=== PATIENT | male | born 1925 | race Caucasian/White ===

== ENCOUNTER → 2016-06-07 | Outpatient (CLI) | payer MEDICARE, OTHER ==
[~2016-06-07] MED LIST: ATOR1TAB18 PO; COUM2.5T PO; CYCL1TAB29 PO; CYCL5TAB PO; FERR325T PO; FURO40TA PO; GUAI100S7 PO; HYDR-3533 PO; IPRASOL INH; LEUP1INJ10 SQ; LISI10TA PO; METO50TA PO; MULTTAB23 PO; NORC5TAB PO; POTA10TA8 PO; PRED20 PO; TEMA30CA PO; [UNRECOGNIZED DRUG - CODE] PO; [UNRECOGNIZED DRUG - CODE] TOPICAL
[2016-06-07 09:35] LABS: AUTOMATED NEUTROPHIL # 2.2 TH/MM3 (1.8-7.7); BASOPHIL % 0.9 % (0.0-2.0); EOSINOPHIL # 0.5 TH/MM3 (0-0.4); HEMO FLAGS DIFF FINAL; LYMPH % 34.3 % (9.0-44.0); LYMPHOCYTE # 1.8 TH/MM3 (1.0-4.8); MEAN CELL VOLUME 91.7 FL (80.0-100.0); MEAN CORPUSCULAR HEMOGLOBIN 29.5 PG (27.0-34.0); MEAN CORPUSCULAR HGB CONC 32.1 % (32.0-36.0); MONO % 12.4 % (0.0-8.0); NEUT % 42.4 % (16.0-70.0); PLATELET COUNT 180 TH/MM3 (150-450); RED BLOOD COUNT 3.49 MIL/MM3 (4.50-5.90); RED CELL DISTRIBUTION WIDTH 13.4 % (11.6-17.2); WHITE BLOOD COUNT 5.1 TH/MM3 (4.0-11.0)
[2016-06-07 10:02] LABS: ALKALINE PHOSPHATASE 84 U/L (45-117); ALT (GPT) 22 U/L (12-78); ANION GAP 4 MEQ/L (5-15); AST (GOT) 23 U/L (15-37); BICARBONATE 39.6 MEQ/L (21.0-32.0); BLOOD UREA NITROGEN 14 MG/DL (7-18); CHLORIDE 98 MEQ/L (98-107); GLOMERULAR FILTRATION RATE 55 ML/MIN (>89); GLUCOSE,FASTING 94 MG/DL (74-99); HDL CHOLESTEROL 63.9 MG/DL (40.0-60.0); LDL CHOLESTEROL 60 MG/DL (0-99); POTASSIUM 4.4 MEQ/L (3.5-5.1); SODIUM (NA) 142 MEQ/L (136-145); TOTAL BILIRUBIN ADULT 0.3 MG/DL (0.2-1.0)
== END ==
LOC: CLAB 08:58
PROVIDERS: ATTEND Internal Medicine Cardiovascular Disease
DX: I48.91 Unspecified atrial fibrillation (principal); I50.9 Heart failure, unspecified; E78.5 Hyperlipidemia, unspecified; I10 Essential (primary) hypertension; Z79.899 Other long term (current) drug therapy
CPT/HCPCS: 36415; 80053; 80061; 85025

== ENCOUNTER 2016-06-26 08:48 | Emergency (ER) | payer MEDICARE, OTHER ==
[~2016-06-26] VITALS: Ht 170.2 cm; Wt 58.0 kg
[~2016-06-26 08:48] MED LIST changes: -COUM2.5T PO; -CYCL1TAB29 PO; -CYCL5TAB PO; -FERR325T PO; -HYDR-3533 PO; -NORC5TAB PO
[2016-06-26 09:02] VITALS: BP 105/59; PULSE 73; RESP 16; TEMP 98.1; O2SAT 98
[2016-06-26] MEDS ORDERED: ONDANSETRON HCL 4 MG/2 ML VIAL IV PUSH ONE (09:15)
[2016-06-26] MEDS ORDERED: MORPHINE SULFATE 4 MG/ML INJ IV PUSH ONE (09:15)
[2016-06-26] MEDS ORDERED: TETANUS/DIPHTHERIA TOXOID ADULT 0.5 ML VIAL IM ONE (09:15)
--- NOTE | 2016-06-26 09:24 | PD ---
HPI Chief Complaint: Fall Time Seen by Provider: 09:08 Travel History International Travel<30 days: No Contact w/Intl Traveler<30days: No Traveled to known affect area: No History of Present Illness HPI The patient is a 89 year-old male who presents to the emergency department with his daughter after a fall at home. The patient got up to use the restroom when he apparently fell at home, striking the right back. The patient complains of abrasions and pain located along the right middle to lower back. The patient is on Coumadin and oxygen at home. The patient denies any chest pain, acute shortness of breath, nausea, vomiting, or abdominal pain. He does complain of difficulty urinating this morning, thought he had to urinate when he got up to use the restroom, however, currently does not have to urinate. 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 The patient denies a loss of consciousness with the fall, headache, or neck pain. Symptoms are moderate, exacerbated after falling, and mildly alleviated after receiving pain medications at home. PFSH Past Medical History Hx Anticoagulant Therapy: Yes Arthritis: No Asthma: No Atrial Fibrillation: Yes Autoimmune Disease: No Anxiety: Yes Depression: No Heart Rhythm Problems: Yes Cancer: Yes (Prostate and bladder CA) Cardiac Catheterization: Yes (2009) Cardiovascular Problems: Yes High Cholesterol: Yes Chemotherapy: No Chest Pain: Yes Congestive Heart Failure: Yes COPD: Yes Cerebrovascular Accident: No Coronary Artery Disease: Yes Diabetes: No Diminished Hearing: Yes (HEARING AIDES) Endocrine: No Gastrointestinal Disorders: Yes (CHRONIC CONSTIPATION.) GERD: No Genitourinary: Yes (BLADDER CANCER TX WITH INJECTED MEDS) Headaches: No Hepatitis: No Hiatal Hernia: Yes Hypertension: Yes Immune Disorder: No Implanted Vascular Access Dvce: Yes Kidney Stones: No Musculoskeletal: Yes Neurologic: Yes Psychiatric: Yes Reproductive: No Respiratory: Yes () Migraines: No Myocardial Infarction: Yes (1978) Radiation Therapy: No Renal Failure: No Seizures: No Sleep Apnea: No Ulcer: No Past Surgical History Abdominal Surgery: Yes (INGUINAL HERNIA-BILAT.) Appendectomy: No Body Medical Devices: CARDIAC VALVE Cardiac Surgery: Yes (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) Cholecystectomy: No Coronary Artery Bypass Graft: Yes Coronary Stent: Yes Ear Surgery: No Endocrine Surgery: No Eye Surgery: No Genitourinary Surgery: Yes (PROSTATE SX; TUR-BLADDER TUMOR) Gynecologic Surgery: No Neurologic Surgery: No Oral Surgery: No Thoracic Surgery: No Tonsillectomy: Yes Valve Replacement: Yes (AORTIC 2009) Other Surgery: Yes (HERNIA REPAIR) Social History Alcohol Use: No Tobacco Use: Yes (Chews tobacco) Substance Use: No Allergies-Medications (Allergen,Severity, Reaction): Coded Allergies: *MDRO Multi-Drug Resistant Organism (Verified Allergy, Unknown, 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 Reported Meds & Prescriptions Reported Meds & Active Scripts Active Reported Polyethylene Glycol 3350 (Polyethylene Glycol 3350 (Bulk) 1 Gra Gra 1 Drop PO DAILY Temazepam 30 Mg Cap 30 Mg PO HS PRN Potassium Chloride CR (Potassium Chloride) 10 Meq Tab 10 Meq PO BID Multi For Him 50+ (Multiple Vitamins W/ Minerals) 1 Tab Tab 1 Tab PO DAILY Metoprolol Tartrate 50 Mg Tab 50 Mg PO BID Eligard (Leuprolide Acetate (3 Month)) 22.5 Mg Inj 45 Mg SQ EVERY 6 MONTHS Gnp Hydrocortisone (Hydrocortisone (Topical)) 0.5 % Cre 0.5 Applic TOPICAL DIRECTED Lisinopril-Hctz 10-12.5 Mg Tab 1 Tab PO DAILY Guaifenesin Liq (Guaifenesin) 100 mg/5 ML Soln 100 Mg PO Q8HR PRN Furosemide 40 Mg Tab 40 Mg PO DAILY Atorvastatin (Atorvastatin Calcium) 80 Mg Tab 80 Mg PO HS Duoneb (Ipratropium-Albuterol Neb) 0.5-2.5 Mg/3 Ml Neb 1 Nebule INH Q8HR NEB Review of Systems Except as stated in HPI: all other systems reviewed are Neg HENT: No: Headaches, Neck Pain Cardiovascular: No: Chest Pain or Discomfort Respiratory: No: Shortness of Breath Gastrointestinal: No: Nausea, Vomiting, Abdominal Pain Genitourinary: Positive: Hesitancy Musculoskeletal: Positive: Pain Neurologic: No: Headache, Change in Mentation Physical Exam Narrative GENERAL: Awake, alert, 89-year-old male who appears his stated age and is in no acute respiratory distress. SKIN: Warm and dry. HEAD: Atraumatic. Normocephalic. EYES: No injection or drainage. ENT: No nasal bleeding or discharge. Mucous membranes pink and moist. NECK: Trachea midline. No JVD. CARDIOVASCULAR: Regular rate and rhythm. No murmur appreciated. RESPIRATORY: Prolonged expiratory phase. GASTROINTESTINAL: Abdomen soft, mild distention the suprapubic region, but no rebound tenderness. Back: Significant kyphosis noted. Abrasions and hematomas noted along the mid right thoracic and right lumbar region. MUSCULOSKELETAL: Lower extremities have compression stockings and place. Left foot has a brace in place. NEUROLOGICAL: Awake and alert. No obvious cranial nerve deficits. Motor grossly within normal limits. Normal speech. Nonfocal. PSYCHIATRIC: Appropriate mood and affect; insight and judgment normal. Data Data Last Documented VS Vital Signs Date Time Temp Pulse Resp B/P Pulse Ox O2 Delivery O2 Flow Rate FiO2 06/26/16 10:24 15 06/26/16 09:16 97 Nasal Cannula 3 06/26/16 09:02 98.1 73 105/59 Orders Complete Blood Count With Diff (06/26/16 09:15) Basic Metabolic Panel (Bmp) (06/26/16 09:15) Act Partial Throm Time (Ptt) (06/26/16 09:15) Prothrombin Time / Inr (Pt) (06/26/16 09:15) Ct Abd/Pel W Iv Contrast(Rout) (06/26/16 ) Ct Thorax/ Chest W Iv Contrast (06/26/16 ) Tetanus/Diphtheria Tox Adult (Tetanus/Di (06/26/16 09:15) Morphine Inj (Morphine Inj) (06/26/16 09:15) Ondansetron Inj (Zofran Inj) (06/26/16 09:15) Iohexol 350 Inj (Omnipaque 350 Inj) (06/26/16 11:02) Labs Laboratory Tests Test 06/26/16 09:48 White Blood Count 6.9 TH/MM3 Red Blood Count 3.49 MIL/MM3 Hemoglobin 10.2 GM/DL Hematocrit 32.1 % Mean Corpuscular Volume 91.8 FL Mean Corpuscular Hemoglobin 29.2 PG Mean Corpuscular Hemoglobin 31.8 % Concent Red Cell Distribution Width 13.3 % Platelet Count 136 TH/MM3 Mean Platelet Volume 8.5 FL Neutrophils (%) (Auto) 65.9 % Lymphocytes (%) (Auto) 13.3 % Monocytes (%) (Auto) 8.7 % Eosinophils (%) (Auto) 11.4 % Basophils (%) (Auto) 0.7 % Neutrophils # (Auto) 4.6 TH/MM3 Lymphocytes # (Auto) 0.9 TH/MM3 Monocytes # (Auto) 0.6 TH/MM3 Eosinophils # (Auto) 0.8 TH/MM3 Basophils # (Auto) 0.0 TH/MM3 CBC Comment DIFF FINAL Differential Comment Prothrombin Time 19.1 SEC Prothromb Time International 1.7 RATIO Ratio Activated Partial 28.2 SEC Thromboplast Time Sodium Level 146 MEQ/L Potassium Level 4.7 MEQ/L Chloride Level 101 MEQ/L Carbon Dioxide Level 42.2 MEQ/L Anion Gap 3 MEQ/L Blood Urea Nitrogen 19 MG/DL Creatinine 1.60 MG/DL Estimat Glomerular Filtration 41 ML/MIN Rate Random Glucose 136 MG/DL Calcium Level 8.8 MG/DL [facility] Medical Decision Making Medical Screen Exam Complete: Yes Emergency Medical Condition: Yes Medical Record Reviewed: Yes Interpretation(s) Laboratory Tests Test 06/26/16 09:48 White Blood Count 6.9 TH/MM3 Red Blood Count 3.49 MIL/MM3 Hemoglobin 10.2 GM/DL Hematocrit 32.1 % Mean Corpuscular Volume 91.8 FL Mean Corpuscular Hemoglobin 29.2 PG Mean Corpuscular Hemoglobin 31.8 % Concent Red Cell Distribution Width 13.3 % Platelet Count 136 TH/MM3 Mean Platelet Volume 8.5 FL Neutrophils (%) (Auto) 65.9 % Lymphocytes (%) (Auto) 13.3 % Monocytes (%) (Auto) 8.7 % Eosinophils (%) (Auto) 11.4 % Basophils (%) (Auto) 0.7 % Neutrophils # (Auto) 4.6 TH/MM3 Lymphocytes # (Auto) 0.9 TH/MM3 Monocytes # (Auto) 0.6 TH/MM3 Eosinophils # (Auto) 0.8 TH/MM3 Basophils # (Auto) 0.0 TH/MM3 CBC Comment DIFF FINAL Differential Comment Prothrombin Time 19.1 SEC Prothromb Time International 1.7 RATIO Ratio Activated Partial 28.2 SEC Thromboplast Time Sodium Level 146 MEQ/L Potassium Level 4.7 MEQ/L Chloride Level 101 MEQ/L Carbon Dioxide Level 42.2 MEQ/L Anion Gap 3 MEQ/L Blood Urea Nitrogen 19 MG/DL Creatinine 1.60 MG/DL Estimat Glomerular Filtration 41 ML/MIN Rate Random Glucose 136 MG/DL Calcium Level 8.8 MG/DL CT of the thorax reveals 2.2 cm spiculated mass peripheral aspect of the right upper lung characteristic for primary lung cancer. Severe COPD, no acute infiltrates. Prominent abdominal aortic aneurysm measuring 5.3 cm which is increased in size compared to the prior ultrasound. CT of the abdomen and pelvis reveals abdominal aortic aneurysm measuring 5.4 x 4.8 cm. Increased in size compared to the prior ultrasound. 2.3 cm left hepatic cyst. Multiple splenic granulomas. Differential Diagnosis Differential diagnosis includes acute peritoneal hemorrhage, hematoma, rib fracture, nephritic contusion, urinary hesitancy, BPH, urinary retention, coagulopathy, abrasion, contusion. Narrative Course IV was established, labs are drawn and sent, and the patient was placed on cardiac telemetry monitoring and continuous pulse oximetry monitoring. The patient was administered morphine and Zofran for his symptoms. The patient's tetanus shot was updated. CT of the thorax and abdomen/pelvis were ordered to rule out retroperitoneal hematoma/hemorrhage. The patient's labs are unremarkable except for mild anemia with hemoglobin 10.2, Coumadin was slightly subtherapeutic at 1.7. The patient's creatinine is mildly elevated. CT of the thorax reveals a 2.2 cm spiculated mass in the right lung, the daughter and patient were made aware of the findings and advised to follow-up with her primary physician for outpatient investigation if deemed appropriate. Patient is also noted to have a AAA, daughter states there is a history of AAA and he is followed by his risk lead, Dr. Maldonado. The patient's AAA is slightly larger on CT then previous ultrasound, patient and daughter were made aware this findings. The patient is advised to follow-up with his primary physician, risk lead, return if symptoms worsen or progress. The patient will be prescribed hydrocodone/acetaminophen for pain. Wound care instructions to abrasions. Return if symptoms worsen or progress. Diagnosis Primary Impression: Fall Qualified Code: W19.XXXA - Fall, initial encounter Additional Impressions: Back pain Qualified Code: M54.6 - Acute right-sided thoracic back pain Multiple contusions Patient Instructions: General Instructions Additional Instructions: Please provide a patient a copy of his CT results and lab results at discharge. Follow-up with her primary physician for right lung mass. Follow-up with her risk lead for the AAA. Pain medication as directed. Return if symptoms worsen or progress. Med/Other Pt SpecificInfo: Prescription(s) given Scripts Hydrocodone-Acetaminophen (Elrama)5-325 mg Tab1 Tab PO Q6H PRN (PAIN) #15 TAB Ref 0 Prov:Cory Vegas MD 06/26/16 Disposition: 01 DISCHARGE HOME Condition: Stable Cory Vegas MD Jun 26, 2016 09:24
[2016-06-26 09:58] LABS: AUTOMATED NEUTROPHIL # 4.6 TH/MM3 (1.8-7.7); BASOPHIL % 0.7 % (0.0-2.0); EOSINOPHIL # 0.8 TH/MM3 (0-0.4); EOSINOPHIL % 11.4 % (0.0-4.0); HEMATOCRIT 32.1 % (39.0-51.0); HEMO FLAGS DIFF FINAL; LYMPH % 13.3 % (9.0-44.0); LYMPHOCYTE # 0.9 TH/MM3 (1.0-4.8); MEAN CELL VOLUME 91.8 FL (80.0-100.0); MEAN CORPUSCULAR HEMOGLOBIN 29.2 PG (27.0-34.0); MEAN CORPUSCULAR HGB CONC 31.8 % (32.0-36.0); MONO % 8.7 % (0.0-8.0); NEUT % 65.9 % (16.0-70.0); PLATELET COUNT 136 TH/MM3 (150-450); RED BLOOD COUNT 3.49 MIL/MM3 (4.50-5.90); RED CELL DISTRIBUTION WIDTH 13.3 % (11.6-17.2); WHITE BLOOD COUNT 6.9 TH/MM3 (4.0-11.0)
[2016-06-26 10:07] LABS: POTASSIUM 4.7 MEQ/L (3.5-5.1)
[2016-06-26 10:10] LABS: BICARBONATE 42.2 MEQ/L (21.0-32.0)
[2016-06-26 10:11] LABS: APTT (PATIENT) 28.2 SEC (24.3-30.1); INTERNATIONAL NORMALIZED RATIO 1.7 RATIO; PROTHROMBIN TIME - PATIENT 19.1 SEC (9.8-11.6)
[2016-06-26 10:24] VITALS: RESP 15
[2016-06-26] MEDS ORDERED: IOHEXOL 350 MG/ML 10 ML VIAL (for RAD DIAG) IV ONE (11:02)
--- NOTE | 2016-06-26 11:20 | RADHPO ---
EXAM DATE/TIME: 06/26/2016 10:32 [facility] COMPARISON: US AORTA, December 21, 2014, 17:35. CHEST SINGLE AP, April 08, 2016, 10:34. INDICATIONS : Fall today on coumadin with right posterior hematoma and pain. IV CONTRAST: 90 cc Omnipaque 350 (iohexol) IV RADIATION DOSE: 15.14 CTDIvol (mGy) MEDICAL HISTORY : Congestive hearrt failure. Chronic obstructive pulmonary disease. Myocardial infarction. SURGICAL HISTORY : CABG aortic valve replacement, spinal surgery ENCOUNTER: Initial ACUITY: 1 day PAIN SCALE: 3/10 LOCATION: Right upper back TECHNIQUE: Volumetric scanning of the chest was performed. Using automated exposure control and adjustment of t he mA and/or kV according to patient size, radiation dose was kept as low as reasonably achievable to obtain optimal diagnostic quality images. 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 There is a spiculated 2.2 cm pleural-based mass in the peripheral right upper lung suspicious for neoplastic disease. No acute pulmonary infiltrates are demonstrated. Chronic interstitial changes are noted bilaterally. PLEURA: Mild pleural thickening. No effusions. MEDIASTINUM: The heart and great vessels demonstrate no acute abnormality. There is no mediastinal or hilar lymph adenopathy. AXILLAE: Within normal limits. No lymphadenopathy. SKELETAL: Diffuse primary degenerative changes. MISCELLANEOUS: There is a cyst in the left lobe of liver. There is aneurysmal dilatation of the midabdominal aorta m easuring 5.3 x 4.8 cm. Patient has a known history of an aortic aneurysm. Compared to an ultrasound f rom 12/21/2014, the aneurysm appears to be increased in size. CONCLUSION: 1. 2.2 cm spiculated mass peripheral aspect of the right upper lung characteristic for primary lung c ancer. 2. Severe COPD. No acute infiltrates. 3. Prominent abdominal aortic aneurysm measuring 5.3 cm which is increased in size compared to the pr ior ultrasound. Brice España MD on June 26, 2016 at 11:14 Board Certified Radiologist. This report was verified electronically.
--- NOTE | 2016-06-26 11:25 | RADHPO ---
EXAM DATE/TIME: 06/26/2016 10:32 [facility] COMPARISON: US AORTA, December 21, 2014, 17:35. INDICATIONS : Fall today on coumadin with right posterior hematoma and pain. IV CONTRAST: 90 cc Omnipaque 350 (iohexol) IV ; Cumulative dose for multiple exams. ORAL CONTRAST: No oral contrast ingested. RADIATION DOSE: 15.14 CTDIvol (mGy) ; Combined studies MEDICAL HISTORY : Hernia, hiatal. Carcinoma, prostate. Hypertension. SURGICAL HISTORY : Inguinal hernia repair. CABGprostate and bladder surgery, spinal surgery ENCOUNTER: Initial ACUITY: 1 day PAIN SCALE: 3/10 LOCATION: Right flank TECHNIQUE: Volumetric scanning of the abdomen and pelvis was performed. Using automated exposure control and ad justment of the mA and/or kV according to patient size, radiation dose was kept as low as reasonably achievable to obtain optimal diagnostic quality images. FINDINGS: LOWER LUNGS: The visualized lower lungs are clear. LIVER: Homogeneous density. There is a 2.3 cm hepatic cyst in the left lobe of the liver. There is no dilat ion of the biliary tree. No calcified gallstones. SPLEEN: Normal size without lesion. Multiple granulomas. PANCREAS: Within normal limits. KIDNEYS: Normal in size and shape. There is no mass, stone or hydronephrosis. ADRENAL GLANDS: Within normal limits. VASCULAR: Diffuse abdominal dilatation of the mid to lower aorta measuring 5.4 x 4.8 cm characteristic of an ao rtic aneurysm. This is increased in size compared to a prior ultrasound. No free fluid is seen. The a neurysm does not appear to extend into the iliac arteries. BOWEL/MESENTERY: The stomach, small bowel, and colon demonstrate no acute abnormality. There is no free intraperitone al air or fluid. ABDOMINAL WALL: Within normal limits. RETROPERITONEUM: There is no lymphadenopathy. BLADDER: No wall thickening or mass. REPRODUCTIVE: Within normal limits. INGUINAL: There is no lymphadenopathy or hernia. MUSCULOSKELETAL: Diffuse osteopenia. Primary bony degenerative changes with evidence of previous kyphoplasty. There is evidence of previous lumbar spinal surgery with fusion. Otherwise, the bony structures are grossly i ntact. CONCLUSION: 1. Abdominal aortic aneurysm measuring 5.4 x 4.8 cm. Increased in size compared to the prior ultrasou nd. 2. 2.3 cm left hepatic cyst. 3. Multiple splenic granulomas. Brice España MD on June 26, 2016 at 11:19 Board Certified Radiologist. This report was verified electronically.
[2016-06-26 11:27] VITALS: BP 136/79
[2016-06-26] MEDS ORDERED: NORC5TAB PO (11:31)
== END 2016-06-26 11:55 | disposition home or self-care (01) ==
LOC: PHED 08:48
DX: M54.6 Pain in thoracic spine (principal); M54.9 Dorsalgia, unspecified; S30.810A Abrasion of lower back and pelvis, initial encounter; W01.10XA Fall on same level from slipping, tripping and stumbling with subsequent striking against unspecified object, initial encounter; Y93.01 Activity, walking, marching and hiking; Y92.009 Unspecified place in unspecified non-institutional (private) residence as the place of occurrence of the external cause; I48.91 Unspecified atrial fibrillation; I25.10 Atherosclerotic heart disease of native coronary artery without angina pectoris; I10 Essential (primary) hypertension; Z79.01 Long term (current) use of anticoagulants; Z23 Encounter for immunization; Z72.0 Tobacco use; Z99.81 Dependence on supplemental oxygen
CPT/HCPCS: 71260; 74177; 80048; 85025; 85610; 85730; 90471; 90714; 96374; 96375; 99284; J2270; J2405; Q9967

== ENCOUNTER 2016-07-23 13:18 | Emergency (ER) | payer MEDICARE, OTHER ==
[~2016-07-23] VITALS: Ht 172.7 cm; Wt 55.0 kg
[~2016-07-23 13:18] MED LIST changes: +NORC5TAB PO; -PRED20 PO
[2016-07-23 13:41] VITALS: BP 111/71; PULSE 82; RESP 16; TEMP 98.5; O2SAT 99
[2016-07-23 14:54] LABS: BLOOD, URINE NEG (NEG); GLUCOSE,URINE NEG (NEG); KETONE, URINE NEG (NEG); NITRITE,URINE NEG (NEG)
[2016-07-23 15:05] LABS: METHOD OF COLLECTION VOIDED; URINE COLOR YELLOW (YELLW/STRAW)
[2016-07-23 15:06] LABS: HYALINE CAST, URINE 0-2 /lpf (RARE); SQUAMOUS EPITHELIAL CELL URINE 0-2 /hpf (0-5)
[2016-07-23 15:07] LABS: COMMENT (UR) CULT NOT INDICATED; CULTURE IF INDICATED CULT NOT INDICATED
--- NOTE | 2016-07-23 15:07 | PD ---
HPI Chief Complaint: groin pain Time Seen by Provider: 15:07 Travel History International Travel<30 days: No Contact w/Intl Traveler<30days: No Traveled to known affect area: No History of Present Illness HPI 89-year-old male who is extremely frail-appearing was brought to the emergency room by his daughter with history of left groin pain complaint. Patient has had this pain for past 3-4 days. This morning when the daughter went to check on him she noticed that he was in his recliner reclined which is unusual for him. Upon asking he said that it was because of the pain. She decided to bring him to the emergency room to be checked. Vital signs are stable. Upon asking where he was hurting he pointed to his left groin fold almost down to the scrotum. He is unable to describe the pain very well. He just says it hurts. Patient is frail and extremely kyphotic. He has trouble ambulating on her baseline. Daughter says that he fell about 4 weeks ago and was brought to the emergency room when he had CAT scans done. He was told that there is no internal injury. [facility]LY [facility], [facility] Past Medical History Narrative Medical List of his past medical and social history as reviewed from the nursing note. Hx Anticoagulant Therapy: Yes Arthritis: No Asthma: No Atrial Fibrillation: Yes Autoimmune Disease: No Anxiety: Yes Depression: No Heart Rhythm Problems: Yes Cancer: Yes (Prostate and bladder CA) Cardiac Catheterization: Yes (2009) Cardiovascular Problems: Yes High Cholesterol: Yes Chemotherapy: No Chest Pain: Yes Congestive Heart Failure: Yes COPD: Yes Cerebrovascular Accident: No Coronary Artery Disease: Yes Diabetes: No Diminished Hearing: Yes (HEARING AIDES) Endocrine: No Gastrointestinal Disorders: Yes (CHRONIC CONSTIPATION.) GERD: No Genitourinary: Yes (BLADDER CANCER TX WITH INJECTED MEDS) Headaches: No Hepatitis: No Hiatal Hernia: Yes Hypertension: Yes Immune Disorder: No Implanted Vascular Access Dvce: Yes Kidney Stones: No Musculoskeletal: Yes Neurologic: Yes Psychiatric: Yes Reproductive: No Respiratory: Yes () Migraines: No Myocardial Infarction: Yes (1978) Radiation Therapy: No Renal Failure: No Seizures: No Sleep Apnea: No Ulcer: No Past Surgical History Abdominal Surgery: Yes (INGUINAL HERNIA-BILAT.) Appendectomy: No Body Medical Devices: CARDIAC VALVE Cardiac Surgery: Yes (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) Cholecystectomy: No Coronary Artery Bypass Graft: Yes Coronary Stent: Yes Ear Surgery: No Endocrine Surgery: No Eye Surgery: No Genitourinary Surgery: Yes (PROSTATE SX; TUR-BLADDER TUMOR) Gynecologic Surgery: No Neurologic Surgery: No Oral Surgery: No Thoracic Surgery: No Tonsillectomy: Yes Valve Replacement: Yes (AORTIC 2009) Other Surgery: Yes (HERNIA REPAIR) Social History Alcohol Use: No Tobacco Use: Yes (Chews tobacco) Substance Use: No Allergies-Medications (Allergen,Severity, Reaction): Coded Allergies: *MDRO Multi-Drug Resistant Organism (Verified Allergy, Unknown, 07/23/16) mrsa sputum 2009 Comments List of his allergies reviewed from the nursing note. Reported Meds & Prescriptions Reported Meds & Active Scripts Active Flexeril (Cyclobenzaprine HCl) 10 Mg Tab 10 Mg PO TID Mobile (Hydrocodone-Acetaminophen) 5-325 mg Tab 1 Tab PO Q6H PRN Reported Polyethylene Glycol 3350 (Polyethylene Glycol 3350 (Bulk) 1 Gra Gra 1 Drop PO DAILY Temazepam 30 Mg Cap 30 Mg PO HS PRN Potassium Chloride CR (Potassium Chloride) 10 Meq Tab 10 Meq PO BID Multi For Him 50+ (Multiple Vitamins W/ Minerals) 1 Tab Tab 1 Tab PO DAILY Metoprolol Tartrate 50 Mg Tab 50 Mg PO BID Eligard (Leuprolide Acetate (3 Month)) 22.5 Mg Inj 45 Mg SQ EVERY 6 MONTHS Gnp Hydrocortisone (Hydrocortisone (Topical)) 0.5 % Cre 0.5 Applic TOPICAL DIRECTED Lisinopril-Hctz 10-12.5 Mg Tab 1 Tab PO DAILY Guaifenesin Liq (Guaifenesin) 100 mg/5 ML Soln 100 Mg PO Q8HR PRN Furosemide 40 Mg Tab 40 Mg PO DAILY Atorvastatin (Atorvastatin Calcium) 80 Mg Tab 80 Mg PO HS Duoneb (Ipratropium-Albuterol Neb) 0.5-2.5 Mg/3 Ml Neb 1 Nebule INH Q8HR NEB Narrative Medication List of his home medications reviewed from the nursing note. Review of Systems Except as stated in HPI: all other systems reviewed are Neg Physical Exam Narrative GENERAL: Awake, alert, elderly, frail, moderate distress SKIN: Warm and dry. HEAD: Atraumatic. Normocephalic. EYES: Pupils equal and round. No scleral icterus. No injection or drainage. ENT: No nasal bleeding or discharge. Mucous membranes pink and moist. NECK: Trachea midline. No JVD. CARDIOVASCULAR: Regular rate and rhythm. No murmur appreciated. RESPIRATORY: No accessory muscle use. Clear to auscultation. Breath sounds equal bilaterally. GASTROINTESTINAL: Abdomen soft, non-tender, nondistended. Hepatic and splenic margins not palpable. Tenderness over the pubic bone. No hernia or scrotal sac swelling MUSCULOSKELETAL: No obvious deformities. No clubbing. No cyanosis. No edema. NEUROLOGICAL: Awake and alert. No obvious cranial nerve deficits. Motor grossly within normal limits. Normal speech. PSYCHIATRIC: Appropriate mood and affect; insight and judgment normal. Data Data Last Documented VS Orders Urinalysis - C+S If Indicated (07/23/16 13:35) Complete Blood Count With Diff (07/23/16 15:24) Comprehensive Metabolic Panel (07/23/16 15:24) Prothrombin Time / Inr (Pt) (07/23/16 15:24) Ct Abd/Pel W/O Iv Contrast (07/23/16 15:24) Iv Access Insert/Monitor (07/23/16 15:24) Ecg Monitoring (07/23/16 15:24) Oximetry (07/23/16 15:24) Morphine Inj (Morphine Inj) (07/23/16 15:30) Sodium Chloride 0.9% Flush (Ns Flush) (07/23/16 15:30) Labs MDM Medical Decision Making Medical Screen Exam Complete: Yes Emergency Medical Condition: Yes Medical Record Reviewed: Yes Differential Diagnosis Pelvic fracture, UTI, diverticulitis Narrative Course 3:56 PM awaiting for the blood test results and the CAT scan to be done and resulted. Patient has been medicated for pain. UA was within normal limits. Case has been signed over to the oncoming ER physician. Procedures EKG Prior to Arrival: No Scripts Cyclobenzaprine (Flexeril)10 Mg Tab10 Mg PO TID #20 TAB Ref 0 Prov:Tee Boyce MD 07/23/16 Hydrocodone-Acetaminophen (Mobile)5-325 mg Tab1 Tab PO Q6H PRN (PAIN) #20 TAB Ref 0 Prov:Tee Boyce MD 07/23/16 Laquita Sharif MD Jul 23, 2016 15:07 Urine Protein NEG mg/dL Urine Glucose (UA) NEG mg/dL Urine Ketones NEG mg/dL Urine Occult Blood NEG Urine Nitrite NEG Urine Bilirubin NEG Urine Leukocyte Esterase NEG Urine Squamous Epithelial 0-2 /hpf Cells Urine Hyaline Casts 0-2 /lpf Microscopic Urinalysis Comment CULT NOT INDICATED Sodium Level 142 MEQ/L Potassium Level 5.1 MEQ/L Chloride Level 96 MEQ/L [facility] Medical Decision Making Medical Screen Exam Complete: Yes Emergency Medical Condition: Yes Medical Record Reviewed: Yes Differential Diagnosis Pelvic fracture, UTI, diverticulitis Narrative Course 3:56 PM awaiting for the blood test results and the CAT scan to be done and resulted. Patient has been medicated for pain. UA was within normal limits. Case has been signed over to the oncoming ER physician. Procedures EKG Prior to Arrival: Laquita Keita MD Jul 23, 2016 15:07
[2016-07-23] MEDS ORDERED: MORPHINE SULFATE 4 MG/ML INJ IV PUSH ONE (15:30)
[2016-07-23] MEDS ORDERED: SODIUM CHLORIDE 0.9% FLUSH 5 ML FLUSH IVF PRN (15:30)
[2016-07-23 15:44] LABS: AUTOMATED NEUTROPHIL # 2.8 TH/MM3 (1.8-7.7); BASOPHIL # 0.1 TH/MM3 (0-0.2); BASOPHIL % 1.2 % (0.0-2.0); EOSINOPHIL # 0.7 TH/MM3 (0-0.4); EOSINOPHIL % 12.1 % (0.0-4.0); HEMATOCRIT 31.9 % (39.0-51.0); HEMO FLAGS DIFF FINAL; LYMPH % 27.7 % (9.0-44.0); LYMPHOCYTE # 1.5 TH/MM3 (1.0-4.8); MEAN CELL VOLUME 92.7 FL (80.0-100.0); MEAN CORPUSCULAR HEMOGLOBIN 28.5 PG (27.0-34.0); MEAN CORPUSCULAR HGB CONC 30.7 % (32.0-36.0); MONO % 9.9 % (0.0-8.0); NEUT % 49.1 % (16.0-70.0); PLATELET COUNT 185 TH/MM3 (150-450); RED BLOOD COUNT 3.44 MIL/MM3 (4.50-5.90); RED CELL DISTRIBUTION WIDTH 14.1 % (11.6-17.2); WHITE BLOOD COUNT 5.6 TH/MM3 (4.0-11.0)
[2016-07-23 15:51] LABS: CHLORIDE 96 MEQ/L (98-107); POTASSIUM 5.1 MEQ/L (3.5-5.1); SODIUM (NA) 142 MEQ/L (136-145)
[2016-07-23 15:55] LABS: BLOOD UREA NITROGEN 20 MG/DL (7-18); INTERNATIONAL NORMALIZED RATIO 1.9 RATIO; PROTHROMBIN TIME - PATIENT 21.7 SEC (9.8-11.6)
[2016-07-23 15:58] LABS: ALT (GPT) 24 U/L (12-78); AST (GOT) 30 U/L (15-37); GLOMERULAR FILTRATION RATE 44 ML/MIN (>89)
[2016-07-23 16:00] LABS: TOTAL BILIRUBIN ADULT 0.3 MG/DL (0.2-1.0)
[2016-07-23 16:01] LABS: ALKALINE PHOSPHATASE 174 U/L (45-117)
[2016-07-23 16:05] VITALS: BP 139/75; PULSE 75; RESP 16; O2SAT 100
[2016-07-23 16:13] LABS: ANION GAP 1 MEQ/L (5-15); BICARBONATE GREATER THAN 45.0 MEQ/L (21.0-32.0)
[2016-07-23 17:20] VITALS: BP 163/64; PULSE 82; RESP 16; O2SAT 100
--- NOTE | 2016-07-23 18:13 | RADHPO ---
EXAM DATE/TIME: 07/23/2016 17:39 [facility] COMPARISON: CT ABDOMEN & PELVIS W CONTRAST, June 26, 2016, 10:32. INDICATIONS : Left sided groin pain. ORAL CONTRAST: No oral contrast ingested. RADIATION DOSE: 19.41 CTDIvol (mGy) MEDICAL HISTORY : Myocardial infarction. Carcinoma, prostate. Chronic obstructive pulmonary disease. SURGICAL HISTORY : CABG Inguinal hernia repair.Fusion, lumbar. ENCOUNTER: Initial ACUITY: 1 day PAIN SCALE: 7/10 LOCATION: Left pelvis TECHNIQUE: Volumetric scanning of the abdomen and pelvis was performed. Using automated exposure control and ad justment of the mA and/or kV according to patient size, radiation dose was kept as low as reasonably achievable to obtain optimal diagnostic quality images. FINDINGS: LOWER LUNGS: The visualized lower lungs are clear. LIVER: Unchanged 2.3 cm hypodensity left hepatic lobe. SPLEEN: No acute abnormality. Numerous small granulomata. PANCREAS: Within normal limits. KIDNEYS: Both kidneys are slightly small. No hydronephrosis. No stone seen. ADRENAL GLANDS: Within normal limits. VASCULAR: There is tortuous, atherosclerotic and aneurysmal abdominal aorta. Maximal diameter is about 5.4 cm, not significantly changed. No inflammatory changes, periaortic edema or other evidence of imminent ru pture. BOWEL/MESENTERY: Nonobstructive pattern. No inflammatory changes. Moderate stool throughout the colon. ABDOMINAL WALL: Low ventral hernia repair without recurrent defect seen. RETROPERITONEUM: There is no lymphadenopathy. BLADDER: No wall thickening or mass. REPRODUCTIVE: Within normal limits. INGUINAL: There is no lymphadenopathy or hernia. MUSCULOSKELETAL: No acute bony abnormality demonstrated. Severe degenerative changes are seen of the spine. CONCLUSION: 1. No acute abnormality or clear etiology for reported groin pain. 2. Stable aneurysm of the abdominal aorta, about 5.4 cm maximum. 3. Stable cysts of the liver. Cole Leone MD on July 23, 2016 at 18:08 Board Certified Radiologist. This report was verified electronically.
--- NOTE | 2016-07-23 18:34 | PD ---
Physical Exam Date Seen by Provider: Jul 23, 2016 Time Seen by Provider: 18:32 Narrative This 89-year-old male is complaining of intermittent pain in the left groin area. He indicates an area in the left inguinal area quite deep around the bone. Been going on for several days. The pain can be quite severe several hours resolves. There is been no trauma though a month ago he had a fall and had a CT of his pelvis which was negative. He is on Coumadin. He is known to have an abdominal aortic aneurysm. This is been discussed with and apparently he is not thought to be a candidate for any treatment. He did take some Lortab after his fall and his daughter is also been given Flexeril for pain which seems to help. On my examination I do not feel any masses. Hurting him does not appear tender at this time is not having pain now. CT scan is negative. Lab work is similar to baseline labs. She does again show the abdominal aortic aneurysm. Patient is stable for discharge. Etiology of the pain is not present currently. His daughter says he gets some relief with Lortab and I will prescribed some Data Data Last Documented VS Vital Signs Date Time Temp Pulse Resp B/P Pulse Ox O2 Delivery O2 Flow Rate FiO2 07/23/16 18:35 84 16 167/58 99 Nasal Cannula 4 07/23/16 13:41 98.5 Orders Urinalysis - C+S If Indicated (07/23/16 13:35) Complete Blood Count With Diff (07/23/16 15:24) Comprehensive Metabolic Panel (07/23/16 15:24) Prothrombin Time / Inr (Pt) (07/23/16 15:24) Ct Abd/Pel W/O Iv Contrast (07/23/16 15:24) Iv Access Insert/Monitor (07/23/16 15:24) Ecg Monitoring (07/23/16 15:24) Oximetry (07/23/16 15:24) Morphine Inj (Morphine Inj) (07/23/16 15:30) Sodium Chloride 0.9% Flush (Ns Flush) (07/23/16 15:30) Labs Laboratory Tests Test 07/23/16 07/23/16 14:39 15:30 Urine Collection Type VOIDED Urine Color YELLOW Urine Turbidity CLEAR Urine pH 6.0 Urine Specific [place] 1.015 Urine Protein NEG mg/dL Urine Glucose (UA) NEG mg/dL Urine Ketones NEG mg/dL Urine Occult Blood NEG Urine Nitrite NEG Urine Bilirubin NEG Urine Leukocyte Esterase NEG Urine Squamous Epithelial 0-2 /hpf Cells Urine Hyaline Casts 0-2 /lpf Microscopic Urinalysis Comment CULT NOT INDICATED White Blood Count 5.6 TH/MM3 Red Blood Count 3.44 MIL/MM3 Hemoglobin 9.8 GM/DL Hematocrit 31.9 % Mean Corpuscular Volume 92.7 FL Mean Corpuscular Hemoglobin 28.5 PG Mean Corpuscular Hemoglobin 30.7 % Concent Red Cell Distribution Width 14.1 % Platelet Count 185 TH/MM3 Mean Platelet Volume 8.0 FL Neutrophils (%) (Auto) 49.1 % Lymphocytes (%) (Auto) 27.7 % Monocytes (%) (Auto) 9.9 % Eosinophils (%) (Auto) 12.1 % Basophils (%) (Auto) 1.2 % Neutrophils # (Auto) 2.8 TH/MM3 Lymphocytes # (Auto) 1.5 TH/MM3 Monocytes # (Auto) 0.5 TH/MM3 Eosinophils # (Auto) 0.7 TH/MM3 Basophils # (Auto) 0.1 TH/MM3 CBC Comment DIFF FINAL Differential Comment Prothrombin Time 21.7 SEC Prothromb Time International 1.9 RATIO Ratio Sodium Level 142 MEQ/L Potassium Level 5.1 MEQ/L Chloride Level 96 MEQ/L Carbon Dioxide Level GREATER THAN 45.0 MEQ/L Anion Gap 1 MEQ/L Blood Urea Nitrogen 20 MG/DL Creatinine 1.50 MG/DL Estimat Glomerular Filtration 44 ML/MIN Rate Random Glucose 118 MG/DL Calcium Level 9.2 MG/DL Total Bilirubin 0.3 MG/DL Aspartate Amino Transf 30 U/L (AST/SGOT) Alanine Aminotransferase 24 U/L (ALT/SGPT) Alkaline Phosphatase 174 U/L Total Protein 6.9 GM/DL Albumin 3.2 GM/DL [facility] Medical Record Reviewed: Yes Supervised Visit with ANA: No Differential Diagnosis Differential includes hernia, bony abnormalities, neuralgia Narrative Course CBC and urine are negative. CT scan does not reveal an etiology for pain. Patient is taking Lortab for pain before and I will prescribe some this pain is keeping him awake. Follow-up with his own medical doctor Diagnosis Primary Impression: Left groin pain Scripts Cyclobenzaprine (Flexeril)10 Mg Tab10 Mg PO TID #20 TAB Ref 0 Prov:Tee Boyce MD 07/23/16 Hydrocodone-Acetaminophen ([place])5-325 mg Tab1 Tab PO Q6H PRN (PAIN) #20 TAB Ref 0 Prov:Tee Boyce MD 07/23/16 Disposition: 01 DISCHARGE HOME Condition: Stable Tee Boyce MD Jul 23, 2016 18:34
[2016-07-23 18:35] VITALS: BP 167/58; PULSE 84; RESP 16; O2SAT 99
[2016-07-23] MEDS ORDERED: CYCL1TAB29 PO (18:35)
[2016-07-23] MEDS ORDERED: NORC5TAB PO (18:35)
== END 2016-07-23 18:50 | disposition home or self-care (01) ==
LOC: PHED 13:18
DX: R10.32 Left lower quadrant pain (principal)
CPT/HCPCS: 74176; 80053; 81001; 85025; 85610; 96374; 99284; J2270

== ENCOUNTER 2016-08-15 18:59 | Inpatient (IN) | payer OTHER, MEDICARE ==
[~2016-08-15] VITALS: Ht 172.7 cm; Wt 53.5 kg
[~2016-08-15 18:59] MED LIST changes: +CYCL1TAB29 PO
[2016-08-15 19:13] VITALS: BP 134/67; PULSE 81; RESP 18; TEMP 98.2; O2SAT 97
--- NOTE | 2016-08-15 19:53 | PD ---
HPI Chief Complaint: Foreign Body Time Seen by Provider: 19:36 Travel History International Travel<30 days: No Contact w/Intl Traveler<30days: No Traveled to known affect area: No History of Present Illness HPI The patient is an 89-year-old male that has had problems swallowing for about 2 days. He cannot swallow any liquids. He has had no pain. On June [address] chest revealed a 2.2 cm mass in the right upper lung. A follow-up PET scan reveals a minimally dilated-2cm diameter esophagus. This was done at [facility]. The esophageal dilatation was over the entire esophagus-from the GE junction to the jeremy. The patient has been followed by Dr. Amador. His primary care physician apparently is at the [facility] but Dr. Amador as been following this patient and directed him to see radiation oncology. The patient has heart disease and cannot tolerate chemotherapy. He apparently has not seen a jowl trimmer. The patient has COPD and a lung biopsy was not recommended by Dr. Amador because of his lung problems. The patient is on Coumadin. 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) Cardiac Catheterization: Yes (2009) Cardiovascular Problems: Yes High Cholesterol: Yes Chemotherapy: No Chest Pain: Yes Congestive Heart Failure: Yes COPD: Yes Cerebrovascular Accident: No Coronary Artery Disease: Yes Diabetes: No Diminished Hearing: Yes (HEARING AIDES) Endocrine: No Gastrointestinal Disorders: Yes (CHRONIC CONSTIPATION.) GERD: No Genitourinary: Yes (BLADDER CANCER TX WITH INJECTED MEDS) Headaches: No Hepatitis: No Hiatal Hernia: Yes Hypertension: Yes Immune Disorder: No Implanted Vascular Access Dvce: Yes Kidney Stones: No Musculoskeletal: Yes Neurologic: Yes Psychiatric: Yes Reproductive: No Respiratory: Yes () Migraines: No Myocardial Infarction: Yes (1978) Radiation Therapy: No Renal Failure: No Seizures: No Sleep Apnea: No Ulcer: No Past Surgical History Abdominal Surgery: Yes (INGUINAL HERNIA-BILAT.) Appendectomy: No Body Medical Devices: CARDIAC VALVE Cardiac Surgery: Yes (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) Cholecystectomy: No Coronary Artery Bypass Graft: Yes Coronary Stent: Yes Ear Surgery: No Endocrine Surgery: No Eye Surgery: No Genitourinary Surgery: Yes (PROSTATE SX; TUR-BLADDER TUMOR) Gynecologic Surgery: No Neurologic Surgery: No Oral Surgery: No Thoracic Surgery: No Tonsillectomy: Yes Valve Replacement: Yes (AORTIC 2009) Other Surgery: Yes (HERNIA REPAIR) Social History Alcohol Use: No Tobacco Use: Yes (Chews tobacco) Substance Use: No Allergies-Medications (Allergen,Severity, Reaction): Coded Allergies: *MDRO Multi-Drug Resistant Organism (Verified Allergy, Unknown, 08/15/16) mrsa sputum 2009 Reported Meds & Prescriptions Reported Meds & Active Scripts Active Flexeril (Cyclobenzaprine HCl) 10 Mg Tab 10 Mg PO TID [place] (Hydrocodone-Acetaminophen) 5-325 mg Tab 1 Tab PO Q6H PRN Reported Polyethylene Glycol 3350 (Polyethylene Glycol 3350 (Bulk) 1 Gra Gra 1 Drop PO DAILY Temazepam 30 Mg Cap 30 Mg PO HS PRN Potassium Chloride CR (Potassium Chloride) 10 Meq Tab 10 Meq PO BID Multi For Him 50+ (Multiple Vitamins W/ Minerals) 1 Tab Tab 1 Tab PO DAILY Metoprolol Tartrate 50 Mg Tab 50 Mg PO BID Eligard (Leuprolide Acetate (3 Month)) 22.5 Mg Inj 45 Mg SQ EVERY 6 MONTHS Gnp Hydrocortisone (Hydrocortisone (Topical)) 0.5 % Cre 0.5 Applic TOPICAL DIRECTED Lisinopril-Hctz 10-12.5 Mg Tab 1 Tab PO DAILY Guaifenesin Liq (Guaifenesin) 100 mg/5 ML Soln 100 Mg PO Q8HR PRN Furosemide 40 Mg Tab 40 Mg PO DAILY Atorvastatin (Atorvastatin Calcium) 80 Mg Tab 80 Mg PO HS Duoneb (Ipratropium-Albuterol Neb) 0.5-2.5 Mg/3 Ml Neb 1 Nebule INH Q8HR NEB Review of Systems Except as stated in HPI: all other systems reviewed are Neg Physical Exam Narrative GENERAL: The patient appears slightly dehydrated, alert and oriented 3. His vital signs are normal. SKIN: Warm and dry. HEAD: Atraumatic. Normocephalic. EYES: Pupils equal and round. No scleral icterus. No injection or drainage. ENT: No nasal bleeding or discharge. Mucous membranes pink and moist. NECK: Trachea midline. No JVD. CARDIOVASCULAR: Regular rate and rhythm. No murmur appreciated. RESPIRATORY: No accessory muscle use. Clear to auscultation. Breath sounds equal bilaterally. GASTROINTESTINAL: Abdomen soft, non-tender, nondistended. Hepatic and splenic margins not palpable. MUSCULOSKELETAL: No obvious deformities. No clubbing. No cyanosis. No edema. NEUROLOGICAL: Awake and alert. No obvious cranial nerve deficits. Motor grossly within normal limits. Normal speech. PSYCHIATRIC: Appropriate mood and affect; insight and judgment normal. Data Data Last Documented VS Vital Signs Date Time Temp Pulse Resp B/P Pulse Ox O2 Delivery O2 Flow Rate FiO2 08/15/16 19:13 98.2 81 18 134/67 97 Orders Complete Blood Count With Diff (08/15/16 19:53) Comprehensive Metabolic Panel (08/15/16 19:53) Prothrombin Time / Inr (Pt) (08/15/16:53) Act Partial Throm Time (Ptt) (08/15/16:53) Magnesium (Mg) (08/15/16:53) Thyroid Stimulating Hormone (08/15/16 19:53) Iv Access Insert/Monitor (08/15/16 20:00) Ecg Monitoring (08/15/16 20:00) Oximetry (08/15/16 20:00) Sodium Chlor 0.9% 1000 Ml Inj (Ns 1000 M (08/15/16 20:00) Sodium Chlor 0.9% 1000 Ml Inj (Ns 1000 M (08/15/16 20:00) Sodium Chloride 0.9% Flush (Ns Flush) (08/15/16 20:00) Admit Order (Ed Use Only) (08/15/16 20:24) Admit Order (Ed Use Only) (08/15/16 20:24) Labs Laboratory Tests Test 08/15/16 20:00 White Blood Count 6.8 TH/MM3 Red Blood Count 3.54 MIL/MM3 Hemoglobin 10.6 GM/DL Hematocrit 32.8 % Mean Corpuscular Volume 92.7 FL Mean Corpuscular Hemoglobin 29.8 PG Mean Corpuscular Hemoglobin 32.2 % Concent Red Cell Distribution Width 13.4 % Platelet Count 146 TH/MM3 Mean Platelet Volume 8.8 FL Neutrophils (%) (Auto) 53.5 % Lymphocytes (%) (Auto) 20.1 % Monocytes (%) (Auto) 10.0 % Eosinophils (%) (Auto) 14.5 % Basophils (%) (Auto) 1.9 % Neutrophils # (Auto) 3.6 TH/MM3 Lymphocytes # (Auto) 1.4 TH/MM3 Monocytes # (Auto) 0.7 TH/MM3 Eosinophils # (Auto) 1.0 TH/MM3 Basophils # (Auto) 0.1 TH/MM3 CBC Comment DIFF FINAL Differential Comment Prothrombin Time 25.4 SEC Prothromb Time International 2.2 RATIO Ratio Activated Partial 34.2 SEC Thromboplast Time Sodium Level 147 MEQ/L Potassium Level 4.9 MEQ/L Chloride Level 102 MEQ/L Carbon Dioxide Level 41.7 MEQ/L Anion Gap 3 MEQ/L Blood Urea Nitrogen 31 MG/DL Creatinine 2.10 MG/DL Estimat Glomerular Filtration 30 ML/MIN Rate Random Glucose 112 MG/DL Calcium Level 9.3 MG/DL Magnesium Level 2.5 MG/DL Total Bilirubin 0.4 MG/DL Aspartate Amino Transf 35 U/L (AST/SGOT) Alanine Aminotransferase 27 U/L (ALT/SGPT) Alkaline Phosphatase 104 U/L Total Protein 7.2 GM/DL Albumin 3.5 GM/DL Thyroid Stimulating Hormone 2.480 uIU/ML [address] [place] [address] Medical Decision Making Medical Screen Exam Complete: Yes Emergency Medical Condition: Yes Medical Record Reviewed: Yes Interpretation(s) The CBC shows a hemoglobin of 10.6 and hematocrit 32.8. The complete metabolic profile shows a sodium of 147, bicarbonate of 41.7 with anion gap of 3, BUN 21 and creatinine 2.1 but is otherwise unremarkable. The TSH is normal. The magnesium is normal. The coagulation profile shows a ProTime of 25.4 and a PTT of 34.2 and an INR of 2.2. Differential Diagnosis Esophageal foreign body, achalasia, esophageal stricture, tumor near esophagus causing pressure/obstruction Narrative Course The patient has no history of foreign body of the esophagus. He does have esophageal dilatation over the entire esophagus and no evidence of stricture or tumor near the esophagus. 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 A stricture at the GE junction is also possible. Plan: The patient will be admitted to [facility] service at [facility], Dr. Dodson and will scope the patient there Tuesday morning. He requested that we admit the patient to [facility]. Physician Communication Physician Communication I discussed the patient with Drs. Song and Rafita. Diagnosis Primary Impression: Esophageal obstruction Additional Impression: Lung neoplasm Admitting Information Admitting Physician Requests: Admit Derick Chau MD Aug 15, 2016 19:53
[2016-08-15] MEDS ORDERED: SODIUM CHLORIDE 0.9% FLUSH 5 ML FLUSH IVF PRN (20:00)
[2016-08-15] MEDS ORDERED: SODIUM CHLOR 0.9% 1000 ML INJ 1,000 ML IV SCH ×3 (20:00→20:32)
[2016-08-15 20:15] LABS: AUTOMATED NEUTROPHIL # 3.6 TH/MM3 (1.8-7.7); BASOPHIL # 0.1 TH/MM3 (0-0.2); BASOPHIL % 1.9 % (0.0-2.0); EOSINOPHIL % 14.5 % (0.0-4.0); HEMATOCRIT 32.8 % (39.0-51.0); HEMO FLAGS DIFF FINAL; LYMPH % 20.1 % (9.0-44.0); LYMPHOCYTE # 1.4 TH/MM3 (1.0-4.8); MEAN CELL VOLUME 92.7 FL (80.0-100.0); MEAN CORPUSCULAR HEMOGLOBIN 29.8 PG (27.0-34.0); MEAN CORPUSCULAR HGB CONC 32.2 % (32.0-36.0); NEUT % 53.5 % (16.0-70.0); PLATELET COUNT 146 TH/MM3 (150-450); RED BLOOD COUNT 3.54 MIL/MM3 (4.50-5.90); RED CELL DISTRIBUTION WIDTH 13.4 % (11.6-17.2); WHITE BLOOD COUNT 6.8 TH/MM3 (4.0-11.0)
[2016-08-15 20:23] LABS: CHLORIDE 102 MEQ/L (98-107); POTASSIUM 4.9 MEQ/L (3.5-5.1); SODIUM (NA) 147 MEQ/L (136-145)
[2016-08-15 20:27] LABS: ANION GAP 3 MEQ/L (5-15); APTT (PATIENT) 34.2 SEC (24.3-30.1); BICARBONATE 41.7 MEQ/L (21.0-32.0); BLOOD UREA NITROGEN 31 MG/DL (7-18); INTERNATIONAL NORMALIZED RATIO 2.2 RATIO; MAGNESIUM 2.5 MG/DL (1.5-2.5); PROTHROMBIN TIME - PATIENT 25.4 SEC (9.8-11.6)
[2016-08-15 20:30] LABS: ALT (GPT) 27 U/L (12-78); AST (GOT) 35 U/L (15-37); GLOMERULAR FILTRATION RATE 30 ML/MIN (>89)
[2016-08-15 20:31] LABS: TOTAL BILIRUBIN ADULT 0.4 MG/DL (0.2-1.0)
[2016-08-15 20:33] LABS: ALKALINE PHOSPHATASE 104 U/L (45-117)
[2016-08-15] MEDS ORDERED: ACETAMINOPHEN 1000 MG/100 ML VIAL IV PRN (20:45)
[2016-08-15] MEDS ORDERED: BISACODYL 10 MG SUPP PR PRN (20:45)
[2016-08-15] MEDS ORDERED: MORPHINE SULFATE 4 MG/ML INJ IV PRN ×2 (20:45)
[2016-08-15] MEDS ORDERED: ONDANSETRON HCL 4 MG/2 ML VIAL IVP PRN (20:45)
[2016-08-15] MEDS ORDERED: SODIUM CHLORIDE 0.9% FLUSH 5 ML FLUSH FLUSH PRN (20:45)
--- NOTE | 2016-08-15 20:59 | RADHPO ---
EXAM DATE/TIME: 08/15/2016 20:41 [facility] COMPARISON: CT THORAX W CONTRAST, June 26, 2016, 10:32. CHEST SINGLE AP, April 08, 2016, 10:34. INDICATIONS : Difficulty swallowing. History of abnormal PET/CT with dilated esophagus.. Lung mass. MEDICAL HISTORY : Myocardial infarction. Carcinoma, prostate. Chronic obstructive pulmonary disease. SURGICAL HISTORY : CABG. ENCOUNTER: Subsequent ACUITY: 2 days PAIN SCORE: 2/10 LOCATION: Bilateral chest FINDINGS: 2 AP portable views of the chest were obtained and demonstrate the patient status post median sternot bernard. The heart size is mildly enlarged with no perihilar edema. There is hyperinflation with streaky coarse opacity at the lung bases most consistent with scarring. There are no confluent infiltrates or effusions. The bony thorax is intact. There are atherosclerotic calcifications in the aorta. CONCLUSION: 1. Cardiomegaly with no evidence of pulmonary edema. 2. Apparent scarring at the lung bases. 3. Hyperinflation consistent with underlying emphysema. 4. The known lung mass seen on CT is not well-visualized. Omar Henriquez MD on August 15, 2016 at 20:56 Board Certified Radiologist. This report was verified electronically.
[2016-08-15] MEDS: SODIUM CHLORIDE 0.9% FLUSH 5 ML FLUSH FLUSH SCH (21:00)
[2016-08-15 21:30] VITALS: BP 142/72; PULSE 85; RESP 18; O2SAT 97
[2016-08-15] MEDS ORDERED: COUM2.5T PO (21:34)
[2016-08-16] VITALS (9 sets, daily range): BP systolic 109–167; BP diastolic 61–84; PULSE 91–111; RESP 16–22; TEMP 96.3–98.8; O2SAT 92–97
[2016-08-16] MEDS: RESP: ALBUTEROL 2.5 MG/IPRATROPIUM 0.5 MG NEB (PRN) NEB ×3 (03:56→21:12)
[2016-08-16 06:59] LABS: AUTOMATED NEUTROPHIL # 5.1 TH/MM3 (1.8-7.7); BASOPHIL # 0.1 TH/MM3 (0-0.2); EOSINOPHIL # 0.7 TH/MM3 (0-0.4); EOSINOPHIL % 7.9 % (0.0-4.0); HEMATOCRIT 28.7 % (39.0-51.0); HEMO FLAGS DIFF FINAL; LYMPH % 19.6 % (9.0-44.0); LYMPHOCYTE # 1.6 TH/MM3 (1.0-4.8); MEAN CELL VOLUME 92.8 FL (80.0-100.0); MEAN CORPUSCULAR HEMOGLOBIN 30.6 PG (27.0-34.0); MEAN CORPUSCULAR HGB CONC 32.9 % (32.0-36.0); MONO % 9.2 % (0.0-8.0); NEUT % 62.3 % (16.0-70.0); PLATELET COUNT 120 TH/MM3 (150-450); RED BLOOD COUNT 3.09 MIL/MM3 (4.50-5.90); RED CELL DISTRIBUTION WIDTH 13.8 % (11.6-17.2); WHITE BLOOD COUNT 8.2 TH/MM3 (4.0-11.0)
[2016-08-16 07:03] LABS: ANION GAP 6 MEQ/L (5-15); AST (GOT) 29 U/L (15-37); BICARBONATE 33.9 MEQ/L (21.0-32.0); BLOOD UREA NITROGEN 26 MG/DL (7-18); CHLORIDE 105 MEQ/L (98-107); GLOMERULAR FILTRATION RATE 41 ML/MIN (>89); POTASSIUM 4.5 MEQ/L (3.5-5.1); SODIUM (NA) 145 MEQ/L (136-145)
[2016-08-16 07:12] LABS: ALKALINE PHOSPHATASE 83 U/L (45-117); ALT (GPT) 20 U/L (12-78); TOTAL BILIRUBIN ADULT 0.4 MG/DL (0.2-1.0)
[2016-08-16] MEDS: SODIUM CHLORIDE 0.9% FLUSH 5 ML FLUSH FLUSH SCH ×2 (08:54→20:10)
--- NOTE | 2016-08-16 09:01 | PD.CONS ---
HPI History of Present Illness This is a 89 year old male who came to the emergency room for inability to swallow. The patient has a history of COPD and is on 3 L of O2 at home. He also has a history of coronary artery disease and atrial fibrillation and takes Coumadin. He last had this yesterday. He was recently diagnosed with stage III lung cancer and is being followed by Dr. Jessica and Dr. Stephenson. The plan is for him to start radiation therapy without chemotherapy, but this hasn't been started as of yet. He reports a long history of difficulty swallowing, with solids getting caught in his upper esophagus. He states that he's been able to control this for some time by eating soft foods, small bites, and drinking lots of water with his meals. More recently, his symptoms have been worsening and is been having more issues with even soft foods getting caught in his upper esophagus. Over the past few weeks he's lost about 16 pounds. End over the past 2 days he reports that he is not able to tolerate any solids or liquids. He reports that this was gradual and he did not have a single episode that aggravated his symptoms. He reports that he has been constantly bringing up mucus for several days. He denies any heartburn or reflux. He denies any abdominal pain, melena, or hematochezia. He reports that he recently had a PET scan performed as outpt and that this revealed an esophageal obstruction. GI has been consulted for further evaluation. The patient reports that he has a significant cardiac history and he would like for us to speak to Dr. Maldonado, his tree surgeon prior to scheduling him for any procedures. 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 Medications Allergies Coded Allergies Type Severity Reaction Last Updated Verified *MDRO Multi-Drug Resistant Organism Allergy Unknown 08/15/16 Yes Active Scripts Medications Dose Route/Sig Days Date Category Coumadin (Warfarin) 2.5 Mg Tab 2.5 Mg PO DAILY 08/15/16 Reported Flexeril (Cyclobenzaprine HCl) 10 Mg Tab 10 Mg PO TID 07/23/16 Rx [place] (Hydrocodone-Acetaminophen) 5-325 mg Tab 1 Tab PO Q6H PRN 07/23/16 Rx Polyethylene Glycol 3350 (Polyethylene Glycol 3350 (Bulk) 1 Gra Gra 1 Drop PO DAILY 04/08/16 Reported Temazepam 30 Mg Cap 30 Mg PO HS PRN 04/08/16 Reported Potassium Chloride CR (Potassium Chloride) 10 Meq Tab 10 Meq PO BID 04/08/16 Reported Multi For Him 50+ (Multiple Vitamins W/ Minerals) 1 Tab Tab 1 Tab PO DAILY 04/08/16 Reported Metoprolol Tartrate 50 Mg Tab 50 Mg PO BID 04/08/16 Reported Eligard (Leuprolide Acetate (3 Month)) 22.5 Mg Inj 45 Mg SQ EVERY 6 MONTHS 04/08/16 Reported Gnp Hydrocortisone (Hydrocortisone (Topical)) 0.5 % Cre 0.5 Applic TOPICAL DIRECTED 04/08/16 Reported Lisinopril-Hctz 10-12.5 Mg Tab 1 Tab PO DAILY 04/08/16 Reported Guaifenesin Liq (Guaifenesin) 100 mg/5 ML Soln 100 Mg PO Q8HR PRN 04/08/16 Reported Furosemide 40 Mg Tab 40 Mg PO DAILY 04/08/16 Reported Atorvastatin (Atorvastatin Calcium) 80 Mg Tab 80 Mg PO HS 04/08/16 Reported Duoneb (Ipratropium-Albuterol Neb) 0.5-2.5 Mg/3 Ml Neb 1 Nebule INH Q8HR NEB 04/08/16 Reported Family History Noncontributory Social History Patient smoked cigarettes for 16 years, quit 50 years ago. He continues to use chewing tobacco No alcohol use (Laurie Chapman) Review of Systems Constitutional: COMPLAINS OF: Fatigue, Weight loss, DENIES: Change in appetite Respiratory: COMPLAINS OF: Cough, Sputum production, Shortness of breath Cardiovascular: DENIES: Chest pain Gastrointestinal: COMPLAINS OF: Vomiting, Difficulty Swallowing, DENIES: Abdominal pain, Black stools, Bloody stools, Constipation, Diarrhea, Nausea, Swelling of Abdomen, Heartburn, Hematemesis Musculoskeletal: COMPLAINS OF: Joint pain Integumentary: DENIES: Abnormal pigmentation Hematologic/lymphatic: COMPLAINS OF: Bruising Neurologic: DENIES: Headache Psychiatric: DENIES: Confusion (Laurie Chapman) GI Exam Vitals I&O Vital Signs Date Time Temp Pulse Resp B/P Pulse Ox O2 Delivery O2 Flow Rate FiO2 08/16/16 08:23 93 Nasal Cannula 3.00 08/16/16 04:00 96.3 95 18 167/73 93 08/16/16 00:15 Nasal Cannula 2.00 08/16/16 00:00 97.7 99 22 143/73 94 08/15/16 21:30 85 18 142/72 97 Nasal Cannula 2 08/15/16 19:13 98.2 81 18 134/67 97 I/O 08/15/16 08/15/16 08/15/16 08/16/16 08/16/16 08/16/16 07:00 15:00 23:00 07:00 15:00 23:00 Intake Total 1000 ml Output Total 350 ml Balance 1000 ml -350 ml Intake IV Total 1000 ml Output Urine Total 350 ml Imaging Last Impressions Chest X-Ray 08/15/16 0000 Signed Impressions: Service Date/Time: Monday, August 15, 2016 20:41 - CONCLUSION: 1. Cardiomegaly with no evidence of pulmonary edema. 2. Apparent scarring at the lung bases. 3. Hyperinflation consistent with underlying emphysema. 4. The known lung mass seen on CT is not well-visualized. Omar Henriquez MD Laboratory Test 08/15/16 08/16/16 20:00 06:00 White Blood Count 6.8 TH/MM3 8.2 TH/MM3 Red Blood Count 3.54 MIL/MM3 3.09 MIL/MM3 Hemoglobin 10.6 GM/DL 9.5 GM/DL Hematocrit 32.8 % 28.7 % Mean Corpuscular Volume 92.7 FL 92.8 FL Mean Corpuscular Hemoglobin 29.8 PG 30.6 PG Mean Corpuscular Hemoglobin 32.2 % 32.9 % Concent Red Cell Distribution Width 13.4 % 13.8 % Platelet Count 146 TH/MM3 120 TH/MM3 Mean Platelet Volume 8.8 FL 9.1 FL Neutrophils (%) (Auto) 53.5 % 62.3 % Lymphocytes (%) (Auto) 20.1 % 19.6 % Monocytes (%) (Auto) 10.0 % 9.2 % Eosinophils (%) (Auto) 14.5 % 7.9 % Basophils (%) (Auto) 1.9 % 1.0 % Neutrophils # (Auto) 3.6 TH/MM3 5.1 TH/MM3 Lymphocytes # (Auto) 1.4 TH/MM3 1.6 TH/MM3 Monocytes # (Auto) 0.7 TH/MM3 0.8 TH/MM3 Eosinophils # (Auto) 1.0 TH/MM3 0.7 TH/MM3 Basophils # (Auto) 0.1 TH/MM3 0.1 TH/MM3 CBC Comment DIFF FINAL DIFF FINAL Differential Comment Prothrombin Time 25.4 SEC Prothromb Time International 2.2 RATIO Ratio Activated Partial 34.2 SEC Thromboplast Time Sodium Level 147 MEQ/L 145 MEQ/L Potassium Level 4.9 MEQ/L 4.5 MEQ/L Chloride Level 102 MEQ/L 105 MEQ/L Carbon Dioxide Level 41.7 MEQ/L 33.9 MEQ/L Anion Gap 3 MEQ/L 6 MEQ/L Blood Urea Nitrogen 31 MG/DL 26 MG/DL Creatinine 2.10 MG/DL 1.61 MG/DL Estimat Glomerular Filtration 30 ML/MIN 41 ML/MIN Rate Random Glucose 112 MG/DL 85 MG/DL Calcium Level 9.3 MG/DL 9.2 MG/DL Magnesium Level 2.5 MG/DL Total Bilirubin 0.4 MG/DL 0.4 MG/DL Aspartate Amino Transf 35 U/L 29 U/L (AST/SGOT) Alanine Aminotransferase 27 U/L 20 U/L (ALT/SGPT) Alkaline Phosphatase 104 U/L 83 U/L Total Protein 7.2 GM/DL 6.0 GM/DL Albumin 3.5 GM/DL 2.8 GM/DL Thyroid Stimulating Hormone 2.480 uIU/ML 3rd Gen Physical Examination HEENT: Normocephalic; atraumatic; no jaundice. CHEST: Resp. shallow/even, extremely diminished, O2 3L via n/c CARDIAC: Irregular ABDOMEN: Soft, nondistended, nontender; no hepatosplenomegaly; bowel sounds are present in all four quadrants. EXTREMITIES: No clubbing, cyanosis, or edema. SKIN: Normal; no rash; no jaundice. FOOD SELECTOR: No focal deficits; Lethargic and oriented times three. (Laurie Chapman) Assessment and Plan Plan ASSESSMENT: - Esophageal obstruction, Dysphagia. Pt has been having issues with solids getting caught for many months- was able to control this by eating small bites, soft foods. This has progressively been worsening to the point that he cannot tolerate purees and now cannot even take liquids (2-3 days). Recent outpt PET scan revealed esophageal obstruction per daughter. NPO. D/W patient and daughter further evaluation with EGD with foreign body removal, possible dilatation. Pt states that he has significant heart disease and does not want to proceed until we speak with his tree surgeon- Dr. Maldonado. - Anemia. 9.5/28.7. No obvious blood loss. - Acute on chronic renal insufficiency. Creat 1.61. - Recent dx of Stage III Lung Ca (~6 weeks ago), plan is to start radiation without chemotherapy, but this has not been started yet. - Atrial fibrillation, CAD. S/P CABG/Valvular replacement in past. On coumadin at home- last dose was yesterday. Pt is followed by Dr. Maldonado as outpt and does not wish to proceed with endoscopy until we speak with his tree surgeon. Call placed to Dr. Maldonado, spoke to Dr. Weaver with cardiology. Okay to proceed with egd. Will schedule EGD for today. - Severe COPD (followed by Dr. Jessica), HTN, Hyperlipidemia, Hx Prostate/ bladder cancer. PLAN: - Plan for egd with foreign body removal, possible dilatation - Obtain consents - NPO - PPI - Monitor labs - Hold Coumadin for now - Supportive care - Further recommendations to follow based on results of above - Pt seen and examined by Dr. Jeter and myself and this note is written on his behalf (Laurie Chapman) Physician Comments seen, examined agree with above (Jhoana Jeter MD) Laurie Chapman Aug 16, 2016 09:01 Jhoana Jeter MD Aug 16, 2016 20:34
[2016-08-16 09:26] LABS: INTERNATIONAL NORMALIZED RATIO 2.8 RATIO; PROTHROMBIN TIME - PATIENT 31.9 SEC (9.8-11.6)
[2016-08-16] MEDS ORDERED: SODIUM CHLOR 0.9% 250 ML INJ 250 ML IV ONE (10:30)
[2016-08-16] MEDS: PANTOPRAZOLE SODIUM 40 MG VIAL IV PUSH SCH ×2 (11:15→20:09)
--- NOTE | 2016-08-16 12:28 | MB ---
cc: WALLY SEGUNDO DO DATE OF CONSULTATION: August 16, 2016 REASON FOR CONSULTATION Preoperative evaluation for EGD. HISTORY OF PRESENT ILLNESS Rosario Pitts is a pleasant 89-year-old male who presents to [facility] Emergency Room on August 15, 2016 due to inability to swallow. He reports a long history of difficulty to swallow, specifically with solids getting caught in his upper esophagus. He states that he has been able to control this for sometime by eating soft foods with small bites and drinking lots of water with his meals. More recently his symptoms have been worsening and he has been having issues with even soft foods getting caught in his upper esophagus. Over the past few weeks he has lost around 15 pounds. Over the last few days he has been unable to tolerate solids or liquids. Even sometimes unable to swallow his secretions. He states this has been gradual but progressively worse. He has also been constantly bringing up mucus for several days. GI was consulted for consideration of EGD. Because of his extensive cardiac history I was asked to see the patient preoperatively. PAST MEDICAL HISTORY 1. Coronary artery disease. 2. Atrial fibrillation. 3. History of severe aortic stenosis. 4. Abdominal aortic aneurysm. 5. Recently diagnosed stage III lung cancer. 6. COPD on 3 liters home oxygen. 7. Hypertension. 8. Hyperlipidemia. 9. History of prostate cancer. 10. History of bladder cancer. PAST SURGICAL HISTORY 1. Aortic valve replacement (June 06, 2009) using a 21-mm Isabel Navarro Magna pericardial valve. 2. CABG (June 06, 2009) with reverse saphenous vein Y-graft to the LAD and to the obtuse marginal, saphenous vein graft to the distal RCA. 3. TURP. 4. Left carotid endarterectomy. 5. Tonsillectomy. ALLERGIES NO KNOWN DRUG ALLERGIES. MEDICATIONS 1. Lisinopril/hydrochlorothiazide 10/12.5 mg daily 2. Coumadin 2.5 mg daily to keep INR of 2 to 3 3. Eligard 45 mg every 6 months 4. Temazepam 30 mg every night as needed 5. DuoNeb one inhaler every 8 hours as needed 6. Metoprolol tartrate 50 mg b.i.d. 7. Flexeril 10 mg t.i.d. as needed for muscle spasm 8. Lipitor 80 mg every night 9. Lasix 40 mg daily 10. [place] 5/325 mg every 6 hours as needed for pain 11. Potassium chloride ER 10 mEq b.i.d. FAMILY HISTORY Denies premature coronary artery disease or sudden cardiac within the family. SOCIAL HISTORY The patient smokes cigarettes but quit 50 years ago. He continues chewing tobacco. Denies alcohol use. REVIEW OF SYSTEMS 14-systems were reviewed including osteopathic pertinent positives and negatives above, otherwise negative. PHYSICAL EXAMINATION VITAL SIGNS: Temperature 98.4, heart rate 100, blood pressure 159/73, respirations 16, pulse ox 96% on 3 liters. GENERAL: The patient appears chronically ill and somewhat cachectic. HEENT: Extraocular muscles are intact. Mucous membranes appear dry. NECK: Neck is supple. No JVD at 45 degrees. No carotid bruits heard bilaterally. Carotid upstroke is brisk in nature. HEART: Heart is irregularly, irregular with a 2/6 crescendo-decrescendo mid peaking to the right sternal border. LUNGS: Decreased breath sounds at bilateral bases but no overt wheezes, rales or rhonchi. ABDOMEN: Soft, nontender, nondistended. No organomegaly noted. EXTREMITIES: Show no clubbing, cyanosis or edema. Femoral and distal pulses are intact bilaterally. NEUROLOGIC: No focal deficits. OSTEOPATHIC: Mild kyphoscoliosis, no lordosis or paraspinal tender points. LABORATORY DATA Blood work: Hemoglobin 9.5, hematocrit 28.7, platelets 120. INR 2.8, potassium 4.5, BUN 26, creatinine 1.61. IMPRESSION 1. Possible esophageal obstruction versus dysphagia. 2. Recently diagnosed stage III lung cancer. 3. Anemia. 4. History of atrial fibrillation currently on Coumadin for anticoagulation therapy. 5. Coronary artery disease with a history of coronary artery bypass grafting (June 06, 2009). 6. COPD on 3 liters home oxygen. 7. History of hypertension. 8. History of hyperlipidemia. 9. History of peripheral vascular disease status post left carotid endarterectomy. 10. History of severe aortic stenosis status post replacement with a 21 mm Isabel Navarro Magna pericardial valve (June 06, 2009). 11. History of abdominal aortic aneurysm by CT scan (5.4 cm on July 23, 2016). RECOMMENDATIONS 1. I was asked to see Mr. Pitts for consideration of risk assessment preoperatively before EGD. This will be discussed further with GI but at this point there is no risk stratification as this appears to be a urgent procedure as he can barely swallow his secretions and there are no further testing or procedures that I can decrease his risk. This will be further discussed with GI about using MAC over general anesthesia for the procedure. 2. If his Coumadin needs to be held, this can be done as he has a bioprosthetic aortic valve and he is on anticoagulation for his atrial fibrillation. This does put him at some risk for stroke, although this should be relatively low based on his current CHADS vasc score. 3. Further recommendations will be made based on Mr. Pitts's hospital course. Thank you for allowing me to see Rosario Pitts, if there are any questions, please do not hesitate to call. Wally Segundo DO VGP/TLL /11:39 AM /12:03 PM
[2016-08-16] MEDS ORDERED: PROPOFOL 200 MG/20 ML AMP IV ONE (15:00)
--- NOTE | 2016-08-16 15:15 | HHI.HP ---
[facility] Admission Diagnosis esophageal obstruction, lung tumor Diagnoses: Travel History International Travel<30 Days: No Contact w/Intl Traveler <30 Da: No Traveled to Known Affected Are: No History of Present Illness 89-year-old male with a history of lung mass seen on outpatient PET scan, hypertension, hyperlipidemia, coronary artery disease status post CABG, bioprosthetic aortic valve replacement. He says that he has had some form of odynophagia, dysphagia for the past several weeks, but now presents with a 2 day history of worsening dysphagia, odynophagia, unable to swallow anything, including his own secretions. Denies any chest pain or shortness of breath. He does report a 5 pound weight loss over the past 2 days, about 10 pounds over the past couple months. He denies any fevers, chills, chest pain, shortness of breath, nausea, vomiting. He says that he is typically very active, exercising every day. Review of Systems Performed and negative except for history of present illness and past medical history. Past Family Social History Past Medical History Atrial fibrillation Coronary artery disease Recently diagnosed stage III lung cancer COPD on 3 L of O2 via an nasal cannula at home Hypertension Hyperlipidemia History of prostate cancer History of bladder cancer Past Surgical History TURP CABG with aortic valve replacement Left endarterectomy Tonsillectomy Reported Medications Reported Meds & Active Scripts Active Flexeril (Cyclobenzaprine HCl) 10 Mg Tab 10 Mg PO TID [place] (Hydrocodone-Acetaminophen) 5-325 mg Tab 1 Tab PO Q6H PRN Reported Polyethylene Glycol 3350 (Polyethylene Glycol 3350 (Bulk) 1 Gra Gra 1 Drop PO DAILY Temazepam 30 Mg Cap 30 Mg PO HS PRN Potassium Chloride CR (Potassium Chloride) 10 Meq Tab 10 Meq PO BID Multi For Him 50+ (Multiple Vitamins W/ Minerals) 1 Tab Tab 1 Tab PO DAILY Metoprolol Tartrate 50 Mg Tab 50 Mg PO BID Eligard (Leuprolide Acetate (3 Month)) 22.5 Mg Inj 45 Mg SQ EVERY 6 MONTHS Gnp Hydrocortisone (Hydrocortisone (Topical)) 0.5 % Cre 0.5 Applic TOPICAL DIRECTED Lisinopril-Hctz 10-12.5 Mg Tab 1 Tab PO DAILY Guaifenesin Liq (Guaifenesin) 100 mg/5 ML Soln 100 Mg PO Q8HR PRN Furosemide 40 Mg Tab 40 Mg PO DAILY Atorvastatin (Atorvastatin Calcium) 80 Mg Tab 80 Mg PO HS Duoneb (Ipratropium-Albuterol Neb) 0.5-2.5 Mg/3 Ml Neb 1 Nebule INH Q8HR NEB Allergies: Coded Allergies: *MDRO Multi-Drug Resistant Organism (Verified Adverse Reaction, Unknown, ) 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 He continues to use chewing tobacco No alcohol use Physical Exam Vital Signs Vital Signs Date Time Temp Pulse Resp B/P Pulse Ox O2 Delivery O2 Flow Rate FiO2 08/16/16 14:29 96.4 91 18 135/84 96 08/16/16 12:33 98.8 111 18 123/66 97 08/16/16 12:14 97.2 97 18 109/61 94 08/16/16 08:54 98.4 108 16 159/ 96 08/16/16 08:23 93 Nasal Cannula 3.00 08/16/16 04:00 96.3 95 18 167/73 93 08/16/16 00:15 Nasal Cannula 2.00 08/16/16 00:00 97.7 99 22 143/73 94 08/15/16 21:30 85 18 142/72 97 Nasal Cannula 2 08/15/16 19:13 98.2 81 18 134/67 97 Physical Exam GENERAL: Thin 89-year-old male. Appears comfortable. SKIN: No rashes, ecchymoses or lesions. Cool and dry. HEAD: Atraumatic. Normocephalic. No temporal or scalp tenderness. EYES: Pupils equal round and reactive. Extraocular motions intact. No scleral icterus. No injection or drainage. ENT: Nose without bleeding, purulent drainage or septal hematoma. Throat without erythema, tonsillar hypertrophy or exudate. Uvula midline. Airway patent. NECK: Trachea midline. No JVD. Supple, nontender, no meningeal signs. CARDIOVASCULAR: Regular rate and rhythm without murmurs, gallops, or rubs. RESPIRATORY: Clear to auscultation. Breath sounds equal bilaterally. No wheezes , rales, or rhonchi. GASTROINTESTINAL: Abdomen soft, non-tender, nondistended. No hepato-splenomegaly , or palpable masses. No guarding. MUSCULOSKELETAL: Extremities without clubbing, cyanosis, or edema. No joint tenderness, effusion, or edema noted. No calf tenderness. Negative Homans sign bilaterally. NEUROLOGICAL: Awake and alert. Cranial nerves II through XII intact. Motor and sensory grossly within normal limits. Five out of 5 muscle strength in all muscle groups, although with generalized weakness. Normal speech. Laboratory Laboratory Tests Test 08/15/16 08/16/16 08/16/16 08/16/16 20:00 06:00 08:29 10:26 White Blood Count 6.8 8.2 Red Blood Count 3.54 3.09 Hemoglobin 10.6 9.5 Hematocrit 32.8 28.7 Mean Corpuscular Volume 92.7 92.8 Mean Corpuscular Hemoglobin 29.8 30.6 Mean Corpuscular Hemoglobin 32.2 32.9 Concent Red Cell Distribution Width 13.4 13.8 Platelet Count 146 120 Mean Platelet Volume 8.8 9.1 Neutrophils (%) (Auto) 53.5 62.3 Lymphocytes (%) (Auto) 20.1 19.6 Monocytes (%) (Auto) 10.0 9.2 Eosinophils (%) (Auto) 14.5 7.9 Basophils (%) (Auto) 1.9 1.0 Neutrophils # (Auto) 3.6 5.1 Lymphocytes # (Auto) 1.4 1.6 Monocytes # (Auto) 0.7 0.8 Eosinophils # (Auto) 1.0 0.7 Basophils # (Auto) 0.1 0.1 CBC Comment DIFF FINAL DIFF FINAL Differential Comment Prothrombin Time 25.4 31.9 Prothromb Time International 2.2 2.8 Ratio Activated Partial 34.2 Thromboplast Time Sodium Level 147 145 Potassium Level 4.9 4.5 Chloride Level 102 105 Carbon Dioxide Level 41.7 33.9 Anion Gap 3 6 Blood Urea Nitrogen 31 26 Creatinine 2.10 1.61 Estimat Glomerular Filtration 30 41 Rate Random Glucose 112 85 Calcium Level 9.3 9.2 Magnesium Level 2.5 Total Bilirubin 0.4 0.4 Aspartate Amino Transf 35 29 (AST/SGOT) Alanine Aminotransferase 27 20 (ALT/SGPT) Alkaline Phosphatase 104 83 Total Protein 7.2 6.0 Albumin 3.5 2.8 Thyroid Stimulating Hormone 2.480 [place] Comment Test 08/16/16 11:50 Blood Type A NEGATIVE Antibody Screen NEGATIVE Result Diagram: 08/16/16 0600 08/16/16 0600 Imaging Last Impressions Chest X-Ray 08/15/16 0000 Signed Impressions: Service Date/Time: Monday, August 15, 2016 20:41 - CONCLUSION: 1. Cardiomegaly with no evidence of pulmonary edema. 2. Apparent scarring at the lung bases. 3. Hyperinflation consistent with underlying emphysema. 4. The known lung mass seen on CT is not well-visualized. Omar Henriquez MD Assessment and Plan Assessment and Plan //Probable Esophageal obstruction -IV fluids -EGD results pending. -Appreciate GI assistance //Stage III Lung cancer -Pulmonology following. Appreciate assistance. //[place] on CKD stage III -Current and 2.1 on admission. -Improved to 1.6, baseline. //CAD //Atrial fibrillation on anticoagulation. //History of bioprosthetic aortic valve replacement -Reversal of INR with FFP prior to EGD procedure. -Cardiology consulted as per patient request appreciate assistance. -Patient is nothing by mouth. Patient with tachycardia in the 100s, rebound from holding metoprolol. Will schedule metoprolol 5 mg IV every 6 hours. //Hypertension //Hyperlipidemia -By mouth blood pressure and statin medications held for now. -Blood pressure acceptable. Continue to monitor. //Patient uses chewing tobacco. Counseled on cessation. //Hypernatremia. Hypovolemic. 147 on admission. Dehydration from inability to swallow. Improved with fluids. Continue to monitor. //Prophylaxis. SCDs. Requiring EGD with dilation. Holding warfarin. As per gastroenterology. Discussed Condition With Patient, nurse, family member at bedside. Physician Certification 2 Midnight Certification Type: Admission for Inpatient Services Order for Inpatient Services The services are ordered in accordance with Medicare regulations or non- Medicare payer requirements, as applicable. In the case of services not specified as inpatient-only, they are appropriately provided as inpatient services in accordance with the 2-midnight benchmark. Estimated LOS (days): 2 days is the estimated time the patient will need to remain in the hospital, assuming treatment plan goals are met and no additional complications. Post-Hospital Plan: Not yet determined Gaudencio Weldon MD Aug 16, 2016 15:15
[2016-08-16] MEDS ORDERED: DEXT 5%-NACL 0.45% 1000 ML INJ 1,000 ML IV SCH (16:00)
[2016-08-16] MEDS ORDERED: *RESP: ALBUTEROL 2.5 MG/3 ML NEB (PRN) PERIprocedural Use ONLY NEB ONE (17:47)
[2016-08-16] MEDS ORDERED: DO NOT ADM ANY ANTICOAGULANT DRUGS XX PRN (19:00)
[2016-08-16 20:34] LABS: HEMATOCRIT 27.4 % (39.0-51.0); REVIEW FLAG FINAL
[2016-08-16] MEDS: METOPROLOL TARTRATE 50 MG TAB PO SCH (22:15)
[2016-08-16] MEDS: TEMAZEPAM 15 MG CAP PO PRN (22:15)
[2016-08-17] VITALS (7 sets, daily range): BP systolic 107–141; BP diastolic 50–89; PULSE 74–99; RESP 17–22; TEMP 96.9–98.9; O2SAT 94–99
[2016-08-17 06:50] LABS: AUTOMATED NEUTROPHIL # 3.4 TH/MM3 (1.8-7.7); BASOPHIL # 0.1 TH/MM3 (0-0.2); BASOPHIL % 0.9 % (0.0-2.0); EOSINOPHIL # 0.5 TH/MM3 (0-0.4); EOSINOPHIL % 7.7 % (0.0-4.0); HEMATOCRIT 25.7 % (39.0-51.0); HEMO FLAGS DIFF FINAL; LYMPHOCYTE # 1.5 TH/MM3 (1.0-4.8); MEAN CORPUSCULAR HGB CONC 32.3 % (32.0-36.0); MONO % 10.5 % (0.0-8.0); NEUT % 55.9 % (16.0-70.0); PLATELET COUNT 104 TH/MM3 (150-450); RED BLOOD COUNT 2.77 MIL/MM3 (4.50-5.90); WHITE BLOOD COUNT 6.2 TH/MM3 (4.0-11.0)
[2016-08-17 07:21] LABS: BICARBONATE 33.6 MEQ/L (21.0-32.0); POTASSIUM 4.1 MEQ/L (3.5-5.1)
[2016-08-17 09:13] LABS: INTERNATIONAL NORMALIZED RATIO 2.6 RATIO; PROTHROMBIN TIME - PATIENT 30.1 SEC (9.8-11.6)
[2016-08-17] MEDS: PANTOPRAZOLE SODIUM 40 MG VIAL IV PUSH SCH ×2 (09:41→21:08)
[2016-08-17] MEDS: METOPROLOL TARTRATE 50 MG TAB PO SCH ×2 (09:41→21:08)
[2016-08-17] MEDS: SODIUM CHLORIDE 0.9% FLUSH 5 ML FLUSH FLUSH SCH ×2 (09:42→21:07)
--- NOTE | 2016-08-17 10:11 | PD.CARD.PN ---
Subjective Subjective Remarks No chest pain, no shortness of breath Up and ambulating, taking in liquids Objective Medications Current Medications Medications (Trade) Dose Ordered Sig/Teressa Route Start Time Stop Time Status Last Admin (NS Flush) 2 ml UNSCH PRN FLUSH 08/15/16 20:45 (NS Flush) 2 ml BID FLUSH 08/15/16 21:00 08/17/16 09:42 (Zofran Inj) 4 mg Q6H PRN IVP 08/15/16 20:45 (Dulcolax Supp) 10 mg DAILY PRN OR 08/15/16 20:45 (Morphine Inj) 1 mg Q3H PRN IV 08/15/16 20:45 (Morphine Inj) 2 mg Q3H PRN IV 08/15/16 20:45 (Protonix Inj) 40 mg Q12HR IV PUSH 08/16/16 10:30 08/17/16 09:41 Miscellaneous Information ALL NURSING DEPARTME... UNSCH PRN XX 08/16/16 19:00 08/17/16 18:59 (Restoril) 30 mg HS PRN PO 08/16/16 21:45 08/16/16 22:15 (Lopressor) 50 mg BID PO 08/16/16 21:40 08/17/16 09:41 Vital Signs / I&O Vital Signs Date Time Temp Pulse Resp B/P Pulse Ox O2 Delivery O2 Flow Rate FiO2 08/17/16 08:00 97.5 82 20 114/80 94 08/17/16 04:00 96.9 76 17 123/61 94 08/17/16 00:00 96.9 99 17 107/50 96 08/16/16 21:13 96 Nasal Cannula 3.00 08/16/16 20:00 96.8 97 18 157/67 92 08/16/16 18:30 94 16 159/70 94 Nasal Cannula 3 08/16/16 18:15 96 16 135/60 94 Nasal Cannula 3 08/16/16 18:10 98.2 81 16 127/68 97 Nasal Cannula 3 08/16/16 14:29 96.4 91 18 135/84 96 08/16/16 12:33 98.8 111 18 123/66 97 08/16/16 12:14 97.2 97 18 109/61 94 I/O 3/20/08/16/16 08/16/16 08/17/16 08/17/16 08/17/16 07:00 15:00 23:00 07:00 15:00 23:00 Intake Total 892 ml 300 ml Output Total 350 ml 0 ml Balance -350 ml 892 ml 300 ml Intake Oral 0 ml IV Total 892 ml 100 ml Other 200 ml Output Urine Total 350 ml 0 ml Estimated Blood Loss 0 ml Other 0 ml # Voids 1 1 2 Physical Exam GENERAL: NAD, AAOx3, chronic ill appearing, cachectic SKIN: Warm and dry. HEAD: Atraumatic. Normocephalic. EYES: Pupils equal and round. No scleral icterus. No injection or drainage. ENT: No nasal bleeding or discharge. Mucous membranes pink and moist. NECK: Trachea midline. No JVD. CARDIOVASCULAR: Irregularly irregular, 2/6 crescendo-decrescendo mid-peaking systolic murmur to the RSB RESPIRATORY: No accessory muscle use. Decreased breath sounds bilaterally GASTROINTESTINAL: Abdomen soft, non-tender, nondistended. Hepatic and splenic margins not palpable. MUSCULOSKELETAL: Extremities without clubbing, cyanosis, or edema. No obvious deformities. NEUROLOGICAL: Awake and alert. No obvious cranial nerve deficits. Motor grossly within normal limits. Five out of 5 muscle strength in the arms and legs. Normal speech. PSYCHIATRIC: Appropriate mood and affect; insight and judgment normal. Laboratory Laboratory Tests Test 08/16/16 08/16/16 08/16/16 08/16/16 10:26 10:34 11:50 20:23 Blood Bank Comment Nasal Screen MRSA (PCR) NEGATIVE Blood Type A NEGATIVE Antibody Screen NEGATIVE Hemoglobin 9.1 GM/DL Hematocrit 27.4 % Test 08/17/16 08/17/16 05:50 08:53 White Blood Count 6.2 TH/MM3 Red Blood Count 2.77 MIL/MM3 Hemoglobin 8.3 GM/DL Hematocrit 25.7 % Mean Corpuscular Volume 93.0 FL Mean Corpuscular Hemoglobin 30.0 PG Mean Corpuscular Hemoglobin 32.3 % Concent Red Cell Distribution Width 14.0 % Platelet Count 104 TH/MM3 Mean Platelet Volume 9.4 FL Neutrophils (%) (Auto) 55.9 % Lymphocytes (%) (Auto) 25.0 % Monocytes (%) (Auto) 10.5 % Eosinophils (%) (Auto) 7.7 % Basophils (%) (Auto) 0.9 % Neutrophils # (Auto) 3.4 TH/MM3 Lymphocytes # (Auto) 1.5 TH/MM3 Monocytes # (Auto) 0.7 TH/MM3 Eosinophils # (Auto) 0.5 TH/MM3 Basophils # (Auto) 0.1 TH/MM3 CBC Comment DIFF FINAL Differential Comment Sodium Level 145 MEQ/L Potassium Level 4.1 MEQ/L Chloride Level 107 MEQ/L Carbon Dioxide Level 33.6 MEQ/L Anion Gap 4 MEQ/L Blood Urea Nitrogen 23 MG/DL Creatinine 1.35 MG/DL Estimat Glomerular Filtration 50 ML/MIN Rate Random Glucose 69 MG/DL Calcium Level 8.8 MG/DL Prothrombin Time 30.1 SEC Prothromb Time International 2.6 RATIO Ratio Assessment and Plan Problem List: (1) Esophageal obstruction (2) Lung neoplasm (3) Hypertension (4) Hyperlipidemia (5) COPD (chronic obstructive pulmonary disease) (6) Atrial fibrillation (7) CAD (coronary artery disease) (8) AAA (abdominal aortic aneurysm) (9) S/P AVR (aortic valve replacement) (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 no report yet, but appears they found a stricture and it was dilated... taking liquids much easier 2) Continue Coumadin for Afib 3) FLAKITO from limited PO intake is resolving, can be restarted on MATTHEW-I Wally Weaver DO Aug 17, 2016 10:11
[2016-08-17 11:06] LABS: AUTOMATED NEUTROPHIL # 3.7 TH/MM3 (1.8-7.7); BASOPHIL # 0.1 TH/MM3 (0-0.2); EOSINOPHIL # 0.6 TH/MM3 (0-0.4); EOSINOPHIL % 8.5 % (0.0-4.0); HEMATOCRIT 28.1 % (39.0-51.0); HEMO FLAGS DIFF FINAL; LYMPH % 23.4 % (9.0-44.0); LYMPHOCYTE # 1.5 TH/MM3 (1.0-4.8); MEAN CELL VOLUME 92.6 FL (80.0-100.0); MEAN CORPUSCULAR HEMOGLOBIN 30.7 PG (27.0-34.0); MEAN CORPUSCULAR HGB CONC 33.1 % (32.0-36.0); MONO % 10.4 % (0.0-8.0); NEUT % 56.7 % (16.0-70.0); PLATELET COUNT 114 TH/MM3 (150-450); RED BLOOD COUNT 3.03 MIL/MM3 (4.50-5.90); RED CELL DISTRIBUTION WIDTH 13.9 % (11.6-17.2); WHITE BLOOD COUNT 6.5 TH/MM3 (4.0-11.0)
--- NOTE | 2016-08-17 16:35 | HHI.GIFU ---
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 PET scan reviewed, no apthology in upper esophagus or neck . Objective: PHYSICAL EXAMINATION: Vitals signs stable No fever Vital Signs Date Time Temp Pulse Resp B/P Pulse Ox O2 Delivery O2 Flow Rate FiO2 08/17/16 12:00 98.0 90 22 141/89 99 HEENT: Pupils round and reactive to light; normocephalic; atraumatic; no jaundice. Throat is clear. NECK: Neck is supple, no JVD, no lymphadenopathy. CHEST: Chest is clear to auscultation and percussion. CARDIAC: Regular rate and rhythm with no murmur gallop or rubs. ABDOMEN: Soft, nondistended, nontender; no hepatosplenomegaly; bowel sounds are present in all four quadrants. EXTREMITIES: No clubbing, cyanosis, or edema. SKIN: Normal; no rash; no jaundice. ENGINEERING RECRUITER: No focal deficits; alert and oriented times three. Available Data (labs, X- Rays, Procedues) : Laboratory Tests Test 08/15/16 08/16/16 08/16/16 08/16/16 20:00 06:00 08:29 10:26 White Blood Count 6.8 TH/MM3 8.2 TH/MM3 Red Blood Count 3.54 MIL/MM3 3.09 MIL/MM3 Hemoglobin 10.6 GM/DL 9.5 GM/DL Hematocrit 32.8 % 28.7 % Mean Corpuscular Volume 92.7 FL 92.8 FL Mean Corpuscular Hemoglobin 29.8 PG 30.6 PG Mean Corpuscular Hemoglobin 32.2 % 32.9 % Concent Red Cell Distribution Width 13.4 % 13.8 % Platelet Count 146 TH/MM3 120 TH/MM3 Mean Platelet Volume 8.8 FL 9.1 FL Neutrophils (%) (Auto) 53.5 % 62.3 % Lymphocytes (%) (Auto) 20.1 % 19.6 % Monocytes (%) (Auto) 10.0 % 9.2 % Eosinophils (%) (Auto) 14.5 % 7.9 % Basophils (%) (Auto) 1.9 % 1.0 % Neutrophils # (Auto) 3.6 TH/MM3 5.1 TH/MM3 Lymphocytes # (Auto) 1.4 TH/MM3 1.6 TH/MM3 Monocytes # (Auto) 0.7 TH/MM3 0.8 TH/MM3 Eosinophils # (Auto) 1.0 TH/MM3 0.7 TH/MM3 Basophils # (Auto) 0.1 TH/MM3 0.1 TH/MM3 CBC Comment DIFF FINAL DIFF FINAL Differential Comment Prothrombin Time 25.4 SEC 31.9 SEC Prothromb Time International 2.2 RATIO 2.8 RATIO Ratio Activated Partial 34.2 SEC Thromboplast Time Sodium Level 147 MEQ/L 145 MEQ/L Potassium Level 4.9 MEQ/L 4.5 MEQ/L Chloride Level 102 MEQ/L 105 MEQ/L Carbon Dioxide Level 41.7 MEQ/L 33.9 MEQ/L Anion Gap 3 MEQ/L 6 MEQ/L Blood Urea Nitrogen 31 MG/DL 26 MG/DL Creatinine 2.10 MG/DL 1.61 MG/DL Estimat Glomerular Filtration 30 ML/MIN 41 ML/MIN Rate Random Glucose 112 MG/DL 85 MG/DL Calcium Level 9.3 MG/DL 9.2 MG/DL Magnesium Level 2.5 MG/DL Total Bilirubin 0.4 MG/DL 0.4 MG/DL Aspartate Amino Transf 35 U/L 29 U/L (AST/SGOT) Alanine Aminotransferase 27 U/L 20 U/L (ALT/SGPT) Alkaline Phosphatase 104 U/L 83 U/L Total Protein 7.2 GM/DL 6.0 GM/DL Albumin 3.5 GM/DL 2.8 GM/DL Thyroid Stimulating Hormone 2.480 uIU/ML [address] [place] [address] Blood Bank Comment Test 08/16/16 08/16/16 08/16/16 08/17/16 10:34 11:50 20:23 05:50 Nasal Screen MRSA (PCR) NEGATIVE Blood Type A NEGATIVE Antibody Screen NEGATIVE Hemoglobin 9.1 GM/DL 8.3 GM/DL Hematocrit 27.4 % 25.7 % White Blood Count 6.2 TH/MM3 Red Blood Count 2.77 MIL/MM3 Mean Corpuscular Volume 93.0 FL Mean Corpuscular Hemoglobin 30.0 PG Mean Corpuscular Hemoglobin 32.3 % Concent Red Cell Distribution Width 14.0 % Platelet Count 104 TH/MM3 Mean Platelet Volume 9.4 FL Neutrophils (%) (Auto) 55.9 % Lymphocytes (%) (Auto) 25.0 % Monocytes (%) (Auto) 10.5 % Eosinophils (%) (Auto) 7.7 % Basophils (%) (Auto) 0.9 % Neutrophils # (Auto) 3.4 TH/MM3 Lymphocytes # (Auto) 1.5 TH/MM3 Monocytes # (Auto) 0.7 TH/MM3 Eosinophils # (Auto) 0.5 TH/MM3 Basophils # (Auto) 0.1 TH/MM3 CBC Comment DIFF FINAL Differential Comment Sodium Level 145 MEQ/L Potassium Level 4.1 MEQ/L Chloride Level 107 MEQ/L Carbon Dioxide Level 33.6 MEQ/L Anion Gap 4 MEQ/L Blood Urea Nitrogen 23 MG/DL Creatinine 1.35 MG/DL Estimat Glomerular Filtration 50 ML/MIN Rate Random Glucose 69 MG/DL Calcium Level 8.8 MG/DL Test 08/17/16 08/17/16 08:53 10:45 Prothrombin Time 30.1 SEC Prothromb Time International 2.6 RATIO Ratio White Blood Count 6.5 TH/MM3 Red Blood Count 3.03 MIL/MM3 Hemoglobin 9.3 GM/DL Hematocrit 28.1 % Mean Corpuscular Volume 92.6 FL Mean Corpuscular Hemoglobin 30.7 PG Mean Corpuscular Hemoglobin 33.1 % Concent Red Cell Distribution Width 13.9 % Platelet Count 114 TH/MM3 Mean Platelet Volume 9.4 FL Neutrophils (%) (Auto) 56.7 % Lymphocytes (%) (Auto) 23.4 % Monocytes (%) (Auto) 10.4 % Eosinophils (%) (Auto) 8.5 % Basophils (%) (Auto) 1.0 % Neutrophils # (Auto) 3.7 TH/MM3 Lymphocytes # (Auto) 1.5 TH/MM3 Monocytes # (Auto) 0.7 TH/MM3 Eosinophils # (Auto) 0.6 TH/MM3 Basophils # (Auto) 0.1 TH/MM3 CBC Comment DIFF FINAL Differential Comment ASSESSMENT/PLAN: dysphagia , abnormal esophagus on pet scan-egd showed esophageal stricture s/p dilatation chronic anemia, no indication of active bleeding Recommendations monitor hb today if stable ok to dc home from gi point ppi ok to restart anticoagulation egd/dil prn It was a pleasure seeing Rosario Pitts. Thank you for this consult. Entered by: Jhoana Lawrence MD Aug 17, 2016 16:35
[2016-08-17] MEDS: RESP: ALBUTEROL 2.5 MG/IPRATROPIUM 0.5 MG NEB (PRN) NEB (16:49)
--- NOTE | 2016-08-17 19:34 | HHI.PR ---
Subjective Remarks Patient seen this morning around 10 AM. Says he is feeling all right. Denies any chest pain or shortness breath. Objective Vital Signs Date Time Temp Pulse Resp B/P Pulse Ox O2 Delivery O2 Flow Rate FiO2 08/17/16 16:00 97.7 74 18 134/72 97 08/17/16 12:00 98.0 90 22 141/89 99 08/17/16 08:00 97.5 82 20 114/80 94 08/17/16 07:15 99 Nasal Cannula 2.00 08/17/16 04:00 96.9 76 17 123/61 94 08/17/16 00:00 96.9 99 17 107/50 96 08/16/16 21:13 96 Nasal Cannula 3.00 08/16/16 20:00 96.8 97 18 157/67 92 I/O 08/16/16 08/16/16 08/16/16 08/17/16 08/17/16 08/17/16 07:00 15:00 23:00 07:00 15:00 23:00 Intake Total 892 ml 300 ml 480 ml 360 ml Output Total 350 ml 0 ml Balance -350 ml 892 ml 300 ml 480 ml 360 ml Intake Oral 0 ml 480 ml 360 ml IV Total 892 ml 100 ml Other 200 ml Output Urine Total 350 ml 0 ml Estimated Blood Loss 0 ml Other 0 ml # Voids 1 1 2 3 1 # Bowel Movements 1 Result Diagram: 08/17/16 1045 08/17/16 0550 Objective Remarks GENERAL: 89-year-old male lying in bed. Appears comfortable. SKIN: Warm and dry. HEAD: Normocephalic. EYES: No scleral icterus. No injection or drainage. NECK: Supple, trachea midline. No JVD CARDIOVASCULAR: Regular rate and rhythm without murmurs, gallops, or rubs. RESPIRATORY: Breath sounds equal bilaterally. No accessory muscle use. GASTROINTESTINAL: Abdomen soft, non-tender, nondistended. MUSCULOSKELETAL: No cyanosis, or edema. BACK: Nontender without obvious deformity. No CVA tenderness. A/P Assessment and Plan 08/17/16 -Status post EGD with dilation. -Cardiology adjusting blood pressure medications. -Renal function improving on fluids. -Dysphagia improving. Hemoglobin stable. Restart anticoagulation as per gastroenterology //Probable Esophageal obstruction -IV fluids -EGD 08/17 in the afternoon status post dilation for stricture -Appreciate GI assistance //Stage III Lung cancer -Pulmonology following. Appreciate assistance. //FLAKITO on CKD stage III -Current and 2.1 on admission. -Improved to 1.3, better than baseline. //CAD //Atrial fibrillation on anticoagulation. //History of bioprosthetic aortic valve replacement -Reversal of INR with FFP prior to EGD procedure. -Cardiology consulted as per patient request appreciate assistance. -08/17 Tolerating metoprolol twice daily by mouth. Restart by mouth blood pressure meds. -08/17 Restart warfarin. //Hypertension //Hyperlipidemia -By mouth blood pressure and statin medications held for now. -Blood pressure acceptable. Continue to monitor. //Patient uses chewing tobacco. Counseled on cessation. //Hypernatremia. Hypovolemic. 147 on admission. Dehydration from inability to swallow. Improved with fluids. Continue dextrose with half-normal saline. Continue to monitor. //Prophylaxis. SCDs. Status post EGD with dilation. Continue warfarin. Discharge Planning patient lives at home with his daughter. -Patient may need home health on discharge. Physical therapy evaluation pending. -Possible discharge home on 08/18 Gaudencio Weldon MD Aug 17, 2016 19:34
[2016-08-17] MEDS: TEMAZEPAM 15 MG CAP PO PRN (21:16)
[2016-08-18] VITALS: BP 118/52; PULSE 70; RESP 17; TEMP 97.6; O2SAT 96
[2016-08-18 02:26] VITALS: O2SAT 96
[2016-08-18 04:00] VITALS: BP 121/54; PULSE 86; RESP 17; TEMP 97.6; O2SAT 96
[2016-08-18 07:28] LABS: AUTOMATED NEUTROPHIL # 2.6 TH/MM3 (1.8-7.7); BASOPHIL # 0.1 TH/MM3 (0-0.2); EOSINOPHIL # 1.2 TH/MM3 (0-0.4); EOSINOPHIL % 19.7 % (0.0-4.0); HEMATOCRIT 26.4 % (39.0-51.0); HEMO FLAGS DIFF FINAL; LYMPH % 27.3 % (9.0-44.0); LYMPHOCYTE # 1.7 TH/MM3 (1.0-4.8); MEAN CELL VOLUME 91.9 FL (80.0-100.0); MEAN CORPUSCULAR HGB CONC 32.6 % (32.0-36.0); MONO % 9.8 % (0.0-8.0); NEUT % 42.2 % (16.0-70.0); PLATELET COUNT 104 TH/MM3 (150-450); RED BLOOD COUNT 2.87 MIL/MM3 (4.50-5.90); RED CELL DISTRIBUTION WIDTH 13.8 % (11.6-17.2); WHITE BLOOD COUNT 6.3 TH/MM3 (4.0-11.0)
[2016-08-18 08:00] VITALS: BP 106/61; PULSE 88; RESP 18; TEMP 96.9; O2SAT 97
[2016-08-18 08:08] LABS: POTASSIUM 4.1 MEQ/L (3.5-5.1)
[2016-08-18] MEDS ORDERED: NON-FORMULARY DRUG (Lisinopril-Hctz 1 TAB) PO SCH (09:00)
[2016-08-18] MEDS ORDERED: HYDROCHLOROTHIAZIDE 25 MG TAB PO SCH (09:00)
[2016-08-18] MEDS ORDERED: LISINOPRIL 10 MG TAB PO SCH (09:00)
[2016-08-18] MEDS: METOPROLOL TARTRATE 50 MG TAB PO SCH (09:23)
[2016-08-18] MEDS: PANTOPRAZOLE SODIUM 40 MG VIAL IV PUSH SCH (09:23)
[2016-08-18] MEDS: SODIUM CHLORIDE 0.9% FLUSH 5 ML FLUSH FLUSH SCH (09:24)
[2016-08-18] MEDS ORDERED: FERR325T PO (10:18)
--- NOTE | 2016-08-18 11:24 | PD.CARD.PN ---
Subjective Subjective Remarks No chest pain, no shortness of breath Up and ambulating Objective Medications Current Medications Medications (Trade) Dose Ordered Sig/Teressa Route Start Time Stop Time Status Last Admin (NS Flush) 2 ml UNSCH PRN FLUSH 08/15/16 20:45 (NS Flush) 2 ml BID FLUSH 08/15/16 21:00 08/18/16 09:24 (Zofran Inj) 4 mg Q6H PRN IVP 08/15/16 20:45 (Dulcolax Supp) 10 mg DAILY PRN [place] 08/15/16 20:45 (Morphine Inj) 1 mg Q3H PRN IV 08/15/16 20:45 (Morphine Inj) 2 mg Q3H PRN IV 08/15/16 20:45 (Protonix Inj) 40 mg Q12HR IV PUSH 08/16/16 10:30 08/18/16 09:23 (Restoril) 30 mg HS PRN PO 08/16/16 21:45 08/17/16 21:16 (Lopressor) 50 mg BID PO 08/16/16 21:40 08/18/16 09:23 (Prinivil) 10 mg DAILY PO 08/18/16 09:00 Hydrochlorothiazide 12.5 mg 12.5 mg DAILY PO 08/18/16 09:00 (Coumadin Consult Pharmacy) 0 ml @ 0 mls/hr UNSCH OTHER 08/17/16 19:30 (Coumadin) 2.5 mg DAILY@16 PO 08/18/16 16:00 (Coumadin Booklet) 1 ONCE ONCE XX 08/18/16 16:00 08/18/16 16:01 Vital Signs / I&O Vital Signs Date Time Temp Pulse Resp B/P Pulse Ox O2 Delivery O2 Flow Rate FiO2 08/18/16 08:00 96.9 88 18 106/61 97 08/18/16 04:00 97.6 86 17 121/54 96 08/18/16 02:26 96 Nasal Cannula 2.00 08/18/16 00:00 97.6 70 17 118/52 96 08/17/16 20:00 98.9 76 18 126/65 94 08/17/16 16:00 97.7 74 18 134/72 97 08/17/16 12:00 98.0 90 22 141/89 99 I/O 3/08/17/16 08/17/16 08/18/16 08/18/16 08/18/16 07:00 15:00 23:00 07:00 15:00 23:00 Intake Total 480 ml 360 ml 240 ml 480 ml Balance 480 ml 360 ml 240 ml 480 ml Intake Oral 480 ml 360 ml 240 ml 480 ml # Voids 2 3 1 2 1 # Bowel Movements 1 Physical Exam GENERAL: NAD, AAOx3, chronic ill appearing, cachectic SKIN: Warm and dry. HEAD: Atraumatic. Normocephalic. EYES: Pupils equal and round. No scleral icterus. No injection or drainage. ENT: No nasal bleeding or discharge. Mucous membranes pink and moist. NECK: Trachea midline. No JVD. CARDIOVASCULAR: Irregularly irregular, 2/6 crescendo-decrescendo mid-peaking systolic murmur to the RSB RESPIRATORY: No accessory muscle use. Decreased breath sounds bilaterally GASTROINTESTINAL: Abdomen soft, non-tender, nondistended. Hepatic and splenic margins not palpable. MUSCULOSKELETAL: Extremities without clubbing, cyanosis, or edema. No obvious deformities. NEUROLOGICAL: Awake and alert. No obvious cranial nerve deficits. Motor grossly within normal limits. Five out of 5 muscle strength in the arms and legs. Normal speech. PSYCHIATRIC: Appropriate mood and affect; insight and judgment normal. Laboratory Laboratory Tests Test 08/18/16 06:44 White Blood Count 6.3 TH/MM3 Red Blood Count 2.87 MIL/MM3 Hemoglobin 8.6 GM/DL Hematocrit 26.4 % Mean Corpuscular Volume 91.9 FL Mean Corpuscular Hemoglobin 30.0 PG Mean Corpuscular Hemoglobin 32.6 % Concent Red Cell Distribution Width 13.8 % Platelet Count 104 TH/MM3 Mean Platelet Volume 9.4 FL Neutrophils (%) (Auto) 42.2 % Lymphocytes (%) (Auto) 27.3 % Monocytes (%) (Auto) 9.8 % Eosinophils (%) (Auto) 19.7 % Basophils (%) (Auto) 1.0 % Neutrophils # (Auto) 2.6 TH/MM3 Lymphocytes # (Auto) 1.7 TH/MM3 Monocytes # (Auto) 0.6 TH/MM3 Eosinophils # (Auto) 1.2 TH/MM3 Basophils # (Auto) 0.1 TH/MM3 CBC Comment DIFF FINAL Differential Comment Sodium Level 142 MEQ/L Potassium Level 4.1 MEQ/L Chloride Level 102 MEQ/L Carbon Dioxide Level 36.0 MEQ/L Anion Gap 4 MEQ/L Blood Urea Nitrogen 21 MG/DL Creatinine 1.35 MG/DL Estimat Glomerular Filtration 50 ML/MIN Rate Random Glucose 81 MG/DL Calcium Level 8.8 MG/DL Assessment and Plan Problem List: (1) Esophageal obstruction (2) Lung neoplasm (3) Hypertension (4) Hyperlipidemia (5) COPD (chronic obstructive pulmonary disease) (6) Atrial fibrillation (7) CAD (coronary artery disease) (8) AAA (abdominal aortic aneurysm) (9) S/P AVR (aortic valve replacement) (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 found a stricture and it was dilated... taking liquids much easier 2) Continue Coumadin for Afib 3) FLAKITO from limited PO intake is resolving, can be restarted on MATTHEW-I 4) Can be restarted on Lasix 5) Cardiovascularly stable for discharge Wally Weaver DO Aug 18, 2016 11:24
[2016-08-18 12:00] VITALS: BP 98/62; PULSE 124; RESP 18; TEMP 96.4; O2SAT 94
[2016-08-18 13:45] VITALS: O2SAT 95
[2016-08-18] MEDS ORDERED: WARFARIN SOD 2.5 MG TAB PO SCH (16:00)
[2016-08-19] MEDS ORDERED: HYDR-3533 PO (14:03)
[2016-08-19] MEDS ORDERED: CYCL5TAB PO (14:06)
--- NOTE | 2016-08-21 01:40 | HHI.PR ---
Subjective Remarks date of service 08/18/16. Patient seen the morning of discharge. Says he is feeling fine. Sitting up eating breakfast. swallowing without difficulty. Discussed with daughter and patient in the room. Daughter says they do not need home health, have everything they need.. Objective Result Diagram: 08/18/16 0644 08/18/16 0644 Objective Remarks GENERAL: 89-year-old male sitting up in chair eating breakfast. Appears comfortable.smiling today. SKIN: Warm and dry. HEAD: Normocephalic. EYES: No scleral icterus. No injection or drainage. NECK: Supple, trachea midline. No JVD CARDIOVASCULAR: Regular rate and rhythm without murmurs, gallops, or rubs. RESPIRATORY: Breath sounds equal bilaterally. No accessory muscle use. GASTROINTESTINAL: Abdomen soft, non-tender, nondistended. MUSCULOSKELETAL: No cyanosis, or edema. BACK: Nontender without obvious deformity. No CVA tenderness. A/P Assessment and Plan 08/18/16 -dysphagia appears resolved Status post EGD with dilation. -blood pressure stable. Continue home blood pressure medications at home. -Renal function improved. -continue anticoagulation as per gastroenterology //Probable Esophageal obstruction -IV fluids -EGD 08/17 in the afternoon status post dilation for stricture -Appreciate GI assistance //Stage III Lung cancer -Pulmonology following. Appreciate assistance. //FLAKITO on CKD stage III -Current and 2.1 on admission. -Improved to 1.3, better than baseline. //CAD //Atrial fibrillation on anticoagulation. //History of bioprosthetic aortic valve replacement -Reversal of INR with FFP prior to EGD procedure. -Cardiology consulted as per patient request appreciate assistance. -08/17 Tolerating metoprolol twice daily by mouth. Restart by mouth blood pressure meds. -08/17 Restart warfarin. //Hypertension //Hyperlipidemia -By mouth blood pressure and statin medications held for now. -Blood pressure acceptable. Continue to monitor. //Patient uses chewing tobacco. Counseled on cessation. //Hypernatremia. Hypovolemic. 147 on admission. Dehydration from inability to swallow. Improved with fluids. Continue dextrose with half-normal saline. Continue to monitor. //Prophylaxis. SCDs. Status post EGD with dilation. Continue warfarin. Discharge Planning patient lives at home with his daughter. -Patient and daughter declined home health. Daughter says they have everything they need at home. -discharge home. Gaudencio Weldon MD Aug 21, 2016 01:40
--- NOTE | 2016-08-21 01:44 | HHI.DS ---
Discharge Summary Admission Date Aug 15, 2016 at 20:28 Discharge Date: Aug 18, 2016 Admitting Diagnosis esophageal obstruction, lung tumor (1) Esophageal obstruction ICD Code: K22.2 Procedures EGD with dilation. Brief History - From Admission 89-year-old male with a history of lung mass seen on outpatient PET scan, hypertension, hyperlipidemia, coronary artery disease status post CABG, bioprosthetic aortic valve replacement. He says that he has had some form of odynophagia, dysphagia for the past several weeks, but now presents with a 2 day history of worsening dysphagia, odynophagia, unable to swallow anything, including his own secretions. Denies any chest pain or shortness of breath. He does report a 5 pound weight loss over the past 2 days, about 10 pounds over the past couple months. He denies any fevers, chills, chest pain, shortness of breath, nausea, vomiting. He says that he is typically very active, exercising every day. CBC/BMP: 08/18/16 0644 08/18/16 0644 Significant Findings Laboratory Tests Test 08/18/16 06:44 Red Blood Count 2.87 MIL/MM3 (4.50-5.90) Hemoglobin 8.6 GM/DL (13.0-17.0) Hematocrit 26.4 % (39.0-51.0) Platelet Count 104 TH/MM3 (150-450) Monocytes (%) (Auto) 9.8 % (0.0-8.0) Eosinophils (%) (Auto) 19.7 % (0.0-4.0) Eosinophils # (Auto) 1.2 TH/MM3 (0-0.4) Carbon Dioxide Level 36.0 MEQ/L (21.0-32.0) Anion Gap 4 MEQ/L (5-15) Blood Urea Nitrogen 21 MG/DL (7-18) Creatinine 1.35 MG/DL (0.60-1.30) Estimat Glomerular Filtration 50 ML/MIN (>89) Rate Imaging Last Impressions Chest X-Ray 08/15/16 0000 Signed Impressions: Service Date/Time: Monday, August 15, 2016 20:41 - CONCLUSION: 1. Cardiomegaly with no evidence of pulmonary edema. 2. Apparent scarring at the lung bases. 3. Hyperinflation consistent with underlying emphysema. 4. The known lung mass seen on CT is not well-visualized. Omar Henriquez MD Hospital Course patient's acute kidney injury and mild hypernatremia resolved with fluids. Patient underwent EGD with dilation of esophageal stricture, with resolution of dysphagia. Eating well on discharge. Appreciate gastroenterology assistance. Patient's blood pressure was a little low on admission, and blood pressure medications were added back as necessary. Patient's vital signs stable, swelling blood pressure medications at discharge. Patient will need a follow- up with gastroenterology, primary care, oncology for lung mass,cardiology as outpatient. 08/18/16 -dysphagia appears resolved Status post EGD with dilation. -blood pressure stable. Continue home blood pressure medications at home. -Renal function improved. -continue anticoagulation as per gastroenterology //Probable Esophageal obstruction -IV fluids -EGD 08/17 in the afternoon status post dilation for stricture -Appreciate GI assistance //Stage III Lung cancer -Pulmonology following. Appreciate assistance. //FLAKITO on CKD stage III -Current and 2.1 on admission. -Improved to 1.3, better than baseline. //CAD //Atrial fibrillation on anticoagulation. //History of bioprosthetic aortic valve replacement -Reversal of INR with FFP prior to EGD procedure. -Cardiology consulted as per patient request appreciate assistance. -08/17 Tolerating metoprolol twice daily by mouth. Restart by mouth blood pressure meds. -08/17 Restart warfarin. //Hypertension //Hyperlipidemia -By mouth blood pressure and statin medications held for now. -Blood pressure acceptable. Continue to monitor. //Patient uses chewing tobacco. Counseled on cessation. //Hypernatremia. Hypovolemic. 147 on admission. Dehydration from inability to swallow. Improved with fluids. Continue dextrose with half-normal saline. Continue to monitor. //Prophylaxis. SCDs. Status post EGD with dilation. Continue warfarin. Discharge Planning patient lives at home with his daughter. -Patient and daughter declined home health. Daughter says they have everything they need at home. Pt Condition on Discharge: Good Discharge Disposition: Discharge Home Discharge Time: <= 30 minutes Discharge Instructions DIET: Follow Instructions for: As Tolerated, No Restrictions Speech Therapy-Diet Recommends: Soft Activities you can perform: Regular-No Restrictions Follow up Referrals: Gastroenterology - 1 Month Oncology - 2 Weeks [facility] Follow-up - 1 Week with [facility] New Medications: Ferrous Sulfate (Ferrous Sulfate) 325 Mg Tab 325 MG PO DAILY Nutritional Supplement #30 Ref 0 TAB Continued Medications: Atorvastatin (Atorvastatin) 80 Mg Tab 80 MG PO HS Cholesterol Management #30 Ref 0 TAB Cyclobenzaprine (Flexeril) 10 Mg Tab 10 MG PO TID Muscle Spasm #20 Ref 0 TAB Furosemide (Furosemide) 40 Mg Tab 40 MG PO DAILY #30 Ref 0 TAB Guaifenesin Liq (Guaifenesin Liq) 100 mg/5 ML Soln 100 MG PO Q8HR PRN COUGH #1 Ref 0 BOTTLE Hydrocodone-Acetaminophen ([place]) 5-325 mg Tab 1 TAB PO Q6H PRN PAIN #20 Ref 0 TAB Hydrocortisone (Topical) (Gnp Hydrocortisone) 0.5 % Cre 0.5 APPLIC TOPICAL DIRECTED Ipratropium-Albuterol Neb (Duoneb) 0.5-2.5 Mg/3 Ml Neb 1 NEBULE INH Q8HR NEB Breathing Treatment #90 Ref 0 NEBULE Leuprolide Acetate (3 Month) (Eligard) 22.5 Mg Inj 45 MG SQ EVERY 6 MONTHS Lisinopril-Hctz (Lisinopril-Hctz) 10-12.5 Mg Tab 1 TAB PO DAILY Blood Pressure Management #30 Ref 0 TAB Metoprolol Tartrate (Metoprolol Tartrate) 50 Mg Tab 50 MG PO BID #60 Ref 0 TAB Multiple Vitamins W/ Minerals (Multi For Him 50+) 1 Tab Tab 1 TAB PO DAILY Polyethylene Glycol 3350 (Bulk (Polyethylene Glycol 3350) 1 Gra Gra 1 DROP PO DAILY Potassium Chloride ER (Potassium Chloride CR) 10 Meq Tab 10 MEQ PO BID TAB Temazepam (Temazepam) 30 Mg Cap 30 MG PO HS PRN INSOMNIA #30 Ref 0 CAP Warfarin (Coumadin) 2.5 Mg Tab 2.5 MG PO DAILY Prevent Blood Clot #30 Ref 0 TAB Gaudencio Weldon MD Aug 21, 2016 01:44
== END 2016-08-18 13:57 | disposition home or self-care (01) | DRG 392 ==
LOC: PHED 18:59 → PHEDA 20:28 → HOCA 23:15
PROVIDERS: ADMIT Internal Medicine; ATTEND Internal Medicine
PROC: 30233K1 Transfusion of Nonautologous Frozen Plasma into Peripheral Vein, Percutaneous Approach (ICD-10-PCS; 2016-08-16)
PROC: 0D738ZZ Dilation of Lower Esophagus, Via Natural or Artificial Opening Endoscopic (ICD-10-PCS; principal; 2016-08-16 13:00)
DX: K22.2 Esophageal obstruction (principal); N17.9 Acute kidney failure, unspecified; E87.0 Hyperosmolality and hypernatremia; I48.91 Unspecified atrial fibrillation; E86.0 Dehydration; J44.9 Chronic obstructive pulmonary disease, unspecified; C34.90 Malignant neoplasm of unspecified part of unspecified bronchus or lung; K26.9 Duodenal ulcer, unspecified as acute or chronic, without hemorrhage or perforation; I12.9 Hypertensive chronic kidney disease with stage 1 through stage 4 chronic kidney disease, or unspecified chronic kidney disease; N18.3 Chronic kidney disease, stage 3 (moderate); D64.9 Anemia, unspecified; Z95.1 Presence of aortocoronary bypass graft; Z79.01 Long term (current) use of anticoagulants; I25.10 Atherosclerotic heart disease of native coronary artery without angina pectoris; I25.2 Old myocardial infarction; E78.5 Hyperlipidemia, unspecified; F17.220 Nicotine dependence, chewing tobacco, uncomplicated; K44.9 Diaphragmatic hernia without obstruction or gangrene; I71.4 Abdominal aortic aneurysm, without rupture; Z95.3 Presence of xenogenic heart valve; Z85.46 Personal history of malignant neoplasm of prostate; Z85.51 Personal history of malignant neoplasm of bladder; H91.90 Unspecified hearing loss, unspecified ear; K59.09 Other constipation
CPT/HCPCS: 36430; 71010; 80048; 80053; 83735; 84443; 85014; 85018; 85025; 85610; 85730; 86850; 86900; 86901; 86927; 87641; 94640; 94664; 99284; C1769; C9113; J7030; J7613; P9017

== ENCOUNTER 2016-08-19 11:05 | Emergency (ER) | payer OTHER, MEDICARE ==
[~2016-08-19 11:05] MED LIST changes: +COUM2.5T PO; +FERR325T PO
[2016-08-19 11:40] VITALS: BP 124/69; PULSE 112; RESP 20; TEMP 98; O2SAT 98
--- NOTE | 2016-08-19 11:56 | PD ---
HPI Chief Complaint: Fall Time Seen by Provider: 11:41 Travel History International Travel<30 days: No Contact w/Intl Traveler<30days: No History of Present Illness HPI This is an 89-year-old male who is on Coumadin for atrial fibrillation who was just released from the hospital having underwent an esophageal dilation coming in today having had a mechanical fall this morning. His family member says that he got out of bed, fell to the side and hit himself on the window. She is not sure if he hit his head. He is reporting a lot of left shoulder pain, constant, moderate severity with no associated weakness or numbness. She says he's been suffering from anemia and his hemoglobin was 8.0 in the hospital. He is receiving iron supplementation. She wondered if this has something to do with this fall. 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) Cardiac Catheterization: Yes (2009) Cardiovascular Problems: Yes High Cholesterol: Yes Chemotherapy: No Chest Pain: Yes Congestive Heart Failure: Yes COPD: Yes Cerebrovascular Accident: No Coronary Artery Disease: Yes Diabetes: No Diminished Hearing: Yes (HEARING AIDES) Endocrine: No Gastrointestinal Disorders: Yes (CHRONIC CONSTIPATION.) GERD: No Genitourinary: Yes (BLADDER CANCER TX WITH INJECTED MEDS) Headaches: No Hepatitis: No Hiatal Hernia: Yes Hypertension: Yes Immune Disorder: No Implanted Vascular Access Dvce: Yes Kidney Stones: No Musculoskeletal: Yes Neurologic: Yes Psychiatric: Yes Reproductive: No Respiratory: Yes () Migraines: No Myocardial Infarction: Yes (1978) Radiation Therapy: No Renal Failure: No Seizures: No Sleep Apnea: No Ulcer: No Past Surgical History Abdominal Surgery: Yes (INGUINAL HERNIA-BILAT.) Appendectomy: No Body Medical Devices: CARDIAC VALVE Cardiac Surgery: Yes (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) Cholecystectomy: No Coronary Artery Bypass Graft: Yes Coronary Stent: Yes Ear Surgery: No Endocrine Surgery: No Eye Surgery: No Genitourinary Surgery: Yes (PROSTATE SX; TUR-BLADDER TUMOR) Gynecologic Surgery: No Neurologic Surgery: No Oral Surgery: No Thoracic Surgery: No Tonsillectomy: Yes Valve Replacement: Yes (AORTIC 2009) Other Surgery: Yes (HERNIA REPAIR) Social History Alcohol Use: No Tobacco Use: Yes (Chews tobacco) Substance Use: No Allergies-Medications (Allergen,Severity, Reaction): Coded Allergies: *MDRO Multi-Drug Resistant Organism (Verified Adverse Reaction, Unknown, ) 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 MRSA PCR Screen NEGATIVE 08/16/16 & 08/17/16 *Cleared per Infection Control* Reported Meds & Prescriptions Reported Meds & Active Scripts Active Ferrous Sulfate 325 Mg Tab 325 Mg PO DAILY Flexeril (Cyclobenzaprine HCl) 10 Mg Tab 10 Mg PO TID Dunfermline (Hydrocodone-Acetaminophen) 5-325 mg Tab 1 Tab PO Q6H PRN Reported Coumadin (Warfarin) 2.5 Mg Tab 2.5 Mg PO DAILY Polyethylene Glycol 3350 (Polyethylene Glycol 3350 (Bulk) 1 Gra Gra 1 Drop PO DAILY Temazepam 30 Mg Cap 30 Mg PO HS PRN Potassium Chloride CR (Potassium Chloride) 10 Meq Tab 10 Meq PO BID Multi For Him 50+ (Multiple Vitamins W/ Minerals) 1 Tab Tab 1 Tab PO DAILY Metoprolol Tartrate 50 Mg Tab 50 Mg PO BID Eligard (Leuprolide Acetate (3 Month)) 22.5 Mg Inj 45 Mg SQ EVERY 6 MONTHS Gnp Hydrocortisone (Hydrocortisone (Topical)) 0.5 % Cre 0.5 Applic TOPICAL DIRECTED Lisinopril-Hctz 10-12.5 Mg Tab 1 Tab PO DAILY Guaifenesin Liq (Guaifenesin) 100 mg/5 ML Soln 100 Mg PO Q8HR PRN Furosemide 40 Mg Tab 40 Mg PO DAILY Atorvastatin (Atorvastatin Calcium) 80 Mg Tab 80 Mg PO HS Duoneb (Ipratropium-Albuterol Neb) 0.5-2.5 Mg/3 Ml Neb 1 Nebule INH Q8HR NEB Review of Systems Except as stated in HPI: all other systems reviewed are Neg Physical Exam Narrative GENERAL:Well appearing, no acute distress SKIN: Warm and dry. HEAD: Atraumatic. Normocephalic. EYES: Pupils equal and round. No injection or drainage. Pale conjunctiva. ENT: Moist mucous membranes NECK: Trachea midline. No cervical spine tenderness. Full painless range of motion of the neck. CARDIOVASCULAR: Regular rate and rhythm. No murmur appreciated. 2+ bilateral DP pulses. RESPIRATORY: Clear to auscultation. Breath sounds equal bilaterally. GASTROINTESTINAL: Abdomen soft, non-tender, nondistended. MUSCULOSKELETAL: severe kyphosis, tenderness along the left proximal humerus with pain with minimal range of motion of the left shoulder. Some swelling of the right hand with no pain with palpation and full range of motion of the wrists bilaterally. NEUROLOGICAL: Awake and alert. No obvious cranial nerve deficits. Moving all extremities. PSYCHIATRIC: Appropriate mood and affect; insight and judgment normal. Data Data Last Documented VS Vital Signs Date Time Temp Pulse Resp B/P Pulse Ox O2 Delivery O2 Flow Rate FiO2 08/19/16 12:08 98.0 112 20 124/69 98 Nasal Cannula 2 Orders Complete Blood Count With Diff (08/19/16 11:52) Basic Metabolic Panel (Bmp) (08/19/16 11:52) Chest, Single Ap (08/19/16 ) Humerus (Min 2vws) (08/19/16 ) Acetamin-Hydrocod 325-5 Mg (Dunfermline 5-325 (08/19/16 12:00) Prothrombin Time / Inr (Pt) (08/19/16 11:52) Ct Brain W/O Iv Contrast(Rout) (08/19/16 ) Sodium Chlorid 0.9% 500 Ml Inj (Ns 500 M (08/19/16 13:15) Sling And Swathe (08/19/16 ) Labs Laboratory Tests Test 08/19/16 12:45 White Blood Count 6.3 TH/MM3 Red Blood Count 3.13 MIL/MM3 Hemoglobin 9.2 GM/DL Hematocrit 29.0 % Mean Corpuscular Volume 92.6 FL Mean Corpuscular Hemoglobin 29.3 PG Mean Corpuscular Hemoglobin 31.6 % Concent Red Cell Distribution Width 13.6 % Platelet Count 112 TH/MM3 Mean Platelet Volume 9.2 FL Neutrophils (%) (Auto) 50.7 % Lymphocytes (%) (Auto) 23.7 % Monocytes (%) (Auto) 9.5 % Eosinophils (%) (Auto) 15.6 % Basophils (%) (Auto) 0.5 % Neutrophils # (Auto) 3.2 TH/MM3 Lymphocytes # (Auto) 1.5 TH/MM3 Monocytes # (Auto) 0.6 TH/MM3 Eosinophils # (Auto) 1.0 TH/MM3 Basophils # (Auto) 0.0 TH/MM3 CBC Comment DIFF FINAL Differential Comment Prothrombin Time 15.7 SEC Prothromb Time International 1.4 RATIO Ratio Sodium Level 141 MEQ/L Potassium Level 4.5 MEQ/L Chloride Level 101 MEQ/L Carbon Dioxide Level 38.2 MEQ/L Anion Gap 2 MEQ/L Blood Urea Nitrogen 20 MG/DL Creatinine 1.49 MG/DL Estimat Glomerular Filtration 45 ML/MIN Rate Random Glucose 97 MG/DL Calcium Level 9.1 MG/DL MDM Medical Decision Making Medical Screen Exam Complete: Yes Emergency Medical Condition: Yes Interpretation(s) Afebrile, tachycardic, normotensive Anemia improved from prior Renal insufficiency similar to discharge INR is subtherapeutic Last [address] 08/19/16 0000 Signed Impressions: Service Date/Time: July 13:23 - CONCLUSION: No acute disease. Adarsh Carter MD X-ray of the humerus: Fracture of the left humeral head and neck Differential Diagnosis Intracranial hemorrhage, anemia, humerus fracture, shoulder dislocation, clavicle fracture Narrative Course This is an 89-year-old male who presents to the emergency department having fallen injuring his left shoulder. Patient has a history of falls. He was placed on a monitor and an IV was established. Labs are obtained which are improved from his recent discharge. He was given a [address] of the head was unremarkable. X-ray of the left humerus demonstrates a fracture of the proximal head and neck of the left humerus. He has a normal neurovascular exam. He was placed in a sling and swath and I think is appropriate for outpatient follow-up with orthopedics. I did coordinate case management to facilitate home health care for the patient given his fall and debility following hospitalization. Diagnosis Primary Impression: Proximal humeral fracture Qualified Code: S42.202A - Closed fracture of proximal end of left humerus, unspecified fracture morphology, initial encounter Referrals: Jose Maria Montero MD Patient Instructions: General Instructions Med/Other Pt SpecificInfo: Prescription(s) given Scripts Hydrocodone-Acetaminophen (Lortab)5-325 Mg Tab1 Tab PO Q6H PRN (PAIN) #10 TAB Ref 0 Prov:Kelsey Hopper MD 08/19/16 Disposition: 01 DISCHARGE HOME Condition: Stable Kelsey Hopper MD Aug 19, 2016 11:56
[2016-08-19] MEDS ORDERED: ACETAMINOPHEN/HYDROcodone 325 MG/5 MG TAB PO ONE (12:00)
[2016-08-19 12:08] VITALS: BP 124/69; PULSE 112; RESP 20; TEMP 98; O2SAT 98
[2016-08-19 13:12] LABS: AUTOMATED NEUTROPHIL # 3.2 TH/MM3 (1.8-7.7); BASOPHIL % 0.5 % (0.0-2.0); EOSINOPHIL % 15.6 % (0.0-4.0); HEMO FLAGS DIFF FINAL; LYMPH % 23.7 % (9.0-44.0); LYMPHOCYTE # 1.5 TH/MM3 (1.0-4.8); MEAN CELL VOLUME 92.6 FL (80.0-100.0); MEAN CORPUSCULAR HEMOGLOBIN 29.3 PG (27.0-34.0); MEAN CORPUSCULAR HGB CONC 31.6 % (32.0-36.0); MONO % 9.5 % (0.0-8.0); NEUT % 50.7 % (16.0-70.0); PLATELET COUNT 112 TH/MM3 (150-450); RED BLOOD COUNT 3.13 MIL/MM3 (4.50-5.90); RED CELL DISTRIBUTION WIDTH 13.6 % (11.6-17.2); WHITE BLOOD COUNT 6.3 TH/MM3 (4.0-11.0)
[2016-08-19] MEDS ORDERED: SODIUM CHLORID 0.9% 500 ML INJ 500 ML IV ONE (13:15)
[2016-08-19 13:21] LABS: INTERNATIONAL NORMALIZED RATIO 1.4 RATIO; PROTHROMBIN TIME - PATIENT 15.7 SEC (9.8-11.6)
[2016-08-19 13:34] LABS: BICARBONATE 38.2 MEQ/L (21.0-32.0); POTASSIUM 4.5 MEQ/L (3.5-5.1)
--- NOTE | 2016-08-19 13:38 | RADRPT ---
EXAM DATE/TIME: 08/19/2016 13:23 [facility] COMPARISON: CT BRAIN W/O CONTRAST, April 08, 2016, 10:04. INDICATIONS : Fall today; hit head. RADIATION DOSE: 56.35 CTDIvol (mGy) MEDICAL HISTORY : Hypertension. Carcinoma, prostate. SURGICAL HISTORY : None. ENCOUNTER: Initial ACUITY: 1 day PAIN SCALE: 5/10 LOCATION: cranial TECHNIQUE: Multiple contiguous axial images were obtained of the head. Using automated exposure control and adj ustment of the mA and/or kV according to patient size, radiation dose was kept as low as reasonably a chievable to obtain optimal diagnostic quality images. FINDINGS: CEREBRUM: The ventricles are normal for age. No evidence of midline shift, mass lesion, hemorrhage or acute in farction. No extra-axial fluid collections are seen. POSTERIOR FOSSA: The cerebellum and brainstem are intact. The 4th ventricle is midline. The cerebellopontine angle i s unremarkable. EXTRACRANIAL: The visualized portion of the orbits is intact. SKULL: The calvaria is intact. No evidence of skull fracture. CONCLUSION: No acute disease. Adarsh Carter MD on August 19, 2016 at 13:35 Board Certified Radiologist. This report was verified electronically.
--- NOTE | 2016-08-19 13:56 | HHI.FF ---
Face to Face Verification Diagnosis: (1) Lung mass (2) Humerus fracture Physical Therapy Order: Evaluate and Treat, Improve ambulation, Strength and gait training Occupational Therapy Order: Evaluate and Treat, Improve ADL, Gross motor coordination Home Health Aide Order: To Assist In: Bathing and personal care, robotype operator and meal prep Kerfer Machine Operator Order: To Evaluate: Living conditions/environment, Support services Order: To Provide: Long range planning, Community services I have seen patient Rosario Pitts on 08/19/16. My clinical findings support the need for the requested home health care services because: Ltd mobility - disease progression Deconditioned w/ increased weakness Limited ability to care for self High risk of falls I certify that my clinical findings support that this patient is homebound because: Unsteady gait/balance Unable to use public transportation Kelsey Hopper MD Aug 19, 2016 13:56
--- NOTE | 2016-08-19 13:58 | RADRPT ---
EXAM DATE/TIME: 08/19/2016 12:24 [facility] COMPARISON: No previous studies available for comparison. INDICATIONS : Fall. Left shoulder pain. MEDICAL HISTORY : Myocardial infarction. Carcinoma, prostatic. Chronic obstructive pulmonary disease. SURGICAL HISTORY : CABG. ENCOUNTER: Initial ACUITY: 1 day PAIN SCORE: 6/10 LOCATION: Left shoulder FINDINGS: There is an acute fracture involving the left proximal humerus in the region of the head and neck. N o dislocation was noted. CONCLUSION: 1. Acute fracture involving the left proximal humeral neck and head without dislocation. Adarsh Carter MD on August 19, 2016 at 13:52 Board Certified Radiologist. This report was verified electronically.
[2016-08-19] MEDS ORDERED: HYDR-3533 PO (14:03)
[2016-08-19] MEDS ORDERED: CYCL5TAB PO (14:06)
--- NOTE | 2016-08-19 14:07 | RADRPT ---
EXAM DATE/TIME: 08/19/2016 12:31 [facility] COMPARISON: HUMERUS LEFT (MIN 2VWS), August 19, 2016, 12:24. CHEST SINGLE AP, August 15, 2016, 20:41. INDICATIONS : Fall. Left shoulder pain. MEDICAL HISTORY : Myocardial infarction. Carcinoma, prostate. Chronic obstructive pulmonary disease. SURGICAL HISTORY : CABG. ENCOUNTER: Initial ACUITY: 1 day PAIN SCORE: 5/10 LOCATION: Right shoulder FINDINGS: A small left pleural effusion is noted. Median sternotomy wires are noted status-post cardiac surger y. The heart is enlarged. Scattered increased interstitial markings are noted consistent with proba ble chronic interstitial disease. An acute fracture involving the left proximal humerus is incomplet shante visualized on this chest x-ray. CONCLUSION: 1. Small left pleural effusion. 2. 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 3. Mild Cardiomegaly. 4. Incompletely visualized left proximal humeral fracture. Adarsh Carter MD on August 19, 2016 at 13:55 Board Certified Radiologist. This report was verified electronically.
== END 2016-08-19 15:25 | disposition home or self-care (01) ==
LOC: NEDAMB 11:05 → NEPB 15:25
DX: S42.295A Other nondisplaced fracture of upper end of left humerus, initial encounter for closed fracture (principal); W18.39XA Other fall on same level, initial encounter; Y93.89 Activity, other specified; Y92.003 Bedroom of unspecified non-institutional (private) residence as the place of occurrence of the external cause; Y99.9 Unspecified external cause status; Z85.46 Personal history of malignant neoplasm of prostate; J44.9 Chronic obstructive pulmonary disease, unspecified; J90 Pleural effusion, not elsewhere classified; I51.7 Cardiomegaly; I48.91 Unspecified atrial fibrillation; I50.9 Heart failure, unspecified; I25.10 Atherosclerotic heart disease of native coronary artery without angina pectoris; I10 Essential (primary) hypertension; Z72.0 Tobacco use; Z95.2 Presence of prosthetic heart valve; I25.2 Old myocardial infarction; Z95.1 Presence of aortocoronary bypass graft
CPT/HCPCS: 29240; 70450; 71010; 73060; 80048; 85025; 85610; 96374; 99284; J7040

== ENCOUNTER → 2016-08-30 | Outpatient (CLI) | payer MEDICARE, OTHER ==
[~2016-08-30] MED LIST changes: +CYCL5TAB PO; +HYDR-3533 PO
[2016-08-30 09:40] LABS: HEMATOCRIT 26.8 % (39.0-51.0); MEAN CELL VOLUME 92.4 FL (80.0-100.0); MEAN CORPUSCULAR HEMOGLOBIN 29.9 PG (27.0-34.0); MEAN CORPUSCULAR HGB CONC 32.3 % (32.0-36.0); PLATELET COUNT 223 TH/MM3 (150-450); REVIEW FLAG FINAL; WHITE BLOOD COUNT 8.5 TH/MM3 (4.0-11.0)
== END ==
LOC: CLAB 09:12
PROVIDERS: ATTEND Internal Medicine Critical Care Medicine
DX: D64.9 Anemia, unspecified (principal)
CPT/HCPCS: 36415; 85027

== ENCOUNTER 2017-01-23 21:29 | Inpatient (IN) | payer MEDICARE ==
[~2017-01-23] VITALS: Ht 167.6 cm; Wt 68.5 kg
[2017-01-23 21:30] VITALS: BP 112/59; PULSE 101; RESP 22; TEMP 103.7; O2SAT 73
[2017-01-23] MEDS ORDERED: ACETAMINOPHEN 325 MG TAB PO ONE (21:45)
[2017-01-23] MEDS ORDERED: AZITHROMYCIN INJ 500 MG in SODIUM CHLOR 0.9% 250 ML INJ 250 ML IV ONE (22:00)
[2017-01-23] MEDS ORDERED: SODIUM CHLORID 0.9% 500 ML INJ 500 ML IV SCH (22:00)
[2017-01-23] MEDS ORDERED: ACETAMINOPHEN 650 MG SUPP RECTAL ONE (22:00)
[2017-01-23] MEDS ORDERED: CEFEPIME INJ 1,000 MG in SODIUM CHLORIDE 0.9% INJ 100 ML IV ONE (22:00)
[2017-01-23 22:03] LABS: BACTERIA, URINE RARE /hpf; BLOOD, URINE NEG (NEG); COMMENT (UR) CULT NOT INDICATED; CULTURE IF INDICATED CULT NOT INDICATED; GLUCOSE,URINE NEG (NEG); HYALINE CAST, URINE 3 /lpf (RARE); KETONE, URINE NEG (NEG); MUCUS URINE FEW /lpf (OCC); NITRITE,URINE NEG (NEG); PH, URINE 7.5 (5.0-8.5); SQUAMOUS EPITHELIAL CELL URINE <1 /hpf (0-5); URINE COLOR YELLOW (YELLW/STRAW)
[2017-01-23 22:08] LABS: AUTOMATED NEUTROPHIL # 5.2 TH/MM3 (1.8-7.7); BASOPHIL % 0.4 % (0.0-2.0); EOSINOPHIL # 0.3 TH/MM3 (0-0.4); EOSINOPHIL % 3.9 % (0.0-4.0); HEMATOCRIT 37.7 % (39.0-51.0); HEMO FLAGS DIFF FINAL; LYMPH % 11.9 % (9.0-44.0); LYMPHOCYTE # 0.8 TH/MM3 (1.0-4.8); MEAN CELL VOLUME 94.5 FL (80.0-100.0); MEAN CORPUSCULAR HGB CONC 30.6 % (32.0-36.0); MONO % 6.5 % (0.0-8.0); NEUT % 77.3 % (16.0-70.0); PLATELET COUNT 158 TH/MM3 (150-450); RED CELL DISTRIBUTION WIDTH 15.9 % (11.6-17.2); WHITE BLOOD COUNT 6.8 TH/MM3 (4.0-11.0)
[2017-01-23 22:12] LABS: APTT (PATIENT) 29.4 SEC (24.3-30.1); INTERNATIONAL NORMALIZED RATIO 2.1 RATIO; PROTHROMBIN TIME - PATIENT 23.7 SEC (9.8-11.6)
--- NOTE | 2017-01-23 22:19 | PD ---
HPI Chief Complaint: Respiratory distress Time Seen by Provider: 21:39 Travel History International Travel<30 days: No Contact w/Intl Traveler<30days: No Traveled to known affect area: No History of Present Illness HPI 89-year-old male that presents to the ED for evaluation of respiratory complaints as well as fever. She was brought here by was for violation of this. Per family and patient his been feeling more shortness of breath today. Per family his been more confused today. Patient has a history of COPD and right sided lung cancer which is not amenable for biopsy secondary to his bad COPD. Patient uses oxygen at home but with oxygen his oxygenation cannot be improved. Per family today did noted that he's been more lethargic and he is more confused. He denies any pain of any kind. He does have a [place] that he normally uses to go urinate which per family is more because of "laciness "an actual medical needs. Patient has no diarrhea or bowel movement changes per family. He has been having a lot of cough but per family this is chronic for him. They did noted that he was warm to the touch and he had a fever. They called the ambulance and brought here. Per family he was admitted to [facility] for an infection on his lungs and was there for 6 weeks. Patient has been okay since discharge except for being diagnosed with cancer on the right side. He's only had 2 bouts of radiation and his been missing many treatments because of the hospitalization. The only complaint of the patient himself has his shortness of breath. Denies any bleeding. Denies any other medical issues. He does have a history of atrial fibrillation and takes Coumadin. 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) Cardiac Catheterization: Yes (2009) Cardiovascular Problems: Yes High Cholesterol: Yes Chemotherapy: No Chest Pain: Yes Congestive Heart Failure: Yes COPD: Yes Cerebrovascular Accident: No Coronary Artery Disease: Yes Diabetes: No Diminished Hearing: Yes (HEARING AIDES) Endocrine: No Gastrointestinal Disorders: Yes (CHRONIC CONSTIPATION.) GERD: No Genitourinary: Yes (BLADDER CANCER TX WITH INJECTED MEDS) Headaches: No Hepatitis: No Hiatal Hernia: Yes Hypertension: Yes Immune Disorder: No Implanted Vascular Access Dvce: Yes Kidney Stones: No Musculoskeletal: Yes Neurologic: Yes Psychiatric: Yes Reproductive: No Respiratory: Yes (HOME ) Migraines: No Myocardial Infarction: Yes (1978) Radiation Therapy: No Renal Failure: No Seizures: No Sleep Apnea: No Ulcer: No Past Surgical History Abdominal Surgery: Yes (INGUINAL HERNIA-BILAT.) Appendectomy: No Body Medical Devices: CARDIAC VALVE Cardiac Surgery: Yes (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) Cholecystectomy: No Coronary Artery Bypass Graft: Yes Coronary Stent: Yes Ear Surgery: No Endocrine Surgery: No Eye Surgery: No Genitourinary Surgery: Yes (PROSTATE SX; TUR-BLADDER TUMOR) Gynecologic Surgery: No Neurologic Surgery: No Oral Surgery: No Thoracic Surgery: No Tonsillectomy: Yes Valve Replacement: Yes (AORTIC 2009) Other Surgery: Yes (HERNIA REPAIR) Social History Alcohol Use: No Tobacco Use: Yes (Chews tobacco) Substance Use: No Allergies-Medications (Allergen,Severity, Reaction): Coded Allergies: *MDRO Multi-Drug Resistant Organism (Verified Adverse Reaction, Unknown, ) 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 MRSA PCR Screen NEGATIVE 08/16/16 & 08/17/16 *Cleared per Infection Control* Reported Meds & Prescriptions Reported Meds & Active Scripts Active Flexeril (Cyclobenzaprine HCl) 5 Mg Tab 5 Mg PO TID PRN Lortab (Hydrocodone-Acetaminophen) 5-325 Mg Tab 1 Tab PO Q6H PRN Ferrous Sulfate 325 Mg Tab 325 Mg PO DAILY Flexeril (Cyclobenzaprine HCl) 10 Mg Tab 10 Mg PO TID [place] (Hydrocodone-Acetaminophen) 5-325 mg Tab 1 Tab PO Q6H PRN Reported Coumadin (Warfarin) 2.5 Mg Tab 2.5 Mg PO DAILY Polyethylene Glycol 3350 (Polyethylene Glycol 3350 (Bulk) 1 Gra Gra 1 Drop PO DAILY Temazepam 30 Mg Cap 30 Mg PO HS PRN Potassium Chloride CR (Potassium Chloride) 10 Meq Tab 10 Meq PO BID Multi For Him 50+ (Multiple Vitamins W/ Minerals) 1 Tab Tab 1 Tab PO DAILY Metoprolol Tartrate 50 Mg Tab 50 Mg PO BID Eligard (Leuprolide Acetate (3 Month)) 22.5 Mg Inj 45 Mg SQ EVERY 6 MONTHS Gnp Hydrocortisone (Hydrocortisone (Topical)) 0.5 % Cre 0.5 Applic TOPICAL DIRECTED Lisinopril-Hctz 10-12.5 Mg Tab 1 Tab PO DAILY Guaifenesin Liq (Guaifenesin) 100 mg/5 ML Soln 100 Mg PO Q8HR PRN Furosemide 40 Mg Tab 40 Mg PO DAILY Atorvastatin (Atorvastatin Calcium) 80 Mg Tab 80 Mg PO HS Duoneb (Ipratropium-Albuterol Neb) 0.5-2.5 Mg/3 Ml Neb 1 Nebule INH Q8HR NEB Review of Systems Except as stated in HPI: all other systems reviewed are Neg Physical Exam Narrative GENERAL: SKIN: Warm and dry. HEAD: Atraumatic. Normocephalic. EYES: Pupils equal and round 4 mm reactive to light and accommodation.. No scleral icterus. No injection or drainage. ENT: No nasal bleeding or discharge. Mucous membranes pink and moist. Tongue is midline. No uvula deviation. NECK: Trachea midline. No JVD. CARDIOVASCULAR: Regular rate and rhythm. No murmurs, S3, S4. RESPIRATORY: No accessory muscle use. Rales heard especially in the lower lung shoemaker. Breath sounds equal bilaterally. GASTROINTESTINAL: Abdomen soft, non-tender, nondistended. Hepatic and splenic margins not palpable. MUSCULOSKELETAL: Extremities without clubbing, cyanosis, or edema. No obvious deformities. Full range of motion of the upper and lower extremities bilaterally. 2+ pulses bilaterally. NEUROLOGICAL: Awake and alert. No obvious cranial nerve deficits. Motor grossly within normal limits. Five out of 5 muscle strength in the arms and legs. Normal speech. PSYCHIATRIC: Appropriate mood and affect; insight and judgment normal. Data Data Orders Orders Electrocardiogram (01/23/17 21:39) Complete Blood Count With Diff (01/23/17 21:39) Comprehensive Metabolic Panel (01/23/17 21:39) Prothrombin Time / Inr (Pt) (01/23/17 21:39) Act Partial Throm Time (Ptt) (01/23/17 21:39) Blood Culture (01/23/17 21:39) Lipase (01/23/17 21:39) Urinalysis - C+S If Indicated (01/23/17 21:39) Thyroid Stimulating Hormone (01/23/17 21:39) Chest, Single Ap (01/23/17 21:39) Ct Brain W/O Iv Contrast(Rout) (01/23/17 21:39) Iv Access Insert/Monitor (01/23/17 21:39) Ecg Monitoring (01/23/17 21:39) Oximetry (01/23/17 21:39) Lactic Acid (01/23/17 21:39) Acetaminophen (Tylenol) (01/23/17 21:45) B-Type Natriuretic Peptide (01/23/17 21:41) Acetaminophen Supp (Tylenol Supp) (01/23/17 22:00) Sodium Chlorid 0.9% 500 Ml Inj (Ns 500 M (01/23/17 22:00) Cefepime Inj (Maxipime Inj) (01/23/17 22:00) Azithromycin Inj (Zithromax Inj) (01/23/17 22:00) Resp Bipap / Cpap Non Invas Vt (01/23/17 ) Labs Laboratory Tests Test 01/23/17 21:40 White Blood Count 6.8 TH/MM3 Red Blood Count 4.00 MIL/MM3 Hemoglobin 11.6 GM/DL Hematocrit 37.7 % Mean Corpuscular Volume 94.5 FL Mean Corpuscular Hemoglobin 29.0 PG Mean Corpuscular Hemoglobin Concent 30.6 % Red Cell Distribution Width 15.9 % Platelet Count 158 TH/MM3 Mean Platelet Volume 7.6 FL Neutrophils (%) (Auto) 77.3 % Lymphocytes (%) (Auto) 11.9 % Monocytes (%) (Auto) 6.5 % Eosinophils (%) (Auto) 3.9 % Basophils (%) (Auto) 0.4 % Neutrophils # (Auto) 5.2 TH/MM3 Lymphocytes # (Auto) 0.8 TH/MM3 Monocytes # (Auto) 0.4 TH/MM3 Eosinophils # (Auto) 0.3 TH/MM3 Basophils # (Auto) 0.0 TH/MM3 CBC Comment DIFF FINAL Differential Comment Prothrombin Time 23.7 SEC Prothromb Time International Ratio 2.1 RATIO Activated Partial Thromboplast Time 29.4 SEC Urine Color YELLOW Urine Turbidity CLEAR Urine pH 7.5 Urine Specific [place] 1.016 Urine Protein NEG mg/dL Urine Glucose (UA) NEG mg/dL Urine Ketones NEG mg/dL Urine Occult Blood NEG Urine Nitrite NEG Urine Bilirubin NEG Urine Urobilinogen LESS THAN 2.0 MG/DL Urine Leukocyte Esterase NEG Urine RBC 1 /hpf Urine WBC 2 /hpf Urine Squamous Epithelial Cells <1 /hpf Urine Bacteria RARE /hpf Urine Hyaline Casts 3 /lpf Urine Mucus FEW /lpf Urine Yeast with Hyphae FEW Urine Yeast (Budding) FEW Microscopic Urinalysis Comment CULT NOT INDICATED MDM Medical Decision Making Medical Screen Exam Complete: Yes Emergency Medical Condition: Yes Medical Record Reviewed: Yes Differential Diagnosis Sepsis versus COPD exacerbation versus respiratory distress versus ACS versus electrolyte abnormality versus pneumonia versus UTI versus cystitis Narrative Course 10-year-old male that presents to the ED for evaluation of respiratory symptoms. Patient was properly examined and was found to have signs and symptoms consistent appears to be likely COPD exacerbation with sepsis. Labs and imaging were ordered. Case discussed in my attending Dr Marshall who evaluated the patient and recommends BiPAP. David Flanagan Jan 23, 2017 22:19
[2017-01-23 22:25] VITALS: O2SAT 94
[2017-01-23 22:33] LABS: ALKALINE PHOSPHATASE 63 U/L (45-117); ALT (GPT) 25 U/L (12-78); TOTAL BILIRUBIN ADULT 0.4 MG/DL (0.2-1.0)
[2017-01-23 22:36] LABS: ANION GAP 5 MEQ/L (5-15); AST (GOT) 30 U/L (15-37); BICARBONATE 32.2 MEQ/L (21.0-32.0); BLOOD UREA NITROGEN 25 MG/DL (7-18); CHLORIDE 105 MEQ/L (98-107); GLOMERULAR FILTRATION RATE 68 ML/MIN (>89); POTASSIUM 4.1 MEQ/L (3.5-5.1); SODIUM (NA) 142 MEQ/L (136-145)
--- NOTE | 2017-01-23 22:36 | RADRPT ---
EXAM DATE/TIME: 01/23/2017 21:51 [facility] COMPARISON: CHEST SINGLE AP, August 19, 2016, 12:31. INDICATIONS : Fever MEDICAL HISTORY : Myocardial infarction. Carcinoma, prostate. Chronic obstructive pulmonary SURGICAL HISTORY : CABG. ENCOUNTER: Initial ACUITY: 1 day PAIN SCORE: 0/10 LOCATION: Chest FINDINGS: Median sternotomy wires are noted status-post cardiac surgery. The heart is mildly enlarged. Bibasi lar patchiness is noted consistent with possible atelectasis and/or pneumonia. Clinical correlation is recommended. Small left pleural effusion is noted. CONCLUSION: 1. Bibasilar patchiness consistent with atelectasis and/or pneumonia. Clinical correlation is recomm ended. 2. Small left pleural effusion. 3. Mild cardiomegaly. Adarsh Carter MD on January 23, 2017 at 22:23 Board Certified Radiologist. This report was verified electronically.
[2017-01-23 22:44] VITALS: BP 95/53; PULSE 102; RESP 26; O2SAT 95
[2017-01-23] MEDS ORDERED: SODIUM CHLOR 0.9% 250 ML INJ 250 ML IV ONE (23:00)
[2017-01-23 23:01] VITALS: O2SAT 93
[2017-01-23 23:20] VITALS: BP 65/35; PULSE 95; RESP 30; O2SAT 96
[2017-01-23 23:24] VITALS: BP 80/42
[2017-01-23] MEDS ORDERED: SODIUM CHLORID 0.9% 500 ML INJ 500 ML IV ONE (23:30)
[2017-01-23] MEDS ORDERED: PANTOPRAZOLE INJ 80 MG in SODIUM CHLORIDE 0.9% INJ 100 ML IV SCH (23:50)
[2017-01-24] VITALS (19 sets, daily range): BP systolic 78–115; BP diastolic 40–63; PULSE 72–101; RESP 18–26; TEMP 97.8–101.7; O2SAT 85–100
[2017-01-24] MEDS ORDERED: CYCLOBENZAPRINE HCL 10 MG TAB PO PRN (00:30)
[2017-01-24] MEDS ORDERED: HYDROCORTISONE TOPICAL SCH (00:30)
[2017-01-24] MEDS ORDERED: guaiFENesin SOLUTION 200 MG/10 ML CUP PO PRN (00:30)
[2017-01-24] MEDS ORDERED: ACETAMINOPHEN/HYDROcodone 325 MG/5 MG TAB PO PRN ×2 (00:30)
[2017-01-24] MEDS ORDERED: BISACODYL 10 MG SUPP RECTAL PRN (00:45)
[2017-01-24] MEDS ORDERED: SODIUM CHLORIDE 0.9% FLUSH 10 ML FLUSH PRN (00:45)
[2017-01-24] MEDS ORDERED: ONDANSETRON HCL 4 MG/2 ML VIAL IV PRN (00:45)
[2017-01-24] MEDS ORDERED: LACTULOSE SYRUP 20 GM/30 ML CUP PO PRN (00:45)
[2017-01-24] MEDS ORDERED: CHLORHEXIDINE GLUCONATE 2 % 1 PACK (2 CLOTHS) TOP PRN (00:45)
[2017-01-24] MEDS ORDERED: MISCELLANEOUS NURSING INFORMATION XX SCH (00:45)
[2017-01-24] MEDS ORDERED: PILL SPLITTER OTHER PRN (00:45)
[2017-01-24] MEDS ORDERED: MAGNESIUM HYDROXIDE SUSP 30 ML CUP PO PRN (00:45)
[2017-01-24] MEDS ORDERED: MORPHINE SULFATE 4 MG/ML INJ IV PRN (00:45)
[2017-01-24] MEDS ORDERED: SENNOSIDES 8.6 MG TAB PO PRN (00:45)
[2017-01-24] MEDS ORDERED: ACETAMINOPHEN 325 MG TAB PO PRN (00:45)
--- NOTE | 2017-01-24 02:37 | PD ---
Physical Exam Date Seen by Provider: Jan 23, 2017 Time Seen by Provider: 23:00 Narrative I, Dr. Fitzgerald, have reviewed the advance practice practitioner's documentation and am in agreement, met with the patient face to face, made the diagnosis, and the medical decision making was done by me. *My assessment and Findings: Patient seen and evaluated with PA, please see PA note for further details. Patient with lung cancer, here with shortness of breath, suspected for sepsis. He was given IV fluids, antibiotics, and additional fluids had been ordered due to hypotension. Patient was put on BiPAP with some improvement oxygenation. Laboratory Tests Test 01/23/17 21:40 Red Blood Count 4.00 MIL/MM3 (4.50-5.90) Hemoglobin 11.6 GM/DL (13.0-17.0) Hematocrit 37.7 % (39.0-51.0) Mean Corpuscular Hemoglobin Concent 30.6 % (32.0-36.0) Neutrophils (%) (Auto) 77.3 % (16.0-70.0) Lymphocytes # (Auto) 0.8 TH/MM3 (1.0-4.8) Prothrombin Time 23.7 SEC (9.8-11.6) Urine Bacteria RARE /hpf (NONE) Urine Mucus FEW /lpf (OCC) Urine Yeast with Hyphae FEW (NONE) Urine Yeast (Budding) FEW (NONE) Blood Urea Nitrogen 25 MG/DL (7-18) Random Glucose 116 MG/DL (74-106) Total Protein 5.6 GM/DL (6.4-8.2) Albumin 2.7 GM/DL (3.4-5.0) Calcium Level 7.8 MG/DL (8.5-10.1) Carbon Dioxide Level 32.2 MEQ/L (21.0-32.0) Estimat Glomerular Filtration Rate 68 ML/MIN (>89) B-Type Natriuretic Peptide 278 PG/ML (0-100) Thyroid Stimulating Hormone 3rd Gen 5.110 uIU/ML (0.358-3.740) Last 24 hours Impressions Chest X-Ray 01/23/17 9476 Signed Impressions: Service Date/Time: Monday, January 23, 2017 21:51 - CONCLUSION: 1. Bibasilar patchiness consistent with atelectasis and/or pneumonia. Clinical correlation is recommended. 2. Small left pleural effusion. 3. Mild cardiomegaly. Adarsh Carter MD While in the ER, it was noted that patient had bloody looking stools which are Hemoccult positive. There may be an underlying GI bleed as well but patient's H &H is stable. Protonix was initiated. At this point, considering patient's issues, case was discussed with Dr. Conte for admission. In addition, I have discussed CODE STATUS at length with patient's who at first wanted to make the patient DNR but then states that she just does not want him on a ventilator but wants to consider whether to shock him and do CPR or not on a case to case basis. Patient will remain a full code at this point. Aggregate critical care time was 30 minutes. Time to perform other separately billable procedures was not included in the critical care time. My time did not include minutes spent treating any other patients simultaneously or on activities that did not directly contribute to the patient's treatment. The services I provided to this patient were to treat and/or prevent clinically significant deterioration that could result in: Respiratory failure, cardiopulmonary arrest, septic shock, I provided critical care services requiring my management, as noted below: Chart data review, documentation time, medication orders and management, vital sign assessments/reviewing monitor data, ordering and reviewing lab tests, ordering and interpreting/reviewing x-rays and diagnostic studies, care of the patient and discussion of the patient with the admitting physicians. Data Data Last Documented VS Vital Signs Date Time Temp Pulse Resp B/P (MAP) Pulse Ox O2 Delivery O2 Flow Rate FiO2 01/23/17 23:24 80/42 (55) 01/23/17 23:20 95 30 96 BiPAP 55 01/23/17 21:30 15.00 01/23/17 21:30 103.7 Orders Orders Electrocardiogram (01/23/17 21:39) Complete Blood Count With Diff (01/23/17 21:39) Comprehensive Metabolic Panel (01/23/17 21:39) Prothrombin Time / Inr (Pt) (01/23/17 21:39) Act Partial Throm Time (Ptt) (01/23/17 21:39) Blood Culture (01/23/17 21:39) Lipase (01/23/17 21:39) Urinalysis - C+S If Indicated (01/23/17 21:39) Thyroid Stimulating Hormone (01/23/17 21:39) Chest, Single Ap (01/23/17 21:39) Ct Brain W/O Iv Contrast(Rout) (01/23/17 21:39) Iv Access Insert/Monitor (01/23/17 21:39) Ecg Monitoring (01/23/17 21:39) Oximetry (01/23/17 21:39) Lactic Acid (01/23/17 21:39) Acetaminophen (Tylenol) (01/23/17 21:45) B-Type Natriuretic Peptide (01/23/17 21:41) Acetaminophen Supp (Tylenol Supp) (01/23/17 22:00) Sodium Chlorid 0.9% 500 Ml Inj (Ns 500 M (01/23/17 22:00) Cefepime Inj (Maxipime Inj) (01/23/17 22:00) Azithromycin Inj (Zithromax Inj) (01/23/17 22:00) Resp Bipap / Cpap Non Invas Vt (01/23/17 ) Ct Pulmonary Angiogram (01/23/17 ) Type And Screen (01/23/17 22:49) Sodium Chlor 0.9% 250 Ml Inj (Ns 250 Ml (01/23/17 23:00) Sodium Chloride 0.9... W/Pantoprazole In (01/23/17 23:50) Sodium Chlorid 0.9% 500 Ml Inj (Ns 500 M (01/23/17 23:30) Admit Order (Ed Use Only) (01/23/17 23:28) Labs Laboratory Tests Test 01/23/17 21:40 White Blood Count 6.8 TH/MM3 Red Blood Count 4.00 MIL/MM3 Hemoglobin 11.6 GM/DL Hematocrit 37.7 % Mean Corpuscular Volume 94.5 FL Mean Corpuscular Hemoglobin 29.0 PG Mean Corpuscular Hemoglobin Concent 30.6 % Red Cell Distribution Width 15.9 % Platelet Count 158 TH/MM3 Mean Platelet Volume 7.6 FL Neutrophils (%) (Auto) 77.3 % Lymphocytes (%) (Auto) 11.9 % Monocytes (%) (Auto) 6.5 % Eosinophils (%) (Auto) 3.9 % Basophils (%) (Auto) 0.4 % Neutrophils # (Auto) 5.2 TH/MM3 Lymphocytes # (Auto) 0.8 TH/MM3 Monocytes # (Auto) 0.4 TH/MM3 Eosinophils # (Auto) 0.3 TH/MM3 Basophils # (Auto) 0.0 TH/MM3 CBC Comment DIFF FINAL Differential Comment Prothrombin Time 23.7 SEC Prothromb Time International Ratio 2.1 RATIO Activated Partial Thromboplast Time 29.4 SEC Urine Color YELLOW Urine Turbidity CLEAR Urine pH 7.5 Urine Specific [place] 1.016 Urine Protein NEG mg/dL Urine Glucose (UA) NEG mg/dL Urine Ketones NEG mg/dL Urine Occult Blood NEG Urine Nitrite NEG Urine Bilirubin NEG Urine Urobilinogen LESS THAN 2.0 MG/DL Urine Leukocyte Esterase NEG Urine RBC 1 /hpf Urine WBC 2 /hpf Urine Squamous Epithelial Cells <1 /hpf Urine Bacteria RARE /hpf Urine Hyaline Casts 3 /lpf Urine Mucus FEW /lpf Urine Yeast with Hyphae FEW Urine Yeast (Budding) FEW Microscopic Urinalysis Comment CULT NOT INDICATED Blood Urea Nitrogen 25 MG/DL Creatinine 1.03 MG/DL Random Glucose 116 MG/DL Total Protein 5.6 GM/DL Albumin 2.7 GM/DL Calcium Level 7.8 MG/DL Alkaline Phosphatase 63 U/L Aspartate Amino Transf (AST/SGOT) 30 U/L Alanine Aminotransferase (ALT/SGPT) 25 U/L Total Bilirubin 0.4 MG/DL Sodium Level 142 MEQ/L Potassium Level 4.1 MEQ/L Chloride Level 105 MEQ/L Carbon Dioxide Level 32.2 MEQ/L Anion Gap 5 MEQ/L Estimat Glomerular Filtration Rate 68 ML/MIN Lactic Acid Level 1.9 mmol/L B-Type Natriuretic Peptide 278 PG/ML Lipase 90 U/L Thyroid Stimulating Hormone 3rd Gen 5.110 uIU/ML [facility] Medical Record Reviewed: Yes Supervised Visit with ANA: Yes Diagnosis Primary Impression: Severe sepsis Additional Impression: GI bleed Admitting Information Admitting Physician Requests: Admit Toñito Fitzgerald MD Jan 24, 2017 02:37
[2017-01-24] MEDS: SODIUM CHLOR 0.9% 1000 ML INJ 1,000 ML IV SCH ×2 (03:02→12:27)
[2017-01-24] MEDS: PIPERACIL-TAZO 4.5 GM PREMIX 100 ML IV SCH ×4 (03:03→22:06)
[2017-01-24] MEDS ORDERED: IOHEXOL 350 MG/ML 10 ML VIAL (for RAD DIAG) IVCONTRAST ONE (03:15)
--- NOTE | 2017-01-24 03:36 | RADRPT ---
EXAM DATE/TIME: 01/24/2017 02:53 [facility] COMPARISON: CT BRAIN W/O CONTRAST, August 19, 2016, 13:23. INDICATIONS : Altered mental status. RADIATION DOSE: 56.35 CTDIvol (mGy) MEDICAL HISTORY : Congestive heart failure. Chronic obstructive pulmonary disease. Cardiovascular diseaseHernia. Hypert ension. Lung mass. Bladder cancer. Prostate cancer. SURGICAL HISTORY : CABG ENCOUNTER: Initial ACUITY: 1 day PAIN SCALE: 0/10 LOCATION: cranial TECHNIQUE: Multiple contiguous axial images were obtained of the head. Using automated exposure control and adj ustment of the mA and/or kV according to patient size, radiation dose was kept as low as reasonably a chievable to obtain optimal diagnostic quality images. DICOM format image data is available electro nically for review and comparison. FINDINGS: CEREBRUM: There is mild generalized atrophy. Ventricles are within normal limits. No evidence of midline shift , mass lesion, hemorrhage or acute infarction. No extra-axial fluid collections are seen. POSTERIOR FOSSA: The cerebellum and brainstem are intact. The 4th ventricle is midline. The cerebellopontine angle i s unremarkable. EXTRACRANIAL: The visualized portion of the orbits is intact. SKULL: The calvaria is intact. No evidence of skull fracture. CONCLUSION: Stable noncontrast head CT. No acute finding is identified. Cole Roberts MD on January 24, 2017 at 3:32 Board Certified Radiologist. This report was verified electronically.
--- NOTE | 2017-01-24 03:42 | RADRPT ---
EXAM DATE/TIME: 01/24/2017 02:59 [facility] COMPARISON: No previous studies available for comparison. INDICATIONS : Short of breath. IV CONTRAST: 75 cc Omnipaque 350 (iohexol) IV RADIATION DOSE: 10.71 CTDIvol (mGy) MEDICAL HISTORY : Cardiovascular disease. Congestive heart failure. Chronic obstructive pulmonary disease.Hernia. Hyper tension. Bladder cancer. Prostate cancer. Lung mass. SURGICAL HISTORY : CABG ENCOUNTER: Initial ACUITY: 1 day PAIN SCALE: 0/10 LOCATION: Bilateral chest TECHNIQUE: Volumetric scanning of the chest was performed using a pulmonary embolism protocol MIP images were re constructed. Using automated exposure control and adjustment of the mA and/or kV according to patien t size, radiation dose was kept as low as reasonably achievable to obtain optimal diagnostic quality images. DICOM format image data is available electronically for review and comparison. Follow-up recommendations for detected pulmonary nodules are based at a minimum on nodule size and pa tient risk factors according to Fleischner Society Guidelines. FINDINGS: PULMONARY ARTERIES: No filling defects are seen in the pulmonary arteries through the segmental level. LUNGS: There is severe emphysema. In the right upper lobe abutting the major fissure and visceral pleura is a spiculated nodule measuring 19 x 19 mm. There is bilateral lower lobe airspace consolidation. On th e right there is fissural thickening. Trace pleural fluid is present bilaterally. There is respirator y motion artifact. Polypoid appearing mass is present within the trachea. It measures 14 mm. There ar e calcified granulomas in the right lung. PLEURAE: Trace pleural fluid bilaterally. MEDIASTINUM: Heart great vessels demonstrate no acute finding. There is severe atherosclerotic disease of aorta an d severe coronary calcification. Enlarged precarinal lymph node measures 13 mm in short axis diameter . Prosthetic aortic valve is present. There are calcified hilar lymph nodes. MUSCULOSKELETAL: There are degenerative changes of the thoracic spine with cement related to prior multilevel kyphopla sty. There are old healed left rib fractures. Patient is post median sternotomy. MISCELLANEOUS: There is a small hiatal hernia. Innumerable calcifications are present in the spleen. There is a low- density lesion in the left lobe measuring approximately 3 cm. Density measurements are consistent wit h a cyst. CONCLUSION: 1. No PE is identified. There is respiratory motion artifact. 2. Severe emphysema with suspicious spiculated nodule measuring 19 mm in the right upper lobe. This i s a suspicious for primary pulmonary neoplasm. There is also airspace consolidation both lower lobes with associated visual thickening on the right. 3. Trace bilateral pleural fluid. 4. Polypoid appearing lesion in the trachea measuring approximately 14 mm. Cole Roberts MD on January 24, 2017 at 3:35 Board Certified Radiologist. This report was verified electronically.
[2017-01-24] MEDS: CHLORHEXIDINE GLUCONATE 2 % 1 PACK (2 CLOTHS) TOP SCH (04:00)
[2017-01-24] MEDS: RESP: ALBUTEROL 2.5 MG/IPRATROPIUM 0.5 MG NEB (SCH) INH ×4 (04:23→20:56)
--- NOTE | 2017-01-24 05:07 | HHI.HP ---
[place] [facility] Critical Care Medicine Primary Care Physician [facility] Admission Diagnosis severe sepsis/pneumonia/BiPAP/GI bleed Diagnosis: Travel History International Travel<30 Days: No Contact w/Intl Traveler <30 Da: No Traveled to Known Affected Are: No History of Present Illness 89-year-old male presents with complaints of respiratory complaints as well as fever. Per patient's daughter who is at the bedside and is providing a history , she is also patient's caregiver the patient has been feeling more shortness of breath today and has been more confused today. Patient has a history of COPD and right sided lung cancer which is not amenable for biopsy secondary to his bad COPD. Patient uses oxygen at home but with oxygen his oxygenation cannot be improved. He denies any pain of any kind. Per family he was admitted to [facility] for an infection on his lungs and was there for 6 weeks. Patient has been okay since discharge except for being diagnosed with cancer on the right side. He's only had 2 bouts of radiation and his been missing many treatments because of the hospitalization. Patient seems comfortable on the facemask BiPAP.. 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 MRSA PCR Screen NEGATIVE 08/16/16 & 08/17/16 *Cleared per Infection Control* Past Medical History Atrial fibrillation Coronary artery disease Recently diagnosed stage III lung cancer COPD on 3 L of O2 via an nasal cannula at home Hypertension Hyperlipidemia History of prostate cancer History of bladder cancer Past Surgical History TURP CABG with aortic valve replacement Left endarterectomy Tonsillectomy Reported Medications Reported Meds & Active Scripts Active Flexeril (Cyclobenzaprine HCl) 5 Mg Tab 5 Mg PO TID PRN Lortab (Hydrocodone-Acetaminophen) 5-325 Mg Tab 1 Tab PO Q6H PRN Ferrous Sulfate 325 Mg Tab 325 Mg PO DAILY Flexeril (Cyclobenzaprine HCl) 10 Mg Tab 10 Mg PO TID [place] (Hydrocodone-Acetaminophen) 5-325 mg Tab 1 Tab PO Q6H PRN Reported Coumadin (Warfarin) 2.5 Mg Tab 2.5 Mg PO DAILY Polyethylene Glycol 3350 (Polyethylene Glycol 3350 (Bulk) 1 Gra Gra 1 Drop PO DAILY Temazepam 30 Mg Cap 30 Mg PO HS PRN Potassium Chloride CR (Potassium Chloride) 10 Meq Tab 10 Meq PO BID Multi For Him 50+ (Multiple Vitamins W/ Minerals) 1 Tab Tab 1 Tab PO DAILY Metoprolol Tartrate 50 Mg Tab 50 Mg PO BID Eligard (Leuprolide Acetate (3 Month)) 22.5 Mg Inj 45 Mg SQ EVERY 6 MONTHS Gnp Hydrocortisone (Hydrocortisone (Topical)) 0.5 % Cre 0.5 Applic TOPICAL DIRECTED Lisinopril-Hctz 10-12.5 Mg Tab 1 Tab PO DAILY Guaifenesin Liq (Guaifenesin) 100 mg/5 ML Soln 100 Mg PO Q8HR PRN Furosemide 40 Mg Tab 40 Mg PO DAILY Atorvastatin (Atorvastatin Calcium) 80 Mg Tab 80 Mg PO HS Duoneb (Ipratropium-Albuterol Neb) 0.5-2.5 Mg/3 Ml Neb 1 Nebule INH Q8HR NEB Active Ordered Medications TURP CABG with aortic valve replacement Left endarterectomy Tonsillectomy Family History No family history significant for coronary artery disease or malignancy Social History Used to smoke for 16 years quit when he was 52, denies alcohol or illicit drug abuse Physical Exam Vital Signs Vital Signs Date Time Temp Pulse Resp B/P (MAP) Pulse Ox O2 Delivery O2 Flow Rate FiO2 01/24/17 04:22 100 Partial Rebreather 11.00 01/24/17 04:00 76 01/24/17 04:00 76 20 91/43 (59) 100 01/24/17 03:25 98.3 101 25 115/56 (75) 100 01/24/17 03:23 01/24/17 03:03 82 18 90/60 (70) 98 Non-Rebreather 15.00 01/24/17 01:47 94 55 01/24/17 00:53 86 18 98/52 (67) 94 BiPAP 55 01/24/17 00:01 101.7 89 26 104/53 (70) 98 BiPAP 55 01/23/17 23:24 80/42 (55) 01/23/17 23:20 95 30 65/35 (45) 96 BiPAP 55 01/23/17 23:01 93 55 01/23/17 22:44 102 26 95/53 (67) 95 BiPAP 55 8/27/17 22:25 94 55 01/23/17 21:30 101 22 98 Non-Rebreather 15.00 01/23/17 21:30 103.7 101 22 112/59 (27) 73 Physical Exam GENERAL: Well-nourished, well-developed patient. Elderly gentleman on facemask BiPAP SKIN: Warm and dry. HEAD: Normocephalic. EYES: No scleral icterus. No injection or drainage. NECK: Supple, trachea midline. No JVD or lymphadenopathy. CARDIOVASCULAR: Regular rate and rhythm without murmurs, gallops, or rubs. RESPIRATORY: Breath sounds equal bilaterally. No accessory muscle use. Occasional rhonchi bilaterally GASTROINTESTINAL: Abdomen soft, non-tender, nondistended. MUSCULOSKELETAL: No cyanosis, or edema. BACK: Nontender without obvious deformity. NEURO EXAM: GCS: M6 Vt E4 Mental Status: The patient is awake, on facemask BiPAP and monitor the respiratory distress Cranial Nerves: Pupils are round, reactive to light. Reflexes: Biceps, patellar, and Achilles are 2/4 bilaterally. No clonus. Laboratory Laboratory Tests Test 01/23/17 21:40 01/24/17 03:30 White Blood Count 6.8 Red Blood Count 4.00 Hemoglobin 11.6 Hematocrit 37.7 Mean Corpuscular Volume 94.5 Mean Corpuscular Hemoglobin 29.0 Mean Corpuscular Hemoglobin Concent 30.6 Red Cell Distribution Width 15.9 Platelet Count 158 Mean Platelet Volume 7.6 Neutrophils (%) (Auto) 77.3 Lymphocytes (%) (Auto) 11.9 Monocytes (%) (Auto) 6.5 Eosinophils (%) (Auto) 3.9 Basophils (%) (Auto) 0.4 Neutrophils # (Auto) 5.2 Lymphocytes # (Auto) 0.8 Monocytes # (Auto) 0.4 Eosinophils # (Auto) 0.3 Basophils # (Auto) 0.0 CBC Comment DIFF FINAL Differential Comment Prothrombin Time 23.7 Prothromb Time International Ratio 2.1 Activated Partial Thromboplast Time 29.4 Urine Color YELLOW Urine Turbidity CLEAR Urine pH 7.5 Urine Specific [place] 1.016 Urine Protein NEG Urine Glucose (UA) NEG Urine Ketones NEG Urine Occult Blood NEG Urine Nitrite NEG Urine Bilirubin NEG Urine Urobilinogen LESS THAN 2.0 Urine Leukocyte Esterase NEG Urine RBC 1 Urine WBC 2 Urine Squamous Epithelial Cells <1 Urine Bacteria RARE Urine Hyaline Casts 3 Urine Mucus FEW Urine Yeast with Hyphae FEW Urine Yeast (Budding) FEW Microscopic Urinalysis Comment CULT NOT INDICATED Blood Urea Nitrogen 25 Creatinine 1.03 Random Glucose 116 Total Protein 5.6 Albumin 2.7 Calcium Level 7.8 Alkaline Phosphatase 63 Aspartate Amino Transf (AST/SGOT) 30 Alanine Aminotransferase (ALT/SGPT) 25 Total Bilirubin 0.4 Sodium Level 142 Potassium Level 4.1 Chloride Level 105 Carbon Dioxide Level 32.2 Anion Gap 5 Estimat Glomerular Filtration Rate 68 Lactic Acid Level 1.9 B-Type Natriuretic Peptide 278 Lipase 90 Thyroid Stimulating Hormone 3rd Gen 5.110 Date/Time Source Procedure Growth Status 01/23/17 21:45 Blood Peripheral Aerobic Blood Culture Pending Received 01/23/17 21:45 Blood Peripheral Anaerobic Blood Culture Pending Received Result Diagram: 01/23/17213901/23/172139 Imaging Last [address] 01/23/172138 Signed Impressions: Service Date/Time: Tuesday, January 24, 2017 02:53 - CONCLUSION: Stable noncontrast head CT. No acute finding is identified. Cole Roberts MD Chest X-Ray 01/23/172138 Signed Impressions: Service Date/Time: Monday, January 23, 2017 21:51 - CONCLUSION: 1. Bibasilar patchiness consistent with atelectasis and/or pneumonia. Clinical correlation is recommended. 2. Small left pleural effusion. 3. Mild cardiomegaly. MD Jeffrey Baldwin VTE Risk Assessment Caprini VTE Risk Assessment: Mod/High Risk (score >= 2) Caprini Risk Assessment Model Point Value = 1 Point Value = 2 Point Value = 3 Point Value = 5 Age 41-60 Minor surgery BMI > 25 kg/m2 Swollen legs Varicose veins or History of unexplained or recurrent spontaneous Oral contraceptives or hormone replacement Sepsis (< 1 month) Serious lung disease, including pneumonia (< 1 month) Abnormal pulmonary function Acute myocardial infarction Congestive heart failure (< 1 month) History of inflammatory bowel disease Medical patient at bed rest Age 61-74 Arthroscopic surgery Major open surgery (> 45 min) Laparoscopic surgery (> 45 min) Malignancy Confined to bed (> 72 hours) Immobilizing plaster cast Central venous access Age >= 75 History of VTE Family history of VTE Factor V Leiden Prothrombin [id number] Lupus anticoagulant Anticardiolipin antibodies Elevated serum homocysteine Heparin-induced thrombocytopenia Other congenital or acquired thrombophilia Stroke (< 1 month) Elective arthroplasty Hip, pelvis, or leg fracture Acute spinal cord injury (< 1 month) Prophylaxis Regimen Total Risk Factor Score Risk Level Prophylaxis Regimen 0-1 Low Early ambulation 2 Moderate Order ONE of the following: *Sequential Compression Device (SCD) *Heparin 5000 units SQ BID 3-4 Higher Order ONE of the following medications: *Heparin 5000 units SQ TID *Enoxaparin/Lovenox 40 mg SQ daily (WT < 150 kg, CrCl > 30 mL/min) *Enoxaparin/Lovenox 30 mg SQ daily (WT < 150 kg, CrCl > 10-29 mL/min) *Enoxaparin/Lovenox 30 mg SQ BID (WT < 150 kg, CrCl > 30 mL/min) AND/OR *Sequential Compression Device (SCD) 5 or more Highest Order ONE of the following medications: *Heparin 5000 units SQ TID (Preferred with Epidurals) *Enoxaparin/Lovenox 40 mg SQ daily (WT < 150 kg, CrCl > 30 mL/min) *Enoxaparin/Lovenox 30 mg SQ daily (WT < 150 kg, CrCl > 10-29 mL/min) *Enoxaparin/Lovenox 30 mg SQ BID (WT < 150 kg, CrCl > 30 mL/min) AND *Sequential Compression Device (SCD) Assessment and Plan Assessment and Plan Respiratory failure Community-acquired pneumonia Underlying lung cancer - Continue BiPAP as needed and tolerated - ABG and CXR a.m. - Broad-spectrum antibiotics Zosyn and azithromycin - Follow-up cultures - Urine antigens Atrial fibrillation - Rate controlled - Metoprolol Coronary artery disease - No acute coronary syndrome - No chest pain - Supportive care Recently diagnosed stage III lung cancer - Radiation oncology as an outpatient COPD on 3 L of O2 via an nasal cannula at home - No exacerbation - No steroids - DuoNeb scheduled and when necessary - Empiric antibiotic Hypertension - Metoprolol - Hold diuretics due to possible pneumonia and infection Hyperlipidemia - Atorvastatin History of prostate cancer - Continue [place] DVT GI prophylaxis - Coumadin - Pepcid - Teds and SCDs Critical Care: The total critical care time was 35 minutes. Time to perform other separately billable procedures was not included in the critical care time. Kana Conte MD Jan 24, 2017 5:07 am
[2017-01-24] MEDS: DOCUSATE SODIUM 50 MG/SENNA 8.6 MG TAB PO SCH ×2 (08:22→22:00)
[2017-01-24] MEDS: FERROUS SULFATE 325 MG (65 MG ELEMENTAL IRON) TAB PO SCH (08:23)
[2017-01-24] MEDS: METOPROLOL TARTRATE 50 MG TAB PO SCH ×2 (08:23→22:00)
[2017-01-24] MEDS: SODIUM CHLORIDE 0.9% FLUSH 10 ML FLUSH SCH ×2 (08:23→21:59)
[2017-01-24] MEDS: MULTIVITAMINS/MINERALS THERAPEUTIC TAB PO SCH (08:23)
[2017-01-24] MEDS: CYCLOBENZAPRINE HCL 10 MG TAB PO SCH ×3 (08:23→18:23)
[2017-01-24] MEDS ORDERED: GLUCAGON 1 MG/ML VIAL OTHER PRN (08:45)
[2017-01-24] MEDS ORDERED: DEXTROSE 50% IN WATER 50 ML VIAL(D50) IV PRN (08:45)
[2017-01-24] MEDS ORDERED: FAMOTIDINE 20 MG/2 ML VIAL IV PUSH SCH (09:00)
[2017-01-24] MEDS ORDERED: SODIUM CHLOR 0.9% 250 ML INJ 250 ML IV ONE ×3 (10:00→12:30)
[2017-01-24] MEDS: INSULIN NovoLIN REGULAR SUPPLEMENTAL SCALE SQ SCH ×3 (10:00→22:00)
[2017-01-24 10:53] LABS: INTERNATIONAL NORMALIZED RATIO 2.1 RATIO; PROTHROMBIN TIME - PATIENT 23.5 SEC (9.8-11.6)
[2017-01-24 11:11] LABS: AUTOMATED NEUTROPHIL # 7.1 TH/MM3 (1.8-7.7); BASOPHIL % 0.3 % (0.0-2.0); EOSINOPHIL # 0.1 TH/MM3 (0-0.4); EOSINOPHIL % 0.9 % (0.0-4.0); HEMATOCRIT 29.9 % (39.0-51.0); LYMPHOCYTE # 1.1 TH/MM3 (1.0-4.8); MEAN CELL VOLUME 92.9 FL (80.0-100.0); MEAN CORPUSCULAR HEMOGLOBIN 30.1 PG (27.0-34.0); MEAN CORPUSCULAR HGB CONC 32.4 % (32.0-36.0); MONO % 5.2 % (0.0-8.0); NEUT % 80.6 % (16.0-70.0); PLATELET COUNT 103 TH/MM3 (150-450); RED BLOOD COUNT 3.22 MIL/MM3 (4.50-5.90); WHITE BLOOD COUNT 8.8 TH/MM3 (4.0-11.0)
[2017-01-24 11:12] LABS: BICARBONATE 29.7 MEQ/L (21.0-32.0); MAGNESIUM 2.1 MG/DL (1.5-2.5); POTASSIUM 3.8 MEQ/L (3.5-5.1)
[2017-01-24 12:14] LABS: HEMO FLAGS DIFF FINAL
[2017-01-24] MEDS: WARFARIN SOD 2.5 MG TAB PO SCH (15:53)
--- NOTE | 2017-01-24 16:09 | EKG ---
Date Performed: 01/23/2017 Time Performed: 21:46:24 PTAGE: 89 years EKG: SINUS TACHYCARDIA MARKED LEFT AXIS DEVIATION NONSPECIFIC T-WAVE ABNORMALITY ABNORMAL ECG PREVIOUS TRACING 04/08/2016 09.31.26 Compared to previous tracing, sinus rate has increased. No nspecific T-wave changes are slightly more prominent. DOCTOR: Clifford Zazueta Interpretating Date/Time 01/24/2017 16:07:07
[2017-01-24] MEDS: FAMOTIDINE 20 MG/2 ML VIAL IV PUSH SCH (21:59)
[2017-01-24] MEDS: ATORVASTATIN 80 MG TAB PO SCH (22:00)
[2017-01-24] MEDS: TEMAZEPAM 15 MG CAP PO PRN (22:00)
[2017-01-25] VITALS (16 sets, daily range): BP systolic 88–129; BP diastolic 49–61; PULSE 63–140; RESP 15–18; TEMP 98.1–98.8; O2SAT 98–100
[2017-01-25] MEDS: RESP: ALBUTEROL 2.5 MG/IPRATROPIUM 0.5 MG NEB (SCH) INH ×4 (03:02→20:49)
[2017-01-25] MEDS: CHLORHEXIDINE GLUCONATE 2 % 1 PACK (2 CLOTHS) TOP SCH (04:00)
[2017-01-25] MEDS: INSULIN NovoLIN REGULAR SUPPLEMENTAL SCALE SQ SCH ×4 (04:00→22:00)
--- NOTE | 2017-01-25 04:33 | RADRPT ---
EXAM DATE/TIME: 01/25/2017 03:24 [place] COMPARISON: CHEST SINGLE AP, January 23, 2017, 21:51. INDICATIONS : Short of breath. MEDICAL HISTORY : Myocardial infarction. Carcinoma, prostate. Chronic obstructive pulmonary SURGICAL HISTORY : CABG. ENCOUNTER: Subsequent ACUITY: 3 days PAIN SCORE: 0/10 LOCATION: Bilateral chest FINDINGS: Portable AP view of the chest demonstrates a normal-sized cardiac silhouette with calcification of th e aorta and patient is post median sternotomy. Prosthetic aortic valve is present. There are backgrou nd changes characteristic of emphysema. Opacity remains present in the right midlung zone laterally. There are bibasilar pleural-parenchymal opacities. No pneumothorax is visualized. Bones are undermine ralized but demonstrate no acute finding. There are old rib fractures. CONCLUSION: Stable examination with persistent opacity in the peripheral right midlung zone and at both lung base s. There are likely small bilateral pleural effusions. Cole Roberts MD on January 25, 2017 at 4:30 Board Certified Radiologist. This report was verified electronically.
[2017-01-25] MEDS: SODIUM CHLOR 0.9% 1000 ML INJ 1,000 ML IV SCH ×2 (04:54→12:17)
[2017-01-25] MEDS: PIPERACIL-TAZO 4.5 GM PREMIX 100 ML IV SCH ×3 (04:54→13:47)
[2017-01-25] MEDS: AZITHROMYCIN INJ 500 MG in SODIUM CHLOR 0.9% 250 ML INJ 250 ML IV SCH (04:54)
--- NOTE | 2017-01-25 08:16 | MB ---
cc: JACQUELINE ROBERTS GERALD R. D.O. DATE OF CONSULTATION: 01/24/2017 REASON FOR CONSULTATION COPD and CA of the lung. HISTORY OF PRESENT ILLNESS Mr. Pitts is a pleasant 89-year-old male with longstanding history of COPD. He is oxygen dependent, uses oxygen 3 liters nasal cannula. He also has right lung cancer and was treated with radiation therapy by Dr. Cristhian Stephenson. The patient came to the hospital with worsening shortness of breath. He also had fevers, cough and congestion. He was worked up in the hospital. 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 He also has airspace consolidation in both lungs. His CBC showed WBC count 8.8, hemoglobin 9.7, hematocrit 29.9, MCV 92, platelet count 203. Sodium 144, potassium 3.8, chloride 107, CO2 29, BUN 28, creatinine 1.21. PAST MEDICAL HISTORY 1. CA of the lung, status post radiation treatment. 2. COPD. 3. Hypertension. 4. Coronary artery disease. 5. Atrial fibrillation. 6. Prostate cancer. 7. Bladder cancer. 8. CABG. 9. Aortic valve replacement. 10. Left carotid endarterectomy. MEDICATIONS He is currently takin. Zithromax 500 mg daily. 2. Lipitor 80 mg a day. 3. Famotidine 10 mg a day. 4. Coumadin 2.5 mg for atrial fibrillation. 5. Ferrous sulfate 325 mg. 6. Metoprolol 50 mg twice a day. ALLERGIES No known drug allergies. SOCIAL HISTORY He is a . He worked for an [employer]. He has a remote history of smoking. He never took a drink. FAMILY HISTORY He had four children. One lives on the [facility]. He has not seen him for 17 years. One son was killed in a motor bike accident. REVIEW OF SYSTEMS Denies any headache or dizziness. No seizure, stroke or epilepsy. No DVT or pulmonary embolism. PHYSICAL EXAMINATION GENERAL: An elderly male, quiet, short of breath. VITAL SIGNS: Blood pressure 109/63, heart rate 84, respirations 18, temperature 98.9. HEENT: Pupils are equal and reactive. Oral mucosa and nasal mucosa are normal. NECK: Supple. JVP not raised. CHEST: Expiratory rhonchi. CV: S1, S2 normal. ABDOMEN: Benign. EXTREMITIES: No edema. IMPRESSION 1. COPD. 2. Hypoxia. 3. No pulmonary embolism. 4. Right lung nodule. 5. CA of the lung, status post radiation treatment. 6. Basilar pneumonia. 7. Mild pleural effusion. PLAN Will treat him with antibiotics, aerosol treatment with albuterol and Atrovent. He is on Coumadin. Monitor INR. Supplement his oxygen. Further treatment will depend on the course in the hospital. Thank you Dr. Cohen for this consult. MD DYLON Alcantara/BT /8:02 PM /7:49 AM
[2017-01-25] MEDS: METOPROLOL TARTRATE 50 MG TAB PO SCH (08:28)
[2017-01-25] MEDS: MULTIVITAMINS/MINERALS THERAPEUTIC TAB PO SCH (08:28)
[2017-01-25] MEDS: CYCLOBENZAPRINE HCL 10 MG TAB PO SCH ×3 (08:28→16:57)
[2017-01-25] MEDS: DOCUSATE SODIUM 50 MG/SENNA 8.6 MG TAB PO SCH ×2 (08:28→21:00)
[2017-01-25] MEDS: FERROUS SULFATE 325 MG (65 MG ELEMENTAL IRON) TAB PO SCH (08:28)
[2017-01-25] MEDS: SODIUM CHLORIDE 0.9% FLUSH 10 ML FLUSH SCH ×2 (08:29→21:00)
[2017-01-25] MEDS: FAMOTIDINE 20 MG/2 ML VIAL IV PUSH SCH ×2 (09:20→22:19)
[2017-01-25 11:23] LABS: INTERNATIONAL NORMALIZED RATIO 1.8 RATIO; PROTHROMBIN TIME - PATIENT 20.4 SEC (9.8-11.6)
[2017-01-25 11:27] LABS: AUTOMATED NEUTROPHIL # 5.4 TH/MM3 (1.8-7.7); BASOPHIL % 0.5 % (0.0-2.0); EOSINOPHIL # 0.2 TH/MM3 (0-0.4); EOSINOPHIL % 3.1 % (0.0-4.0); HEMATOCRIT 35.6 % (39.0-51.0); HEMO FLAGS DIFF FINAL; LYMPH % 8.7 % (9.0-44.0); LYMPHOCYTE # 0.6 TH/MM3 (1.0-4.8); MEAN CELL VOLUME 95.8 FL (80.0-100.0); MEAN CORPUSCULAR HGB CONC 31.3 % (32.0-36.0); MONO % 4.2 % (0.0-8.0); NEUT % 83.5 % (16.0-70.0); PLATELET COUNT 109 TH/MM3 (150-450); RED BLOOD COUNT 3.71 MIL/MM3 (4.50-5.90); RED CELL DISTRIBUTION WIDTH 16.2 % (11.6-17.2); WHITE BLOOD COUNT 6.5 TH/MM3 (4.0-11.0)
[2017-01-25 11:35] LABS: ALKALINE PHOSPHATASE 48 U/L (45-117); ALT (GPT) 17 U/L (12-78); ANION GAP 7 MEQ/L (5-15); AST (GOT) 24 U/L (15-37); BICARBONATE 26.6 MEQ/L (21.0-32.0); BLOOD UREA NITROGEN 29 MG/DL (7-18); CHLORIDE 108 MEQ/L (98-107); GLOMERULAR FILTRATION RATE 52 ML/MIN (>89); MAGNESIUM 2.2 MG/DL (1.5-2.5); POTASSIUM 3.9 MEQ/L (3.5-5.1); SODIUM (NA) 142 MEQ/L (136-145); TOTAL BILIRUBIN ADULT 0.5 MG/DL (0.2-1.0)
[2017-01-25] MEDS ORDERED: SODIUM CHLORID 0.9% 500 ML INJ 500 ML IV SCH (12:30)
--- NOTE | 2017-01-25 13:51 | HHI.CCPN ---
Subjective Remarks/Hospital Course 89-year-old male presents with complaints of respiratory complaints as well as fever. Per patient's daughter who is at the bedside and is providing a history , she is also patient's caregiver the patient has been feeling more shortness of breath today and has been more confused today. Patient has a history of COPD and right sided lung cancer which is not amenable for biopsy secondary to his bad COPD. Patient uses oxygen at home but with oxygen his oxygenation cannot be improved. He denies any pain of any kind. Per family he was admitted to [facility] for an infection on his lungs and was there for 6 weeks. Patient has been okay since discharge except for being diagnosed with cancer on the right side. He's only had 2 bouts of radiation and his been missing many treatments because of the hospitalization. Patient seems comfortable on the facemask BiPAP.. 01/25 Patient in on 4L oxygen went into Afib with RVR. Afebrile. Objective Vital Signs Date Time Temp Pulse Resp B/P (MAP) Pulse Ox O2 Delivery O2 Flow Rate FiO2 01/25/17 10:00 72 01/25/17 08:00 98.1 16 119/54 (75) 98 01/24/17 20:56 Nasal Cannula 4.00 01/24/17 02:55 100 Intake and Output 01/25/17 01/25/17 01/26/17 08:00 16:00 00:00 Intake Total 1174 ml 200 ml Output Total 275 ml Balance 899 ml 200 ml Result Diagram: 01/25/17 1032 01/25/17 1032 Other Results Laboratory Tests Test 01/25/17 10:32 White Blood Count 6.5 TH/MM3 Red Blood Count 3.71 MIL/MM3 Hemoglobin 11.1 GM/DL Hematocrit 35.6 % Mean Corpuscular Volume 95.8 FL Mean Corpuscular Hemoglobin 30.0 PG Mean Corpuscular Hemoglobin Concent 31.3 % Red Cell Distribution Width 16.2 % Platelet Count 109 TH/MM3 Mean Platelet Volume 7.6 FL Neutrophils (%) (Auto) 83.5 % Lymphocytes (%) (Auto) 8.7 % Monocytes (%) (Auto) 4.2 % Eosinophils (%) (Auto) 3.1 % Basophils (%) (Auto) 0.5 % Neutrophils # (Auto) 5.4 TH/MM3 Lymphocytes # (Auto) 0.6 TH/MM3 Monocytes # (Auto) 0.3 TH/MM3 Eosinophils # (Auto) 0.2 TH/MM3 Basophils # (Auto) 0.0 TH/MM3 CBC Comment DIFF FINAL Differential Comment Prothrombin Time 20.4 SEC Prothromb Time International Ratio 1.8 RATIO Blood Urea Nitrogen 29 MG/DL Creatinine 1.30 MG/DL Random Glucose 75 MG/DL Total Protein 5.3 GM/DL Albumin 2.1 GM/DL Calcium Level 7.5 MG/DL Phosphorus Level 2.7 MG/DL Magnesium Level 2.2 MG/DL Alkaline Phosphatase 48 U/L Aspartate Amino Transf (AST/SGOT) 24 U/L Alanine Aminotransferase (ALT/SGPT) 17 U/L Total Bilirubin 0.5 MG/DL Sodium Level 142 MEQ/L Potassium Level 3.9 MEQ/L Chloride Level 108 MEQ/L Carbon Dioxide Level 26.6 MEQ/L Anion Gap 7 MEQ/L Estimat Glomerular Filtration Rate 52 ML/MIN Imaging Last [address] 01/23/172138 Signed Impressions: Service Date/Time: Tuesday, January 24, 2017 02:53 - CONCLUSION: Stable noncontrast head CT. No acute finding is identified. Cole Roberts MD Chest X-Ray 01/23/172138 Signed Impressions: Service Date/Time: Monday, January 23, 2017 21:51 - CONCLUSION: 1. Bibasilar patchiness consistent with atelectasis and/or pneumonia. Clinical correlation is recommended. 2. Small left pleural effusion. 3. Mild cardiomegaly. Adarsh Carter MD Objective Remarks GENERAL: Patient is 89 yo lying in bed in mild distress SKIN: Warm and dry. HEAD: Normocephalic. EYES: No scleral icterus. No injection or drainage. NECK: Supple, trachea midline. No JVD or lymphadenopathy. CARDIOVASCULAR: Tachycardic, irregular without murmurs, gallops, or rubs. RESPIRATORY: Breath sounds equal bilaterally.Coarse BS GASTROINTESTINAL: Abdomen soft, non-tender, nondistended. MUSCULOSKELETAL: No cyanosis, or edema. Neuro: Awake and alert A/P Assessment and Plan 1)Respiratory failure 2)Community-acquired pneumonia 3)Afib with RVR 4)Recently diagnosed stage III lung cancer 5)Coronary artery disease 6)COPD on 3 L of O2 via an nasal cannula at home 7)Hx Hypertension 8)Hyperlipidemia 9)History of prostate cancer Neuro: Monitor neuro status and avoid sedatives Pulm: Continue with oxygen keep sat >92% Bronchodilators, place on solumnederol 40mg IV Q8 NIPPV PRN for resp distress CV: Place on Amio drip for Afib with RVR monitor HR and BP keep MAP>65mmHg Check caridac enzymes/troponin's. echo : Monitor renal function, I/O's, electrolytes replacement as needed d/c IVF GI: Keep NPO for now, on Pepcid for GI prophylaxis ID: Continue with abx ( Zosyn, Zithromax)monitor for signs of infections (Fever , WBC) BC 01/23: NGTD, sputum cx, strep pneumonia and Legionella urinary Ag pending Heme: Monitor CBC, coags- on coumadin Endo: SSI for glycemic control GI/DVT prophylaxis - on Pepcid and Coumadin- INR 1.8 today Level 3 Vaughn Hawk MD Jan 25, 2017 13:51
[2017-01-25] MEDS ORDERED: AMIODARONE INJ 150 MG in DEXTROSE 5% IN WATER 100ML INJ 100 ML IV ONE ×2 (14:11)
[2017-01-25] MEDS ORDERED: SODIUM CHLORID 0.9% 500 ML INJ 500 ML IV ONE (14:15)
[2017-01-25] MEDS ORDERED: PHENYLEPHRINE INJ 40 MG in DEXTROSE 5% IN WATE 500 ML INJ 496 ML IV PRN ×2 (14:15)
[2017-01-25] MEDS ORDERED: TERBUTALINE INJ 1 MG/ML AMP SQ PRN (14:15)
--- NOTE | 2017-01-25 14:54 | HHI.PR ---
Subjective Remarks Follow-up for infection and SVT. Received a call from patient's nurse that patient's heart rate in the 160s and he is hypotensive and the systolic blood pressure in the 60s. I went to see patient and a stat EKG was done. I told nurse to give patient 500 cc normal saline she stated that already ordered that. Patient was lethargic but denies any chest pain, shortness of breathing or palpitation. His daughters at the bedside. Dealt with Dr. Kruse in regards to transferring patient back to the [facility] since patient is unstable. Dealt with patient's nurse is also at the bedside. Objective Vitals Vital Signs Date Time Temp Pulse Resp B/P (MAP) Pulse Ox O2 Delivery O2 Flow Rate FiO2 01/25/17 10:00 72 01/25/17 08:00 65 01/25/17 08:00 98.1 65 16 119/54 (75) 98 01/25/17 06:00 79 01/25/17 04:00 83 01/25/17 04:00 98.4 83 16 101/55 (70) 100 01/25/17 02:00 63 01/25/17 00:00 98.2 75 17 90/51 (64) 100 01/25/17 00:00 75 01/24/17 22:00 88 01/24/17 20:56 100 Nasal Cannula 4.00 01/24/17 20:00 84 01/24/17 20:00 97.8 84 22 114/52 (72) 100 01/24/17 18:00 88 01/24/17 16:00 98.9 84 25 109/63 (78) 85 01/24/17 16:00 84 I/O 01/24/17 01/24/17 01/24/17 01/25/17 01/25/17 01/25/17 07:00 15:00 23:00 07:00 15:00 23:00 Intake Total 1258 ml 600 ml 1980 ml 1174 ml 200 ml Output Total 300 ml 250 ml 275 ml Balance 958 ml 600 ml 1730 ml 899 ml 200 ml Intake Oral 340 ml IV Total 1258 ml 600 ml 1640 ml 1174 ml 200 ml Output Urine Total 300 ml 250 ml 275 ml Stool Total 0 ml # Bowel Movements 1 Result Diagram: 01/25/17 1032 01/25/17 1032 Objective Remarks GENERAL: Very lethargic and weak SKIN: Warm and dry. HEAD: Normocephalic. EYES: No scleral icterus. No injection or drainage. NECK: Supple, trachea midline. No JVD or lymphadenopathy. CARDIOVASCULAR: Irregular rate and irregular rhythm with heart rate ranging from 130s to 160s without murmurs, gallops, or rubs. RESPIRATORY: Breath sounds equal bilaterally. No accessory muscle use. GASTROINTESTINAL: Abdomen soft, non-tender, nondistended. Medications and IVs Current Medications Acetaminophen (Tylenol) 650 mg ONCE ONCE PO ; Start 01/23/17 at 21:45; Stop at 21:56; Status DC Acetaminophen (Tylenol Supp) 650 mg ONCE ONCE RECTAL Last administered on 01/23 22:31; Start 01/23/17 at 22:00; Stop 01/23/17 at 22:06; Status DC Sodium Chloride 500 ml @ 50 mls/hr Q10H IV Last administered on 01/23/17 22: 31; Start 01/23/17 at 22:00; Stop 01/24/17 at 07:59; Status DC Cefepime HCl 1000 mg/Sodium Chloride 100 ml @ 200 mls/hr ONCE ONCE IV Last administered on 01/23/17 23:45; Start 01/23/17 at 22:00; Stop 01/23/17 at 22:29 ; Status DC Azithromycin 500 mg/Sodium Chloride 250 ml @ 250 mls/hr ONCE ONCE IV Last administered on 01/23/17 22:51; Start 01/23/17 at 22:00; Stop 01/23/17 at 22:59 ; Status DC Sodium Chloride 250 ml @ 15 mls/hr ONCE ONCE IV ; Start 01/23/17 at 23:00; Stop 01/24/17 at 15:39; Status DC Pantoprazole Sodium 80 mg/ Sodium Chloride 100 ml @ 10 mls/hr Q10H IV Last administered on 01/24/17 00:03; Start 01/23/17 at 23:50; Stop 01/24/17 at 00:48 ; Status DC Sodium Chloride 500 ml @ 500 mls/hr BOLUS ONCE IV Last administered on 23:34; Start 01/23/17 at 23:30; Stop 01/24/17 at 00:29; Status DC Atorvastatin Calcium (Lipitor) 80 mg HS PO Last administered on 01/24/17 22:00 ; Start 01/24/17 at 21:00 Cyclobenzaprine HCl (Flexeril) 5 mg TID PRN PO MUSCLE SPAMPS; Start 01/24/17 at 00:30 Cyclobenzaprine HCl (Flexeril) 10 mg TID PO Last administered on 01/25/17 13: 47; Start 01/24/17 at 09:00 Ferrous Sulfate (Ferrous Sulfate) 325 mg DAILY PO Last administered on 08:28; Start 01/24/17 at 09:00 Guaifenesin (Robitussin Liq) 100 mg Q8H PRN PO COUGH; Start 01/24/17 at 00:30 Acetaminophen/ Hydrocodone Bitart ([place] 5-325 Mg) 1 tab Q6H PRN PO PAIN 1-5; Start 01/24/17 at 00:30 Acetaminophen/ Hydrocodone Bitart ([place] 5-325 Mg) 1 tab Q6H PRN PO PAIN; Start 01/24/17 at 00:30; Status UNV Metoprolol Tartrate (Lopressor) 50 mg BID PO Last administered on 01/24/17 22: 00; Start 01/24/17 at 09:00; Status Future Hold Temazepam (Restoril) 30 mg HS PRN PO INSOMNIA Last administered on 01/24/17 22 :00; Start 01/24/17 at 00:30 Warfarin Sodium (Coumadin) 2.5 mg DAILY@1600 PO Last administered on 01/24/17 15:53; Start 01/24/17 at 16:00 Non-Formulary Medication 0.5 applic DIRECTED TOPICAL ; Start 01/24/17 at 00: 30; Status UNV Multivitamins/ Minerals Therapeutic (Theragran M Tab) 1 tab DAILY PO Last administered on 01/25/17 08:28; Start 01/24/17 at 09:00 Sodium Chloride 1,000 ml @ 84 mls/hr [id number] IV Last administered on 04:54; Start 01/24/17 at 00:32 Sodium Chloride (NS Flush) 2 ml UNSCH PRN .XX FLUSH AFTER USING IV ACCESS; Start 01/24/17 at 00:45 Sodium Chloride (NS Flush) 2 ml BID .XX Last administered on 01/24/17 21:59; Start 01/24/17 at 09:00 Acetaminophen (Tylenol) 650 mg Q6H PRN PO FEVER >101F; Start 01/24/17 at 00:45 Morphine Sulfate (Morphine Inj) 2 mg Q2H PRN IV PAIN SCALE 6 TO 10; Start 01/24 at 00:45 Famotidine (Pepcid Inj) 20 mg Q12HR IV PUSH Last administered on 01/24/17 08: 22; Start 01/24/17 at 09:00; Stop 01/24/17 at 13:51; Status DC Ondansetron HCl (Zofran Inj) 4 mg Q6H PRN IV NAUSEA OR VOMITING; Start at 00:45 Albuterol/ Ipratropium (Duoneb Neb) 1 ampule Q6HR NEB INH Last administered on 01/25/17 08:36; Start 01/24/17 at 04:00 Albuterol/ Ipratropium (Duoneb Neb) 1 ampule Q2HR NEB PRN INH WHEEZING; Start 01/24/17 at 00:45 Miscellaneous Information 1 Q361D XX ; Start 01/24/17 at 00:45 Chlorhexidine Gluconate (Chlorhexidine 2% Cloth) 3 pack Taper DAILY@04 TOP Last administered on 01/25/17 04:00; Start 01/24/17 at 04:00; Stop 01/20/18 at 03:59 Chlorhexidine Gluconate (Chlorhexidine 2% Cloth) 3 pack UNSCH PRN TOP HYGIENIC CARE; Start 01/24/17 at 00:45 Senna/Docusate Sodium (Marcie-Colace) 1 tab BID PO Last administered on 08:28; Start 01/24/17 at 09:00 Magnesium Hydroxide (Milk Of Magnesia Liq) 30 ml Q12H PRN PO MILD - MODERATE CONSTIPATION; Start 01/24/17 at 00:45 Sennosides (Senokot) 17.2 mg Q12H PRN PO MODERATE - SEVERE CONSTIPATION; Start 01/24/17 at 00:45 Bisacodyl (Dulcolax Supp) 10 mg DAILY PRN RECTAL SEVERE CONSITIPATION; Start at 00:45 Lactulose (Lactulose Liq) 30 ml DAILY PRN PO SEVERE CONSITIPATION; Start at 00:45 Pharmacy Profile Note 0 ml @ 0 mls/hr UNSCH OTHER ; Start 01/24/17 at 00:45 Piperacillin Sod/ Tazobactam Sod 100 ml @ 200 mls/hr Q6H IV Last administered on 01/25/17 13:47; Start 01/24/17 at 02:00 Azithromycin 500 mg/Sodium Chloride 250 ml @ 250 mls/hr Q24H IV Last administered on 01/25/17 04:54; Start 01/24/17 at 23:00 Miscellaneous (Pill Splitter) 1 ea UNSCH PRN OTHER SEE LABEL COMMENTS; Start at 00:45 Patient Medication Teaching (Coumadin Booklet) 1 ONCE ONCE .XX Last administered on 01/24/17 15:53; Start 01/24/17 at 16:00; Stop 01/24/17 at 16:01 ; Status DC Iohexol (Omnipaque 350 Inj) 75 ml STK-MED ONCE IVCONTRAST ; Start 01/24/17 at 03 :15; Stop 01/24/17 at 03:16; Status DC Dextrose (D50w (Vial) Inj) 50 ml UNSCH PRN IV HYPOGLYCEMIA-SEE COMMENTS; Start 01/24/17 at 08:45 Glucagon (Glucagon Inj) 1 mg UNSCH PRN OTHER HYPOGLYCEMIA-SEE COMMENTS; Start 01/24/17 at 08:45 Insulin Human Regular (NovoLIN R SUPPLEMENTAL SCALE) 1 Q6H SQ ; Start 01/24/17 at 10:00 Sodium Chloride 250 ml @ 999 mls/hr NOW ONCE IV Last administered on 10:24; Start 01/24/17 at 10:00; Stop 01/24/17 at 10:15; Status DC Sodium Chloride 250 ml @ 0 mls/hr BOLUS ONCE IV ; Start 01/24/17 at 11:00; Stop 01/24/17 at 11:01; Status DC Sodium Chloride 250 ml @ 0 mls/hr BOLUS ONCE IV Last administered on 12:50; Start 01/24/17 at 12:30; Stop 01/24/17 at 12:31; Status DC Famotidine (Pepcid Inj) 10 mg Q12HR IV PUSH Last administered on 01/25/17 09: 20; Start 01/24/17 at 21:00 Sodium Chloride 500 ml @ 999 mls/hr Q31M IV Last administered on 01/25/17t 13: 47; Start 01/25/17 at 12:30; Stop 01/25/17 at 13:00; Status DC Amiodarone HCl 150 mg/Dextrose 103 ml @ 600 mls/hr Q11M ONCE IV ; Start at 14:11; Stop 01/25/17 at 14:23; Status DC Amiodarone HCl 450 mg/Dextrose 250 ml @ 33 mls/hr Q7H35M IV ; Start 01/25/17 at 14:30 Sodium Chloride 500 ml @ 500 mls/hr BOLUS ONCE IV ; Start 01/25/17 at 14:15; Stop 01/25/17 at 15:14 Phenylephrine HCl 40 mg/Dextrose 500 ml @ 30 mls/hr [id number] PRN IV Blood pressure management; Start 01/25/17 at 14:15 Terbutaline Sulfate (Brethine Inj) 1 mg UNSCH PRN SQ For Extravasation; Start 01/25/17 at 14:15 Methylprednisolone Sodium Succinate (SoluMEDROL INJ) 40 mg Q8HR IV PUSH ; Start 01/25/17 at 14:30 A/P Assessment and Plan Atrial fibrillation with RVR -Patient was on metoprolol. He is now hypotensive with systolic blood pressures in the 60s. Patient will receive 500 cc of normal saline. Stat EKG was ordered which confirmed age of fibrillation with RVR. -Dealt with Dr. Kruse in person for transfer of care and agreed. Hypotension -See treatment as above. Respiratory failure Community-acquired pneumonia Underlying lung cancer -Continue with antibiotics Zosyn and azithromycin - Follow-up cultures - Urine antigens Coronary artery disease - No acute coronary syndrome - Supportive care Recently diagnosed stage III lung cancer - Radiation oncology as an outpatient COPD on 3 L of O2 via an nasal cannula at home - No exacerbation - No steroids - DuoNeb scheduled and when necessary - Empiric antibiotic Hypertension - Now patient is hypotensive due to atrial fibrillation with RVR. -Will need to hold antihypertensive medication. Management per site reliability engineer. Hyperlipidemia - Atorvastatin History of prostate cancer - Continue [place] DVT GI prophylaxis - Coumadin - Pepcid - Teds and SCDs Discharge Planning Patient is a DO NOT INTUBATE. Due to patient being unstable will need to transfer back to the intensive care physicians. He will need to stay in the ICU. Phylicia Medina MD Jan 25, 2017 14:54
[2017-01-25] MEDS: AMIODARONE INJ 450 MG in DEXTROSE 5% IN WATE(EXCEL) INJ 241 ML IV SCH ×4 (14:58→22:41)
[2017-01-25] MEDS ORDERED: LIDOCAINE HCL 1% 50 ML VIAL ONE (15:27)
--- NOTE | 2017-01-25 15:33 | PD.CONS ---
Consult Service Palliative Care Consult Requested By Dr. Hawk . Primary Care Physician [facility] Reason for Consultation a. To assist with evaluation and management of symptoms including: dyspnea, weakness/debility, anxiety b. To assist medical decision maker(s) with: better understanding of current medical conditions; weighing benefits/burdens of medical treatment options; making medical treatment decisions. HPI History of Present Illness This 89 yo patient presented to the ED on 01/23/17 with complaints of fever, shortness of breath. Family reports patient were confused that day. Patient with known history of COPD and right-sided lung cancer which have not been amenable to biopsy secondary to COPD. Dependent on O2 at home. Day of presentation family reporting more lethargic and more confused. Denying pain. He apparently has a chronic Valenzuela catheter which family reported was because of "laziness" versus actual medical needs. No changes to bowel habits reported. Family reporting chronic cough. Family felt like he was febrile to touch so activated EMS. Patient reported with recent admission to [facility] for lung infection for which he was hospitalized 6 weeks. They report he had been okay since discharge except for the lung cancer. Status post 2 radiation treatments however missed many treatments due to hospitalization. Patient's only complaint is shortness of breath. Hospital course: * ED course: CBC unremarkable aside from mild anemia. Required BiPAP during ED course to improve oxygenation, worsening dyspnea. CT brain with no acute findings. CXR= bibasilar patchiness consistent with atelectasis and/or pneumonia. Small left pleural effusion. Started on broad-spectrum antibiotics , cultures pending. Noted to be in atrial flutter, rate controlled. * Speech therapy swallow evaluation notes patient tolerated mechanical soft diet with chopped meat, thin liquids no symptoms of aspiration. * Pulmonology consulted 01/24; notes patient with underlying COPD, hypoxia and cancer of the lung. Continue aerosol treatments, antibiotics, will follow course * 01/25 patient name reports patient with coughing episodes with medial, decreased O2 saturations after meal. Right lung sounds diminished. Speech therapy recommends modified barium swallow. Patient atrial flutter went into RVR. Started on amiodarone drip, cardiac enzymes pending. Continued on Zosyn, Zithromax. Blood cultures from 01/23 negative to date. Patient with hypotension , receiving IV fluid bolus. * 01/25 palliative care consulted to assist with goals of treatment. Pt seen in room w daughter, niece at bedside. RN present also. Cardiology in to see pt during my consultation. Pt alert, mostly oriented, very [place], and dyspneic which limits conversation. S/p attempt at central line per critical care, unable to place. Met w pt, family approx 20-25 min at bedside. Additional lung cancer history as per radiation oncology consult 07/2016 -patient underwent imaging noting 2.3 cm mass right upper lobe, several hypermetabolic areas in mediastinum findings suspicious for primary lung cancer. It was felt due to poor lung function not recommended to pursue biopsy. Radiation oncology was consulted for possible treatment options. Radiation oncology notes he is not a good candidate for invasive procedures such as biopsy not necessarily good candidate for chemotherapy due to poor performance status. Radiation Oncology notes discussion regarding no treatment versus chemoradiation versus radiation therapy versus observation only. He further notes discussion regarding long-term well-controlled radiotherapy or overall disease-free survival less than 10%. He elected to pursue radiation therapy. Function/Cognitive Trajectory lives at home w dtr. cognitively sharp. several hospitalizations over past few mos, some general debility . Review of Systems ROS Limitations: Clinical Condition (SOB with any conversation ) Constitutional: COMPLAINS OF: Generalized weakness, DENIES: Fever, Change in appetite Ears, nose, mouth, throat: DENIES: Oral lesions, Throat pain Respiratory: COMPLAINS OF: Cough (chronic), Sputum production, Shortness of breath, DENIES: Hemoptysis Cardiovascular: COMPLAINS OF: Dyspnea on Exertion, DENIES: Chest pain, Palpitations, Syncope, Lower Extremity Edema Gastrointestinal: DENIES: Abdominal pain, Constipation, Diarrhea, Nausea, Vomiting, Difficulty Swallowing Genitourinary: DENIES: Urinary incontinence Musculoskeletal: DENIES: Joint pain Psychiatric: COMPLAINS OF: Confusion (recent AMS/lethargy per daughter ) Past Family Social History Coded Allergies: *MDRO Multi-Drug Resistant Organism (Verified Adverse Reaction, Unknown, ) 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 TUR bladder tumor Reported Medications Flexeril (Cyclobenzaprine HCl) 5 Mg Tab 5 Mg PO TID PRN Lortab (Hydrocodone-Acetaminophen) 5-325 Mg Tab 1 Tab PO Q6H PRN Ferrous Sulfate 325 Mg Tab 325 Mg PO DAILY Flexeril (Cyclobenzaprine HCl) 10 Mg Tab 10 Mg PO TID [place] (Hydrocodone-Acetaminophen) 5-325 mg Tab 1 Tab PO Q6H PRN Coumadin (Warfarin) 2.5 Mg Tab 2.5 Mg PO DAILY Polyethylene Glycol 3350 (Polyethylene Glycol 3350 (Bulk) 1 Gra Gra 1 Drop PO DAILY Temazepam 30 Mg Cap 30 Mg PO HS PRN Potassium Chloride CR (Potassium Chloride) 10 Meq Tab 10 Meq PO BID Multi For Him 50+ (Multiple Vitamins W/ Minerals) 1 Tab Tab 1 Tab PO DAILY Metoprolol Tartrate 50 Mg Tab 50 Mg PO BID Eligard (Leuprolide Acetate (3 Month)) 22.5 Mg Inj 45 Mg SQ EVERY 6 MONTHS Gnp Hydrocortisone (Hydrocortisone (Topical)) 0.5 % Cre 0.5 Applic TOPICAL DIRECTED Lisinopril-Hctz 10-12.5 Mg Tab 1 Tab PO DAILY Guaifenesin Liq (Guaifenesin) 100 mg/5 ML Soln 100 Mg PO Q8HR PRN Furosemide 40 Mg Tab 40 Mg PO DAILY Atorvastatin (Atorvastatin Calcium) 80 Mg Tab 80 Mg PO HS Duoneb (Ipratropium-Albuterol Neb) 0.5-2.5 Mg/3 Ml Neb 1 Nebule INH Q8HR NEB . Current Medications Medications (Trade) Dose Ordered Sig/Teressa Route Start Time Stop Time Status Last Admin (Lipitor) 80 mg HS PO 01/24/17 21:00 01/24/17 22:00 (Flexeril) 5 mg TID PRN PO 01/24/17 00:30 (Flexeril) 10 mg TID PO 01/24/17 09:00 01/25/17 13:47 (Ferrous Sulfate) 325 mg DAILY PO 01/24/17 09:00 01/25/17 08:28 (Robitussin Liq) 100 mg Q8H PRN PO 01/24/17 00:30 ([place] 5-325 Mg) 1 tab Q6H PRN PO 01/24/17 00:30 (Lopressor) 50 mg BID PO 01/24/17 09:00 Future Hold 01/24/17 22:00 (Restoril) 30 mg HS PRN PO 01/24/17 00:30 01/24/17 22:00 (Coumadin) 2.5 mg DAILY@1600 PO 01/24/17 16:00 01/24/17 15:53 (Theragran M Tab) 1 tab DAILY PO 01/24/17 09:00 01/25/17 08:28 Sodium Chloride 1,000 ml @ 84 mls/hr [id number] IV 01/24/17 00:32 01/25/17 04:54 (NS Flush) 2 ml UNSCH PRN .XX 01/24/17 00:45 (NS Flush) 2 ml BID .XX 01/24/17 09:00 01/24/17 21:59 (Tylenol) 650 mg Q6H PRN PO 01/24/17 00:45 (Morphine Inj) 2 mg Q2H PRN IV 01/24/17 00:45 (Zofran Inj) 4 mg Q6H PRN IV 01/24/17 00:45 (Duoneb Neb) 1 ampule Q6HR NEB INH 01/24/17 04:00 01/25/17 08:36 (Duoneb Neb) 1 ampule Q2HR NEB PRN INH 01/24/17 00:45 Miscellaneous Information 1 Q361D XX 01/24/17 00:45 (Chlorhexidine 2% Cloth) 3 pack Taper DAILY@04 TOP 01/24/17 04:00 01/20/18 03:59 01/25/17 04:00 (Chlorhexidine 2% Cloth) 3 pack UNSCH PRN TOP 01/24/17 00:45 (Marcie-Colace) 1 tab BID PO 01/24/17 09:00 01/25/17 08:28 (Milk Of Magnesia Liq) 30 ml Q12H PRN PO 01/24/17 00:45 (Senokot) 17.2 mg Q12H PRN PO 01/24/17 00:45 (Dulcolax Supp) 10 mg DAILY PRN RECTAL 01/24/17 00:45 (Lactulose Liq) 30 ml DAILY PRN PO 01/24/17 00:45 Pharmacy Profile Note 0 ml @ 0 mls/hr UNSCH OTHER 01/24/17 00:45 Piperacillin Sod/ Tazobactam Sod 100 ml @ 200 mls/hr Q6H IV 01/24/17 02:00 01/25/17 13:47 Azithromycin 500 mg/Sodium Chloride 250 ml @ 250 mls/hr Q24H IV 01/24/17 23:00 01/25/17 04:54 (Pill Splitter) 1 ea UNSCH PRN OTHER 01/24/17 00:45 (D50w (Vial) Inj) 50 ml UNSCH PRN IV 01/24/17 08:45 (Glucagon Inj) 1 mg UNSCH PRN OTHER 01/24/17 08:45 (NovoLIN R SUPPLEMENTAL SCALE) 1 Q6H SQ 01/24/17 10:00 (Pepcid Inj) 10 mg Q12HR IV PUSH 01/24/17 21:00 01/25/17 09:20 Amiodarone HCl 450 mg/Dextrose 250 ml @ 33 mls/hr Q7H35M IV 01/25/17 14:30 01/25/17 14:58 Sodium Chloride 500 ml @ 500 mls/hr BOLUS ONCE IV 01/25/17 14:15 01/25/17 15:14 Phenylephrine HCl 40 mg/Dextrose 500 ml @ 30 mls/hr [id number] PRN IV 01/25/17 14:15 01/25/17 14:52 (Brethine Inj) 1 mg UNSCH PRN SQ 01/25/17 14:15 (SoluMEDROL INJ) 40 mg Q8HR IV PUSH 01/25/17 14:30 Family History No family history of CAD or malignancy Substance Use Tobacco: Former smoker quit at age 52, chews tobacco Alcohol: None Prescription med abuse: None Illicits: None . Psychosocial History . 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 Has 2 adult children, 1 dtr local, son lives out of state, not in close communication w pt. Per prior H&P One son is secondary to a motorcycle accident. Spiritual/Cultural Factors Confucianism Living Will: Never completed Health Care Surrogate: Copy in medical record Date completed: 01/25/17 Health Care Surrogate(s): named daughter Cecily Perez Ethical and Legal Issues Pt capacity may fluctuate 2/2 infection, oxygenation status. Best supported in shared decision making by HCS (daughter) Physical Exam Vital Signs Date Time Temp Pulse Resp B/P (MAP) Pulse Ox O2 Delivery O2 Flow Rate FiO2 01/25/17 14:58 114 83/50 01/25/17 14:52 141 83/50 01/25/17 14:50 135 83/50 01/25/17 10:00 72 01/25/17 08:00 65 01/25/17 08:00 98.1 65 16 119/54 (75) 98 01/25/17 06:00 79 01/25/17 04:00 83 01/25/17 04:00 98.4 83 16 101/55 (70) 100 01/25/17 02:00 63 01/25/17 00:00 98.2 75 17 90/51 (64) 100 01/25/17 00:00 75 01/24/17 22:00 88 01/24/17 20:56 100 Nasal Cannula 4.00 01/24/17 20:00 84 01/24/17 20:00 97.8 84 22 114/52 (72) 100 01/24/17 18:00 88 01/24/17 16:00 98.9 84 25 109/63 (78) 85 01/24/17 16:00 84 01/25/17 01/26/17 19:00 07:00 Intake Total 403 ml Balance 403 ml IV Total 403 ml Exam CONSTITUTIONAL/GENERAL: This is a well nourished, visibly short of breath pt TUBES/LINES/DRAINS:PIV BUE, valenzuela catheter, NC SKIN: No jaundice, rashes, or lesions. No wounds seen anteriorly. Skin temperature appropriate. Not diaphoretic. HEAD: Atraumatic. Normocephalic. EYES: Pupils equal and round and reactive. Extraocular motions intact. No scleral icterus. No injection or drainage. Fundi not examined. ENT: Hard of hearing. Nose without bleeding or purulent drainage. Throat without visible erythema, exudates, masses, or lesions. NECK: Trachea midline. Supple, nontender. No palpable thyroid enlargement or nodularity. CARDIOVASCULAR: regular rate and rhythm. No JVD. Peripheral pulses symmetric. RESPIRATORY/CHEST: Symmetric, mildly labored respirations, mildly tachypneic. Clear to auscultation, decreased air movement. Breath sounds equal bilaterally. GASTROINTESTINAL: Abdomen soft, non-tender, nondistended. No hepato-splenomegaly , or palpable masses. No guarding. Bowel sounds present. GENITOURINARY: Without palpable bladder distension. Valenzuela catheter in place. MUSCULOSKELETAL: Extremities without clubbing, cyanosis. trace peripheral edema. No joint tenderness or effusion noted. No calf tenderness. No mottling or clubbing. LYMPHATICS: No palpable cervical or supraclavicular adenopathy. NEUROLOGICAL: Awake and alert.mostly oriented x2-3. Dyspnea limits verbalization. Follows commands. Cognitively sharp. Moves all 4 extremities with generalized weakness. PSYCHIATRIC: No obvious anxiety/depression. no apparent hallucinations or other psychotic thought process. Diagnostic Tests Laboratory Laboratory Tests Test 01/23/17 21:40 01/24/17 03:30 01/24/17 10:14 01/25/17 10:32 White Blood Count 6.8 TH/MM3 (4.0-11.0) 8.8 TH/MM3 (4.0-11.0) 6.5 TH/MM3 (4.0-11.0) Red Blood Count 4.00 MIL/MM3 (4.50-5.90) 3.22 MIL/MM3 (4.50-5.90) 3.71 MIL/MM3 (4.50-5.90) Hemoglobin 11.6 GM/DL (13.0-17.0) 9.7 GM/DL (13.0-17.0) 11.1 GM/DL (13.0-17.0) Hematocrit 37.7 % (39.0-51.0) 29.9 % (39.0-51.0) 35.6 % (39.0-51.0) Mean Corpuscular Volume 94.5 FL (80.0-100.0) 92.9 FL (80.0-100.0) 95.8 FL (80.0-100.0) Mean Corpuscular Hemoglobin 29.0 PG (27.0-34.0) 30.1 PG (27.0-34.0) 30.0 PG (27.0-34.0) Mean Corpuscular Hemoglobin Concent 30.6 % (32.0-36.0) 32.4 % (32.0-36.0) 31.3 % (32.0-36.0) Red Cell Distribution Width 15.9 % (11.6-17.2) 16.0 % (11.6-17.2) 16.2 % (11.6-17.2) Platelet Count 158 TH/MM3 (150-450) 103 TH/MM3 (150-450) 109 TH/MM3 (150-450) Mean Platelet Volume 7.6 FL (7.0-11.0) 8.3 FL (7.0-11.0) 7.6 FL (7.0-11.0) Neutrophils (%) (Auto) 77.3 % (16.0-70.0) 80.6 % (16.0-70.0) 83.5 % (16.0-70.0) Lymphocytes (%) (Auto) 11.9 % (9.0-44.0) 13.0 % (9.0-44.0) 8.7 % (9.0-44.0) Monocytes (%) (Auto) 6.5 % (0.0-8.0) 5.2 % (0.0-8.0) 4.2 % (0.0-8.0) Eosinophils (%) (Auto) 3.9 % (0.0-4.0) 0.9 % (0.0-4.0) 3.1 % (0.0-4.0) Basophils (%) (Auto) 0.4 % (0.0-2.0) 0.3 % (0.0-2.0) 0.5 % (0.0-2.0) Neutrophils # (Auto) 5.2 TH/MM3 (1.8-7.7) 7.1 TH/MM3 (1.8-7.7) 5.4 TH/MM3 (1.8-7.7) Lymphocytes # (Auto) 0.8 TH/MM3 (1.0-4.8) 1.1 TH/MM3 (1.0-4.8) 0.6 TH/MM3 (1.0-4.8) Monocytes # (Auto) 0.4 TH/MM3 (0-0.9) 0.5 TH/MM3 (0-0.9) 0.3 TH/MM3 (0-0.9) Eosinophils # (Auto) 0.3 TH/MM3 (0-0.4) 0.1 TH/MM3 (0-0.4) 0.2 TH/MM3 (0-0.4) Basophils # (Auto) 0.0 TH/MM3 (0-0.2) 0.0 TH/MM3 (0-0.2) 0.0 TH/MM3 (0-0.2) CBC Comment DIFF FINAL DIFF FINAL DIFF FINAL Differential Comment Prothrombin Time 23.7 SEC (9.8-11.6) 23.5 SEC (9.8-11.6) 20.4 SEC (9.8-11.6) Prothromb Time International Ratio 2.1 RATIO 2.1 RATIO 1.8 RATIO Activated Partial Thromboplast Time 29.4 SEC (24.3-30.1) Urine Color YELLOW (YELLW/STRAW) Urine Turbidity CLEAR (CLEAR) Urine pH 7.5 (5.0-8.5) Urine Specific [place] 1.016 (1.002-1.035) Urine Protein NEG mg/dL (NEG-TRACE) Urine Glucose (UA) NEG mg/dL (NEG) Urine Ketones NEG mg/dL (NEG) Urine Occult Blood NEG (NEG) Urine Nitrite NEG (NEG) Urine Bilirubin NEG (NEG) Urine Urobilinogen LESS THAN 2.0 MG/DL (LESS Urine Leukocyte Esterase NEG (NEG) Urine RBC 1 /hpf (0-3) Urine WBC 2 /hpf (0-5) Urine Squamous Epithelial Cells <1 /hpf (0-5) Urine Bacteria RARE /hpf (NONE) Urine Hyaline Casts 3 /lpf (RARE) Urine Mucus FEW /lpf (OCC) Urine Yeast with Hyphae FEW (NONE) Urine Yeast (Budding) FEW (NONE) Microscopic Urinalysis Comment CULT NOT INDICATED Blood Urea Nitrogen 25 MG/DL (7-18) 28 MG/DL (7-18) 29 MG/DL (7-18) Creatinine 1.03 MG/DL (0.60-1.30) 1.21 MG/DL (0.60-1.30) 1.30 MG/DL (0.60-1.30) Random Glucose 116 MG/DL (74-106) 97 MG/DL (74-106) 75 MG/DL (74-106) Total Protein 5.6 GM/DL (6.4-8.2) 5.3 GM/DL (6.4-8.2) Albumin 2.7 GM/DL (3.4-5.0) 2.1 GM/DL (3.4-5.0) Calcium Level 7.8 MG/DL (8.5-10.1) 7.5 MG/DL (8.5-10.1) 7.5 MG/DL (8.5-10.1) Alkaline Phosphatase 63 U/L (45-117) 48 U/L (45-117) Aspartate Amino Transf (AST/SGOT) 30 U/L (15-37) 24 U/L (15-37) Alanine Aminotransferase (ALT/SGPT) 25 U/L (12-78) 17 U/L (12-78) Total Bilirubin 0.4 MG/DL (0.2-1.0) 0.5 MG/DL (0.2-1.0) Sodium Level 142 MEQ/L (136-145) 144 MEQ/L (136-145) 142 MEQ/L (136-145) Potassium Level 4.1 MEQ/L (3.5-5.1) 3.8 MEQ/L (3.5-5.1) 3.9 MEQ/L (3.5-5.1) Chloride Level 105 MEQ/L (98-107) 107 MEQ/L (98-107) 108 MEQ/L (98-107) Carbon Dioxide Level 32.2 MEQ/L (21.0-32.0) 29.7 MEQ/L (21.0-32.0) 26.6 MEQ/L (21.0-32.0) Anion Gap 5 MEQ/L (5-15) 7 MEQ/L (5-15) 7 MEQ/L (5-15) Estimat Glomerular Filtration Rate 68 ML/MIN (>89) 56 ML/MIN (>89) 52 ML/MIN (>89) Lactic Acid Level 1.9 mmol/L (0.4-2.0) B-Type Natriuretic Peptide 278 PG/ML (0-100) Lipase 90 U/L (73-393) Thyroid Stimulating Hormone 3rd Gen 5.110 uIU/ML (0.358-3.740) Nasal Screen MRSA (PCR) MRSA NOT DETECTED (NOT Hematology Comments Phosphorus Level 2.7 MG/DL (2.5-4.9) 2.7 MG/DL (2.5-4.9) Magnesium Level 2.1 MG/DL (1.5-2.5) 2.2 MG/DL (1.5-2.5) Test 01/25/17 14:38 Result Diagram: 01/25/17 1032 01/25/17 1032 Microbiology Microbiology Date/Time Source Procedure Growth Status 01/23/17 21:45 Blood Peripheral Aerobic Blood Culture - Preliminary NO GROWTH IN 2 DAYS Resulted 01/23/17 21:45 Blood Peripheral Anaerobic Blood Culture - Preliminary NO GROWTH IN 2 DAYS Resulted 01/23/17 21:40 Blood Peripheral Aerobic Blood Culture - Preliminary NO GROWTH IN 2 DAYS Resulted 01/23/17 21:40 Blood Peripheral Anaerobic Blood Culture - Preliminary NO GROWTH IN 2 DAYS Resulted Imaging Last Impressions Chest X-Ray 01/25/17 0600 Signed Impressions: Service Date/Time: Wednesday, January 25, 2017 03:24 - CONCLUSION: Stable examination with persistent opacity in the peripheral right midlung zone and at both lung bases. There are likely small bilateral pleural effusions. Cole Roberts MD Head CT 01/25/17 0000 Signed Impressions: Service Date/Time: Wednesday, January 25, 2017 23:02 - CONCLUSION: Stable noncontrast head CT. No acute finding is identified. Cole Roberts MD CT Angiography 01/23/17 0000 Signed Impressions: Service Date/Time: Tuesday, January 24, 2017 02:59 - CONCLUSION: 1. No PE is identified. There is respiratory motion artifact. 2. Severe emphysema with suspicious spiculated nodule measuring 19 mm in the right upper lobe. This is a suspicious for primary pulmonary neoplasm. There is also airspace consolidation both lower lobes with associated visual thickening on the right. 3. Trace bilateral pleural fluid. 4. Polypoid appearing lesion in the trachea measuring approximately 14 mm. Cole Roberts MD Patient/Family Conference Present at Family Conference: daughter, niece Family Conference Time (mins): 25 Family Conference Location: Bedside Issues Discussed: met w pt, family at bedside approx 20-25 min. discussion included * introduction of Palliative care role, purpose, approach * Additional medical, psychosocial, and spiritual history * Patients general health, functional status, and cognitive changes in the months leading up to the current hospitalization * brief review of current medical problems, prognosis * legal decision makers-- pt elected to complete [facility] naming daughter as HCS * code status-- pt and daughter affirmed alt code- though they will discuss further * Palliative care contact information provided brief introductory meeting w daughter, pt. Dtr appears apprehensive, struggling w pt acute illness. supportive listening provided. Some review of conditions, possible trajectories and gently/brief exploration of high risk for complication /setback, prognosis. limited review of goals d/t pt SOB, daughter's apprehension. Will plan to follow up with them tomorrow, to cont to build rapport, and clarify goals of treatment. daughter plans to rest some this afternoon. Assessment and Plan Disease Oriented Problem List: (1) Atrial fibrillation with RVR (2) CAP (community acquired pneumonia) (3) Hypertension (4) Lung mass (5) COPD (chronic obstructive pulmonary disease) (6) CAD (coronary artery disease) Symptom Scale: Pertinent Non-Medical Issues Psychosocial:. Retired , worked in [employer] industry. Has 2 adult children, 1 dtr local, son lives out of state, not in close communication w pt. Per prior H&P One son is secondary to a motorcycle accident. Spiritual:Confucianism Legal:Pt capacity may fluctuate 2/2 infection, oxygenation status. Best supported in shared decision making by [facility] (daughter) Ethical issues impacting care: Important Contacts Cecily Perez daughter [phone] . Prognosis PT was admitted for her, shortness of breath. Has known history of COPD, fairly right-sided lung cancer. Recent prolonged hospitalization for pulmonary infection. Now requiring BiPAP. High risk for continued respiratory decline and possible need for intubation. Code Status: Alternative Code (compression, ACLS drugs, shock) Plan * Legal decision maker:Pt capacity may fluctuate 2/2 infection, oxygenation status. Best supported in shared decision making by [facility] (daughter) * Goals: For right now pt, family wish to maximize medical tx available. They also request oncology, radiation oncology consult to monitor cancer, new imaging during current acute hospitalization. This may help in terms of looking at cancer burden with general prognostication. * CODE STATUS: alt code-- NO chest compressions, NO intubation * SYMPTOMS: --dyspnea- worsening SOB over few days before admission. Long hx COPD, o2 dependent for several years. frequent pneumonia this year. +new lung cancer this year, unable to bx. REquiring bipap PRN this admission. high risk for worsened resp status despite ongoing tx. on zosyn, azithromycin --weakness/debility- pt of advanced age, ongoing SOB, which limits activity. Several hospitalizations the year, general deconditioning. Would benefit from aggressive PT if resp status would tolerate, if goals aggressive --anxiety- potential for r/t dyspnea, underlying COPD. cautious use of benzos given age, lethargy and AMS. * Palliative care will continue to follow during hospital course as condition evolves, to assist patient/decision-maker with understanding of medical conditions, weighing benefits/burdens of treatment options, for clarification of goals of treatment. Additionally will assist with any symptoms of palliative concern Time Spent Total Floor Time (mins): 45 >50% Counseling/Coord of Care: Yes (d/w critical care , primary RN ) Thank you for the opportunity to participate in the care of Mr. Pitts. Attestation To help prompt me to consider important information that might be impacting today's encounter and assessment, information from prior notes written by myself or my colleagues may have been "brought forward" into today's note. My signature on this note, however, is an attestation that I personally performed the exam, history, and/or decision-making noted today, and, unless otherwise indicated, the interactions with patient, family, and staff as well as the review of records all occurred today. I also attest that the listed assessment and stated plan reflect my best clinical judgment today based on the combination of historical information, prior notes, and today's exam/ interactions. When time spent is documented, it refers only to time spent today by the signer, or if indicated, combined time spent today by collaborating physician/nurse practitioner. Negin Cummings Jan 25, 2017 15:33
[2017-01-25] MEDS: methylPREDNISolone SOD SUCC 40 MG/1 ML VIAL IV PUSH SCH ×2 (16:56→22:18)
[2017-01-25] MEDS: WARFARIN SOD 2.5 MG TAB PO SCH (16:57)
[2017-01-25] MEDS: ASPIRIN EC 81 MG TABEC PO SCH (17:04)
[2017-01-25] MEDS ORDERED: MAGNESIUM SULFATE 1 GM PREMIX 100 ML IV PRN (17:15)
--- NOTE | 2017-01-25 18:12 | MB ---
cc: WENDY VILLATORO M.D. DATE OF CONSULTATION 01/25/2017 REASON FOR CONSULTATION Evaluation of rapid atrial fibrillation and elevated troponin. HISTORY OF THE PRESENT ILLNESS Rosario Pitts is an 89-year-old man admitted to the hospital with suspected pneumonia, known lung cancer and went into rapid A fib. The patient has known heart disease. He underwent catheterization in May 2009 showing 50% left main disease, 80% circumflex disease, 50% right coronary artery disease and severe aortic stenosis. 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 The valve is a bioprosthetic valve. He had a vein graft to the right coronary artery and a Y-graft to the LAD and obtuse marginal branch. He has had known paroxysmal atrial fibrillation since 1993. The patient was diagnosed with lung cancer. The patient has been chronically anticoagulated with warfarin and has also been maintained on a beta-abhinav and also maintained on anticoagulation with warfarin. The patient is admitted to the hospital with cough, fever and infiltrates suggestive of pneumonia and COPD exacerbation. He is on chronic oxygen and has had difficulty maintaining his oxygen despite the oxygen that he is on. He was in sinus rhythm when he came in and today he went into rapid A fib and in addition had a severe drop in blood pressure. He received a little bit of phenylephrine which brought his pressure up and started on amiodarone. He has converted back into sinus mechanism. His troponin is elevated but I cannot elicit any anginal complaints from him. He has had a palliative care consult in view of his poor prognosis. He has had some radiation therapy for the cancer. At the present time he is not denying any cardiovascular complaints and he has a amiodarone drip running. He was on a beta-abhinav at home. He is currently not on a beta abhinav but of course has been having a low blood pressure. MEDICATIONS Include: 1. 81 mg of aspirin. 2. IV amiodarone. 3. Antibiotics. 4. Warfarin. PAST MEDICAL HISTORY Includes: 1. Abdominal aortic aneurysm. 2. Anemia. 3. Paroxysmal atrial fibrillation. 4. Coronary artery disease. 5. COPD. 6. Diastolic congestive heart failure. 7. Previous edema. 8. Previous right hip fracture treated medically. 9. Hyperlipidemia. 10. Hypertension. 11. Macular degeneration. 12. Prostate cancer. 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 14. Venous insufficiency. PAST SURGICAL HISTORY Includes: His cath procedures and open heart surgery. SOCIAL HISTORY He is a former smoker, quit at age 52. REVIEW OF SYSTEMS Noncontributory. PHYSICAL EXAMINATION GENERAL: Physical exam reveals an elderly white male, does not appear to be in acute distress. His speech is somewhat difficult to understand. VITAL SIGNS: Blood pressure 114/56. He is in sinus rhythm on monitor. HEENT: Exam is unremarkable. NECK: Negative for bruits. CHEST: Shows severely diminished breath sounds bilaterally. CARDIOVASCULAR: Exam shows S1-S2 regular rate and rhythm with a 2/6 early peaking systolic ejection murmur. ABDOMEN: Benign. EXTREMITIES: Reveal no clubbing, cyanosis or edema. His EKG while in atrial fibrillation showed intraventricular conduction delay, rapid rate and ST-T wave changes secondary to abnormalities of conduction or ischemia. LABORATORY DATA Laboratory work shows a hematocrit of 35.6. Creatinine 1.3. Troponins 2.69 with no baseline prior to this. CPK is 52. IMPRESSION This is an 89-year-old man with lung cancer, possible pneumonia, possible early sepsis, he went into rapid A fib earlier today with a drop in blood pressure. He is now back in sinus rhythm on IV amiodarone. Hemodynamics are markedly improved. RECOMMENDATIONS Agree with continuing IV amiodarone for the present time. He is not having any anginal symptoms so we will manage the elevated troponin conservatively. We will follow with you. We will try to keep his electrolytes stable. We will check BMP and magnesium in the morning. Further therapy to be determined. MD MARILU Fleming/SHANDA /5:15 PM /5:40 PM
--- NOTE | 2017-01-25 19:52 | HHI.PR ---
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 GD at BS Objective Vital Signs Vital Signs Date Time Temp Pulse Resp B/P (MAP) Pulse Ox O2 Delivery O2 Flow Rate FiO2 01/25/17 18:05 79 01/25/17 18:00 80 01/25/17 16:00 87 01/25/17 16:00 98.8 87 15 114/56 (75) 100 01/25/17 15:00 114 01/25/17 14:58 114 83/50 01/25/17 14:52 141 83/50 01/25/17 14:50 135 83/50 01/25/17 14:00 140 01/25/17 13:00 140 01/25/17 12:00 76 01/25/17 12:00 98.5 76 18 88/49 (62) 100 01/25/17 10:00 72 01/25/17 08:00 65 01/25/17 08:00 98.1 65 16 119/54 (75) 98 01/25/17 06:00 79 01/25/17 04:00 83 01/25/17 04:00 98.4 83 16 101/55 (70) 100 01/25/17 02:00 63 01/25/17 00:00 98.2 75 17 90/51 (64) 100 01/25/17 00:00 75 01/24/17 22:00 88 01/24/17 20:56 100 Nasal Cannula 4.00 01/24/17 20:00 84 01/24/17 20:00 97.8 84 22 114/52 (72) 100 I/O 01/24/17 01/24/17 01/24/17 01/25/17 01/25/17 01/25/17 07:00 15:00 23:00 07:00 15:00 23:00 Intake Total 1258 ml 600 ml 1980 ml 1174 ml 903 ml 1891 ml Output Total 300 ml 250 ml 275 ml 600 ml Balance 958 ml 600 ml 1730 ml 899 ml 903 ml 1291 ml Intake Oral 340 ml 100 ml IV Total 1258 ml 600 ml 1640 ml 1174 ml 903 ml 1791 ml Output Urine Total 300 ml 250 ml 275 ml 600 ml Stool Total 0 ml # Bowel Movements 1 Result Diagram: 01/25/17 1032 01/25/17 1032 Objective Remarks GENERAL: Frail elderly male mild sob SKIN: Warm and dry. HEAD: Normocephalic. EYES: No scleral icterus. No injection or drainage. NECK: Supple, trachea midline. No JVD or lymphadenopathy. CARDIOVASCULAR: Regular rate and rhythm without murmurs, gallops, or rubs. RESPIRATORY: Breath sounds equal bilaterally. No accessory muscle use. GASTROINTESTINAL: Abdomen soft, non-tender, nondistended. MUSCULOSKELETAL: No cyanosis, or edema. BACK: Nontender without obvious deformity. No CVA tenderness. A/P Assessment and Plan Resp insuff AF, rate controlled COPD Lung nodule H/O ca lung Lung infilterate Pleural effusion. PLAN: Cont Abx Supplement 02 Amiodarone for rate controll Aerosol nebs Dw Family at Jcarlos Diaz MD Jan 25, 2017 19:52
[2017-01-25] MEDS: PIPERACIL-TAZO 3.375 GM PREMIX 50 ML IV SCH (20:29)
[2017-01-25 20:32] LABS: BLOOD GAS BASE EXCESS 0.5 mmol/L (-2-2); BLOOD GAS CARBOXYHEMOGLOBIN 1.4 % (0-4); BLOOD GAS HCO3 27 mmol/L (22-26); BLOOD GAS METHEMOGLOBIN 1.1 % (0-2); BLOOD GAS O2 HGB SATURATION 96 % (90-100); BLOOD GAS OXYGEN CONTENT 14.1 Vol % (12.0-20.0); BLOOD GAS PCO2 62 mmHg (38-42); BLOOD GAS PO2 113 mmHg (61-120); BLOOD GAS TOTAL HGB 10.4 G/DL (12.0-16.0); CRITICAL VALUE YES; DRAW SITE RT RADIAL; LITER FLOW 4 L/M; NUMBER OF ARTERIAL PUNCTURES 1; OXYGEN DEVICE NASAL CANNULA; STAT NO; TEMP CORR TO 98.6; ULNAR PULSE PRESENT
[2017-01-25] MEDS: ATORVASTATIN 80 MG TAB PO SCH (21:00)
--- NOTE | 2017-01-25 23:16 | RADRPT ---
EXAM DATE/TIME: 01/25/2017 23:02 [facility] COMPARISON: CT BRAIN W/O CONTRAST, January 24, 2017, 2:53. INDICATIONS : Altered mental status. RADIATION DOSE: 23.12 CTDIvol (mGy) MEDICAL HISTORY : Congestive heart failure. Chronic obstructive pulmonary disease. Cardiovascular diseaseHernia. Hypert ension. Lung mass. Bladder cancer. Prostate cancer. SURGICAL HISTORY : CABG ENCOUNTER: Subsequent ACUITY: 2 days PAIN SCALE: 0/10 LOCATION: cranial TECHNIQUE: Multiple contiguous axial images were obtained of the head. Using automated exposure control and adj ustment of the mA and/or kV according to patient size, radiation dose was kept as low as reasonably a chievable to obtain optimal diagnostic quality images. DICOM format image data is available electro nically for review and comparison. FINDINGS: CEREBRUM: There is mild generalized atrophy. Ventricles are normal in size. No evidence of midline shift, mass lesion, hemorrhage or acute infarction. No extra-axial fluid collections are seen. POSTERIOR FOSSA: The cerebellum and brainstem demonstrate no acute finding. The 4th ventricle is midline. The cerebe llopontine angle is unremarkable. EXTRACRANIAL: Visualized sinuses are clear. SKULL: The calvaria is intact. No evidence of skull fracture. CONCLUSION: Stable noncontrast head CT. No acute finding is identified. Cole Roberts MD on January 25, 2017 at 23:13 Board Certified Radiologist. This report was verified electronically.
[2017-01-26] VITALS (15 sets, daily range): BP systolic 95–158; BP diastolic 49–68; PULSE 64–84; RESP 14–26; TEMP 97.2–98.7; O2SAT 93–100
[2017-01-26] MEDS: AZITHROMYCIN INJ 500 MG in SODIUM CHLOR 0.9% 250 ML INJ 250 ML IV SCH ×2 (00:23→22:59)
[2017-01-26] MEDS: PIPERACIL-TAZO 3.375 GM PREMIX 50 ML IV SCH ×4 (02:00→19:34)
[2017-01-26] MEDS: RESP: ALBUTEROL 2.5 MG/IPRATROPIUM 0.5 MG NEB (SCH) INH ×4 (02:46→20:23)
[2017-01-26 03:24] LABS: BASOPHIL % 0.1 % (0.0-2.0); HEMATOCRIT 27.1 % (39.0-51.0); HEMO FLAGS DIFF FINAL; LYMPH % 1.3 % (9.0-44.0); LYMPHOCYTE # 0.1 TH/MM3 (1.0-4.8); MEAN CORPUSCULAR HEMOGLOBIN 30.5 PG (27.0-34.0); MEAN CORPUSCULAR HGB CONC 32.7 % (32.0-36.0); MONO % 0.9 % (0.0-8.0); NEUT % 97.7 % (16.0-70.0); PLATELET COUNT 109 TH/MM3 (150-450); RED BLOOD COUNT 2.91 MIL/MM3 (4.50-5.90); WHITE BLOOD COUNT 5.1 TH/MM3 (4.0-11.0)
[2017-01-26 03:35] LABS: INTERNATIONAL NORMALIZED RATIO 2.2 RATIO; PROTHROMBIN TIME - PATIENT 24.8 SEC (9.8-11.6)
[2017-01-26 03:44] LABS: MAGNESIUM 2.3 MG/DL (1.5-2.5); POTASSIUM 4.1 MEQ/L (3.5-5.1)
[2017-01-26] MEDS: CHLORHEXIDINE GLUCONATE 2 % 1 PACK (2 CLOTHS) TOP SCH (04:00)
[2017-01-26] MEDS: INSULIN NovoLIN REGULAR SUPPLEMENTAL SCALE SQ SCH ×4 (04:00→22:00)
[2017-01-26] MEDS: AMIODARONE INJ 450 MG in DEXTROSE 5% IN WATE(EXCEL) INJ 241 ML IV SCH ×6 (05:40→20:50)
[2017-01-26] MEDS: methylPREDNISolone SOD SUCC 40 MG/1 ML VIAL IV PUSH SCH ×3 (06:00→21:34)
[2017-01-26] MEDS: MULTIVITAMINS/MINERALS THERAPEUTIC TAB PO SCH (09:00)
[2017-01-26] MEDS: CYCLOBENZAPRINE HCL 10 MG TAB PO SCH ×3 (09:00→19:36)
[2017-01-26] MEDS: DOCUSATE SODIUM 50 MG/SENNA 8.6 MG TAB PO SCH ×2 (09:00→19:36)
[2017-01-26] MEDS: FERROUS SULFATE 325 MG (65 MG ELEMENTAL IRON) TAB PO SCH (09:00)
[2017-01-26] MEDS: ASPIRIN EC 81 MG TABEC PO SCH (09:00)
[2017-01-26] MEDS: FAMOTIDINE 20 MG/2 ML VIAL IV PUSH SCH ×2 (09:55→19:33)
[2017-01-26] MEDS: SODIUM CHLORIDE 0.9% FLUSH 10 ML FLUSH SCH ×2 (09:56→19:34)
--- NOTE | 2017-01-26 11:29 | PD.CARD.PN ---
Subjective Subjective Remarks No CV complaints. Feeling better Objective Medications Current Medications Medications (Trade) Dose Ordered Sig/Teressa Route Start Time Stop Time Status Last Admin (Lipitor) 80 mg HS PO 01/24/17 21:00 01/24/17 22:00 (Flexeril) 5 mg TID PRN PO 01/24/17 00:30 (Flexeril) 10 mg TID PO 01/24/17 09:00 01/25/17 16:57 (Ferrous Sulfate) 325 mg DAILY PO 01/24/17 09:00 01/25/17 08:28 (Robitussin Liq) 100 mg Q8H PRN PO 01/24/17 00:30 ([place] 5-325 Mg) 1 tab Q6H PRN PO 01/24/17 00:30 (Lopressor) 50 mg BID PO 01/24/17 09:00 Future Hold 01/24/17 22:00 (Restoril) 30 mg HS PRN PO 01/24/17 00:30 01/24/17 22:00 (Coumadin) 2.5 mg DAILY@1600 PO 01/24/17 16:00 01/25/17 16:57 (Theragran M Tab) 1 tab DAILY PO 01/24/17 09:00 01/25/17 08:28 (NS Flush) 2 ml UNSCH PRN .XX 01/24/17 00:45 (NS Flush) 2 ml BID .XX 01/24/17 09:00 01/26/17 09:56 (Tylenol) 650 mg Q6H PRN PO 01/24/17 00:45 (Morphine Inj) 2 mg Q2H PRN IV 01/24/17 00:45 (Zofran Inj) 4 mg Q6H PRN IV 01/24/17 00:45 (Duoneb Neb) 1 ampule Q6HR NEB INH 01/24/17 04:00 01/26/17 08:04 (Duoneb Neb) 1 ampule Q2HR NEB PRN INH 01/24/17 00:45 Miscellaneous Information 1 Q361D XX 01/24/17 00:45 (Chlorhexidine 2% Cloth) 3 pack Taper DAILY@04 TOP 01/24/17 04:00 01/20/18 03:59 01/26/17 04:00 (Chlorhexidine 2% Cloth) 3 pack UNSCH PRN TOP 01/24/17 00:45 (Marcie-Colace) 1 tab BID PO 01/24/17 09:00 01/25/17 21:00 (Milk Of Magnesia Liq) 30 ml Q12H PRN PO 01/24/17 00:45 (Senokot) 17.2 mg Q12H PRN PO 01/24/17 00:45 (Dulcolax Supp) 10 mg DAILY PRN RECTAL 01/24/17 00:45 (Lactulose Liq) 30 ml DAILY PRN PO 01/24/17 00:45 Pharmacy Profile Note 0 ml @ 0 mls/hr UNSCH OTHER 01/24/17 00:45 Azithromycin 500 mg/Sodium Chloride 250 ml @ 250 mls/hr Q24H IV 01/24/17 23:00 01/26/17 00:23 (Pill Splitter) 1 ea UNSCH PRN OTHER 01/24/17 00:45 (D50w (Vial) Inj) 50 ml UNSCH PRN IV 01/24/17 08:45 (Glucagon Inj) 1 mg UNSCH PRN OTHER 01/24/17 08:45 (NovoLIN R SUPPLEMENTAL SCALE) 1 Q6H SQ 01/24/17 10:00 (Pepcid Inj) 10 mg Q12HR IV PUSH 01/24/17 21:00 01/26/17 09:55 Amiodarone HCl 450 mg/Dextrose 250 ml @ 33 mls/hr Q7H35M IV 01/25/17 14:30 01/25/17 22:41 Phenylephrine HCl 40 mg/Dextrose 500 ml @ 30 mls/hr [id number] PRN IV 01/25/17 14:15 01/25/17 14:52 (Brethine Inj) 1 mg UNSCH PRN SQ 01/25/17 14:15 (SoluMEDROL INJ) 40 mg Q8HR IV PUSH 01/25/17 14:30 01/26/17 06:00 Piperacillin Sod/ Tazobactam Sod 50 ml @ 100 mls/hr Q6H IV 01/25/17 20:00 01/26/17 09:55 (Ecotrin Ec) 81 mg DAILY PO 01/25/17 16:15 01/25/17 17:04 Magnesium Sulfate/ Dextrose 100 ml @ 100 mls/hr UNSCH X1 PRN IV 01/25/17 17:15 01/27/17 17:14 Vital Signs / I&O Vital Signs Date Time Temp Pulse Resp B/P (MAP) Pulse Ox O2 Delivery O2 Flow Rate FiO2 01/26/17 08:04 100 Nasal Cannula 2.00 01/26/17 06:00 65 01/26/17 05:40 67 119/59 01/26/17 04:00 98.0 64 14 104/51 (68) 100 01/26/17 04:00 64 01/26/17 02:00 67 01/26/17 00:00 72 01/26/17 00:00 97.2 67 15 95/49 (64) 100 01/25/17 22:41 69 96/49 01/25/17 22:00 75 01/25/17 20:48 100 Nasal Cannula 4.00 01/25/17 20:00 98.2 81 17 129/61 (83) 100 01/25/17 20:00 81 01/25/17 18:05 79 01/25/17 18:00 80 01/25/17 16:00 87 01/25/17 16:00 98.8 87 15 114/56 (75) 100 01/25/17 15:00 114 01/25/17 14:58 114 83/50 01/25/17 14:52 141 83/50 01/25/17 14:50 135 83/50 01/25/17 14:00 140 01/25/17 13:00 140 01/25/17 12:00 76 01/25/17 12:00 98.5 76 18 88/49 (62) 100 I/O 01/25/17 01/25/17 01/25/17 01/26/17 01/26/17 01/26/17 07:00 15:00 23:00 07:00 15:00 23:00 Intake Total 1174 ml 903 ml 1891 ml 773 ml Output Total 275 ml 600 ml 230 ml Balance 899 ml 903 ml 1291 ml 543 ml Intake Oral 100 ml IV Total 1174 ml 903 ml 1791 ml 773 ml Output Urine Total 275 ml 600 ml 230 ml Stool Total 0 ml 0 ml Physical Exam Alert Chest: diminished BS CV S1S2 RRR Laboratory Laboratory Tests Test 01/25/17 14:38 01/25/17 20:15 01/25/17 21:29 01/26/17 02:49 Total Creatine Kinase 52 U/L Troponin I 0.69 NG/ML 0.70 NG/ML 0.64 NG/ML Blood Gas Puncture Site RT RADIAL Blood Gas Patient Temperature 98.6 Blood Gas HCO3 27 mmol/L Blood Gas Base Excess 0.5 mmol/L Blood Gas Oxygen Saturation 96 % Arterial Blood pH 7.26 Arterial Blood Partial Pressure CO2 62 mmHg Arterial Blood Partial Pressure O2 113 mmHg Arterial Blood Oxygen Content 14.1 Vol % Arterial Blood Carboxyhemoglobin 1.4 % Arterial Blood Methemoglobin 1.1 % Blood Gas Hemoglobin 10.4 G/DL Oxygen Delivery Device NASAL CANNULA Blood Gas Liter Flow 4 L/M White Blood Count 5.1 TH/MM3 Red Blood Count 2.91 MIL/MM3 Hemoglobin 8.9 GM/DL Hematocrit 27.1 % Mean Corpuscular Volume 93.0 FL Mean Corpuscular Hemoglobin 30.5 PG Mean Corpuscular Hemoglobin Concent 32.7 % Red Cell Distribution Width 16.0 % Platelet Count 109 TH/MM3 Mean Platelet Volume 8.1 FL Neutrophils (%) (Auto) 97.7 % Lymphocytes (%) (Auto) 1.3 % Monocytes (%) (Auto) 0.9 % Eosinophils (%) (Auto) 0.0 % Basophils (%) (Auto) 0.1 % Neutrophils # (Auto) 5.0 TH/MM3 Lymphocytes # (Auto) 0.1 TH/MM3 Monocytes # (Auto) 0.0 TH/MM3 Eosinophils # (Auto) 0.0 TH/MM3 Basophils # (Auto) 0.0 TH/MM3 CBC Comment DIFF FINAL Differential Comment Prothrombin Time 24.8 SEC Prothromb Time International Ratio 2.2 RATIO Blood Urea Nitrogen 28 MG/DL Creatinine 1.27 MG/DL Random Glucose 171 MG/DL Calcium Level 7.6 MG/DL Magnesium Level 2.3 MG/DL Sodium Level 143 MEQ/L Potassium Level 4.1 MEQ/L Chloride Level 108 MEQ/L Carbon Dioxide Level 30.0 MEQ/L Anion Gap 5 MEQ/L Estimat Glomerular Filtration Rate 53 ML/MIN Test 01/26/17 09:31 Troponin I 0.53 NG/ML Assessment and Plan Problem List: (1) Elevated troponin ICD Codes: R74.8 - Abnormal levels of other serum enzymes (2) Atrial fibrillation with RVR ICD Codes: I48.91 - Unspecified atrial fibrillation Plan: change amio to PO once he is cleared to swallow (3) CAD (coronary artery disease) ICD Codes: I25.10 - Atherosclerotic heart disease of [place] coronary artery without angina pectoris Status: Acute Plan: conservative therapy Tian Lamar MD Jan 26, 2017 11:29
--- NOTE | 2017-01-26 11:42 | HHI.HCPN ---
Reason for visit a. To assist with evaluation and management of symptoms including: dyspnea, weakness/debility, anxiety b. To assist medical decision maker(s) with: better understanding of current medical conditions; weighing benefits/burdens of medical treatment options; making medical treatment decisions. Subjective/Interval History Patient stable overnight. Remains on amiodarone drip. Remains in sinus rhythm. H&H downtrending hemoglobin 11.1 yesterday, a 0.9 today. No reported bleeding. Platelets have been low, stable 109. Afebrile. Blood cultures no growth [address] evaluation with concern for aspiration, barium swallow evaluation ordered for today. Nursing informs that NG tube was proposed yesterday night and patient, daughter refused. Dual visit with S D[facility]. Patient seen in room, up in chair at bedside. Daughter and family friend at bedside. He is alert, pleasant indicates he is feeling better today than yesterday. Appears brighter to me today, less visibly short of breath. Endorses his breathing is better. Denies any pain or other complaints. He does endorse some mild anxiety, he wishes he could no more about what's going on and if he will get better. He does endorse that chair is uncomfortable, nursing is working to locate a recliner chair. He is alert, mostly oriented, very hard of hearing. Spoke with daughter at bedside approximately 20 minutes. Discussion included current conditions, current treatments, overall prognosis. Pending diagnostics of barium swallow, discussed NG tube rationale. Also discussed potential for long-term feeding tube requirement if patient wishes. Discussed proceeding with possible temporary versus long-term feeding tube versus no feeding tube and comfort measures only. Review patient remains high risk for continued deconditioning and complications due to advanced age, multiple conditions. Daughter again requests oncology involvement to follow with patient known malignancy, and any new indications based on new imaging this admission. Discussed at length with primary nurse, critical care attending. Additional lung cancer history as per radiation oncology consult 07/2016 -patient underwent imaging noting 2.3 cm mass right upper lobe, several hypermetabolic areas in mediastinum findings suspicious for primary lung cancer. It was felt due to poor lung function not recommended to pursue biopsy. Radiation oncology was consulted for possible treatment options. Radiation oncology notes he is not a good candidate for invasive procedures such as biopsy not necessarily good candidate for chemotherapy due to poor performance status. Radiation Oncology notes discussion regarding no treatment versus chemoradiation versus radiation therapy versus observation only. He further notes discussion regarding long-term well-controlled radiotherapy or overall disease-free survival less than 10%. He elected to pursue radiation therapy. Advance Directives Living Will: Never completed Health Care Surrogate: Copy in medical record Advance Directive Specifics Date completed: 01/25/17 Health Care Surrogate(s): named daughter Cecily Perez Objective Vital Signs Date Time Temp Pulse Resp B/P (MAP) Pulse Ox O2 Delivery O2 Flow Rate FiO2 01/26/17 08:04 100 Nasal Cannula 2.00 01/26/17 06:00 65 01/26/17 05:40 67 119/59 01/26/17 04:00 98.0 64 14 104/51 (68) 100 01/26/17 04:00 64 01/26/17 02:00 67 01/26/17 00:00 72 01/26/17 00:00 97.2 67 15 95/49 (64) 100 01/25/17 22:41 69 96/49 01/25/17 22:00 75 01/25/17 20:48 100 Nasal Cannula 4.00 01/25/17 20:00 98.2 81 17 129/61 (83) 100 01/25/17 20:00 81 01/25/17 18:05 79 01/25/17 18:00 80 01/25/17 16:00 87 01/25/17 16:00 98.8 87 15 114/56 (75) 100 01/25/17 15:00 114 01/25/17 14:58 114 83/50 01/25/17 14:52 141 83/50 01/25/17 14:50 135 83/50 01/25/17 14:00 140 01/25/17 13:00 140 01/25/17 12:00 76 01/25/17 12:00 98.5 76 18 88/49 (62) 100 Intake & Output 01/26/17 01/26/17 06:59 18:59 Intake Total 773 ml Output Total 230 ml Balance 543 ml IV Total 773 ml Output Urine Total 230 ml Stool Total 0 ml Physical Exam CONSTITUTIONAL/GENERAL: This is a well nourished, elderly male up in chair in icu TUBES/LINES/DRAINS:PIV BUE, valenzuela catheter, NC SKIN: No jaundice, rashes, or lesions. No wounds seen anteriorly. Skin temperature appropriate. Not diaphoretic. CARDIOVASCULAR: regular rate and rhythm. No JVD. Peripheral pulses symmetric. RESPIRATORY/CHEST: Symmetric, unlabored respirations, on NC. Clear to auscultation, decreased air movement. Breath sounds equal bilaterally. GASTROINTESTINAL: Abdomen soft, non-tender, nondistended. No hepato-splenomegaly , or palpable masses. No guarding. Bowel sounds present. GENITOURINARY: Without palpable bladder distension. Valenzuela catheter in place. MUSCULOSKELETAL: Extremities without clubbing, cyanosis. trace peripheral edema. No joint tenderness or effusion noted. No calf tenderness. No mottling or clubbing. NEUROLOGICAL: Awake and alert.mostly oriented x2-3. Dyspnea limits extensive verbalization. Follows commands. Cognitively sharp. Moves all 4 extremities with generalized weakness. PSYCHIATRIC: No obvious anxiety/depression. no apparent hallucinations or other psychotic thought process. Diagnostic Tests Laboratory Laboratory Tests Test 01/23/17 21:40 01/24/17 03:30 01/24/17 10:14 01/25/17 10:32 White Blood Count 6.8 TH/MM3 (4.0-11.0) 8.8 TH/MM3 (4.0-11.0) 6.5 TH/MM3 (4.0-11.0) Red Blood Count 4.00 MIL/MM3 (4.50-5.90) 3.22 MIL/MM3 (4.50-5.90) 3.71 MIL/MM3 (4.50-5.90) Hemoglobin 11.6 GM/DL (13.0-17.0) 9.7 GM/DL (13.0-17.0) 11.1 GM/DL (13.0-17.0) Hematocrit 37.7 % (39.0-51.0) 29.9 % (39.0-51.0) 35.6 % (39.0-51.0) Mean Corpuscular Volume 94.5 FL (80.0-100.0) 92.9 FL (80.0-100.0) 95.8 FL (80.0-100.0) Mean Corpuscular Hemoglobin 29.0 PG (27.0-34.0) 30.1 PG (27.0-34.0) 30.0 PG (27.0-34.0) Mean Corpuscular Hemoglobin Concent 30.6 % (32.0-36.0) 32.4 % (32.0-36.0) 31.3 % (32.0-36.0) Red Cell Distribution Width 15.9 % (11.6-17.2) 16.0 % (11.6-17.2) 16.2 % (11.6-17.2) Platelet Count 158 TH/MM3 (150-450) 103 TH/MM3 (150-450) 109 TH/MM3 (150-450) Mean Platelet Volume 7.6 FL (7.0-11.0) 8.3 FL (7.0-11.0) 7.6 FL (7.0-11.0) Neutrophils (%) (Auto) 77.3 % (16.0-70.0) 80.6 % (16.0-70.0) 83.5 % (16.0-70.0) Lymphocytes (%) (Auto) 11.9 % (9.0-44.0) 13.0 % (9.0-44.0) 8.7 % (9.0-44.0) Monocytes (%) (Auto) 6.5 % (0.0-8.0) 5.2 % (0.0-8.0) 4.2 % (0.0-8.0) Eosinophils (%) (Auto) 3.9 % (0.0-4.0) 0.9 % (0.0-4.0) 3.1 % (0.0-4.0) Basophils (%) (Auto) 0.4 % (0.0-2.0) 0.3 % (0.0-2.0) 0.5 % (0.0-2.0) Neutrophils # (Auto) 5.2 TH/MM3 (1.8-7.7) 7.1 TH/MM3 (1.8-7.7) 5.4 TH/MM3 (1.8-7.7) Lymphocytes # (Auto) 0.8 TH/MM3 (1.0-4.8) 1.1 TH/MM3 (1.0-4.8) 0.6 TH/MM3 (1.0-4.8) Monocytes # (Auto) 0.4 TH/MM3 (0-0.9) 0.5 TH/MM3 (0-0.9) 0.3 TH/MM3 (0-0.9) Eosinophils # (Auto) 0.3 TH/MM3 (0-0.4) 0.1 TH/MM3 (0-0.4) 0.2 TH/MM3 (0-0.4) Basophils # (Auto) 0.0 TH/MM3 (0-0.2) 0.0 TH/MM3 (0-0.2) 0.0 TH/MM3 (0-0.2) CBC Comment DIFF FINAL DIFF FINAL DIFF FINAL Differential Comment Prothrombin Time 23.7 SEC (9.8-11.6) 23.5 SEC (9.8-11.6) 20.4 SEC (9.8-11.6) Prothromb Time International Ratio 2.1 RATIO 2.1 RATIO 1.8 RATIO Activated Partial Thromboplast Time 29.4 SEC (24.3-30.1) Urine Color YELLOW (YELLW/STRAW) Urine Turbidity CLEAR (CLEAR) Urine pH 7.5 (5.0-8.5) Urine Specific [place] 1.016 (1.002-1.035) Urine Protein NEG mg/dL (NEG-TRACE) Urine Glucose (UA) NEG mg/dL (NEG) Urine Ketones NEG mg/dL (NEG) Urine Occult Blood NEG (NEG) Urine Nitrite NEG (NEG) Urine Bilirubin NEG (NEG) Urine Urobilinogen LESS THAN 2.0 MG/DL (LESS Urine Leukocyte Esterase NEG (NEG) Urine RBC 1 /hpf (0-3) Urine WBC 2 /hpf (0-5) Urine Squamous Epithelial Cells <1 /hpf (0-5) Urine Bacteria RARE /hpf (NONE) Urine Hyaline Casts 3 /lpf (RARE) Urine Mucus FEW /lpf (OCC) Urine Yeast with Hyphae FEW (NONE) Urine Yeast (Budding) FEW (NONE) Microscopic Urinalysis Comment CULT NOT INDICATED Blood Urea Nitrogen 25 MG/DL (7-18) 28 MG/DL (7-18) 29 MG/DL (7-18) Creatinine 1.03 MG/DL (0.60-1.30) 1.21 MG/DL (0.60-1.30) 1.30 MG/DL (0.60-1.30) Random Glucose 116 MG/DL (74-106) 97 MG/DL (74-106) 75 MG/DL (74-106) Total Protein 5.6 GM/DL (6.4-8.2) 5.3 GM/DL (6.4-8.2) Albumin 2.7 GM/DL (3.4-5.0) 2.1 GM/DL (3.4-5.0) Calcium Level 7.8 MG/DL (8.5-10.1) 7.5 MG/DL (8.5-10.1) 7.5 MG/DL (8.5-10.1) Alkaline Phosphatase 63 U/L (45-117) 48 U/L (45-117) Aspartate Amino Transf (AST/SGOT) 30 U/L (15-37) 24 U/L (15-37) Alanine Aminotransferase (ALT/SGPT) 25 U/L (12-78) 17 U/L (12-78) Total Bilirubin 0.4 MG/DL (0.2-1.0) 0.5 MG/DL (0.2-1.0) Sodium Level 142 MEQ/L (136-145) 144 MEQ/L (136-145) 142 MEQ/L (136-145) Potassium Level 4.1 MEQ/L (3.5-5.1) 3.8 MEQ/L (3.5-5.1) 3.9 MEQ/L (3.5-5.1) Chloride Level 105 MEQ/L (98-107) 107 MEQ/L (98-107) 108 MEQ/L (98-107) Carbon Dioxide Level 32.2 MEQ/L (21.0-32.0) 29.7 MEQ/L (21.0-32.0) 26.6 MEQ/L (21.0-32.0) Anion Gap 5 MEQ/L (5-15) 7 MEQ/L (5-15) 7 MEQ/L (5-15) Estimat Glomerular Filtration Rate 68 ML/MIN (>89) 56 ML/MIN (>89) 52 ML/MIN (>89) Lactic Acid Level 1.9 mmol/L (0.4-2.0) B-Type Natriuretic Peptide 278 PG/ML (0-100) Lipase 90 U/L (73-393) Thyroid Stimulating Hormone 3rd Gen 5.110 uIU/ML (0.358-3.740) Nasal Screen MRSA (PCR) MRSA NOT DETECTED (NOT Hematology Comments Phosphorus Level 2.7 MG/DL (2.5-4.9) 2.7 MG/DL (2.5-4.9) Magnesium Level 2.1 MG/DL (1.5-2.5) 2.2 MG/DL (1.5-2.5) Test 01/25/17 14:38 01/25/17 20:15 01/25/17 21:29 01/26/17 02:49 Total Creatine Kinase 52 U/L (39-308) Troponin I 0.69 NG/ML (0.02-0.05) 0.70 NG/ML (0.02-0.05) 0.64 NG/ML (0.02-0.05) Blood Gas Puncture Site RT RADIAL Blood Gas Patient Temperature 98.6 Blood Gas HCO3 27 mmol/L (22-26) Blood Gas Base Excess 0.5 mmol/L (-2-2) Blood Gas Oxygen Saturation 96 % (90-100) Arterial Blood pH 7.26 (7.380-7.420) Arterial Blood Partial Pressure CO2 62 mmHg (38-42) Arterial Blood Partial Pressure O2 113 mmHg (61-120) Arterial Blood Oxygen Content 14.1 Vol % (12.0-20.0) Arterial Blood Carboxyhemoglobin 1.4 % (0-4) Arterial Blood Methemoglobin 1.1 % (0-2) Blood Gas Hemoglobin 10.4 G/DL (12.0-16.0) Oxygen Delivery Device NASAL CANNULA Blood Gas Liter Flow 4 L/M White Blood Count 5.1 TH/MM3 (4.0-11.0) Red Blood Count 2.91 MIL/MM3 (4.50-5.90) Hemoglobin 8.9 GM/DL (13.0-17.0) Hematocrit 27.1 % (39.0-51.0) Mean Corpuscular Volume 93.0 FL (80.0-100.0) Mean Corpuscular Hemoglobin 30.5 PG (27.0-34.0) Mean Corpuscular Hemoglobin Concent 32.7 % (32.0-36.0) Red Cell Distribution Width 16.0 % (11.6-17.2) Platelet Count 109 TH/MM3 (150-450) Mean Platelet Volume 8.1 FL (7.0-11.0) Neutrophils (%) (Auto) 97.7 % (16.0-70.0) Lymphocytes (%) (Auto) 1.3 % (9.0-44.0) Monocytes (%) (Auto) 0.9 % (0.0-8.0) Eosinophils (%) (Auto) 0.0 % (0.0-4.0) Basophils (%) (Auto) 0.1 % (0.0-2.0) Neutrophils # (Auto) 5.0 TH/MM3 (1.8-7.7) Lymphocytes # (Auto) 0.1 TH/MM3 (1.0-4.8) Monocytes # (Auto) 0.0 TH/MM3 (0-0.9) Eosinophils # (Auto) 0.0 TH/MM3 (0-0.4) Basophils # (Auto) 0.0 TH/MM3 (0-0.2) CBC Comment DIFF FINAL Differential Comment Prothrombin Time 24.8 SEC (9.8-11.6) Prothromb Time International Ratio 2.2 RATIO Blood Urea Nitrogen 28 MG/DL (7-18) Creatinine 1.27 MG/DL (0.60-1.30) Random Glucose 171 MG/DL (74-106) Calcium Level 7.6 MG/DL (8.5-10.1) Magnesium Level 2.3 MG/DL (1.5-2.5) Sodium Level 143 MEQ/L (136-145) Potassium Level 4.1 MEQ/L (3.5-5.1) Chloride Level 108 MEQ/L (98-107) Carbon Dioxide Level 30.0 MEQ/L (21.0-32.0) Anion Gap 5 MEQ/L (5-15) Estimat Glomerular Filtration Rate 53 ML/MIN (>89) Test 01/26/17 09:31 Troponin I 0.53 NG/ML (0.02-0.05) Result Diagram: 01/26/179 01/26/17 0249 Microbiology Microbiology Date/Time Source Procedure Growth Status 01/23/17 21:45 Blood Peripheral Aerobic Blood Culture - Preliminary NO GROWTH IN 3 DAYS Resulted 01/23/17 21:45 Blood Peripheral Anaerobic Blood Culture - Preliminary NO GROWTH IN 3 DAYS Resulted 01/23/17 21:40 Blood Peripheral Aerobic Blood Culture - Preliminary NO GROWTH IN 3 DAYS Resulted 01/23/17 21:40 Blood Peripheral Anaerobic Blood Culture - Preliminary NO GROWTH IN 3 DAYS Resulted Imaging Last Impressions Chest X-Ray 01/25/17 0600 Signed Impressions: Service Date/Time: Wednesday, January 25, 2017 03:24 - CONCLUSION: Stable examination with persistent opacity in the peripheral right midlung zone and at both lung bases. There are likely small bilateral pleural effusions. Cole Roberts MD Head CT 01/25/17 0000 Signed Impressions: Service Date/Time: Wednesday, January 25, 2017 23:02 - CONCLUSION: Stable noncontrast head CT. No acute finding is identified. Cole Roberts MD CT Angiography 01/23/17 0000 Signed Impressions: Service Date/Time: Tuesday, January 24, 2017 02:59 - CONCLUSION: 1. No PE is identified. There is respiratory motion artifact. 2. Severe emphysema with suspicious spiculated nodule measuring 19 mm in the right upper lobe. This is a suspicious for primary pulmonary neoplasm. There is also airspace consolidation both lower lobes with associated visual thickening on the right. 3. Trace bilateral pleural fluid. 4. Polypoid appearing lesion in the trachea measuring approximately 14 mm. Cole Roberts MD Assessment and Plan Disease Oriented Problem List: (1) Atrial fibrillation with RVR (2) CAP (community acquired pneumonia) (3) Hypertension (4) Lung mass (5) COPD (chronic obstructive pulmonary disease) (6) CAD (coronary artery disease) Symptom Scale: (1) Anxiety (2) Dysphagia (3) Dyspnea (4) Weakness Pertinent Non-Medical Issues Psychosocial:. 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 Has 2 adult children, 1 dtr local, son lives out of state, not in close communication w pt. Per prior H&P One son is secondary to a motorcycle accident. Spiritual:Judaism Legal:Pt capacity may fluctuate 2/2 infection, oxygenation status. Best supported in shared decision making by HCS (daughter) Ethical issues impacting care: Important Contacts Cecily Perez daughter [phone] . Prognosis PT was admitted for her, shortness of breath. Has known history of COPD, fairly right-sided lung cancer. Recent prolonged hospitalization for pulmonary infection. Now requiring BiPAP. High risk for continued respiratory decline and possible need for intubation. Code Status: Alternative Code (compression, ACLS drugs, shock) Plan * Legal decision maker:Pt capacity may fluctuate 2/2 infection, oxygenation status. Best supported in shared decision making by HCS (daughter) * Goals: For right now pt, family wish to maximize medical tx available. They also request oncology, radiation oncology consult to monitor cancer, new imaging during current acute hospitalization. This may help in terms of looking at cancer burden with general prognostication. Oncology consult discussed with critical care, ordered 01/26 * CODE STATUS: alt code-- NO chest compressions, NO intubation * SYMPTOMS: --dyspnea- worsening SOB over few days before admission. Long hx COPD, o2 dependent for several years. frequent pneumonia this year. +new lung cancer this year, unable to bx. REquiring bipap PRN this admission. high risk for worsened resp status despite ongoing tx. on zosyn, azithromycin --weakness/debility- pt of advanced age, ongoing SOB, which limits activity. Several hospitalizations the year, general deconditioning. Would benefit from aggressive PT if resp status would tolerate, if goals aggressive --anxiety- potential for r/t dyspnea, underlying COPD. cautious use of benzos given age, lethargy and AMS. He does endorse some mild anxiety today. --Dysphagia- status post [place] therapy evaluation With clinical signs of aspiration, ordered for barium swallow evaluation. Patient may require temporary or long-term feeding tube. * Palliative care will continue to follow during hospital course as condition evolves, to assist patient/decision-maker with understanding of medical conditions, weighing benefits/burdens of treatment options, for clarification of goals of treatment. Additionally will assist with any symptoms of palliative concern Time Spent Total Floor Time (mins): 35 Attestation To help prompt me to consider important information that might be impacting today's encounter and assessment, information from prior notes written by myself or my colleagues may have been "brought forward" into today's note. My signature on this note, however, is an attestation that I personally performed the exam, history, and/or decision-making noted today, and, unless otherwise indicated, the interactions with patient, family, and staff as well as the review of records all occurred today. I also attest that the listed assessment and stated plan reflect my best clinical judgment today based on the combination of historical information, prior notes, and today's exam/ interactions. When time spent is documented, it refers only to time spent today by the signer, or if indicated, combined time spent today by collaborating physician/nurse practitioner. Negin Cummings Jan 26, 2017 11:42
--- NOTE | 2017-01-26 14:34 | RADRPT ---
EXAM DATE/TIME: 01/26/2017 13:33 [place] COMPARISON: No previous studies available for comparison. INDICATIONS : Dysphagia. FLUORO TIME: 3.7 minutes IMAGE COUNT: 3 CONTRAST: Dose as prescribed by speech pathologist. MEDICAL HISTORY : Cardiovascular disease. Congestive heart failure. Chronic obstructive pulmonary disease. hyperten greg, bladderand prostate cancer SURGICAL HISTORY : hernia ENCOUNTER: Initial ACUITY: 3 days PAIN SCORE: 0/10 LOCATION: Bilateral neck FINDINGS: A modified barium swallow was performed with speech pathology. Patient was given a variety of liquids to swallow. There is aspiration with thin liquids. For a full detailed report, see report by the speech pathologist. CONCLUSION: Silent aspiration. Max Charles MD FACR on January 26, 2017 at 14:32 Board Certified Radiologist. This report was verified electronically.
--- NOTE | 2017-01-26 15:57 | HHI.CCPN ---
Subjective Remarks/Hospital Course 89-year-old male presents with complaints of respiratory complaints as well as fever. Per patient's daughter who is at the bedside and is providing a history , she is also patient's caregiver the patient has been feeling more shortness of breath today and has been more confused today. Patient has a history of COPD and right sided lung cancer which is not amenable for biopsy secondary to his bad COPD. Patient uses oxygen at home but with oxygen his oxygenation cannot be improved. He denies any pain of any kind. Per family he was admitted to [facility] for an infection on his lungs and was there for 6 weeks. Patient has been okay since discharge except for being diagnosed with cancer on the right side. He's only had 2 bouts of radiation and his been missing many treatments because of the hospitalization. Patient seems comfortable on the facemask BiPAP.. 01/25 Patient in on 4L oxygen went into Afib with RVR. Afebrile. 01/26: Lying on bed, on NC completed MBS. Cleared for Puree diet with thickened liquids. Remains on Amio gtt. we'll start by mouth amiodarone 200 mg daily, and DC IV amiodarone. Troponin trending down Objective Vital Signs Date Time Temp Pulse Resp B/P (MAP) Pulse Ox O2 Delivery O2 Flow Rate FiO2 01/26/17 14:00 83 01/26/17 13:15 144/65 01/26/17 12:00 98.2 26 99 01/26/17 08:04 Nasal Cannula 2.00 01/24/17 02:55 100 Intake and Output 01/26/17 01/26/17 01/26/17 07:59 15:59 23:59 Intake Total 1123 ml 100 ml Output Total 230 ml Balance 893 ml 100 ml Result Diagram: 01/26/17 0249 01/26/17 0249 Other Results Laboratory Tests Test 01/25/17 20:15 Blood Gas Puncture Site RT RADIAL Blood Gas Patient Temperature 98.6 Blood Gas HCO3 27 mmol/L (22-26) Blood Gas Base Excess 0.5 mmol/L (-2-2) Blood Gas Oxygen Saturation 96 % (90-100) Arterial Blood pH 7.26 (7.380-7.420) Arterial Blood Partial Pressure CO2 62 mmHg (38-42) Arterial Blood Partial Pressure O2 113 mmHg (61-120) Arterial Blood Oxygen Content 14.1 Vol % (12.0-20.0) Arterial Blood Carboxyhemoglobin 1.4 % (0-4) Arterial Blood Methemoglobin 1.1 % (0-2) Blood Gas Hemoglobin 10.4 G/DL (12.0-16.0) Oxygen Delivery Device NASAL CANNULA Blood Gas Liter Flow 4 L/M Imaging Last [address] 01/23/172138 Signed Impressions: Service Date/Time: Tuesday, January 24, 2017 02:53 - CONCLUSION: Stable noncontrast head CT. No acute finding is identified. Cole Roberts MD Chest X-Ray 01/23/172138 Signed Impressions: Service Date/Time: Monday, January 23, 2017 21:51 - CONCLUSION: 1. Bibasilar patchiness consistent with atelectasis and/or pneumonia. Clinical correlation is recommended. 2. Small left pleural effusion. 3. Mild cardiomegaly. Adarsh Carter MD Objective Remarks GENERAL: Patient is 89 yo lying in bed in no distress SKIN: Warm and dry. HEAD: Normocephalic. EYES: No scleral icterus. No injection or drainage. NECK: Supple, trachea midline. No JVD or lymphadenopathy. CARDIOVASCULAR: NSR without murmurs, gallops, or rubs. RESPIRATORY: Breath sounds equal bilaterally.Coarse BS GASTROINTESTINAL: Abdomen soft, non-tender, nondistended. MUSCULOSKELETAL: No cyanosis, or edema. Neuro: Awake and alert, follows commands, no focal deficits A/P Assessment and Plan Respiratory insufficiency HCAP Afib with RVR NSTEMI/Demand ischemia Recently diagnosed stage III lung cancer Coronary artery disease COPD on 3 L of O2 via an nasal cannula at home Hx Hypertension Hyperlipidemia History of prostate cancer Neuro: Monitor neuro status and avoid sedatives Pulm: Continue with oxygen keep sat >92% Bronchodilators, Solumedrol 40mg IV Q8 NIPPV PRN for resp distress Start Symbicort, Spiriva. Dr. Diaz following CV: On Amio drip for Afib with RVR now NSR. Start PO amiodarone and DC Dr. Lamar following. Continue ASA, Lipitor and Metoprolol, coumadin : Monitor renal function, I/O's, electrolytes replacement as needed. d/c IVF GI: s/p MBS, start Puree diet per recommendation, on Pepcid for GI prophylaxis ID: Continue with abx ( Zosyn, Zithromax)monitor for signs of infections (Fever , WBC) BC 01/23: NGTD, sputum cx, strep pneumonia and Legionella urinary Ag pending Heme: Monitor CBC, coags- on coumadin Endo: SSI for glycemic control GI/DVT prophylaxis - on Pepcid and Coumadin- INR 2.2 today Level 2 Consult [facility] to assume care in am, transfer to [facility] with Tele Denny Galvan MD Jan 26, 2017 15:57
[2017-01-26] MEDS: WARFARIN SOD 2.5 MG TAB PO SCH (16:00)
[2017-01-26] MEDS ORDERED: AMIODARONE 200 MG TAB PO ONE (16:00)
[2017-01-26] MEDS: TIOTROPIUM BROMIDE 18 MCG INH INH SCH (16:38)
--- NOTE | 2017-01-26 16:56 | EKG ---
Date Performed: 01/25/2017 Time Performed: 12:28:54 PTAGE: 89 years EKG: ATRIAL FIBRILLATION WITH RAPID VENTRICULAR RESPONSE MARKED LEFT AXIS DEVIATION MODERATE INT RAVENTRICULAR CONDUCTION DELAY ST DEVIATION AND MODERATE T-WAVE ABNORMALITY, CONSIDER LATERAL ISCHEMI A Compared to previous tracing, the patient now appears to be in atrial fibrillation With rapid ventr icular response ABNORMAL ECG PREVIOUS TRACING : 01/23/2017 21.46 DOCTOR: Vanessa De Los Santos Interpretating Date/Time 01/26/2017 16:56:22
--- NOTE | 2017-01-26 17:54 | ECHRPT ---
Indication: EVALUATE LV FUNCTION CONCLUSIONS The left ventricular systolic function is normal with an estimated ejection fraction in the range of 55-60%. Mild concentric left ventricular hypertrophy. Moderate mitral valve regurgitation. Bioprosthesis of the aortic valve. No aortic valve stenosis. Aortic valve mean gradient is 11.5 mmHg. There is moderate tricuspid regurgitation. Structurally normal tricuspid valve. There is estimated severe pulmonary hypertension present ( > 70 mmHg). BP: 104 / 51 HR: 64 Rhythm: Sinus MEASUREMENTS (Male / Female) Normal Values Technical Quality:Poor 2D ECHO LV Diastolic Diameter PLAX 4.6 cm 4.2 - 5.9 / 3.9 - 5.3 cm LV Systolic Diameter PLAX 3.1 cm IVS Diastolic Thickness 1.1 cm 0.6 - 1.0 / 0.6 - 0.9 cm LVPW Diastolic Thickness 1.1 cm 0.6 - 1.0 / 0.6 - 0.9 cm LV Relative Wall Thickness 0.5 LVOT Diameter 1.7 cm Aortic Root Diameter 2.1 cm LA Systolic Diameter LX 3.6 cm 3.0 - 4.0 / 2.7 - 3.8 cm M-MODE AV Cusp Separation MM 1.4 cm DOPPLER AV Peak Velocity 234.5 cm/s AV Peak Gradient 22.0 mmHg AV Mean Gradient 11.5 mmHg AV Velocity Time Integral 51.4 cm LVOT Peak Velocity 69.2 cm/s LVOT Peak Gradient 1.9 mmHg LVOT Velocity Time Integral 16.0 cm LVOT Cardiac Index 1272.8 cm/minm AV Area Cont Eq vti 0.7 cm AV Area Cont Eq pk 0.7 cm Mitral E Point Velocity 137.0 cm/s Mitral A Point Velocity 112.0 cm/s Mitral E to A Ratio 1.2 LV E' Lateral Velocity 9.2 cm/s Mitral E to LV E' Lateral Ratio 15.0 LV E' Septal Velocity 5.8 cm/s Mitral E to LV E' Septal Ratio 23.8 TR Peak Velocity 434.0 cm/s TR Peak Gradient 75.3 mmHg PV Peak Velocity 40.6 cm/s PV Peak Gradient 0.7 mmHg FINDINGS LEFT VENTRICLE There is abnormal (paradoxical) septal motion consistent with postoperative state. Normal left ventricular size. Mild concentric left ventricular hypertrophy. The left ventricular systolic function is normal with an estimated ejection fraction in the range of 55-60%. RIGHT VENTRICLE Normal right ventricular size and systolic function. LEFT ATRIUM The left atrial size is [id number] dilated. RIGHT ATRIUM The right atrial size is [id number] dilated. ATRIAL SEPTUM No atrial level shunt is demonstrated by color flow Doppler interrogation. AORTA The aortic root and proximal ascending aorta are not well visualized. MITRAL VALVE Mild thickening of the mitral valve leaflets. Moderate mitral valve regurgitation. Mild mitral annular calcification. No mitral valve stenosis. AORTIC VALVE Bioprosthesis of the aortic valve. No aortic valve regurgitation. No aortic valve stenosis. Aortic valve mean gradient is 11.5 mmHg. TRICUSPID VALVE Structurally normal tricuspid valve. There is estimated severe pulmonary hypertension present ( > 70 mmHg). There is moderate tricuspid regurgitation. PULMONARY VALVE The pulmonary valve is not well visualized. VESSELS The inferior vena cava is normal in size. There is less than 50% respiratory change in dimension of the inferior vena cava (abnormal). PERICARDIUM No pericardial effusion. Wally Weaver DO (Electronically Signed) Final Date:26 January 2017 17:53
--- NOTE | 2017-01-26 19:21 | HHI.PR ---
Subjective Remarks 89 YOWM with Resp insuf,COPD Tired, slepy Feels much better Started pureed diet and thickened liq Objective Vital Signs Vital Signs Date Time Temp Pulse Resp B/P (MAP) Pulse Ox O2 Delivery O2 Flow Rate FiO2 01/26/17 16:12 80 01/26/17 16:00 98.2 78 19 158/68 (98) 97 01/26/17 14:00 83 01/26/17 13:15 77 144/65 01/26/17 12:00 75 01/26/17 12:00 98.2 75 26 134/64 (87) 99 01/26/17 10:00 76 01/26/17 08:04 100 Nasal Cannula 2.00 01/26/17 08:00 98.1 67 14 129/60 (83) 100 01/26/17 08:00 67 01/26/17 06:00 65 01/26/17 05:40 67 119/59 01/26/17 04:00 98.0 64 14 104/51 (68) 100 01/26/17 04:00 64 01/26/17 02:00 67 01/26/17 00:00 72 01/26/17 00:00 97.2 67 15 95/49 (64) 100 01/25/17 22:41 69 96/49 01/25/17 22:00 75 01/25/17 20:48 100 Nasal Cannula 4.00 01/25/17 20:00 98.2 81 17 129/61 (83) 100 01/25/17 20:00 81 I/O 01/25/17 01/25/17 01/25/17 01/26/17 01/26/17 01/26/17 07:00 15:00 23:00 07:00 15:00 23:00 Intake Total 1174 ml 903 ml 1891 ml 1123 ml 100 ml Output Total 275 ml 600 ml 230 ml Balance 899 ml 903 ml 1291 ml 893 ml 100 ml Intake Oral 100 ml IV Total 1174 ml 903 ml 1791 ml 1123 ml 100 ml Output Urine Total 275 ml 600 ml 230 ml Stool Total 0 ml 0 ml Result Diagram: 01/26/17 0249 01/26/17248 Objective Remarks GENERAL: Frail elderly male mild sob SKIN: Warm and dry. HEAD: Normocephalic. EYES: No scleral icterus. No injection or drainage. NECK: Supple, trachea midline. No JVD or lymphadenopathy. CARDIOVASCULAR: Regular rate and rhythm without murmurs, gallops, or rubs. RESPIRATORY: Breath sounds equal bilaterally. No accessory muscle use. GASTROINTESTINAL: Abdomen soft, non-tender, nondistended. MUSCULOSKELETAL: No cyanosis, or edema. BACK: Nontender without obvious deformity. No CVA tenderness. A/P Assessment and Plan Resp insuff AF, rate controlled COPD Lung nodule H/O ca lung Lung infilterate Pleural effusion. PLAN: Cont Abx Supplement 02 Amiodarone for rate controll Aerosol nebs Dw Daughter at BS Pureed diet and thickened liq Jcarlos Diaz MD Jan 26, 2017 19:21
[2017-01-26] MEDS: ATORVASTATIN 80 MG TAB PO SCH (19:34)
[2017-01-26] MEDS: TEMAZEPAM 15 MG CAP PO PRN (21:33)
[2017-01-26] MEDS: BUDESONIDE-FORMOTEROL 160/4.5 MCG INHALER INH SCH (21:34)
--- NOTE | 2017-01-26 22:46 | MB ---
cc: NISHANT SANTOS M.D. DATE OF CONSULTATION 01/26/17 CONSULTING PHYSICIAN SANJEEV Cameron REASON FOR CONSULTATION Oncology consulted to render opinion regarding patient with possible lung cancer. HISTORY OF PRESENT ILLNESS The patient is an 89-year-old male brought into the hospital with complaint of fever up to 103, increased shortness of breath and mental status change. The patient is not a good historian and history obtained from his daughter at the bedside. Apparently, the patient has been coughing up frothy phlegm. He had a history of right lung mass. However, mass could not be biopsied due to his severe chronic obstructive pulmonary disease. He saw Dr. Stephenson and received palliative radiation in July. At that time he received three fraction but had to stop. He later had a few more radiation which he completed about a month ago. Denies any headache. Denies any chest pain or palpitation. Denies any nausea or vomiting, abdominal pain. Denies any bone pain. PAST MEDICAL HISTORY Right lung mass. Chronic obstructive pulmonary disease, chronic atrial fibrillation, coronary artery disease, hypertension, hyperlipidemia. History of prostate cancer. History of bladder cancer. PAST SURGICAL HISTORY TURP, coronary bypass graft surgery, AV valve replacement, left carotid endarterectomy, tonsillectomy. FAMILY HISTORY Noncontributory. SOCIAL HISTORY Quit smoking when he was [id number]. ALLERGIES NO KNOWN DRUG ALLERGIES. CURRENT MEDICATIONS 1. Amiodarone. 2. Symbicort. 3. Spiriva. 4. Zosyn. 5. Aspirin. 6. Solu-Medrol. 7. Azithromycin. 8. Lipitor. 9. Pepcid. 10. Warfarin. 11. Flexeril. 12. Ferrous sulfate. 13. Multivitamin. 14. Marcie-Colace. REVIEW OF SYSTEMS CONSTITUTIONAL: Has increased weakness. EYES: Denies any blurred vision, double vision. ENT: No mouth or voice changes. CARDIOVASCULAR: As above. RESPIRATORY: As above. GI: Denies any nausea, vomiting, diarrhea, abdominal pain. : Denies any dysuria, hematuria. MUSCULOSKELETAL: Denies any significant pain. HEMATOLOGY: Negative. ENDOCRINE: Negative. DERMATOLOGY: Negative. PSYCHIATRIC: Negative. NEUROLOGIC: Mental status change but improved. PHYSICAL EXAMINATION VITAL SIGNS: Temperature 98.2, blood pressure 158/68, O2 saturation 97%. GENERAL: He is alert and oriented x3, in no acute distress. Looks weak. HEENT: Atraumatic, normocephalic. Pupils equal, round and reactive to light. Extraocular muscles intact. No scleral icterus. Oropharynx dry mucosa. No lesion or thrush, mucositis. NECK: No thyromegaly. No palpable masses. LYMPHATICS: No palpable cervical, clavicular, axillary or inguinal lymph node. CARDIOVASCULAR: Irregular S1-S2. LUNGS: Basilar crackles. ABDOMEN: Soft, nontender. Could not palpate liver or spleen. EXTREMITIES: No cyanosis. Has trace ankle edema. No calf tenderness. SKIN: Have purpura on his arm. NEUROLOGIC EXAMINATION: Nonfocal. LABORATORY DATA Reviewed. ASSESSMENT 1. Possible lung cancer. He was noted to have a 2.3 cm in the right upper lobe earlier this year. Reportedly, his PET scan showed hypermetabolic uptake in this lung mass and there was several hypermetabolic area in the mediastinum clinically suspicious for at least stage III lung cancer. He has been seeing Dr. Jessica and Dr. Jessica has recommended against a biopsy due to patient's severe chronic obstructive pulmonary disease. The patient was seen by Dr. Stephenson and family desired palliative treatment. The patient received about 3 fractions of radiation around July but had to stop. He later restarted radiation again but only received about 8 or 9 fractions which he completed about a month ago. I have discussed his case with Dr. Stephenson. The patient presented with shortness of breath and fever. He was found to have possible aspiration pneumonia. He had a CT angiogram which did not show any pulmonary embolism. The right upper lobe lung mass now measured 1.9 cm. There was no significant adenopathy noted. Seemingly, he might be responding to the radiation. I have discussed with Dr. Stephenson and he does not recommend any more radiation. The patient is very frail and he is not a candidate for chemotherapy. His daughter also does not want any aggressive treatment. In terms of this lung mass he has not progressed. I do not recommend any intervention at this point. Besides the patient's daughter does not want any aggressive treatment. 2. Pneumonia. He presented with fever and shortness of breath. CT showed bilateral lower lobe consolidation. There is a possibility he has aspiration pneumonia. He is currently on antibiotic and his symptoms has improved. 3. Coronary artery disease. 4. History of prostate cancer. 5. History of bladder cancer. RECOMMENDATIONS 1. No oncologic intervention recommended at this time. I have discussed his case with Dr. Stephenson. 2. Continue treatment of pneumonia per primary team. Thank you SANJEEV Kothari for asking me to see this patient. MD RAHUL Garcia/TAMMY /4:57 PM /10:27 PM LINDA
[2017-01-27] VITALS (21 sets, daily range): BP systolic 88–155; BP diastolic 44–84; PULSE 68–92; RESP 10–23; TEMP 97.9–98.8; O2SAT 80–100
[2017-01-27] MEDS: PIPERACIL-TAZO 3.375 GM PREMIX 50 ML IV SCH ×4 (01:07→20:35)
[2017-01-27] MEDS: RESP: ALBUTEROL 2.5 MG/IPRATROPIUM 0.5 MG NEB (SCH) INH ×3 (02:55→20:25)
[2017-01-27] MEDS: CHLORHEXIDINE GLUCONATE 2 % 1 PACK (2 CLOTHS) TOP SCH (04:00)
[2017-01-27] MEDS: INSULIN NovoLIN REGULAR SUPPLEMENTAL SCALE SQ SCH ×4 (04:00→22:17)
[2017-01-27] MEDS: AMIODARONE INJ 450 MG in DEXTROSE 5% IN WATE(EXCEL) INJ 241 ML IV SCH ×6 (04:25→16:45)
[2017-01-27] MEDS: methylPREDNISolone SOD SUCC 40 MG/1 ML VIAL IV PUSH SCH ×3 (04:50→22:12)
--- NOTE | 2017-01-27 07:46 | PD.ONC.PN ---
Subjective Subjective Remarks Feeling better. SOB improved. Able to tolerate the puree food. Objective Data Date Time Temp Pulse Resp B/P (MAP) Pulse Ox O2 Delivery O2 Flow Rate FiO2 01/27/17 06:00 71 01/27/17 04:00 68 01/27/17 04:00 98.7 72 14 110/51 (70) 99 01/27/17 02:00 74 01/27/17 00:00 81 01/27/17 00:00 98.8 81 15 88/44 (59) 98 01/26/17 22:00 82 01/26/17 20:23 93 Nasal Cannula 2.00 01/26/17 20:00 84 01/26/17 20:00 98.7 84 26 122/60 (80) 94 01/26/17 18:00 82 01/26/17 16:12 80 01/26/17 16:00 98.2 78 19 158/68 (98) 97 01/26/17 14:00 83 01/26/17 13:15 77 144/65 01/26/17 12:00 75 01/26/17 12:00 98.2 75 26 134/64 (87) 99 01/26/17 10:00 76 01/26/17 08:04 100 Nasal Cannula 2.00 01/26/17 08:00 98.1 67 14 129/60 (83) 100 01/26/17 08:00 67 01/27/17 01/27/17 01/27/17 07:00 15:00 23:00 Intake Total 423 ml Output Total 250 ml Balance 173 ml Result Diagram: 01/26/17 0249 01/26/17 0249 Laboratory Results Laboratory Tests Test 01/26/17 09:31 01/27/17 05:28 Troponin I 0.53 NG/ML Administered Medications Medications (Trade) Dose Ordered Sig/Teressa Route PRN Reason Start Time Stop Time Status Last Admin Dose Admin Atorvastatin Calcium (Lipitor) 80 mg HS PO 01/24/17 21:00 01/26/17 19:34 Cyclobenzaprine HCl (Flexeril) 10 mg TID PO 01/24/17 09:00 01/26/17 19:36 Ferrous Sulfate (Ferrous Sulfate) 325 mg DAILY PO 01/24/17 09:00 01/25/17 08:28 Metoprolol Tartrate (Lopressor) 50 mg BID PO 01/24/17 09:00 Future Hold 01/24/17 22:00 Temazepam (Restoril) 30 mg HS PRN PO INSOMNIA 01/24/17 00:30 01/26/17 21:33 Warfarin Sodium (Coumadin) 2.5 mg DAILY@1600 PO 01/24/17 16:00 01/26/17 16:00 Multivitamins/ Minerals Therapeutic (Theragran M Tab) 1 tab DAILY PO 01/24/17 09:00 01/25/17 08:28 Sodium Chloride (NS Flush) 2 ml BID .XX 01/24/17 09:00 01/26/17 19:34 Albuterol/ Ipratropium (Duoneb Neb) 1 ampule Q6HR NEB INH 01/24/17 04:00 01/26/17 20:23 Chlorhexidine Gluconate (Chlorhexidine 2% Cloth) 3 pack Taper DAILY@04 TOP 01/24/17 04:00 01/20/18 03:59 01/27/17 04:00 Senna/Docusate Sodium (Marcie-Colace) 1 tab BID PO 01/24/17 09:00 01/26/17 19:36 Azithromycin 500 mg/Sodium Chloride 250 ml @ 250 mls/hr Q24H IV 01/24/17 23:00 01/26/17 22:59 Famotidine (Pepcid Inj) 10 mg Q12HR IV PUSH 01/24/17 21:00 01/26/17 19:33 Amiodarone HCl 450 mg/Dextrose 250 ml @ 33 mls/hr Q7H35M IV 01/25/17 14:30 01/26/17 13:15 Phenylephrine HCl 40 mg/Dextrose 500 ml @ 30 mls/hr [id number] PRN IV Blood pressure management 01/25/17 14:15 01/25/17 14:52 Methylprednisolone Sodium Succinate (SoluMEDROL INJ) 40 mg Q8HR IV PUSH 01/25/17 14:30 01/27/17 04:50 Piperacillin Sod/ Tazobactam Sod 50 ml @ 100 mls/hr Q6H IV 01/25/17 20:00 01/27/17 01:07 Aspirin (Ecotrin Ec) 81 mg DAILY PO 01/25/17 16:15 8/29/17 17:04 Tiotropium [place] (Spiriva Inh) 18 mcg DAILY INH 01/26/17 16:00 01/26/17 16:38 Budesonide/ Formoterol Fumarate (Symbicort 160-4.5 Inh) 1 puff Q12HR INH 01/26/17 21:00 01/26/17 21:34 Objective Remarks GENERAL: Well-nourished, well-developed patient. Weak SKIN: Warm and dry. HEAD: Normocephalic. EYES: No scleral icterus. No injection or drainage. NECK: Supple, trachea midline. No JVD or lymphadenopathy. LYMPHATIC: No adenopathy. CARDIOVASCULAR: Regular rate and rhythm without murmurs. RESPIRATORY: Bibasilar crackles. GASTROINTESTINAL: Abdomen soft, non-tender, nondistended. EXTREMITIES: No cyanosis, or edema. MUSCULOSKELETAL: Adequate muscle tone. NEUROLOGICAL: No obvious focal deficit. Awake, alert, and oriented x3. PSYCHIATRIC: Appropriate mood and affect; insight and judgment normal. Assessment/Plan Assessment 1. Possible lung cancer. He was noted to have a 2.3 cm in the right upper lobe earlier this year. Reportedly, his PET scan showed hypermetabolic uptake in this lung mass and there was several hypermetabolic area in the mediastinum clinically suspicious for at least stage III lung cancer. He has been seeing Dr. Jessica and Dr. Jessica has recommended against a biopsy due to patient's severe chronic obstructive pulmonary disease. The patient was seen by Dr. Stephenson and family desired palliative treatment. The patient received about 3 fractions of radiation around July but had to stop. He later restarted radiation again but only received about 8 or 9 fractions which he completed about a month ago. The patient presented with shortness of breath and fever. He was found to have possible aspiration pneumonia. CT angiogram did not show any pulmonary embolism. The right upper lobe lung mass now measured 1.9 cm. There was no significant adenopathy noted. He appeared to have a good respond to the radiation. I have discussed with Dr. Stephenson and he does not recommend any more radiation. The patient is very frail and he is not a candidate for chemotherapy. His daughter also does not want any aggressive treatment. In terms of this lung mass he has not progressed. I do not recommend any oncologic intervention at this point. 2. Pneumonia. He presented with fever and shortness of breath. CT showed bilateral lower lobe consolidation. There is a possibility he has aspiration pneumonia. He is currently on antibiotic and his symptoms has improved. Plan RECOMMENDATIONS 1. No oncologic intervention recommended at this time. I have discussed his case with Dr. Stephenson. 2. Continue treatment of pneumonia per primary team. 3. I will sign off and patient can f/u with after d/c. Yonny Nieves MD Jan 27, 2017 07:46
[2017-01-27] MEDS ORDERED: AMIODARONE 200 MG TAB PO SCH (09:00)
[2017-01-27] MEDS: FERROUS SULFATE 325 MG (65 MG ELEMENTAL IRON) TAB PO SCH (09:00)
[2017-01-27] MEDS: FAMOTIDINE 20 MG/2 ML VIAL IV PUSH SCH ×2 (09:02→20:35)
[2017-01-27] MEDS: DOCUSATE SODIUM 50 MG/SENNA 8.6 MG TAB PO SCH ×2 (09:02→20:37)
[2017-01-27] MEDS: CYCLOBENZAPRINE HCL 10 MG TAB PO SCH ×3 (09:03→16:47)
[2017-01-27] MEDS: MULTIVITAMINS/MINERALS THERAPEUTIC TAB PO SCH (09:03)
[2017-01-27] MEDS: ASPIRIN EC 81 MG TABEC PO SCH (09:03)
[2017-01-27] MEDS: TIOTROPIUM BROMIDE 18 MCG INH INH SCH (09:09)
[2017-01-27] MEDS: SODIUM CHLORIDE 0.9% FLUSH 10 ML FLUSH SCH ×2 (09:09→20:37)
[2017-01-27] MEDS: BUDESONIDE-FORMOTEROL 160/4.5 MCG INHALER INH SCH ×2 (09:09→20:36)
[2017-01-27 09:31] LABS: PROTHROMBIN TIME - PATIENT 59.3 SEC (9.8-11.6)
--- NOTE | 2017-01-27 09:41 | PD.CARD.PN ---
Subjective Subjective Remarks No angina Objective Medications Current Medications Medications (Trade) Dose Ordered Sig/Teressa Route Start Time Stop Time Status Last Admin (Lipitor) 80 mg HS PO 01/24/17 21:00 01/26/17 19:34 (Flexeril) 5 mg TID PRN PO 01/24/17 00:30 (Flexeril) 10 mg TID PO 01/24/17 09:00 01/27/17 09:03 (Ferrous Sulfate) 325 mg DAILY PO 01/24/17 09:00 01/25/17 08:28 (Robitussin Liq) 100 mg Q8H PRN PO 01/24/17 00:30 ([place] 5-325 Mg) 1 tab Q6H PRN PO 01/24/17 00:30 (Lopressor) 50 mg BID PO 01/24/17 09:00 Future Hold 01/24/17 22:00 (Restoril) 30 mg HS PRN PO 01/24/17 00:30 01/26/17 21:33 (Coumadin) 2.5 mg DAILY@1600 PO 01/24/17 16:00 01/26/17 16:00 (Theragran M Tab) 1 tab DAILY PO 01/24/17 09:00 01/27/17 09:03 (NS Flush) 2 ml UNSCH PRN .XX 01/24/17 00:45 (NS Flush) 2 ml BID .XX 01/24/17 09:00 01/27/17 09:09 (Tylenol) 650 mg Q6H PRN PO 01/24/17 00:45 (Morphine Inj) 2 mg Q2H PRN IV 01/24/17 00:45 (Zofran Inj) 4 mg Q6H PRN IV 01/24/17 00:45 (Duoneb Neb) 1 ampule Q6HR NEB INH 01/24/17 04:00 01/27/17 08:18 (Duoneb Neb) 1 ampule Q2HR NEB PRN INH 01/24/17 00:45 Miscellaneous Information 1 Q361D XX 01/24/17 00:45 (Chlorhexidine 2% Cloth) 3 pack Taper DAILY@04 TOP 01/24/17 04:00 01/20/18 03:59 01/27/17 04:00 (Chlorhexidine 2% Cloth) 3 pack UNSCH PRN TOP 01/24/17 00:45 (Marcie-Colace) 1 tab BID PO 01/24/17 09:00 01/27/17 09:02 (Milk Of Magnesia Liq) 30 ml Q12H PRN PO 01/24/17 00:45 (Senokot) 17.2 mg Q12H PRN PO 01/24/17 00:45 (Dulcolax Supp) 10 mg DAILY PRN RECTAL 01/24/17 00:45 (Lactulose Liq) 30 ml DAILY PRN PO 01/24/17 00:45 Pharmacy Profile Note 0 ml @ 0 mls/hr UNSCH OTHER 01/24/17 00:45 Azithromycin 500 mg/Sodium Chloride 250 ml @ 250 mls/hr Q24H IV 01/24/17 23:00 01/26/17 22:59 (Pill Splitter) 1 ea UNSCH PRN OTHER 01/24/17 00:45 (D50w (Vial) Inj) 50 ml UNSCH PRN IV 01/24/17 08:45 (Glucagon Inj) 1 mg UNSCH PRN OTHER 01/24/17 08:45 (NovoLIN R SUPPLEMENTAL SCALE) 1 Q6H SQ 01/24/17 10:00 (Pepcid Inj) 10 mg Q12HR IV PUSH 01/24/17 21:00 01/27/17 09:02 Amiodarone HCl 450 mg/Dextrose 250 ml @ 33 mls/hr Q7H35M IV 01/25/17 14:30 01/26/17 13:15 Phenylephrine HCl 40 mg/Dextrose 500 ml @ 30 mls/hr [id number] PRN IV 01/25/17 14:15 01/25/17 14:52 (Brethine Inj) 1 mg UNSCH PRN SQ 01/25/17 14:15 (SoluMEDROL INJ) 40 mg Q8HR IV PUSH 01/25/17 14:30 01/27/17 04:50 Piperacillin Sod/ Tazobactam Sod 50 ml @ 100 mls/hr Q6H IV 01/25/17 20:00 01/27/17 09:09 (Ecotrin Ec) 81 mg DAILY PO 01/25/17 16:15 01/27/17 09:03 Magnesium Sulfate/ Dextrose 100 ml @ 100 mls/hr UNSCH X1 PRN IV 01/25/17 17:15 01/27/17 17:14 (Cordarone) 200 mg DAILY PO 01/27/17 09:00 01/27/17 09:03 (Spiriva Inh) 18 mcg DAILY INH 01/26/17 16:00 01/27/17 09:09 (Symbicort 160-4.5 Inh) 1 puff Q12HR INH 01/26/17 21:00 01/27/17 09:09 Vital Signs / I&O Vital Signs Date Time Temp Pulse Resp B/P (MAP) Pulse Ox O2 Delivery O2 Flow Rate FiO2 01/27/17 08:18 100 Nasal Cannula 3.00 01/27/17 06:00 71 01/27/17 04:00 68 01/27/17 04:00 98.7 72 14 110/51 (70) 99 01/27/17 02:00 74 01/27/17 00:00 81 01/27/17 00:00 98.8 81 15 88/44 (59) 98 01/26/17 22:00 82 01/26/17 20:23 93 Nasal Cannula 2.00 01/26/17 20:00 84 01/26/17 20:00 98.7 84 26 122/60 (80) 94 01/26/17 18:00 82 01/26/17 16:12 80 01/26/17 16:00 98.2 78 19 158/68 (98) 97 01/26/17 14:00 83 01/26/17 13:15 77 144/65 01/26/17 12:00 75 01/26/17 12:00 98.2 75 26 134/64 (87) 99 01/26/17 10:00 76 I/O 01/26/17 01/26/17 01/26/17 01/27/17 01/27/17 01/27/17 07:00 15:00 23:00 07:00 15:00 23:00 Intake Total 1123 ml 100 ml 268 ml 423 ml Output Total 230 ml 250 ml 250 ml Balance 893 ml 100 ml 18 ml 173 ml Intake Oral 200 ml IV Total 1123 ml 100 ml 68 ml 423 ml Output Urine Total 230 ml 250 ml 250 ml Stool Total 0 ml # Bowel Movements 0 0 Physical Exam Alert Chest: diminished BS CV S1S2 RRR No edema Laboratory Laboratory Tests Test 01/27/17 09:06 Prothrombin Time 59.3 SEC Prothromb Time International Ratio 5.0 RATIO Assessment and Plan Problem List: (1) Elevated troponin ICD Codes: R74.8 - Abnormal levels of other serum enzymes Plan: conservative tx (2) Atrial fibrillation with RVR ICD Codes: I48.91 - Unspecified atrial fibrillation Plan: Maintaining SR. Amio 400 bid for 5 days then 200mg daily (3) CAD (coronary artery disease) ICD Codes: I25.10 - Atherosclerotic heart disease of [place] coronary artery without angina pectoris Status: Acute Plan: no angina Tian Lamar MD Jan 27, 2017 09:41
--- NOTE | 2017-01-27 11:08 | HHI.PR ---
Subjective Remarks Review previous records, patient basically admitted with respiratory failure, started on IV antibiotics. Found to be aspirating, no prior history of stroke confirmed. No acute issues reported overnight, nursing reported elevated INR over 5. Review blood cultures which are no growth 3 days. Per nursing, patient has reached home level of 3 L oxygen via nasal cannula Objective Vital Signs Date Time Temp Pulse Resp B/P (MAP) Pulse Ox O2 Delivery O2 Flow Rate FiO2 01/27/17 10:00 86 23 118/58 (78) 80 01/27/17 10:00 86 01/27/17 09:01 86 18 110/56 (74) 89 01/27/17 08:18 100 Nasal Cannula 3.00 01/27/17 08:00 73 01/27/17 08:00 98.5 73 17 145/65 (91) 100 01/27/17 07:01 68 12 111/53 (72) 100 01/27/17 06:00 71 01/27/17 04:00 68 01/27/17 04:00 98.7 72 14 110/51 (70) 99 01/27/17 02:00 74 01/27/17 00:00 81 01/27/17 00:00 98.8 81 15 88/44 (59) 98 01/26/17 22:00 82 01/26/17 20:23 93 Nasal Cannula 2.00 01/26/17 20:00 84 01/26/17 20:00 98.7 84 26 122/60 (80) 94 01/26/17 18:00 82 01/26/17 16:12 80 01/26/17 16:00 98.2 78 19 158/68 (98) 97 01/26/17 14:00 83 01/26/17 13:15 77 144/65 01/26/17 12:00 75 01/26/17 12:00 98.2 75 26 134/64 (87) 99 I/O 01/26/17 01/26/17 01/26/17 01/27/17 01/27/17 01/27/17 06:59 14:59 22:59 06:59 14:59 22:59 Intake Total 773 ml 450 ml 268 ml 423 ml 50 ml Output Total 230 ml 250 ml 250 ml Balance 543 ml 450 ml 18 ml 173 ml 50 ml Intake Oral 200 ml IV Total 773 ml 450 ml 68 ml 423 ml 50 ml Output Urine Total 230 ml 250 ml 250 ml Stool Total 0 ml # Bowel Movements 0 0 Result Diagram: 01/26/17 0249 01/26/17 0249 Imaging Last 48 hours Impressions Modified Barium Swallow 01/26/17 0000 Signed Impressions: Service Date/Time: Thursday, January 26, 2017 13:33 - CONCLUSION: Silent aspiration. Max Charles MD FACR Objective Remarks GENERAL: No acute distress CARDIOVASCULAR: Irregular rhythm, regular rate. RESPIRATORY: Scattered rhonchi and coarse breath sounds bilaterally, unlabored breathing MUSCULOSKELETAL: No cyanosis, or edema. Neuro: No facial droop, intact conjugate gaze, extraocular motions intact A/P Assessment and Plan Respiratory insufficiency 2/2 PNA + COPD - transitioning to oral steroids, continue symbicort, zosyn and azithromycin - I anticipate this can be transitioned to levaquin and azithromycin po in the near future - home oxygen 3 NC Recently diagnosed stage III lung cancer Afib with RVR - on po amiodarone, stable rate now, continue lopressor and coumadin Coronary artery disease (hx of bypass) + HYL - aspirin and lipitor, lopressor dysphagia - unsure of etiology, will look for stroke w/ MRI, continue Puree diet per recommendation, on Pepcid for GI prophylaxis Denny Galvan MD, Hammad Mohammed MD Jan 27, 2017 11:08
[2017-01-27] MEDS: ASPIRIN 81 MG CHEW TAB CHEW SCH (13:30)
--- NOTE | 2017-01-27 18:45 | HHI.PR ---
Subjective Remarks 89 YOWM with Resp insuf,COPD Tired, slepy Feels much better Started pureed diet and thickened liq Coold't get MRI due to his neck position Objective Vital Signs Vital Signs Date Time Temp Pulse Resp B/P (MAP) Pulse Ox O2 Delivery O2 Flow Rate FiO2 01/27/17 18:00 81 01/27/17 16:00 79 01/27/17 14:05 79 01/27/17 13:00 81 10 116/55 (75) 98 01/27/17 12:00 98.2 81 11 139/62 (87) 95 01/27/17 12:00 81 01/27/17 11:00 79 14 110/53 (72) 97 01/27/17 10:00 86 23 118/58 (78) 80 01/27/17 10:00 86 01/27/17 09:01 86 18 110/56 (74) 89 01/27/17 08:18 100 Nasal Cannula 3.00 01/27/17 08:00 73 01/27/17 08:00 98.5 73 17 145/65 (91) 100 01/27/17 07:01 68 12 111/53 (72) 100 01/27/17 06:00 71 01/27/17 04:00 68 01/27/17 04:00 98.7 72 14 110/51 (70) 99 01/27/17 02:00 74 01/27/17 00:00 81 01/27/17 00:00 98.8 81 15 88/44 (59) 98 01/26/17 22:00 82 01/26/17 20:23 93 Nasal Cannula 2.00 01/26/17 20:00 84 01/26/17 20:00 98.7 84 26 122/60 (80) 94 I/O 01/26/17 01/26/17 01/26/17 01/27/17 01/27/17 01/27/17 06:59 14:59 22:59 06:59 14:59 22:59 Intake Total 773 ml 450 ml 268 ml 423 ml 50 ml Output Total 230 ml 250 ml 250 ml Balance 543 ml 450 ml 18 ml 173 ml 50 ml Intake Oral 200 ml IV Total 773 ml 450 ml 68 ml 423 ml 50 ml Output Urine Total 230 ml 250 ml 250 ml Stool Total 0 ml # Bowel Movements 0 0 Result Diagram: 01/26/1724801/26/17248 Objective Remarks GENERAL: Frail elderly male mild sob SKIN: Warm and dry. HEAD: Normocephalic. EYES: No scleral icterus. No injection or drainage. NECK: Supple, trachea midline. No JVD or lymphadenopathy. CARDIOVASCULAR: Regular rate and rhythm without murmurs, gallops, or rubs. RESPIRATORY: Breath sounds equal bilaterally. No accessory muscle use. GASTROINTESTINAL: Abdomen soft, non-tender, nondistended. MUSCULOSKELETAL: No cyanosis, or edema. BACK: Nontender without obvious deformity. No CVA tenderness. A/P Assessment and Plan Resp insuff AF, rate controlled COPD Lung nodule H/O ca lung Lung infilterate Pleural effusion. PLAN: Cont Abx Supplement 02 Amiodarone for rate controll Aerosol nebs Dw Daughter at BS Pureed diet and thickened liq Stable from pulm standpoint to tr Jcarlos Diaz MD Jan 27, 2017 18:45
[2017-01-27] MEDS: ATORVASTATIN 80 MG TAB PO SCH (20:35)
[2017-01-27] MEDS: AMIODARONE 200 MG TAB PO SCH (20:36)
[2017-01-27] MEDS: TEMAZEPAM 15 MG CAP PO PRN (20:46)
[2017-01-27] MEDS: AZITHROMYCIN INJ 500 MG in SODIUM CHLOR 0.9% 250 ML INJ 250 ML IV SCH (22:17)
[2017-01-28] VITALS (17 sets, daily range): BP systolic 104–174; BP diastolic 53–77; PULSE 71–85; RESP 15–20; TEMP 97.2–98; O2SAT 93–100
[2017-01-28] MEDS: PIPERACIL-TAZO 3.375 GM PREMIX 50 ML IV SCH ×4 (02:02→20:40)
[2017-01-28] MEDS: RESP: ALBUTEROL 2.5 MG/IPRATROPIUM 0.5 MG NEB (SCH) INH (02:22)
[2017-01-28] MEDS: AMIODARONE INJ 450 MG in DEXTROSE 5% IN WATE(EXCEL) INJ 241 ML IV SCH ×6 (03:10→18:20)
[2017-01-28] MEDS: INSULIN NovoLIN REGULAR SUPPLEMENTAL SCALE SQ SCH ×4 (04:00→22:00)
[2017-01-28] MEDS: CHLORHEXIDINE GLUCONATE 2 % 1 PACK (2 CLOTHS) TOP SCH (04:00)
[2017-01-28 05:54] LABS: INTERNATIONAL NORMALIZED RATIO 4.1 RATIO; PROTHROMBIN TIME - PATIENT 48.6 SEC (9.8-11.6)
[2017-01-28] MEDS: methylPREDNISolone SOD SUCC 40 MG/1 ML VIAL IV PUSH SCH ×2 (06:35→16:51)
[2017-01-28] MEDS: ASPIRIN 81 MG CHEW TAB CHEW SCH (08:16)
[2017-01-28] MEDS: CYCLOBENZAPRINE HCL 10 MG TAB PO SCH ×3 (08:17→18:00)
[2017-01-28] MEDS: MULTIVITAMINS/MINERALS THERAPEUTIC TAB PO SCH (08:17)
[2017-01-28] MEDS: AMIODARONE 200 MG TAB PO SCH (08:17)
[2017-01-28] MEDS: DOCUSATE SODIUM 50 MG/SENNA 8.6 MG TAB PO SCH ×2 (08:17→20:40)
[2017-01-28] MEDS: ASPIRIN EC 81 MG TABEC PO SCH (08:17)
[2017-01-28] MEDS: BUDESONIDE-FORMOTEROL 160/4.5 MCG INHALER INH SCH ×2 (08:18→23:01)
[2017-01-28] MEDS: FERROUS SULFATE 325 MG (65 MG ELEMENTAL IRON) TAB PO SCH (08:18)
[2017-01-28] MEDS: FAMOTIDINE 20 MG/2 ML VIAL IV PUSH SCH ×2 (08:18→20:41)
[2017-01-28] MEDS: TIOTROPIUM BROMIDE 18 MCG INH INH SCH (08:18)
[2017-01-28] MEDS: SODIUM CHLORIDE 0.9% FLUSH 10 ML FLUSH SCH ×2 (08:19→20:39)
--- NOTE | 2017-01-28 08:41 | PD.CARD.PN ---
Subjective Subjective Remarks No new complaints Objective Medications Current Medications Medications (Trade) Dose Ordered Sig/Teressa Route Start Time Stop Time Status Last Admin (Lipitor) 80 mg HS PO 01/24/17 21:00 01/27/17 20:35 (Flexeril) 5 mg TID PRN PO 01/24/17 00:30 (Flexeril) 10 mg TID PO 01/24/17 09:00 01/27/17 13:29 (Ferrous Sulfate) 325 mg DAILY PO 01/24/17 09:00 01/25/17 08:28 (Robitussin Liq) 100 mg Q8H PRN PO 01/24/17 00:30 ([place] 5-325 Mg) 1 tab Q6H PRN PO 01/24/17 00:30 (Lopressor) 50 mg BID PO 01/24/17 09:00 Future Hold 01/24/17 22:00 (Restoril) 30 mg HS PRN PO 01/24/17 00:30 01/27/17 20:46 (Coumadin) 2.5 mg DAILY@1600 PO 01/24/17 16:00 Future Hold 01/26/17 16:00 (Theragran M Tab) 1 tab DAILY PO 01/24/17 09:00 01/28/17 08:17 (NS Flush) 2 ml UNSCH PRN .XX 01/24/17 00:45 (NS Flush) 2 ml BID .XX 01/24/17 09:00 01/28/17 08:19 (Tylenol) 650 mg Q6H PRN PO 01/24/17 00:45 (Zofran Inj) 4 mg Q6H PRN IV 01/24/17 00:45 (Duoneb Neb) 1 ampule Q2HR NEB PRN INH 01/24/17 00:45 Miscellaneous Information 1 Q361D XX 01/24/17 00:45 (Chlorhexidine 2% Cloth) 3 pack Taper DAILY@04 TOP 01/24/17 04:00 01/20/18 03:59 01/28/17 04:00 (Chlorhexidine 2% Cloth) 3 pack UNSCH PRN TOP 01/24/17 00:45 (Marcie-Colace) 1 tab BID PO 01/24/17 09:00 01/28/17 08:17 (Milk Of Magnesia Liq) 30 ml Q12H PRN PO 01/24/17 00:45 (Senokot) 17.2 mg Q12H PRN PO 01/24/17 00:45 (Dulcolax Supp) 10 mg DAILY PRN RECTAL 01/24/17 00:45 (Lactulose Liq) 30 ml DAILY PRN PO 01/24/17 00:45 Pharmacy Profile Note 0 ml @ 0 mls/hr UNSCH OTHER 01/24/17 00:45 Azithromycin 500 mg/Sodium Chloride 250 ml @ 250 mls/hr Q24H IV 01/24/17 23:00 01/27/17 22:17 (Pill Splitter) 1 ea UNSCH PRN OTHER 01/24/17 00:45 (D50w (Vial) Inj) 50 ml UNSCH PRN IV 01/24/17 08:45 (Glucagon Inj) 1 mg UNSCH PRN OTHER 01/24/17 08:45 (NovoLIN R SUPPLEMENTAL SCALE) 1 Q6H SQ 01/24/17 10:00 01/27/17 22:17 (Pepcid Inj) 10 mg Q12HR IV PUSH 01/24/17 21:00 01/28/17 08:18 Amiodarone HCl 450 mg/Dextrose 250 ml @ 33 mls/hr Q7H35M IV 01/25/17 14:30 01/26/17 13:15 Phenylephrine HCl 40 mg/Dextrose 500 ml @ 30 mls/hr [id number] PRN IV 01/25/17 14:15 01/25/17 14:52 (Brethine Inj) 1 mg UNSCH PRN SQ 01/25/17 14:15 (SoluMEDROL INJ) 40 mg Q8HR IV PUSH 01/25/17 14:30 01/28/17 06:35 Piperacillin Sod/ Tazobactam Sod 50 ml @ 100 mls/hr Q6H IV 01/25/17 20:00 01/28/17 08:19 (Ecotrin Ec) 81 mg DAILY PO 01/25/17 16:15 01/27/17 09:03 (Spiriva Inh) 18 mcg DAILY INH 01/26/17 16:00 01/28/17 08:18 (Symbicort 160-4.5 Inh) 1 puff Q12HR INH 01/26/17 21:00 01/28/17 08:18 (Cordarone) 400 mg Q12HR PO 01/27/17 21:00 01/28/17 08:17 (Aspirin Chew) 81 mg DAILY CHEW 01/27/17 12:00 01/28/17 08:16 Vital Signs / I&O Vital Signs Date Time Temp Pulse Resp B/P (MAP) Pulse Ox O2 Delivery O2 Flow Rate FiO2 01/28/17 04:00 98.0 72 16 104/53 (70) 99 01/28/17 00:00 97.6 82 16 115/53 (73) 96 01/27/17 23:00 84 01/27/17 20:24 97 Nasal Cannula 2.00 01/27/17 20:00 97.9 92 17 155/65 (95) 86 01/27/17 18:00 81 01/27/17 17:00 83 21 128/84 (99) 96 01/27/17 16:00 79 01/27/17 16:00 98.0 79 23 120/56 (77) 96 01/27/17 15:00 79 19 129/58 (81) 96 01/27/17 14:05 79 01/27/17 14:00 79 18 124/58 (80) 96 01/27/17 13:00 81 10 116/55 (75) 98 01/27/17 12:00 98.2 81 11 139/62 (87) 95 01/27/17 12:00 81 01/27/17 11:00 79 14 110/53 (72) 97 01/27/17 10:00 86 23 118/58 (78) 80 01/27/17 10:00 86 01/27/17 09:01 86 18 110/56 (74) 89 I/O 01/27/17 01/27/17 01/27/17 01/28/17 01/28/17 01/28/17 06:59 14:59 22:59 06:59 14:59 22:59 Intake Total 423 ml 50 ml 105 ml 388 ml Output Total 250 ml 275 ml 350 ml Balance 173 ml 50 ml -170 ml 38 ml IV Total 423 ml 50 ml 105 ml 388 ml Output Urine Total 250 ml 275 ml 350 ml # Bowel Movements 0 0 Physical Exam Alert Chest: diminished BS CV S1S2 RRR No edema Laboratory Laboratory Tests Test 01/27/17 09:06 01/28/17 04:27 Prothrombin Time 59.3 SEC 48.6 SEC Prothromb Time International Ratio 5.0 RATIO 4.1 RATIO Assessment and Plan Problem List: (1) Elevated troponin ICD Codes: R74.8 - Abnormal levels of other serum enzymes Plan: conservative therapy (2) Atrial fibrillation with RVR ICD Codes: I48.91 - Unspecified atrial fibrillation Plan: Back in sinus. Amio loading (3) CAD (coronary artery disease) ICD Codes: I25.10 - Atherosclerotic heart disease of [place] coronary artery without angina pectoris Status: Acute Plan: no angina Assessment and Plan will sign off/ see prn Discussed Condition With daughter Tian Lamar MD Jan 28, 2017 08:41
--- NOTE | 2017-01-28 13:27 | HHI.HCPN ---
Reason for visit a. To assist with evaluation and management of symptoms including: dyspnea, weakness/debility, anxiety b. To assist medical decision maker(s) with: better understanding of current medical conditions; weighing benefits/burdens of medical treatment options; making medical treatment decisions. Subjective/Interval History Patient stable overnight. Cardio has signed off, remains in SR. On PO amiodarone. S/p barium swallow study. + aspiration/silent aspiration w any thinner than pudding consistency. Tolerates pudding thick. ST notes extensive discussion w/ daughter RE dysphagia. BC no growth x5 days. afebrile. has intermittent cough. No new imaging. No new labs today. Ate most of breakfast per nursing. S/p oncology consult per family request. Nothing to add from oncology standpoint. Dual visit with [facility]. Patient seen in room, up in recliner chair at bedside. Daughter at bedside. He is sleeping at times. Daughter does most of talking. Indicates he feels well today, ok overall. Mild SOB endorsed. No pain. No GI complaints. Tells he his eating/coughing has been better. Discussion RE current condition stable, pending transfer out of ICU, current treatments, overall prognosis. Discuss barium swallow findings,possible pearl glue drier affects on pt nutritional status. Review of possible PEG tube if pt cont to exp dysphagia or is not able to meet caloric/nutritional needs. Daughter feels he has been swallowing well, though I did explore risk of silent aspiration ongoing. Discussed at length with primary nurse. Additional lung cancer history as per radiation oncology consult 07/2016 -patient underwent imaging noting 2.3 cm mass right upper lobe, several hypermetabolic areas in mediastinum findings suspicious for primary lung cancer. It was felt due to poor lung function not recommended to pursue biopsy. Radiation oncology was consulted for possible treatment options. Radiation oncology notes he is not a good candidate for invasive procedures such as biopsy not necessarily good candidate for chemotherapy due to poor performance status. Radiation Oncology notes discussion regarding no treatment versus chemoradiation versus radiation therapy versus observation only. He further notes discussion regarding long-term well-controlled radiotherapy or overall disease-free survival less than 10%. He elected to pursue radiation therapy. Advance Directives Living Will: Never completed Health Care Surrogate: Copy in medical record Advance Directive Specifics Date completed: 01/25/17 Health Care Surrogate(s): named daughter Cecily Perez Objective Vital Signs Date Time Temp Pulse Resp B/P (MAP) Pulse Ox O2 Delivery O2 Flow Rate FiO2 01/28/17 11:00 78 18 129/58 (81) 98 01/28/17 10:00 75 15 137/64 (88) 96 01/28/17 09:01 79 20 128/63 (84) 93 01/28/17 08:49 96 Nasal Cannula 2.00 01/28/17 08:01 97.8 71 17 174/68 (103) 100 01/28/17 07:00 84 01/28/17 04:00 98.0 72 16 104/53 (70) 99 01/28/17 00:00 97.6 82 16 115/53 (73) 96 01/27/17 23:00 84 01/27/17 20:24 97 Nasal Cannula 2.00 01/27/17 20:00 97.9 92 17 155/65 (95) 86 01/27/17 18:00 81 01/27/17 17:00 83 21 128/84 (99) 96 01/27/17 16:00 79 01/27/17 16:00 98.0 79 23 120/56 (77) 96 01/27/17 15:00 79 19 129/58 (81) 96 01/27/17 14:05 79 01/27/17 14:00 79 18 124/58 (80) 96 Intake & Output 01/28/17 01/28/17 07:00 19:00 Intake Total 388 ml Output Total 350 ml Balance 38 ml IV Total 388 ml Output Urine Total 350 ml Physical Exam CONSTITUTIONAL/GENERAL: This is a well nourished, elderly male up in chair in icu TUBES/LINES/DRAINS:PIV BUE, valenzuela catheter, NC SKIN: No jaundice, rashes, or lesions. No wounds seen anteriorly. Skin temperature appropriate. Not diaphoretic. CARDIOVASCULAR: regular rate and rhythm. No JVD. Peripheral pulses symmetric. 1 + edema RUE. RESPIRATORY/CHEST: Symmetric, unlabored respirations, on NC. some faint scattered rhonchi, decreased air movement. Breath sounds equal bilaterally. GASTROINTESTINAL: Abdomen soft, non-tender, nondistended. No palpable masses. No guarding. Bowel sounds hypo GENITOURINARY: Without palpable bladder distension. Valenzuela catheter in place. MUSCULOSKELETAL: Extremities without clubbing, cyanosis. trace peripheral edema , 1+ RUE. No joint tenderness or effusion noted. No mottling or clubbing. NEUROLOGICAL: Awake, sleeps at times .mostly oriented x2-3. Follows commands. Moves all 4 extremities with generalized weakness. PSYCHIATRIC: No obvious anxiety/depression. no apparent hallucinations or other psychotic thought process. Diagnostic Tests Laboratory Laboratory Tests Test 01/25/17 14:38 01/25/17 20:15 01/25/17 21:29 01/26/17 02:49 Total Creatine Kinase 52 U/L (39-308) Troponin I 0.69 NG/ML (0.02-0.05) 0.70 NG/ML (0.02-0.05) 0.64 NG/ML (0.02-0.05) Blood Gas Puncture Site RT RADIAL Blood Gas Patient Temperature 98.6 Blood Gas HCO3 27 mmol/L (22-26) Blood Gas Base Excess 0.5 mmol/L (-2-2) Blood Gas Oxygen Saturation 96 % (90-100) Arterial Blood pH 7.26 (7.380-7.420) Arterial Blood Partial Pressure CO2 62 mmHg (38-42) Arterial Blood Partial Pressure O2 113 mmHg (61-120) Arterial Blood Oxygen Content 14.1 Vol % (12.0-20.0) Arterial Blood Carboxyhemoglobin 1.4 % (0-4) Arterial Blood Methemoglobin 1.1 % (0-2) Blood Gas Hemoglobin 10.4 G/DL (12.0-16.0) Oxygen Delivery Device NASAL CANNULA Blood Gas Liter Flow 4 L/M White Blood Count 5.1 TH/MM3 (4.0-11.0) Red Blood Count 2.91 MIL/MM3 (4.50-5.90) Hemoglobin 8.9 GM/DL (13.0-17.0) Hematocrit 27.1 % (39.0-51.0) Mean Corpuscular Volume 93.0 FL (80.0-100.0) Mean Corpuscular Hemoglobin 30.5 PG (27.0-34.0) Mean Corpuscular Hemoglobin Concent 32.7 % (32.0-36.0) Red Cell Distribution Width 16.0 % (11.6-17.2) Platelet Count 109 TH/MM3 (150-450) Mean Platelet Volume 8.1 FL (7.0-11.0) Neutrophils (%) (Auto) 97.7 % (16.0-70.0) Lymphocytes (%) (Auto) 1.3 % (9.0-44.0) Monocytes (%) (Auto) 0.9 % (0.0-8.0) Eosinophils (%) (Auto) 0.0 % (0.0-4.0) Basophils (%) (Auto) 0.1 % (0.0-2.0) Neutrophils # (Auto) 5.0 TH/MM3 (1.8-7.7) Lymphocytes # (Auto) 0.1 TH/MM3 (1.0-4.8) Monocytes # (Auto) 0.0 TH/MM3 (0-0.9) Eosinophils # (Auto) 0.0 TH/MM3 (0-0.4) Basophils # (Auto) 0.0 TH/MM3 (0-0.2) CBC Comment DIFF FINAL Differential Comment Prothrombin Time 24.8 SEC (9.8-11.6) Prothromb Time International Ratio 2.2 RATIO Blood Urea Nitrogen 28 MG/DL (7-18) Creatinine 1.27 MG/DL (0.60-1.30) Random Glucose 171 MG/DL (74-106) Calcium Level 7.6 MG/DL (8.5-10.1) Magnesium Level 2.3 MG/DL (1.5-2.5) Sodium Level 143 MEQ/L (136-145) Potassium Level 4.1 MEQ/L (3.5-5.1) Chloride Level 108 MEQ/L (98-107) Carbon Dioxide Level 30.0 MEQ/L (21.0-32.0) Anion Gap 5 MEQ/L (5-15) Estimat Glomerular Filtration Rate 53 ML/MIN (>89) Test 01/26/17 09:31 01/27/17 09:06 01/28/17 04:27 Troponin I 0.53 NG/ML (0.02-0.05) Prothrombin Time 59.3 SEC (9.8-11.6) 48.6 SEC (9.8-11.6) Prothromb Time International Ratio 5.0 RATIO 4.1 RATIO Result Diagram: 01/26/17 0249 01/26/17 0249 Microbiology Microbiology Date/Time Source Procedure Growth Status 01/23/17 21:45 Blood Peripheral Aerobic Blood Culture - Final NO GROWTH IN 5 DAYS Complete 01/23/17 21:45 Blood Peripheral Anaerobic Blood Culture - Final NO GROWTH IN 5 DAYS Complete Imaging Last Impressions Modified Barium Swallow 01/26/17 0000 Signed Impressions: Service Date/Time: Thursday, January 26, 2017 13:33 - CONCLUSION: Silent aspiration. Max Charles MD FACR Chest X-Ray 01/25/17 0600 Signed Impressions: Service Date/Time: Wednesday, January 25, 2017 03:24 - CONCLUSION: Stable examination with persistent opacity in the peripheral right midlung zone and at both lung bases. There are likely small bilateral pleural effusions. Cole Roberts MD Head CT 01/25/17 0000 Signed Impressions: Service Date/Time: Wednesday, January 25, 2017 23:02 - CONCLUSION: Stable noncontrast head CT. No acute finding is identified. Cole Roberts MD CT Angiography 01/23/17 0000 Signed Impressions: Service Date/Time: Tuesday, January 24, 2017 02:59 - CONCLUSION: 1. No PE is identified. There is respiratory motion artifact. 2. Severe emphysema with suspicious spiculated nodule measuring 19 mm in the right upper lobe. This is a suspicious for primary pulmonary neoplasm. There is also airspace consolidation both lower lobes with associated visual thickening on the right. 3. Trace bilateral pleural fluid. 4. Polypoid appearing lesion in the trachea measuring approximately 14 mm. Cole Roberts MD Assessment and Plan Disease Oriented Problem List: (1) Atrial fibrillation with RVR (2) CAP (community acquired pneumonia) (3) Hypertension (4) Lung mass (5) COPD (chronic obstructive pulmonary disease) (6) CAD (coronary artery disease) Symptom Scale: (1) Anxiety (2) Dysphagia (3) Dyspnea (4) Weakness Pertinent Non-Medical Issues Psychosocial:. 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 Has 2 adult children, 1 dtr local, son lives out of state, not in close communication w pt. Per prior H&P One son is secondary to a motorcycle accident. Spiritual:[place]:Pt capacity may fluctuate 2/2 infection, oxygenation status. Best supported in shared decision making by [facility] (daughter) Ethical issues impacting care: Important Contacts Cecily Perez daughter [phone] . Prognosis PT was admitted for her, shortness of breath. Has known history of COPD, fairly right-sided lung cancer. Recent prolonged hospitalization for pulmonary infection. Now requiring BiPAP. High risk for continued respiratory decline and possible need for intubation. Code Status: Alternative Code (compression, ACLS drugs, shock) Plan * Legal decision maker:Pt capacity may fluctuate 2/2 infection, oxygenation status. Best supported in shared decision making by [facility] (daughter) * Goals: For right now pt, family wish to maximize medical tx available. They are going to discuss further if pt would want PEG if is indicated. They are not certain at this time. Daughter, pt still hopeful he can eat without it. * CODE STATUS: alt code-- NO chest compressions, NO intubation * SYMPTOMS: --dyspnea- worsening SOB over few days before admission. Long hx COPD, o2 dependent for several years. frequent pneumonia this year. +new lung cancer this year, unable to bx. REquiring bipap PRN this admission. high risk for worsened resp status despite ongoing tx. on zosyn, azithromycin-- last CXR stable, tolerating NC, dyspnea improved. --weakness/debility- pt of advanced age, ongoing SOB, which limits activity. Several hospitalizations the year, general deconditioning. Would benefit from aggressive PT if resp status would tolerate, if goals aggressive --anxiety- potential for r/t dyspnea, underlying COPD. cautious use of benzos given age, lethargy and AMS. --Dysphagia- status post [place] therapy evaluation With clinical signs of aspiration, s/p barium swallow evaluation--> + silent aspiration, tolerates pudding thick. May still have silent aspiration. May not be able to meet caloric /nutritional needs on restrictive diet. Patient may require temporary or long- term feeding tube to meet nutritional requirements, though even with that would still be at risk for aspiration. If PO intake fluctuates on pudding thick diet- may consider calorie count to better quantify intake and further examine if PEG is indicated -- constipation- last BM 8/29. On PO bowel regimen, +also drank prune juice this am per daughter. Discuss if no BM today utilize PRN dulcolax suppository this pm * Palliative care will continue to follow during hospital course as condition evolves, to assist patient/decision-maker with understanding of medical conditions, weighing benefits/burdens of treatment options, for clarification of goals of treatment. Additionally will assist with any symptoms of palliative concern Attestation To help prompt me to consider important information that might be impacting today's encounter and assessment, information from prior notes written by myself or my colleagues may have been "brought forward" into today's note. My signature on this note, however, is an attestation that I personally performed the exam, history, and/or decision-making noted today, and, unless otherwise indicated, the interactions with patient, family, and staff as well as the review of records all occurred today. I also attest that the listed assessment and stated plan reflect my best clinical judgment today based on the combination of historical information, prior notes, and today's exam/ interactions. When time spent is documented, it refers only to time spent today by the signer, or if indicated, combined time spent today by collaborating physician/nurse practitioner. Negin Cummings Jan 28, 2017 13:27
[2017-01-28] MEDS: RESP: ALBUTEROL 2.5 MG/IPRATROPIUM 0.5 MG NEB (PRN) INH (17:38)
--- NOTE | 2017-01-28 17:45 | HHI.PR ---
Subjective Remarks 89 YOWM with Resp insuf,COPD Tired, slepy Feels much better Started pureed diet and thickened liq Coold't get MRI due to his neck position tr to [facility] On Amiodarone for AF Objective Vital Signs Vital Signs Date Time Temp Pulse Resp B/P (MAP) Pulse Ox O2 Delivery O2 Flow Rate FiO2 01/28/17 17:00 76 01/28/17 16:18 97.9 85 18 110/77 (88) 01/28/17 16:18 85 01/28/17 15:00 85 01/28/17 13:00 97.2 72 18 134/74 (94) 01/28/17 11:00 78 18 129/58 (81) 98 01/28/17 10:00 75 15 137/64 (88) 96 01/28/17 09:01 79 20 128/63 (84) 93 01/28/17 08:49 96 Nasal Cannula 2.00 01/28/17 08:01 97.8 71 17 174/68 (103) 100 01/28/17 07:00 84 01/28/17 04:00 98.0 72 16 104/53 (70) 99 01/28/17 00:00 97.6 82 16 115/53 (73) 96 01/27/17 23:00 84 01/27/17 20:24 97 Nasal Cannula 2.00 01/27/17 20:00 97.9 92 17 155/65 (95) 86 01/27/17 18:00 81 I/O 01/27/17 01/27/17 01/27/17 01/28/17 01/28/17 01/28/17 07:00 15:00 23:00 07:00 15:00 23:00 Intake Total 423 ml 50 ml 105 ml 388 ml Output Total 250 ml 275 ml 350 ml Balance 173 ml 50 ml -170 ml 38 ml IV Total 423 ml 50 ml 105 ml 388 ml Output Urine Total 250 ml 275 ml 350 ml # Bowel Movements 0 0 Result Diagram: 01/26/1724801/26/17248 Objective Remarks GENERAL: Frail elderly male mild sob SKIN: Warm and dry. HEAD: Normocephalic. EYES: No scleral icterus. No injection or drainage. NECK: Supple, trachea midline. No JVD or lymphadenopathy. CARDIOVASCULAR: Regular rate and rhythm without murmurs, gallops, or rubs. RESPIRATORY: Breath sounds equal bilaterally. No accessory muscle use. GASTROINTESTINAL: Abdomen soft, non-tender, nondistended. MUSCULOSKELETAL: No cyanosis, or edema. BACK: Nontender without obvious deformity. No CVA tenderness. A/P Assessment and Plan Resp insuff AF, rate controlled COPD Lung nodule H/O ca lung Lung infilterate Pleural effusion. PLAN: Cont Abx Supplement 02 Amiodarone for rate controll Aerosol nebs Dw Daughter at BS Pureed diet and thickened liq Stable from pulm standpoint Available prn over weekend. Jcarlos Diaz MD Jan 28, 2017 17:45
--- NOTE | 2017-01-28 19:27 | HHI.PR ---
Subjective Remarks Follow-up on aspiration pneumonia No acute events reported via nursing, patient transferred to [facility]. No fevers today, patient himself says he feels good and wants to go home. Daughter is present at bedside asks questions about long-term options for speech therapy versus PEG tube placement Objective Vital Signs Date Time Temp Pulse Resp B/P (MAP) Pulse Ox O2 Delivery O2 Flow Rate FiO2 01/28/17 18:00 71 01/28/17 17:00 76 01/28/17 16:18 97.9 85 18 110/77 (88) 01/28/17 16:18 85 01/28/17 15:00 85 01/28/17 13:00 97.2 72 18 134/74 (94) 01/28/17 11:00 78 18 129/58 (81) 98 01/28/17 10:00 75 15 137/64 (88) 96 01/28/17 09:01 79 20 128/63 (84) 93 01/28/17 08:49 96 Nasal Cannula 2.00 01/28/17 08:01 97.8 71 17 174/68 (103) 100 01/28/17 07:00 84 01/28/17 04:00 98.0 72 16 104/53 (70) 99 01/28/17 00:00 97.6 82 16 115/53 (73) 96 01/27/17 23:00 84 01/27/17 20:24 97 Nasal Cannula 2.00 01/27/17 20:00 97.9 92 17 155/65 (95) 86 I/O 01/27/17 01/27/17 01/27/17 01/28/17 01/28/17 01/28/17 06:59 14:59 22:59 06:59 14:59 22:59 Intake Total 423 ml 50 ml 105 ml 388 ml 150 ml Output Total 250 ml 275 ml 350 ml Balance 173 ml 50 ml -170 ml 38 ml 150 ml Intake Oral 150 ml IV Total 423 ml 50 ml 105 ml 388 ml Output Urine Total 250 ml 275 ml 350 ml # Bowel Movements 0 0 Result Diagram: 01/26/1724801/26/17248 Objective Remarks GENERAL: No acute distress, eating on his own RESPIRATORY: Coarse breath sounds bilaterally, unlabored breathing, on nasal cannula Skin: Chronic bruising on right arm neuro: alert A/P Assessment and Plan Respiratory insufficiency 2/2 PNA + COPD - oral steroids, continue symbicort, switching over to oral Levaquin and oral azithromycin - home oxygen 3 NC Recently diagnosed stage III lung cancer Afib with RVR - on po amiodarone, stable rate now, continue lopressor and coumadin Coronary artery disease (hx of bypass) + HYL - aspirin and lipitor, lopressor Hyperglycemia - BS at 185, will monitor w/ fingersticks, OK for patient's current age group, will not intervene at this time dysphagia - unsure of etiology, can get MRI outpatient per daughter's request since they were not able to do it due to patient's limited neck range of motion. continue Puree diet per recommendation, on Pepcid for GI prophylaxis I had an extensive discussion with the patient's daughter about his dysphagia and his long-term nutrition options given his risk of aspiration. I explained to her that despite him not coughing or gagging that he still can easily aspirate as was noted on the barium swallow. She vocalized understanding that this could happen again and at that point she would think of a more definitive chcf. She wants to try home speech therapy to see if his dysphagia improves to any further extent. Denny Galvan MD, Hammad Mohammed MD Jan 28, 2017 19:27
[2017-01-28] MEDS: predniSONE 50 MG TAB PO SCH (20:30)
[2017-01-28] MEDS: TEMAZEPAM 15 MG CAP PO PRN (20:40)
[2017-01-28] MEDS: ATORVASTATIN 80 MG TAB PO SCH (20:40)
[2017-01-28] MEDS: LEVOFLOXACIN 750 MG TAB PO SCH (20:41)
[2017-01-28] MEDS: AZITHROMYCIN INJ 500 MG in SODIUM CHLOR 0.9% 250 ML INJ 250 ML IV SCH (23:00)
[2017-01-29] VITALS (24 sets, daily range): BP systolic 131–157; BP diastolic 59–95; PULSE 64–102; RESP 16–20; TEMP 97.9–98.4; O2SAT 92–97
[2017-01-29] MEDS: CHLORHEXIDINE GLUCONATE 2 % 1 PACK (2 CLOTHS) TOP SCH (03:28)
[2017-01-29] MEDS: AMIODARONE 200 MG TAB PO SCH ×2 (03:28→16:32)
[2017-01-29] MEDS: INSULIN NovoLIN REGULAR SUPPLEMENTAL SCALE SQ SCH ×4 (03:36→22:00)
[2017-01-29 05:46] LABS: AUTOMATED NEUTROPHIL # 6.4 TH/MM3 (1.8-7.7); BASOPHIL % 0.1 % (0.0-2.0); HEMATOCRIT 28.3 % (39.0-51.0); HEMO FLAGS DIFF FINAL; LYMPH % 2.7 % (9.0-44.0); LYMPHOCYTE # 0.2 TH/MM3 (1.0-4.8); MEAN CELL VOLUME 92.9 FL (80.0-100.0); MEAN CORPUSCULAR HEMOGLOBIN 29.5 PG (27.0-34.0); MEAN CORPUSCULAR HGB CONC 31.7 % (32.0-36.0); MONO % 5.6 % (0.0-8.0); NEUT % 91.6 % (16.0-70.0); PLATELET COUNT 143 TH/MM3 (150-450); RED BLOOD COUNT 3.05 MIL/MM3 (4.50-5.90); WHITE BLOOD COUNT 6.9 TH/MM3 (4.0-11.0)
[2017-01-29 05:49] LABS: INTERNATIONAL NORMALIZED RATIO 2.3 RATIO; PROTHROMBIN TIME - PATIENT 26.3 SEC (9.8-11.6)
[2017-01-29] MEDS: AMIODARONE INJ 450 MG in DEXTROSE 5% IN WATE(EXCEL) INJ 241 ML IV SCH ×4 (06:57→09:59)
[2017-01-29 07:13] LABS: BICARBONATE 30.5 MEQ/L (21.0-32.0); POTASSIUM 4.3 MEQ/L (3.5-5.1)
[2017-01-29] MEDS: predniSONE 50 MG TAB PO SCH (08:46)
[2017-01-29] MEDS: FAMOTIDINE 20 MG/2 ML VIAL IV PUSH SCH ×2 (08:46→21:22)
[2017-01-29] MEDS: FERROUS SULFATE 325 MG (65 MG ELEMENTAL IRON) TAB PO SCH (08:46)
[2017-01-29] MEDS: CYCLOBENZAPRINE HCL 10 MG TAB PO SCH ×3 (08:46→16:33)
[2017-01-29] MEDS: MULTIVITAMINS/MINERALS THERAPEUTIC TAB PO SCH (08:46)
[2017-01-29] MEDS: SODIUM CHLORIDE 0.9% FLUSH 10 ML FLUSH SCH ×2 (08:47→21:22)
[2017-01-29] MEDS: BUDESONIDE-FORMOTEROL 160/4.5 MCG INHALER INH SCH ×2 (08:47→21:24)
[2017-01-29] MEDS: ASPIRIN EC 81 MG TABEC PO SCH (08:47)
[2017-01-29] MEDS: TIOTROPIUM BROMIDE 18 MCG INH INH SCH (08:47)
[2017-01-29] MEDS: DOCUSATE SODIUM 50 MG/SENNA 8.6 MG TAB PO SCH ×2 (08:47→21:22)
[2017-01-29] MEDS: ASPIRIN 81 MG CHEW TAB CHEW SCH (08:47)
--- NOTE | 2017-01-29 08:48 | HHI.FF ---
Face to Face Verification Diagnosis: (1) Weakness (2) Dysphagia (3) Back pain (4) Physical debility Physical Therapy Order: Evaluate and Treat Occupational Therapy Order: Evaluate and Treat Speech Therapy Order: To Improve: Swallowing Home Health Nursing Order: Signs/symptoms of disease process Instructions: INR every 2 days I have seen patient Rosario Pitts on 01/29/17. My clinical findings support the need for the requested home health care services because: Ltd mobility - disease progression Patient has SOB Limited ability to care for self High risk of falls I certify that my clinical findings support that this patient is homebound because: Hx COPD- exertion dyspnea/weakness Unsteady gait/balance Unsafe to leave home unassisted Unable to use public transportation Donavon Webster MD Jan 29, 2017 08:48
[2017-01-29] MEDS: WARFARIN SOD 1 MG TAB PO SCH (16:00)
[2017-01-29] MEDS: RESP: ALBUTEROL 2.5 MG/IPRATROPIUM 0.5 MG NEB (PRN) INH (16:18)
--- NOTE | 2017-01-29 17:18 | HHI.PR ---
Subjective Remarks Follow-up on aspiration pneumonia Daughter says that the patient began coughing again last night and it is giving worse. She is now more open to the idea of a PEG tube and previously, and is willing to have a discussion with gastroenterology about his candidacy for PEG tube. States that the patient is afraid of out right abdominal surgery but may be more willing to tolerate a PEG tube procedure. Hemoglobin is holding stable this morning Objective Vital Signs Date Time Temp Pulse Resp B/P (MAP) Pulse Ox O2 Delivery O2 Flow Rate FiO2 01/29/17 16:00 81 01/29/17 16:00 97.9 81 16 156/95 (115) 96 01/29/17 15:00 80 01/29/17 14:00 82 01/29/17 13:00 102 01/29/17 12:00 97.9 64 18 140/75 (96) 93 01/29/17 12:00 76 01/29/17 11:00 76 01/29/17 10:00 80 01/29/17 09:00 90 01/29/17 08:00 69 01/29/17 08:00 97.9 69 18 157/68 (97) 95 01/29/17 07:00 66 01/29/17 06:00 70 01/29/17 05:00 74 01/29/17 04:00 70 01/29/17 04:00 98.1 70 18 131/59 (83) 96 01/29/17 03:00 74 01/29/17 02:00 70 01/29/17 01:00 76 01/29/17 00:00 72 01/29/17 00:00 98.4 72 18 136/65 (88) 97 01/28/17 23:00 78 01/28/17 22:00 75 01/28/17 21:00 78 01/28/17 20:13 Nasal Cannula 3.00 01/28/17 20:00 98.0 76 20 167/76 (106) 97 01/28/17 20:00 77 01/28/17 18:00 71 I/O 01/28/17 01/28/17 01/28/17 01/29/17 01/29/17 01/29/17 06:59 14:59 22:59 06:59 14:59 22:59 Intake Total 388 ml 150 ml 550 ml 180 ml Output Total 350 ml 400 ml 200 ml Balance 38 ml 150 ml 150 ml -20 ml Intake Oral 150 ml 50 ml 180 ml IV Total 388 ml 500 ml Output Urine Total 350 ml 400 ml 200 ml # Voids 1 # Bowel Movements 0 0 Result Diagram: 01/29/1751901/29/17519 Objective Remarks GENERAL: No acute distress, eating on his own, awake RESPIRATORY: Coarse breath sounds bilaterally, unlabored breathing, on nasal cannula Skin: Chronic bruising on right arm neuro: alert A/P Assessment and Plan Respiratory insufficiency 2/2 PNA + COPD - oral steroids, continue symbicort, o oral Levaquin, completed azithromycin 5 day course - home oxygen 3 NC Coughing- likely secondary to aspiration, consult GI for PEG tube placement candidacy Recently diagnosed stage III lung cancer Afib with RVR - on po amiodarone, stable rate now, continue lopressor and coumadin Coronary artery disease (hx of bypass) + HYL - aspirin and lipitor, lopressor Hyperglycemia - 2/2 steroids, continue monitor w/ fingersticks, dysphagia - unsure of etiology, can get MRI outpatient per daughter's request since they were not able to do it due to patient's limited neck range of motion. continue Puree diet per recommendation, on Pepcid for GI prophylaxis. Donavon Webster MD Jan 29, 2017 17:18
[2017-01-29] MEDS: TEMAZEPAM 15 MG CAP PO PRN (21:22)
[2017-01-29] MEDS: ATORVASTATIN 80 MG TAB PO SCH (21:22)
[2017-01-29] MEDS: AZITHROMYCIN INJ 500 MG in SODIUM CHLOR 0.9% 250 ML INJ 250 ML IV SCH (22:26)
[2017-01-30] VITALS (26 sets, daily range): BP systolic 123–166; BP diastolic 60–99; PULSE 68–109; RESP 16–20; TEMP 97.9–98.6; O2SAT 92–99
[2017-01-30] MEDS: INSULIN NovoLIN REGULAR SUPPLEMENTAL SCALE SQ SCH ×4 (04:00→22:00)
[2017-01-30] MEDS: CHLORHEXIDINE GLUCONATE 2 % 1 PACK (2 CLOTHS) TOP SCH (04:00)
[2017-01-30] MEDS: AMIODARONE 200 MG TAB PO SCH ×2 (04:25→15:11)
[2017-01-30] MEDS: AMIODARONE INJ 450 MG in DEXTROSE 5% IN WATE(EXCEL) INJ 241 ML IV SCH ×6 (06:47→23:25)
[2017-01-30 08:05] LABS: INTERNATIONAL NORMALIZED RATIO 1.4 RATIO; PROTHROMBIN TIME - PATIENT 16.1 SEC (9.8-11.6)
[2017-01-30] MEDS: TIOTROPIUM BROMIDE 18 MCG INH INH SCH (08:13)
[2017-01-30] MEDS: BUDESONIDE-FORMOTEROL 160/4.5 MCG INHALER INH SCH ×2 (08:13→19:47)
[2017-01-30] MEDS: FERROUS SULFATE 325 MG (65 MG ELEMENTAL IRON) TAB PO SCH (08:13)
[2017-01-30] MEDS: ASPIRIN EC 81 MG TABEC PO SCH (08:14)
[2017-01-30] MEDS: SODIUM CHLORIDE 0.9% FLUSH 10 ML FLUSH SCH ×2 (08:14→19:47)
[2017-01-30] MEDS: predniSONE 50 MG TAB PO SCH (08:14)
[2017-01-30] MEDS: ASPIRIN 81 MG CHEW TAB CHEW SCH (08:14)
[2017-01-30] MEDS: DOCUSATE SODIUM 50 MG/SENNA 8.6 MG TAB PO SCH ×2 (08:14→19:46)
[2017-01-30] MEDS: MULTIVITAMINS/MINERALS THERAPEUTIC TAB PO SCH (08:14)
[2017-01-30] MEDS: FAMOTIDINE 20 MG/2 ML VIAL IV PUSH SCH ×2 (08:14→19:47)
[2017-01-30] MEDS: CYCLOBENZAPRINE HCL 10 MG TAB PO SCH ×3 (08:15→15:16)
[2017-01-30] MEDS: RESP: ALBUTEROL 2.5 MG/IPRATROPIUM 0.5 MG NEB (PRN) INH ×2 (08:50→20:37)
--- NOTE | 2017-01-30 09:02 | PD.CONS ---
HPI History of Present Illness This is a 89 year old male who presented to the hospital with respiratory complaints, accompanied by fevers. PMH significant for COPD and right sided lung cancer. Patient is not a candidate for biopsy of cancer secondary to COPD. Patient is on supplemental oxygen. GI was consulted for possible PEG placement due to silent aspiration. He is on a Pureed diet and thickened liquids. Daughter reports patient does cough frequently while eating and has dysphagia. Modified Barium Swallow on 01/26/17 showed silent aspiration. PFSH Past Medical History Atrial fibrillation COPD 3L O2 dependent Anxiety Prostate cancer-controlled with hormone therapy Bladder cancer-in remission Lung mass-recent diagnosis stage III lung cancer Hypercholesterolemia CHF CAD Artifact hearing Chronic constipation Hiatal hernia Hypertension NH Past Surgical History Bilateral inguinal hernia repair CABG, with aortic valve replacement Left endarterectomy Tonsillectomy Prostatectomy? 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 MRSA PCR Screen NEGATIVE 08/16/16 & 08/17/16 *Cleared per Infection Control* Medications Current Medications Medications (Trade) Dose Ordered Sig/Teressa Route PRN Reason Start Time Stop Time Status Last Admin Dose Admin Atorvastatin Calcium (Lipitor) 80 mg HS PO 01/24/17 21:00 01/29/17 21:22 Cyclobenzaprine HCl (Flexeril) 5 mg TID PRN PO MUSCLE SPAMPS 01/24/17 00:30 Cyclobenzaprine HCl (Flexeril) 10 mg TID PO 01/24/17 09:00 01/29/17 08:46 Ferrous Sulfate (Ferrous Sulfate) 325 mg DAILY PO 01/24/17 09:00 01/30/17 08:13 Guaifenesin (Robitussin Liq) 100 mg Q8H PRN PO COUGH 01/24/17 00:30 Acetaminophen/ Hydrocodone Bitart ([place] 5-325 Mg) 1 tab Q6H PRN PO PAIN 1-5 01/24/17 00:30 Metoprolol Tartrate (Lopressor) 50 mg BID PO 01/24/17 09:00 Future Hold 01/24/17 22:00 Temazepam (Restoril) 30 mg HS PRN PO INSOMNIA 01/24/17 00:30 01/29/17 21:22 Multivitamins/ Minerals Therapeutic (Theragran M Tab) 1 tab DAILY PO 01/24/17 09:00 01/30/17 08:14 Sodium Chloride (NS Flush) 2 ml UNSCH PRN .XX FLUSH AFTER USING IV ACCESS 01/24/17 00:45 Sodium Chloride (NS Flush) 2 ml BID .XX 01/24/17 09:00 01/30/17 08:14 Acetaminophen (Tylenol) 650 mg Q6H PRN PO FEVER >101F 01/24/17 00:45 Ondansetron HCl (Zofran Inj) 4 mg Q6H PRN IV NAUSEA OR VOMITING 01/24/17 00:45 Albuterol/ Ipratropium (Duoneb Neb) 1 ampule Q2HR NEB PRN INH WHEEZING 01/24/17 00:45 01/29/17 16:18 Miscellaneous Information 1 Q361D XX 01/24/17 00:45 Chlorhexidine Gluconate (Chlorhexidine 2% Cloth) Taper DAILY@04 TOP 01/24/17 04:00 01/20/18 03:59 01/28/17 04:00 Chlorhexidine Gluconate (Chlorhexidine 2% Cloth) 3 pack UNSCH PRN TOP HYGIENIC CARE 01/24/17 00:45 Senna/Docusate Sodium (Marcie-Colace) 1 tab BID PO 01/24/17 09:00 01/30/17 08:14 Magnesium Hydroxide (Milk Of Magnesia Liq) 30 ml Q12H PRN PO MILD - MODERATE CONSTIPATION 01/24/17 00:45 Sennosides (Senokot) 17.2 mg Q12H PRN PO MODERATE - SEVERE CONSTIPATION 01/24/17 00:45 Bisacodyl (Dulcolax Supp) 10 mg DAILY PRN RECTAL SEVERE CONSITIPATION 01/24/17 00:45 Lactulose (Lactulose Liq) 30 ml DAILY PRN PO SEVERE CONSITIPATION 01/24/17 00:45 Pharmacy Profile Note 0 ml @ 0 mls/hr UNSCH OTHER 01/24/17 00:45 Azithromycin 500 mg/Sodium Chloride 250 ml @ 250 mls/hr Q24H IV 01/24/17 23:00 01/29/17 22:26 Miscellaneous (Pill Splitter) 1 ea UNSCH PRN OTHER SEE LABEL COMMENTS 01/24/17 00:45 Dextrose (D50w (Vial) Inj) 50 ml UNSCH PRN IV HYPOGLYCEMIA-SEE COMMENTS 01/24/17 08:45 Glucagon (Glucagon Inj) 1 mg UNSCH PRN OTHER HYPOGLYCEMIA-SEE COMMENTS 01/24/17 08:45 Insulin Human Regular (NovoLIN R SUPPLEMENTAL SCALE) 1 Q6H SQ 01/24/17 10:00 01/29/17 16:00 Famotidine (Pepcid Inj) 10 mg Q12HR IV PUSH 01/24/17 21:00 01/30/17 08:14 Amiodarone HCl 450 mg/Dextrose 250 ml @ 33 mls/hr Q7H35M IV 01/25/17 14:30 01/26/17 13:15 Phenylephrine HCl 40 mg/Dextrose 500 ml @ 30 mls/hr [id number] PRN IV Blood pressure management 01/25/17 14:15 01/25/17 14:52 Terbutaline Sulfate (Brethine Inj) 1 mg UNSCH PRN SQ For Extravasation 01/25/17 14:15 Aspirin (Ecotrin Ec) 81 mg DAILY PO 01/25/17 16:15 01/30/17 08:14 Tiotropium [place] (Spiriva Inh) 18 mcg DAILY INH 01/26/17 16:00 01/30/17 08:13 Budesonide/ Formoterol Fumarate (Symbicort 160-4.5 Inh) 1 puff Q12HR INH 01/26/17 21:00 01/30/17 08:13 Aspirin (Aspirin Chew) 81 mg DAILY CHEW 01/27/17 12:00 01/28/17 08:16 Amiodarone HCl (Cordarone) 400 mg Q12H PO 01/29/17 05:00 01/30/17 04:25 Levofloxacin (Levaquin) 750 mg Q48H PO 01/28/17 21:00 01/28/17 20:41 Prednisone (Deltasone) 50 mg DAILY PO 01/28/17 20:30 01/30/17 08:14 Warfarin Sodium (Coumadin) 1 mg DAILY@1600 PO 01/29/17 16:00 01/29/17 16:00 Family History Noncontributory Social History Tobacco, smoked for 16 years, quit at age 52 ETOH, denies Illicit Drugs, denies Review of Systems Constitutional: DENIES: Diaphoretic episodes, Fatigue, Fever, Weight gain, Weight loss, Chills, Dizziness, Change in appetite, Night Sweats Endocrine: DENIES: Polydipsia, Polyuria Eyes: DENIES: Blurred vision, Photosensitivity, Double Vision Ears, nose, mouth, throat: DENIES: Hearing loss, Vertigo, Oral lesions, Throat pain, Hoarseness Respiratory: COMPLAINS OF: Cough, Sputum production, Shortness of breath Cardiovascular: DENIES: Chest pain, Palpitations, Syncope, Lower Extremity Edema, Orthopnea, Claudication Gastrointestinal: COMPLAINS OF: Difficulty Swallowing, DENIES: Abdominal pain, Black stools, Bloody stools, Constipation, Diarrhea, Nausea, Vomiting, Anorexia , Odynophagia, Swelling of Abdomen, Heartburn, Hematemesis Genitourinary: DENIES: Urinary frequency, Urinary incontinence, Urgency, Hematuria, Dysuria, Nocturia Musculoskeletal: DENIES: Joint pain, Muscle aches, Stiffness, Joint Swelling, Back pain, Neck pain Integumentary: DENIES: Abnormal pigmentation, Nail changes, Pruritus, Rash, Jaundice Hematologic/lymphatic: DENIES: Bruising, Lymphadenopathy Immunologic/allergic: DENIES: Eczema, Urticaria Neurologic: DENIES: Abnormal gait, Headache, Localized weakness, Paresthesias Psychiatric: DENIES: Anxiety, Confusion, Mood changes, Depression, Agitation, Suicidal Ideation GI Exam Vitals I&O Vital Signs Date Time Temp Pulse Resp B/P (MAP) Pulse Ox O2 Delivery O2 Flow Rate FiO2 01/30/17 06:00 77 01/30/17 05:00 74 01/30/17 04:00 98.6 72 18 130/71 (90) 96 01/30/17 04:00 72 01/30/17 03:00 74 01/30/17 02:00 75 01/30/17 01:00 76 01/30/17 00:00 98.1 78 18 131/60 (83) 96 01/30/17 00:00 78 01/29/17 23:00 76 01/29/17 22:00 75 01/29/17 21:00 74 01/29/17 20:00 98.1 79 20 147/69 (95) 97 01/29/17 20:00 79 01/29/17 18:00 80 01/29/17 17:00 76 01/29/17 16:18 92 Nasal Cannula 3.00 01/29/17 16:00 81 01/29/17 16:00 97.9 81 16 156/95 (115) 96 01/29/17 15:00 80 01/29/17 14:00 82 01/29/17 13:00 102 01/29/17 12:00 97.9 64 18 140/75 (96) 93 01/29/17 12:00 76 01/29/17 11:00 76 01/29/17 10:00 80 01/29/17 09:00 90 I/O 01/29/17 01/29/17 01/29/17 01/30/17 01/30/17 01/30/17 06:59 14:59 22:59 06:59 14:59 22:59 Intake Total 550 ml 180 ml 300 ml Output Total 400 ml 200 ml 300 ml Balance 150 ml -20 ml 0 ml Intake Oral 50 ml 180 ml 50 ml IV Total 500 ml 250 ml Output Urine Total 400 ml 200 ml 300 ml # Voids 1 # Bowel Movements 0 0 0 Imaging Last Impressions Modified Barium Swallow 01/26/17 0000 Signed Impressions: Service Date/Time: Thursday, January 26, 2017 13:33 - CONCLUSION: Silent aspiration. Max Charles MD FACR Chest X-Ray 01/25/17 0600 Signed Impressions: Service Date/Time: Wednesday, January 25, 2017 03:24 - CONCLUSION: Stable examination with persistent opacity in the peripheral right midlung zone and at both lung bases. There are likely small bilateral pleural effusions. Cole Roberts MD Head CT 01/25/17 0000 Signed Impressions: Service Date/Time: Wednesday, January 25, 2017 23:02 - CONCLUSION: Stable noncontrast head CT. No acute finding is identified. Cole Roberts MD CT Angiography 01/23/17 0000 Signed Impressions: Service Date/Time: Tuesday, January 24, 2017 02:59 - CONCLUSION: 1. No PE is identified. There is respiratory motion artifact. 2. Severe emphysema with suspicious spiculated nodule measuring 19 mm in the right upper lobe. This is a suspicious for primary pulmonary neoplasm. There is also airspace consolidation both lower lobes with associated visual thickening on the right. 3. Trace bilateral pleural fluid. 4. Polypoid appearing lesion in the trachea measuring approximately 14 mm. Cole Roberts MD Laboratory Test 9/3/17 07:42 Prothrombin Time 16.1 SEC Prothromb Time International Ratio 1.4 RATIO Date/Time Source Procedure Growth Status 01/23/17 21:45 Blood Peripheral Aerobic Blood Culture - Final NO GROWTH IN 5 DAYS Complete 01/23/17 21:45 Blood Peripheral Anaerobic Blood Culture - Final NO GROWTH IN 5 DAYS Complete Physical Examination HEENT: PERRLA NECK: Neck is supple. CHEST: Coarse breath sounds. On nasal cannula. CARDIAC: RRR, no murmurs ABDOMEN: Soft, nondistended, nontender; no hepatosplenomegaly; bowel sounds present. EXTREMITIES: Bruising at bilateral arms. SKIN: No rash; no jaundice. CANCER GENETICS ASSISTANT: Alert and oriented x 3. Assessment and Plan Plan ASSESSMENT Aspiration and Dysphagia, Modified Barium Swallow 01/26/17--Silent aspiration. On pureed diet and thickened liquids. Patient with COPD, right side lung nodule, lung infiltrate, and pleural effusion. PLAN - Consider PEG placement, daughter is still thinking about this, if she agrees we can plan to place PEG on Tuesday - Diet per ST recommendations - Supportive care Patient seen and examined by Dr. Nesbitt and myself and this note is written on his behalf. Rasheeda Will Jan 30, 2017 09:02
--- NOTE | 2017-01-30 10:30 | RADRPT ---
EXAM DATE/TIME: 01/30/2017 10:13 [facility] COMPARISON: CHEST SINGLE AP, January 25, 2017, 3:24. INDICATIONS : Hempostysis MEDICAL HISTORY : Myocardial infarction. Carcinoma, prostate. Chronic obstructive SURGICAL HISTORY : CABG. ENCOUNTER: Subsequent ACUITY: 3 days PAIN SCORE: 0/10 LOCATION: chest FINDINGS: There is cardiomegaly, sternotomy wires and aortic calcification. Moderate left effusion and left low er lobe consolidation. Patchy right midlung and basilar airspace disease again seen. There is hyperin flation. CONCLUSION: No significant change has occurred. Daniele Best MD on January 30, 2017 at 10:28 Board Certified Radiologist. This report was verified electronically.
[2017-01-30] MEDS: WARFARIN SOD 1 MG TAB PO SCH (15:11)
[2017-01-30] MEDS ORDERED: GLYCERIN ADULT 2 GM SUPP RECTAL ONE (17:00)
--- NOTE | 2017-01-30 18:34 | HHI.PR ---
Subjective Remarks Follow-up on aspiration pneumonia Daughter tells me that the patient's arms are weeping and that he has worsening swelling in his legs and his groin. She states that this has been going on for the past few days. Nursing staff denies that this was ever told to them previously. Daughter also vocalizes concern that patient hasn't had a bowel movement since about 4 days and he goes about twice a week at home. Has already received here in Dulcolax suppository about 2 hours ago. Patient himself says he has some mild abdominal pain Objective Vital Signs Date Time Temp Pulse Resp B/P (MAP) Pulse Ox O2 Delivery O2 Flow Rate FiO2 01/30/17 18:00 90 01/30/17 17:00 90 01/30/17 16:00 98.4 104 16 162/99 (120) 94 01/30/17 16:00 109 01/30/17 15:00 100 01/30/17 14:00 88 01/30/17 13:00 86 01/30/17 12:00 81 01/30/17 12:00 98.3 83 16 166/75 (105) 96 01/30/17 11:00 88 01/30/17 10:00 82 01/30/17 09:00 82 01/30/17 08:52 94 Nasal Cannula 3.00 01/30/17 08:00 71 01/30/17 08:00 97.9 74 16 142/70 (94) 99 01/30/17 07:00 68 01/30/17 06:00 77 01/30/17 05:00 74 01/30/17 04:00 98.6 72 18 130/71 (90) 96 01/30/17 04:00 72 01/30/17 03:00 74 01/30/17 02:00 75 01/30/17 01:00 76 01/30/17 00:00 98.1 78 18 131/60 (83) 96 01/30/17 00:00 78 01/29/17 23:00 76 01/29/17 22:00 75 01/29/17 21:00 74 01/29/17 20:00 98.1 79 20 147/69 (95) 97 01/29/17 20:00 79 I/O 01/29/17 01/29/17 01/29/17 01/30/17 9/3/17 9/3/17 07:00 15:00 23:00 07:00 15:00 23:00 Intake Total 550 ml 180 ml 300 ml 420 ml Output Total 400 ml 200 ml 300 ml 400 ml Balance 150 ml -20 ml 0 ml 20 ml Intake Oral 50 ml 180 ml 50 ml 420 ml IV Total 500 ml 250 ml Output Urine Total 400 ml 200 ml 300 ml 400 ml # Voids 1 # Bowel Movements 0 0 0 0 Result Diagram: 01/29/1751901/29/17519 Objective Remarks GENERAL: No acute distress, eating on his own, awake, sitting in a chair RESPIRATORY: Coarse breath sounds bilaterally, unlabored breathing, on nasal cannula Skin: Mild dependent edema on bilateral arms and very mild edema noted in the thighs, scrotum seems to be slightly swollen which is very consistent with anasarca neuro: alert, awake A/P Assessment and Plan Respiratory insufficiency 2/2 PNA + COPD - oral steroids, continue symbicort, oral levaquin dosing q48 hrs - home oxygen 3 NC Anasarca - most likely due to dependent positioning since daughter does confirm that the patient is not as mobile here in the hospital as he is at home, giving one time IV dose of Lasix now Constipation - will start daily MiraLAX by mouth, adding on a when necessary fleets enema if no bowel movement by later tonight given he already had a suppository Coughing- likely secondary to aspiration, suctioning when necessary Recently diagnosed stage III lung cancer Afib with RVR - on po amiodarone, stable rate now, continue lopressor and coumadin, monitoring INR today which is 1.4 Coronary artery disease (hx of bypass) + HYL - aspirin and lipitor, lopressor Hyperglycemia - 2/2 steroids, continue monitor w/ fingersticks, dysphagia - unsure of etiology, can get MRI outpatient per daughter's request since they were not able to do it due to patient's limited neck range of motion. continue Puree diet per recommendation, on Pepcid for GI prophylaxis. I discussed case with gastroenterology as well, who relayed to me that the patient's daughter wants to attempt a by mouth diet without an alternative feeding tube at this time. Donavon Webster MD Jan 30, 2017 18:34
[2017-01-30] MEDS ORDERED: FUROSEMIDE 40 MG/4 ML VIAL IV PUSH ONE (18:45)
[2017-01-30] MEDS: POLYETHYLENE GLYCOL 17 GM PKG PO SCH (18:45)
[2017-01-30] MEDS: ATORVASTATIN 80 MG TAB PO SCH (19:46)
[2017-01-30] MEDS: LEVOFLOXACIN 750 MG TAB PO SCH (19:48)
[2017-01-30] MEDS: AZITHROMYCIN INJ 500 MG in SODIUM CHLOR 0.9% 250 ML INJ 250 ML IV SCH (23:50)
[2017-01-31] VITALS (14 sets, daily range): BP systolic 58–128; BP diastolic 29–69; PULSE 79–119; RESP 18–37; TEMP 97.8–100.6; O2SAT 79–94
[2017-01-31] MEDS ORDERED: SOD PHOSPHATE/SOD BIPHOSPHATE (ADULT) ENEMA 133ML RECTAL PRN (01:30)
[2017-01-31] MEDS ORDERED: ALBUMIN HUMAN 25% 12.5 GM/50 ML BAGP IV ONE (03:45)
[2017-01-31] MEDS: CHLORHEXIDINE GLUCONATE 2 % 1 PACK (2 CLOTHS) TOP SCH (03:57)
[2017-01-31] MEDS: INSULIN NovoLIN REGULAR SUPPLEMENTAL SCALE SQ SCH ×3 (03:57→16:00)
[2017-01-31] MEDS: AMIODARONE 200 MG TAB PO SCH ×2 (05:00→17:00)
[2017-01-31] MEDS ORDERED: EPINEPHrine HCL (1:10,000) 1 MG/10 ML SYRINGE ONE (05:30)
[2017-01-31] MEDS ORDERED: ATROPINE SULFATE 1 MG/10 ML SYRINGE ONE (05:30)
[2017-01-31] MEDS ORDERED: PHENYLEPHRINE HCL 10 MG/ML VIAL ONE (06:10)
--- NOTE | 2017-01-31 06:18 | HHI.PR ---
Addendum to Inpatient Note Addendum Reason: Additional Documentation Additional Information Discussed with nurse at 2100 about a decrease in saturation to the low 80s, patient was placed on a simple mask then advanced to a partial non rebreather. He seemed to be comfortable once the non rebreather was applied. Lasix IV was given an hour prior and chest xray did not show any new changes. At 3:30 patient was unable to void and HR increased to 120s, suspected pain from not voiding, Lundberg was placed, albumin ordered for third spacing edema, and orders to call back if no improvement were given. At 5:00am patient remained tachycardia and now hypotension, patient examined and found to be oriented, he states he is always short of breath and does not feel it is any worse, he still remains on a partial non rebreather. At this time it was felt patient should be transferred to the ICU for closer monitoring and evaluation by the labor standards director for hypotension. Stat bmp, cbc, and bnp were ordered. I discussed the case with Dr. Boswell who will resume care of the patient. Cassi Heath Jan 31, 2017 06:18
[2017-01-31] MEDS ORDERED: PHENYLEPHRINE INJ 40 MG in DEXTROSE 5% IN WATE 500 ML INJ 496 ML IV PRN ×2 (06:30)
[2017-01-31] MEDS ORDERED: SODIUM CHLOR 0.9% 250 ML INJ 250 ML IV ONE (06:30)
[2017-01-31] MEDS ORDERED: TERBUTALINE INJ 1 MG/ML AMP SQ PRN ×2 (06:30→09:00)
[2017-01-31] MEDS ORDERED: DEXT 5%-NACL 0.45% 1000 ML INJ 1,000 ML IV SCH (06:45)
[2017-01-31] MEDS ORDERED: PIPERACIL-TAZO 4.5 GM PREMIX 100 ML IV SCH (07:00)
[2017-01-31] MEDS ORDERED: ALBUMIN HUMAN 25% 25 GM/100 ML BAGP IV ONE (08:00)
[2017-01-31] MEDS ORDERED: SODIUM CHLOR 0.9% 1000 ML INJ 1,000 ML IV ONE (08:00)
[2017-01-31] MEDS ORDERED: PHENYLEPHRINE 40 MG in D5W 500 ML IV PRN (08:00)
[2017-01-31] MEDS ORDERED: MORPHINE SULFATE 4 MG/ML INJ ONE (08:03)
--- NOTE | 2017-01-31 08:06 | HHI.CCPN ---
Subjective Remarks/Hospital Course 89-year-old male presents with complaints of respiratory complaints as well as fever. Per patient's daughter who is at the bedside and is providing a history , she is also patient's caregiver the patient has been feeling more shortness of breath today and has been more confused today. Patient has a history of COPD and right sided lung cancer which is not amenable for biopsy secondary to his bad COPD. Patient uses oxygen at home but with oxygen his oxygenation cannot be improved. He denies any pain of any kind. Per family he was admitted to [facility] for an infection on his lungs and was there for 6 weeks. Patient has been okay since discharge except for being diagnosed with cancer on the right side. He's only had 2 bouts of radiation and his been missing many treatments because of the hospitalization. Patient seems comfortable on the facemask BiPAP.. 01/25 Patient in on 4L oxygen went into Afib with RVR. Afebrile. 01/26: Lying on bed, on NC completed MBS. Cleared for Puree diet with thickened liquids. Remains on Amio gtt. we'll start by mouth amiodarone 200 mg daily, and DC IV amiodarone. Troponin trending down 01/31: CCM reconsulted today. Patient was moved to the ICU for severe shortness of breath and hypotension systolic blood pressure in 60s. Patient had been already placed on BiPAP at the time of my evaluation. He is also on 40 mcg/m Jony-Synephrine, with systolic blood pressure still in 60s. Received 250 mL normal saline bolus. On my evaluation patient is tachypneic on BiPAP 15 over 5 , lethargic and encephalopathy. I ordered increasing Jony-Synephrine to 200 mcg/ m, and additional normal saline 1 L bolus and 25 g IV albumin. I will also start patient on Solu-Medrol Yrn 60 every 8 hours and Zosyn to cover for healthcare associated aspiration pneumonia. Will also place femoral central due to severe tachypnea, flexed, stiff neck . (Patient had previous multiple right IJ and subclavian central line attempts- unclear when and by whom). Chest x- ray lab work ABG pending at this time Objective Vital Signs Date Time Temp Pulse Resp B/P (MAP) Pulse Ox O2 Delivery O2 Flow Rate FiO2 01/31/17 06:44 115 55/34 01/31/17 06:43 Bi-Pap 100 01/31/17 06:31 100.6 36 94 01/31/17 05:50 15.00 Intake and Output 01/31/17 01/31/17 02/01/17 08:00 16:00 00:00 Intake Total 50 ml Output Total 200 ml Balance -150 ml Result Diagram: 01/29/17 0520 01/29/17 0520 Imaging Last [address] 01/23/172138 Signed Impressions: Service Date/Time: Tuesday, January 24, 2017 02:53 - CONCLUSION: Stable noncontrast head CT. No acute finding is identified. Cole Roberts MD Chest X-Ray 01/23/172138 Signed Impressions: Service Date/Time: Monday, January 23, 2017 21:51 - CONCLUSION: 1. Bibasilar patchiness consistent with atelectasis and/or pneumonia. Clinical correlation is recommended. 2. Small left pleural effusion. 3. Mild cardiomegaly. Adarsh Carter MD Objective Remarks GENERAL: Patient is 89 yo lying in bed in severe respiratory distress on BiPAP SKIN: Warm and dry. HEAD: Normocephalic. EYES: No scleral icterus. No injection or drainage. ENT: Neck is stiff and flexed, trachea midline. No JVD or lymphadenopathy. ( Multiple puncture harden from previous IJ and subclavian on the right side) CARDIOVASCULAR: Tachycardic and in profound shock. Systolic blood pressure in 70s on 40 mcg/m of Jony-Synephrine RESPIRATORY: Breath sounds equal bilaterally.Coarse BS, with scattered rhonchi and wheezes GASTROINTESTINAL: Abdomen distended. Mild tenderness. Abdominal wall edema MUSCULOSKELETAL: No cyanosis, Anasarca. Neuro: Somnolent and lethargic. Unable to wake up to command. no withdrawal to pain A/P Assessment and Plan Assessment: Septic shock Acute hypoxemic respiratory failure Acute encephalopathy HCAP/aspiration Acute COPD exacerbation Atrial fibrillation NSTEMI/Demand ischemia Recently diagnosed stage III lung cancer Coronary artery disease COPD on 3 L of O2 via an nasal cannula at home Hx Hypertension Hyperlipidemia History of prostate cancer Plan: Neuro: - Monitor neuro status and avoid sedatives - When necessary morphine for pain and anxiety Pulm: - BiPAP 15 over 5-titrated to keep respiratory rate less than 30, oxygen saturation more than 90% - DuoNeb q4 hours scheduled and q2 hr prn. Solumedrol 80mg IV Q8 - Continue Symbicort, Spiriva. - Dr. Diaz following - Add Zosyn for healthcare associated pneumonia continue Levaquin CV: - Currently in sinus tachycardia. Continue with by mouth amiodarone - On Jony-Synephrine 200 mcg/m for septic shock - Avoid Levophed due to sinus tachycardia - Normal saline 1.2 L bolus and maintenance at 75 ml per hour - Dr. Lamar following. Continue ASA, Lipitor and Metoprolol, coumadin : - Monitor renal function, I/O's, electrolytes replacement as needed. - IVF as above - Patient is intravascularly volume depleted GI: - Nothing by mouth except meds - s/p MBS, and was recommended Puree diet - On Pepcid for GI prophylaxis ID: - Send blood urine and sputum culture - Start Zosyn 4.5 g IV every 6 hours, continue Levaquin. - All previous cultures had been negative Heme: - Monitor CBC, coags- on coumadin Endo: - SSI for glycemic control GI/DVT prophylaxis - on Pepcid and Coumadin- INR 1.4 today- will request pharmacy to dose R femoral central line placement 01/31/17. (patient has stiff flexed neck and is tachypneic on BiPAP making upper body central line difficult. Also there is evidence of numerous attempts at right IJ and right subclavian central line-it is unclear to me when exactly and who did these attempts) CCT 90 min excluding procedures Patient is currently critically ill with profound septic shock, encephalopathy and acute hypoxemic respiratory failure. It is quite unlikely that patient will survive this hospitalization. I discussed with the daughter who requests continued aggressive care except intubation. I explained to her high likelihood of mortality. Palliative care is following Denny Galvan MD Jan 31, 2017 08:06
[2017-01-31] MEDS ORDERED: MORPHINE SULFATE 4 MG/ML INJ IV PUSH ONE (08:15)
--- NOTE | 2017-01-31 08:40 | RADRPT ---
EXAM DATE/TIME: 01/31/2017 07:42 [facility] COMPARISON: CHEST SINGLE AP, January 30, 2017, 10:13. INDICATIONS : Short of breath. MEDICAL HISTORY : Congestive heart failure. Chronic obstructive pulmonary disease. Cardiovascular SURGICAL HISTORY : CABG. ENCOUNTER: Subsequent ACUITY: 1 week PAIN SCORE: 0/10 LOCATION: Bilateral chest FINDINGS: Small left effusion, left lower lobe consolidation. Sternotomy wires and cardiomegaly again noted. Th ere is scarring in the right midlung with improved aeration since previous study. CONCLUSION: Improved aeration on the right otherwise stable appearance of the chest. Daniele Best MD on January 31, 2017 at 8:38 Board Certified Radiologist. This report was verified electronically.
[2017-01-31] MEDS ORDERED: NOREPINEPHRINE-DEXTROSE DRIP 250 ML IV ONE (08:48)
--- NOTE | 2017-01-31 08:50 | PD.PROCEDR ---
Central Line Procedure REASON FOR PROCEDURE Central venous access PROCEDURE PERFORMED Central line placement: R femoral central line US guided CONSENT Informed consent for procedure was obtained and time out performed. The risks and benefits of the procedure were discussed to include but limited to bleeding , clot formation, infection, and even . ANESTHESIA Local injection of 1% Lidocaine DESCRIPTION OF THE PROCEDURE The patient was placed in supine, mild Trendelenburg position. The area was exposed and cleansed with ChloraPrep, times two. Large sterile drape was used to cover the patient, with the site exposed, under sterile conditions including cap, face mask, sterile gown, and sterile gloves. On single attempt, the introducer needle was inserted with negative pressure in syringe and venous flash was obtained. The guide wire was then advanced without any restriction and the needle was removed. The dilator was used without any complications. Using Seldinger technique the 20 CM 7 F triple lumen catheter was advanced over the guide wire to a depth of 18 centimeters. The guide wire was removed. All ports were aspirated with dark venous blood return and flushed easily with sterile saline. All ports were capped. Antibiotic disc was placed around central line at puncture site. The central line was secured to the skin with two interrupted 2.0 silk sutures. The area was bandaged with sterile see- through central line bandage. RADIOLOGICAL DATA Ultrasound guidance was used to locate R femoral vein. Doppler/color flow was used to confirm venous flow. COMPLICATIONS: No apparent complications ESTIMATED BLOOD LOSS: Less than 1 cc. Denny Galvan MD Jan 31, 2017 08:50
[2017-01-31] MEDS: DOCUSATE SODIUM 50 MG/SENNA 8.6 MG TAB PO SCH (09:00)
[2017-01-31] MEDS: PIPERACIL-TAZO 4.5 GM PREMIX 100 ML IV SCH ×2 (09:00→16:08)
[2017-01-31] MEDS: FERROUS SULFATE 325 MG (65 MG ELEMENTAL IRON) TAB PO SCH (09:00)
[2017-01-31] MEDS: BUDESONIDE-FORMOTEROL 160/4.5 MCG INHALER INH SCH (09:00)
[2017-01-31] MEDS ORDERED: NOREPINEPHRINE INJ 4 MG in SODIUM CHLOR 0.9% 250 ML INJ 246 ML IV PRN (09:00)
[2017-01-31] MEDS: POLYETHYLENE GLYCOL 17 GM PKG PO SCH (09:00)
[2017-01-31] MEDS: TIOTROPIUM BROMIDE 18 MCG INH INH SCH (09:00)
[2017-01-31] MEDS ORDERED: SODIUM CHLOR 0.9% 1000 ML INJ 1,000 ML IV SCH (09:00)
[2017-01-31] MEDS: ASPIRIN 81 MG CHEW TAB CHEW SCH (09:00)
[2017-01-31] MEDS: MULTIVITAMINS/MINERALS THERAPEUTIC TAB PO SCH (09:00)
--- NOTE | 2017-01-31 09:29 | HHI.GIFU ---
Subjective Remarks Patient was moved to ICU this morning for severe shortness of breath and hypotension. Patient currently on BiPAP and Jony-Synephrine. Continues to have low blood pressure (50-60s/30s). Patient is lethargic. Objective Vitals I&O Vital Signs Date Time Temp Pulse Resp B/P (MAP) Pulse Ox O2 Delivery O2 Flow Rate FiO2 01/31/17 06:44 115 55/34 01/31/17 06:43 Bi-Pap 100 01/31/17 06:31 100.6 117 36 62/36 (45) 94 01/31/17 06:00 115 36 58/35 (43) 01/31/17 06:00 Non-Rebreather 01/31/17 05:50 79 Non-Rebreather 15.00 100 01/31/17 04:00 93 Non-Rebreather 01/31/17 04:00 119 01/31/17 03:20 98.1 119 18 83/42 (56) 94 01/31/17 03:00 114 01/31/17 03:00 92 Non-Rebreather 01/31/17 02:00 85 Simple Mask 01/31/17 02:00 113 01/31/17 01:00 94 Non-Rebreather 01/31/17 01:00 112 01/31/17 00:00 108 01/31/17 00:00 98.4 108 18 128/69 (88) 93 01/30/17 23:00 81 01/30/17 23:00 94 Non-Rebreather 01/30/17 22:20 92 Non-Rebreather 01/30/17 22:15 84 Partial Non-Rebreather 01/30/17 22:00 74 01/30/17 22:00 95 Non-Rebreather 01/30/17 21:30 92 Non-Rebreather 01/30/17 21:15 90 Non-Rebreather 01/30/17 21:10 84 Partial Non-Rebreather 01/30/17 21:04 92 Non-Rebreather 100 01/30/17 21:00 80 Simple Mask 6.00 01/30/17 21:00 79 01/30/17 20:00 Nasal Cannula 3.00 01/30/17 20:00 98.1 85 20 123/62 (82) 92 01/30/17 20:00 85 01/30/17 18:00 90 01/30/17 17:00 90 01/30/17 16:00 98.4 104 16 162/99 (120) 94 01/30/17 16:00 109 01/30/17 15:00 100 01/30/17 14:00 88 01/30/17 13:00 86 01/30/17 12:00 81 01/30/17 12:00 98.3 83 16 166/75 (105) 96 01/30/17 11:00 88 01/30/17 10:00 82 I/O 01/30/17 01/30/17 01/30/17 01/31/17 01/31/17 01/31/17 07:00 15:00 23:00 07:00 15:00 23:00 Intake Total 300 ml 420 ml 50 ml Output Total 300 ml 400 ml 200 ml Balance 0 ml 20 ml -150 ml Intake Oral 50 ml 420 ml 50 ml IV Total 250 ml Output Urine Total 300 ml 400 ml 200 ml # Bowel Movements 0 0 0 Laboratory Date/Time Source Procedure Growth Status 01/23/17 21:45 Blood Peripheral Aerobic Blood Culture - Final NO GROWTH IN 5 DAYS Complete 01/23/17 21:45 Blood Peripheral Anaerobic Blood Culture - Final NO GROWTH IN 5 DAYS Complete Imaging Last Impressions Chest X-Ray 01/31/17 0000 Signed Impressions: Service Date/Time: Tuesday, January 31, 2017 07:42 - CONCLUSION: Improved aeration on the right otherwise stable appearance of the chest. Daniele Best MD Modified Barium Swallow 01/26/17 0000 Signed Impressions: Service Date/Time: Thursday, January 26, 2017 13:33 - CONCLUSION: Silent aspiration. Max Charles MD FACR Head CT 01/25/17 0000 Signed Impressions: Service Date/Time: Wednesday, January 25, 2017 23:02 - CONCLUSION: Stable noncontrast head CT. No acute finding is identified. Cole Roberts MD CT Angiography 01/23/17 0000 Signed Impressions: Service Date/Time: Tuesday, January 24, 2017 02:59 - CONCLUSION: 1. No PE is identified. There is respiratory motion artifact. 2. Severe emphysema with suspicious spiculated nodule measuring 19 mm in the right upper lobe. This is a suspicious for primary pulmonary neoplasm. There is also airspace consolidation both lower lobes with associated visual thickening on the right. 3. Trace bilateral pleural fluid. 4. Polypoid appearing lesion in the trachea measuring approximately 14 mm. Cole Roberts MD Physical Exam HEENT: Normocephalic. NECK: Neck is stiff. CHEST: Coarse breath sounds. Has scattered rhonchi and wheezes. CARDIAC: Tachycardic. On Jony-Synephrine. ABDOMEN: Distended with guarding. EXTREMITIES: No cyanosis. SKIN: No rash; no jaundice. [employer]: Lethargic Assessment and Plan Plan ASSESSMENT Aspiration and Dysphagia, Modified Barium Swallow 01/26/17--Silent aspiration. On pureed diet and thickened liquids. Patient with COPD, right side lung nodule, lung infiltrate, and pleural effusion. 01/31/17--Transferred to ICU for severe respiratory distress this morning. Patient currently is on BiPAP and Jony-Synephrine with continued low blood pressures (50-60s/30s). Patient is lethargic. PLAN - Daughter spoke with Dr. Nesbitt on 01/30/17 and had decided to have patient go home on pureed diet at discharge and if patient was doing poorly, losing weight or unable to eat for any reason or if he develops a new infection we will place PEG tube - Patient is unstable at this time, we will await his progress and consider PEG tube placement if needed - Diet per ST recommendations - Supportive care - Further recommendations to follow based on results of above Patient seen and examined by Dr. Nesbitt and myself and this note is written on his behalf. Rasheeda Will Jan 31, 2017 09:29
[2017-01-31] MEDS: methylPREDNISolone SOD SUCC 125 MG/2 ML VIAL IV PUSH SCH ×2 (10:15→16:08)
--- NOTE | 2017-01-31 10:29 | HHI.HCPN ---
Reason for visit a. To assist with evaluation and management of symptoms including: dyspnea, weakness/debility, anxiety b. To assist medical decision maker(s) with: better understanding of current medical conditions; weighing benefits/burdens of medical treatment options; making medical treatment decisions. Subjective/Interval History call received from nurse prior to arrival to unit-reports clinical deterioration , requests palliative follow up. Arrived to unit shortly after. Pt stable over the weekend on NC. GI was consulted RE possible PEG, per documentation daughter indicated they would continue trial of oral diet and monitor did not wish to proceed with PEG. Some increase in peripheral edema over the weekend serous drainage reported from upper extremities. CXR obtained earlier today stable, small left lower lobe effusion, consolidation. Slight improvement in aeration to the right. Patient reported with worsening respiratory status early this morning-around 6 AM with O2 desaturation, tachycardia, hypotension. Now on Levophed, Jony-Synephrine. Also requiring BiPAP 100% FiO2, maximum pressure support. Critical care and nursing spoke at length with daughter who then elected DNR status. Palliative care requested to follow-up with daughter regarding goals of treatment, treatment options/comfort options going forward. Arrived to unit patient seen in room primary nurse at bedside. Lethargic, no apparent distress on BiPAP. Unable to verbalize due to BiPAP. He does intermittently follow simple commands and nods intermittently to some yes/no questions. Difficult to determine orientation and how much he understands. He does not appear to be in any pain seems to weakly nod no pain. Mottling present from thighs down to distal extremities. Unable to palpate pedal pulse, nursing reports obtained via Doppler. Upper extremities with significant edema , draining serous fluid, extensive ecchymosis, erythema visible. Left upper extremity wrapped with gauze dressings. Lungs with decreased air movement, coarse breath sounds. I attempted to speak with daughter, she is in hallway tearful, on her cell phone I waited approximately 5-10 minutes--she indicates she is calling multiple family members and will have nursing notify me later when she is available to talk further. Left my contact number with primary nurse to be notified when daughter available to meet. later in the afternoon notified daughter present for follow up meeting. 1600 met w daughter just after Dr Galvan discussed pt condition w her. Pt cont to deterioate, now on max doses levophed, jony. BPs 90s systolic. Non responsive, pupils now dilated non reactive. O2 sats 80's on Bipap. Met w daughter and her son at bedside. She is appropriately tearful. Review option to discontinue artificial measures such as bipap, pressors at this time, and transition to comfort measures for EOL, review that even if bipap, pressors continued pt expected to . She affirms DNR status but does not want to discontinue any measures at this time. She verbalizes understanding that pt expected to pass from this. She shares that her brother is enroute from out of state and she has to continue everything to provide a possibility that pt might survive until her brother gets here. Supportive listening provided. .. Advance Directives Living Will: Never completed Health Care Surrogate: Copy in medical record Advance Directive Specifics Date completed: 01/25/17 Health Care Surrogate(s): named daughter Cecily Perez Objective Vital Signs Date Time Temp Pulse Resp B/P (MAP) Pulse Ox O2 Delivery O2 Flow Rate FiO2 01/31/17 06:44 115 55/34 01/31/17 06:43 Bi-Pap 100 01/31/17 06:31 100.6 117 36 62/36 (45) 94 01/31/17 06:00 115 36 58/35 (43) 01/31/17 06:00 Non-Rebreather 01/31/17 05:50 79 Non-Rebreather 15.00 100 01/31/17 04:00 93 Non-Rebreather 01/31/17 04:00 119 01/31/17 03:20 98.1 119 18 83/42 (56) 94 01/31/17 03:00 114 01/31/17 03:00 92 Non-Rebreather 01/31/17 02:00 85 Simple Mask 01/31/17 02:00 113 01/31/17 01:00 94 Non-Rebreather 01/31/17 01:00 112 01/31/17 00:00 108 01/31/17 00:00 98.4 108 18 128/69 (88) 93 01/30/17 23:00 81 01/30/17 23:00 94 Non-Rebreather 01/30/17 22:20 92 Non-Rebreather 01/30/17 22:15 84 Partial Non-Rebreather 01/30/17 22:00 74 01/30/17 22:00 95 Non-Rebreather 01/30/17 21:30 92 Non-Rebreather 01/30/17 21:15 90 Non-Rebreather 01/30/17 21:10 84 Partial Non-Rebreather 01/30/17 21:04 92 Non-Rebreather 100 01/30/17 21:00 80 Simple Mask 6.00 01/30/17 21:00 79 01/30/17 20:00 Nasal Cannula 3.00 01/30/17 20:00 98.1 85 20 123/62 (82) 92 01/30/17 20:00 85 01/30/17 18:00 90 01/30/17 17:00 90 01/30/17 16:00 98.4 104 16 162/99 (120) 94 01/30/17 16:00 109 01/30/17 15:00 100 01/30/17 14:00 88 01/30/17 13:00 86 01/30/17 12:00 81 01/30/17 12:00 98.3 83 16 166/75 (105) 96 01/30/17 11:00 88 Intake & Output 01/31/17 01/31/17 07:00 19:00 Intake Total 50 ml Output Total 200 ml Balance -150 ml Intake Oral 50 ml Output Urine Total 200 ml # Bowel Movements 0 Physical Exam CONSTITUTIONAL/GENERAL: This is a well nourished, elderly male , critically ill , supine on BiPAP machine TUBES/LINES/DRAINS: Right femoral central line, valenzuela catheter, BiPAP SKIN: No jaundice, rashes, or lesions. Gauze dressing left arm. Significant edema bilateral upper extremities, with erythema, ecchymosis, drainage. Feet are cool, no palpable pedal pulse. CARDIOVASCULAR: regular rate and rhythm. No JVD. Peripheral pulses symmetric. 3 + weeping edema BUE. Feet are cool/mottled legs no palpable pulse, nursing reports Doppler pulse RESPIRATORY/CHEST: Symmetric, unlabored respirations, on NC. some faint scattered rhonchi, decreased air movement. Breath sounds equal bilaterally. GASTROINTESTINAL: Abdomen soft, non-tender, nondistended. No palpable masses.Bowel sounds hypo GENITOURINARY: Without palpable bladder distension. Valenzuela catheter in place. MUSCULOSKELETAL: Extremities without clubbing, cyanosis. + 3+ edema upper extremities. Mottling from thighs to feet. NEUROLOGICAL: Lethargic. Difficult to assess orientation due to BiPAP. 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 PSYCHIATRIC: No obvious anxiety/depression--limited assessment due to clinical condition. . Diagnostic Tests Laboratory Laboratory Tests Test 01/29/17 05:20 01/30/17 07:42 White Blood Count 6.9 TH/MM3 (4.0-11.0) Red Blood Count 3.05 MIL/MM3 (4.50-5.90) Hemoglobin 9.0 GM/DL (13.0-17.0) Hematocrit 28.3 % (39.0-51.0) Mean Corpuscular Volume 92.9 FL (80.0-100.0) Mean Corpuscular Hemoglobin 29.5 PG (27.0-34.0) Mean Corpuscular Hemoglobin Concent 31.7 % (32.0-36.0) Red Cell Distribution Width 16.0 % (11.6-17.2) Platelet Count 143 TH/MM3 (150-450) Mean Platelet Volume 7.5 FL (7.0-11.0) Neutrophils (%) (Auto) 91.6 % (16.0-70.0) Lymphocytes (%) (Auto) 2.7 % (9.0-44.0) Monocytes (%) (Auto) 5.6 % (0.0-8.0) Eosinophils (%) (Auto) 0.0 % (0.0-4.0) Basophils (%) (Auto) 0.1 % (0.0-2.0) Neutrophils # (Auto) 6.4 TH/MM3 (1.8-7.7) Lymphocytes # (Auto) 0.2 TH/MM3 (1.0-4.8) Monocytes # (Auto) 0.4 TH/MM3 (0-0.9) Eosinophils # (Auto) 0.0 TH/MM3 (0-0.4) Basophils # (Auto) 0.0 TH/MM3 (0-0.2) CBC Comment DIFF FINAL Differential Comment Prothrombin Time 26.3 SEC (9.8-11.6) 16.1 SEC (9.8-11.6) Prothromb Time International Ratio 2.3 RATIO 1.4 RATIO Blood Urea Nitrogen 34 MG/DL (7-18) Creatinine 1.17 MG/DL (0.60-1.30) Random Glucose 111 MG/DL (74-106) Calcium Level 7.9 MG/DL (8.5-10.1) Sodium Level 143 MEQ/L (136-145) Potassium Level 4.3 MEQ/L (3.5-5.1) Chloride Level 106 MEQ/L (98-107) Carbon Dioxide Level 30.5 MEQ/L (21.0-32.0) Anion Gap 7 MEQ/L (5-15) Estimat Glomerular Filtration Rate 59 ML/MIN (>89) Result Diagram: 01/29/1751901/29/17519 Microbiology Microbiology Date/Time Source Procedure Growth Status 01/23/17 21:45 Blood Peripheral Aerobic Blood Culture - Final NO GROWTH IN 5 DAYS Complete 01/23/17 21:45 Blood Peripheral Anaerobic Blood Culture - Final NO GROWTH IN 5 DAYS Complete Imaging Last Impressions Chest X-Ray 01/31/17 0000 Signed Impressions: Service Date/Time: Tuesday, January 31, 2017 07:42 - CONCLUSION: Improved aeration on the right otherwise stable appearance of the chest. Daniele Best MD Modified Barium Swallow 01/26/17 0000 Signed Impressions: Service Date/Time: Thursday, January 26, 2017 13:33 - CONCLUSION: Silent aspiration. Max Charles MD FACR Head CT 01/25/17 0000 Signed Impressions: Service Date/Time: Wednesday, January 25, 2017 23:02 - CONCLUSION: Stable noncontrast head CT. No acute finding is identified. Cole Roberts MD CT Angiography 01/23/17 0000 Signed Impressions: Service Date/Time: Tuesday, January 24, 2017 02:59 - CONCLUSION: 1. No PE is identified. There is respiratory motion artifact. 2. Severe emphysema with suspicious spiculated nodule measuring 19 mm in the right upper lobe. This is a suspicious for primary pulmonary neoplasm. There is also airspace consolidation both lower lobes with associated visual thickening on the right. 3. Trace bilateral pleural fluid. 4. Polypoid appearing lesion in the trachea measuring approximately 14 mm. Cole Roberts MD Assessment and Plan Disease Oriented Problem List: (1) Atrial fibrillation with RVR (2) CAP (community acquired pneumonia) (3) Hypertension (4) Lung mass (5) COPD (chronic obstructive pulmonary disease) (6) CAD (coronary artery disease) Symptom Scale: (1) Anxiety (2) Dysphagia (3) Dyspnea (4) Weakness Pertinent Non-Medical Issues Psychosocial:. 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 Has 2 adult children, 1 dtr local, son lives out of state, not in close communication w pt. Per prior H&P One son is secondary to a motorcycle accident. Spiritual:[place] Legal:Pt capacity may fluctuate 2/2 infection, oxygenation status. Best supported in shared decision making by [facility] (daughter) Ethical issues impacting care: Important Contacts Cecily Perez daughter [phone] . Prognosis PT was admitted for her, shortness of breath. Has known history of COPD, fairly right-sided lung cancer. Recent prolonged hospitalization for pulmonary infection. Now requiring BiPAP. High risk for continued respiratory decline and possible need for intubation. Code Status: Alternative Code (compression, ACLS drugs, shock) Plan * Legal decision maker:Pt capacity may fluctuate 2/2 infection, oxygenation status. Best supported in shared decision making by [facility] (daughter) * Goals: Daughter elected DNR earlier today after much discussion w nursing, critical care. She wishes to continue available measures short of CPR, does NOT wish to remove bipap or transition to comfort focus. * CODE STATUS: DNR * SYMPTOMS: --dyspnea- worsening SOB over few days before admission. Long hx COPD, o2 dependent for several years. frequent pneumonia this year. +new lung cancer this year, unable to bx. REquiring bipap PRN this admission. high risk for worsened resp status despite ongoing tx. on zosyn, azithromycin-- last CXR stable, though O2 sats decreased, requiring BIpap. Dtr elected DNR this am. --weakness/debility- pt of advanced age, ongoing SOB, which limits activity. Several hospitalizations the year, general deconditioning. Would benefit from aggressive PT if resp status would tolerate, if goals aggressive --anxiety- r/t dyspnea, underlying COPD. prev. cautious use of benzos given age, lethargy and AMS.would be approp for comfort measures if goals compatible --Dysphagia- status post [place] therapy evaluation With clinical signs of aspiration, s/p barium swallow evaluation--> + silent aspiration, tolerates pudding thick. May still have silent aspiration. May not be able to meet caloric /nutritional needs on restrictive diet. Patient may require temporary or long- term feeding tube to meet nutritional requirements, though even with that would still be at risk for aspiration. If PO intake fluctuates on pudding thick diet- daughter has indicated does NOT want to proceed w PEG. Pt now NPO due to condition changes. -- constipation- no bm despite mult prns used. Now EOL. * Palliative care will continue to follow during hospital course as condition evolves, to assist patient/decision-maker with understanding of medical conditions, weighing benefits/burdens of treatment options, for clarification of goals of treatment. Additionally will assist with any symptoms of palliative concern Time Spent Total Floor Time (mins): 40 >50% Counseling/Coord of Care: Yes (d/w critical care, nursing several times ) Attestation To help prompt me to consider important information that might be impacting today's encounter and assessment, information from prior notes written by myself or my colleagues may have been "brought forward" into today's note. My signature on this note, however, is an attestation that I personally performed the exam, history, and/or decision-making noted today, and, unless otherwise indicated, the interactions with patient, family, and staff as well as the review of records all occurred today. I also attest that the listed assessment and stated plan reflect my best clinical judgment today based on the combination of historical information, prior notes, and today's exam/ interactions. When time spent is documented, it refers only to time spent today by the signer, or if indicated, combined time spent today by collaborating physician/nurse practitioner. Negin Cummings Jan 31, 2017 10:29
[2017-01-31 10:57] LABS: ALKALINE PHOSPHATASE 123 U/L (45-117); ALT (GPT) 345 U/L (12-78); ANION GAP 8 MEQ/L (5-15); AST (GOT) 373 U/L (15-37); BLOOD UREA NITROGEN 47 MG/DL (7-18); CHLORIDE 102 MEQ/L (98-107); GLOMERULAR FILTRATION RATE 30 ML/MIN (>89); POTASSIUM 4.7 MEQ/L (3.5-5.1); SODIUM (NA) 140 MEQ/L (136-145); TOTAL BILIRUBIN ADULT 0.7 MG/DL (0.2-1.0)
[2017-01-31] MEDS: SODIUM CHLORIDE 0.9% FLUSH 10 ML FLUSH SCH (11:15)
[2017-01-31 11:16] LABS: HEMATOCRIT 26.1 % (39.0-51.0); HEMO FLAGS AUTO DIFF; MEAN CELL VOLUME 94.3 FL (80.0-100.0); MEAN CORPUSCULAR HEMOGLOBIN 29.9 PG (27.0-34.0); MEAN CORPUSCULAR HGB CONC 31.7 % (32.0-36.0); PLATELET COUNT 119 TH/MM3 (150-450); RED BLOOD COUNT 2.77 MIL/MM3 (4.50-5.90); RED CELL DISTRIBUTION WIDTH 16.3 % (11.6-17.2); WHITE BLOOD COUNT 5.2 TH/MM3 (4.0-11.0)
[2017-01-31 11:22] LABS: INTERNATIONAL NORMALIZED RATIO 1.6 RATIO; PROTHROMBIN TIME - PATIENT 17.7 SEC (9.8-11.6)
[2017-01-31] MEDS: FAMOTIDINE 20 MG/2 ML VIAL IV PUSH SCH (11:22)
[2017-01-31 11:30] LABS: BLOOD GAS BASE EXCESS 1.4 mmol/L (-2-2); BLOOD GAS CARBOXYHEMOGLOBIN 1.3 % (0-4); BLOOD GAS HCO3 29 mmol/L (22-26); BLOOD GAS METHEMOGLOBIN 1.3 % (0-2); BLOOD GAS O2 HGB SATURATION 89 % (90-100); BLOOD GAS OXYGEN CONTENT 10.1 Vol % (12.0-20.0); BLOOD GAS PCO2 81 mmHg (38-42); BLOOD GAS PO2 70 mmHg (61-120); TEMP CORR TO 98.6
[2017-01-31 11:31] LABS: CRITICAL VALUE YES; OXYGEN DEVICE BIPAP
[2017-01-31 11:32] LABS: DRAW SITE LT FEMORAL; FIO2 100 %; NUMBER OF ARTERIAL PUNCTURES 2; STAT NO; VENT SETTINGS EPAP5/IPAP15/PS10
[2017-01-31 11:54] LABS: BANDS 26 % (0-6); NEUTROPHIL # MANUAL DIFF 4.7 TH/MM3 (1.8-7.7); POLYS (SEG NEUTROPHILS) 64 % (16-70); WBC DIFF SAMPLE 100
[2017-01-31 11:55] LABS: KERATOCYTES OCC (NORMAL); OVALOCYTES 2+ (NORMAL); PLATELET ESTIMATE SMEAR LOW (NORMAL); PLATELET MORPHOLOGY NORMAL (NORMAL); SCAN/DIFF FINAL DIFF MANUAL
[2017-01-31] MEDS ORDERED: RESP: ALBUTEROL 2.5 MG/IPRATROPIUM 0.5 MG NEB (SCH) NEB (12:00)
[2017-01-31] MEDS: AMIODARONE INJ 450 MG in DEXTROSE 5% IN WATE(EXCEL) INJ 241 ML IV SCH ×2 (14:35)
[2017-01-31] MEDS: WARFARIN SOD 1 MG TAB PO SCH (16:00)
--- NOTE | 2017-01-31 17:12 | HHI.PR ---
Subjective Remarks 89 YOWM with Resp insuf,COPD Has worsening of condition Tr to[facility]ICU On BIPAP Max dose of pressors Daughter at BS Objective Vital Signs Vital Signs Date Time Temp Pulse Resp B/P (MAP) Pulse Ox O2 Delivery O2 Flow Rate FiO2 01/31/17 14:35 84 110/41 01/31/17 14:27 85 111/45 01/31/17 12:00 100 01/31/17 12:00 98.2 95 24 114/46 (68) 94 01/31/17 11:00 89 100 01/31/17 10:21 31 01/31/17 08:48 100 116/52 01/31/17 08:00 98.0 100 37 116/52 (73) 93 01/31/17 08:00 115 01/31/17 07:00 93 Bi-Pap 100 01/31/17 06:44 115 55/34 01/31/17 06:43 Bi-Pap 100 01/31/17 06:31 100.6 117 36 62/36 (45) 94 01/31/17 06:00 115 36 58/35 (43) 01/31/17 06:00 Non-Rebreather 01/31/17 05:50 79 Non-Rebreather 15.00 100 01/31/17 04:00 93 Non-Rebreather 01/31/17 04:00 119 01/31/17 03:20 98.1 119 18 83/42 (56) 94 01/31/17 03:00 114 01/31/17 03:00 92 Non-Rebreather 01/31/17 02:00 85 Simple Mask 01/31/17 02:00 113 01/31/17 01:00 94 Non-Rebreather 01/31/17 01:00 112 01/31/17 00:00 108 01/31/17 00:00 98.4 108 18 128/69 (88) 93 01/30/17 23:00 81 01/30/17 23:00 94 Non-Rebreather 01/30/17 22:20 92 Non-Rebreather 01/30/17 22:15 84 Partial Non-Rebreather 01/30/17 22:00 74 01/30/17 22:00 95 Non-Rebreather 01/30/17 21:30 92 Non-Rebreather 01/30/17 21:15 90 Non-Rebreather 01/30/17 21:10 84 Partial Non-Rebreather 01/30/17 21:04 92 Non-Rebreather 100 01/30/17 21:00 80 Simple Mask 6.00 01/30/17 21:00 79 01/30/17 20:00 Nasal Cannula 3.00 01/30/17 20:00 98.1 85 20 123/62 (82) 92 01/30/17 20:00 85 01/30/17 18:00 90 I/O 01/30/17 01/30/17 01/30/17 01/31/17 01/31/17 01/31/17 07:00 15:00 23:00 07:00 15:00 23:00 Intake Total 300 ml 420 ml 50 ml Output Total 300 ml 400 ml 200 ml Balance 0 ml 20 ml -150 ml Intake Oral 50 ml 420 ml 50 ml IV Total 250 ml Output Urine Total 300 ml 400 ml 200 ml # Bowel Movements 0 0 0 Result Diagram: 01/31/17 1035 01/31/17 0940 Objective Remarks GENERAL: Frail elderly maleOn BIPAP, poorly responsive SKIN: Warm and dry. HEAD: Normocephalic. EYES: No scleral icterus. No injection or drainage. NECK: Supple, trachea midline. No JVD or lymphadenopathy. CARDIOVASCULAR: Regular rate and rhythm without murmurs, gallops, or rubs. RESPIRATORY: Breath sounds equal bilaterally. No accessory muscle use. GASTROINTESTINAL: Abdomen soft, non-tender, nondistended. MUSCULOSKELETAL: No cyanosis, or edema. BACK: Nontender without obvious deformity. No CVA tenderness. A/P Assessment and Plan Resp Failure Septic Shock Aspiration AF, rate controlled COPD Lung nodule H/O ca lung Lung infilterate Pleural effusion. PLAN: Cont BIPAP Pressors to keep MAP>65 Cont Abx Dw Daughter at BS Pt DNR Prognosis poor Jcarlos Diaz MD Jan 31, 2017 17:12
[2017-01-31] MEDS ORDERED: ALBUMIN HUMAN 25% 25 GM/100 ML BAGP IV SCH (18:00)
--- NOTE | 2017-01-31 20:00 | EKG ---
Date Performed: 01/31/2017 Time Performed: 06:28:30 PTAGE: 89 years EKG: Sinus tachycardia. Possible anteroseptal infarct - age undetermined Lateral ST-T changes ma y be due to myocardial ischemia Abnormal ECG PREVIOUS TRACING : 01/25/2017 12.28 DOCTOR: Fernando Forte Interpretating Date/Time 01/31/2017 19:58:05
--- NOTE | 2017-02-01 06:29 | DEATH SUM ---
Summary Demographics Date Pronounced : Jan 31, 2017 Time Of : 1812 Pronounced By: Allison Rowley RN and Mary Hooker RN Preliminary Cause of : Cardiac arrest Denny Galvan MD Feb 01, 2017 06:28
--- NOTE | 2017-02-01 06:31 | HHI.DS ---
Summary Note Date of : Jan 31, 2017 Time Of : 1812 Admission Date Jan 23, 2017 at 23:30 Admitting Diagnosis severe sepsis/pneumonia/BiPAP/GI bleed Diagnosis at Time of : (1) Acute hypoxemic and hypercarbic respiratory failure Diagnosis: Principal (2) Septic shock ICD Code: A41.9 - Sepsis, unspecified organism; R65.21 - Severe sepsis with septic shock Diagnosis: Principal (3) HCAP (healthcare-associated pneumonia) ICD Code: J18.9 - Pneumonia, unspecified organism Diagnosis: Principal (4) Lactic acidosis ICD Code: E87.2 - Acidosis Diagnosis: Principal (5) Aspiration pneumonia ICD Code: J69.0 - Pneumonitis due to inhalation of food and vomit Diagnosis: Principal (6) Metabolic encephalopathy ICD Code: G93.41 - Metabolic encephalopathy Diagnosis: Principal (7) COPD exacerbation ICD Code: J44.1 - Chronic obstructive pulmonary disease with (acute) exacerbation Diagnosis: Principal (8) Atrial fibrillation ICD Code: I48.91 - Unspecified atrial fibrillation Diagnosis: Secondary (9) CAD (coronary artery disease) ICD Code: I25.10 - Atherosclerotic heart disease of [place] coronary artery without angina pectoris Diagnosis: Secondary (10) S/P AVR (aortic valve replacement) ICD Code: Z95.2 - Presence of prosthetic heart valve Diagnosis: Secondary (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 Per patient's daughter who is at the bedside and is providing a history , she is also patient's caregiver the patient has been feeling more shortness of breath today and has been more confused today. Patient has a history of COPD and right sided lung cancer which is not amenable for biopsy secondary to his bad COPD. Patient uses oxygen at home but with oxygen his oxygenation cannot be improved. He denies any pain of any kind. Per family he was admitted to [facility] for an infection on his lungs and was there for 6 weeks. Patient has been okay since discharge except for being diagnosed with cancer on the right side. He's only had 2 bouts of radiation and his been missing many treatments because of the hospitalization. Patient seems comfortable on the facemask BiPAP.. CBC/BMP: 01/31/17 1035 01/31/17 0940 Significant Findings Laboratory Tests Test 01/30/17 07:42 01/31/17 09:40 01/31/17 10:35 01/31/17 11:12 Prothrombin Time 16.1 SEC (9.8-11.6) 17.7 SEC (9.8-11.6) Blood Urea Nitrogen 47 MG/DL (7-18) Creatinine 2.09 MG/DL (0.60-1.30) Random Glucose 112 MG/DL (74-106) Total Protein 4.9 GM/DL (6.4-8.2) Albumin 2.8 GM/DL (3.4-5.0) Calcium Level 8.0 MG/DL (8.5-10.1) Alkaline Phosphatase 123 U/L (45-117) Aspartate Amino Transf (AST/SGOT) 373 U/L (15-37) Alanine Aminotransferase (ALT/SGPT) 345 U/L (12-78) Estimat Glomerular Filtration Rate 30 ML/MIN (>89) Lactic Acid Level 4.0 mmol/L (0.4-2.0) Troponin I 0.31 NG/ML (0.02-0.05) Red Blood Count 2.77 MIL/MM3 (4.50-5.90) Hemoglobin 8.3 GM/DL (13.0-17.0) Hematocrit 26.1 % (39.0-51.0) Mean Corpuscular Hemoglobin Concent 31.7 % (32.0-36.0) Platelet Count 119 TH/MM3 (150-450) Band Neutrophils % 26 % (0-6) Lymphocytes % 8 % (9-44) Platelet Estimate LOW (NORMAL) Basophilic Stippling FAINT (NORMAL) Ovalocytes 2+ (NORMAL) B-Type Natriuretic Peptide 264 PG/ML (0-100) Blood Gas HCO3 29 mmol/L (22-26) Blood Gas Oxygen Saturation 89 % (90-100) Arterial Blood pH 7.18 (7.380-7.420) Arterial Blood Partial Pressure CO2 81 mmHg (38-42) Arterial Blood Oxygen Content 10.1 Vol % (12.0-20.0) Blood Gas Hemoglobin 8.0 G/DL (12.0-16.0) Imaging Last [address] 01/23/172138 Signed Impressions: Service Date/Time: Tuesday, January 24, 2017 02:53 - CONCLUSION: Stable noncontrast head CT. No acute finding is identified. Cole Roberts MD Chest X-Ray 01/23/172138 Signed Impressions: Service Date/Time: Monday, January 23, 2017 21:51 - CONCLUSION: 1. Bibasilar patchiness consistent with atelectasis and/or pneumonia. Clinical correlation is recommended. 2. Small left pleural effusion. 3. Mild cardiomegaly. Adarsh Carter MD Hospital Course 89-year-old male presents with complaints of respiratory complaints as well as fever and confusion. Patient has a history of COPD and right sided lung cancer which is not amenable for biopsy secondary to his bad COPD. Per family he was admitted to [facility] for an infection on his lungs and was there for 6 weeks. Patient has been okay since discharge except for being diagnosed with cancer on the right side. He's only had 2 bouts of radiation and his been missing many treatments because of the hospitalization. He was admitted to ICU and treated for sepsis, pneumonia and COPD exacerbation. 01/25 Patient in on 4L oxygen went into Afib with RVR. Afebrile. 01/26: Lying on bed, on NC completed MBS. Cleared for Puree diet with thickened liquids. Remains on Amio gtt. we'll start by mouth amiodarone 200 mg daily, and DC IV amiodarone. Troponin trending down. [facility] was consulted and patient was transferred out of ICU 01/31: [facility] reconsulted today. Patient was moved to the ICU for severe shortness of breath and hypotension systolic blood pressure in 60s. Patient had been already placed on BiPAP at the time of my evaluation. He is also on 40 mcg/m Jony-Synephrine, with systolic blood pressure still in 60s. Received 250 mL normal saline bolus. On my evaluation patient is tachypneic on BiPAP 15 over 5 , lethargic and encephalopathy. I ordered increasing Jony-Synephrine to 200 mcg/ m, and additional normal saline 1 L bolus and 25 g IV albumin. Also started patient on Solu-Medrol 60 every 8 hours and Zosyn to cover for healthcare associated aspiration pneumonia, Levaquin to be continued. Right femoral central line was placed due to severe tachypnea, flexed, stiff neck . (Patient had previous multiple right IJ and subclavian central line attempts- unclear when and by whom). Chest x-ray showed persistent left lower lobe infiltrate and effusion. ABG showed severe hypercapnic and hypoxemic respiratory failure. Despite on maximal pressor support and BiPAP patient continued to deteriorate. He was placed on maximum dose of Jony-Synephrine 300 mcg/min, Levophed was also added and rapidly maxed out to 12 mcg/m. Patient became increasingly encephalopathy unresponsive. Family requested full DNR. He eventually became bradycardic followed by asystole and at 1813 on 01/31/17. Family was at the bedside Denny Galvan MD Feb 01, 2017 06:31
--- NOTE | 2017-02-01 14:00 | EKG ---
Date Performed: 01/31/2017 Time Performed: 12:24:18 PTAGE: 89 years EKG: Sinus rhythm Left axis deviation Anteroseptal infarct - age undetermined Left ventricular hypertrophy Lateral ST- T changes may be due to hypertrophy and/or ischemia Abnormal ECG PREVIOUS TRACING : 01/31/2017 06.28 Anteroseptal infarct - age undetermined, but largely unchan ged from prior tracing. DOCTOR: Cristino Waller Interpretating Date/Time 02/01/2017 13:59:16
--- NOTE | 2017-02-27 09:26 | PQ ---
Physician Query Response Document PATIENT: BARBARA COLLIER : 1925 ADMIT DATE: 01/23/2017 11:30 PM DISCH DATE: 01/31/2017 6:13 PM RESPONDING PROVIDER #: [email or web address] QUERY TEXT: Conflicting Documentation Clarification Documentation of multiple diagnoses for the same clinical presentation appears in the record. Please clarify the SPECIFICITY OF PNEUMONIA IF KNOWN 1) COMMUNITY AQUIRED PNEUMONIA 2) HEALTHCARE ASSOCIATED PNEUMONIA 3) ASPIRATION PNEUMONIA 4) OTHER, PLEASE EXPLAIN PLEASE ALSO INDICATE IF PRESENT ON ADMISSION The patient's Clinical Indicators include: PER H Respiratory failure Community-acquired pneumonia PER PROGRESS NOTE 01/26/17: Assessment and Plan HCAP PER ONC PROGRESS NOTE 01/27/17: 2. Pneumonia. He presented with fever and shortness of breath. CT showed bilateral lower lobe consolidation. There is a possibility he has aspiration pneumonia. 01/26/17 BARRIUM SWALLOW CONCLUDED SILENT ASPIRATION Query created by: Jailyn Patterson on 01/27/2017 4:14 PM RESPONSE TEXT: The patient was concluded to have aspiration pneumonia. Electronically signed by: Donavon Webster 02/27/2017 9:22 AM
== END 2017-01-31 18:13 | disposition expired | DRG 189 ==
LOC: NEPC 21:29 → NEDH 23:30 → HIME 01-24 03:10 → HCIS 01-28 12:45 → HCVR 01-31 05:36
PROVIDERS: ADMIT Internal Medicine; ATTEND Internal Medicine
PROC: 5A09357 Assistance with Respiratory Ventilation, Less than 24 Consecutive Hours, Continuous Positive Airway Pressure (ICD-10-PCS; principal; 2017-01-23)
PROC: 5A09457 Assistance with Respiratory Ventilation, 24-96 Consecutive Hours, Continuous Positive Airway Pressure (ICD-10-PCS; 2017-01-30)
PROC: 06HY33Z Insertion of Infusion Device into Lower Vein, Percutaneous Approach (ICD-10-PCS; 2017-01-31)
PROC: B54BZZA Ultrasonography of Right Lower Extremity Veins, Guidance (ICD-10-PCS; 2017-01-31)
PROC: 0T9B70Z Drainage of Bladder with Drainage Device, Via Natural or Artificial Opening (ICD-10-PCS; 2017-01-31)
DX: J96.01 Acute respiratory failure with hypoxia (principal); I21.4 Non-ST elevation (NSTEMI) myocardial infarction; J69.0 Pneumonitis due to inhalation of food and vomit; R65.21 Severe sepsis with septic shock; G93.41 Metabolic encephalopathy; A41.9 Sepsis, unspecified organism; J18.9 Pneumonia, unspecified organism; E87.2 Acidosis; I11.0 Hypertensive heart disease with heart failure; I50.32 Chronic diastolic (congestive) heart failure; J90 Pleural effusion, not elsewhere classified; C34.11 Malignant neoplasm of upper lobe, right bronchus or lung; J44.1 Chronic obstructive pulmonary disease with (acute) exacerbation; I48.92 Unspecified atrial flutter; I47.1 Supraventricular tachycardia; R13.10 Dysphagia, unspecified; I48.0 Paroxysmal atrial fibrillation; I25.10 Atherosclerotic heart disease of native coronary artery without angina pectoris; E78.5 Hyperlipidemia, unspecified; H91.90 Unspecified hearing loss, unspecified ear; K59.09 Other constipation; I25.2 Old myocardial infarction; D64.9 Anemia, unspecified; E78.00 Pure hypercholesterolemia, unspecified; H35.30 Unspecified macular degeneration; I87.2 Venous insufficiency (chronic) (peripheral); I48.2 Chronic atrial fibrillation; R73.9 Hyperglycemia, unspecified; T38.0X5A Adverse effect of glucocorticoids and synthetic analogues, initial encounter; K59.00 Constipation, unspecified; E86.9 Volume depletion, unspecified; J96.02 Acute respiratory failure with hypercapnia; F41.9 Anxiety disorder, unspecified; Y95 Nosocomial condition; Z66 Do not resuscitate; Z79.01 Long term (current) use of anticoagulants; Z85.46 Personal history of malignant neoplasm of prostate; Z85.51 Personal history of malignant neoplasm of bladder; Z86.14 Personal history of Methicillin resistant Staphylococcus aureus infection; Z87.891 Personal history of nicotine dependence; Z92.3 Personal history of irradiation; Z95.1 Presence of aortocoronary bypass graft; Z95.3 Presence of xenogenic heart valve; Z95.5 Presence of coronary angioplasty implant and graft; Z99.81 Dependence on supplemental oxygen
CPT/HCPCS: 36556; 36600; 70450; 71010; 71275; 74230; 76937; 80048; 80053; 81001; 82550; 82805; 82948; 83605; 83690; 83735; 83880; 84100; 84443; 84484; 85007; 85025; 85027; 85610; 85730; 86403; 86850; 86900; 86901; 87040; 87205; 87641; 93005; 93306; 94002; 94003; 94640; 94664; 96365; C1769; C9113; J0171; J0282; J0456; J0461; J0692; J1940; J2270; J2370; J2405; J2543; J2920; J2930; J7030; J7040; J7050; J7060; J7512; P9047; Q9967